=== PATIENT | female | born 1970 | race Caucasian/White ===

== ENCOUNTER 2023-02-02 07:17 | Outpatient (RCR) | payer OTHER, SELFPAY ==
[2023-01-23 09:43] LABS: Basophils Percent Auto 0.5 % (0.2-2.0); Eosinophils Absolute Auto 0.3 10^3/uL (0.0-0.7); Eosinophils Percent Auto 3.6 % (0.9-7.0); Hematocrit 39.5 % (36.0-48.0); Hemoglobin 12.5 g/dL (12.0-16.0); Immature Granulocytes Abs Auto 0.02 10^3/uL (0.00-0.03); Immature Granulocytes Pct Auto 0.3 % (0.0-0.5); Lymphocytes Absolute Auto 2.4 10^3/uL (1.2-3.8); Lymphocytes Percent Auto 32.4 % (20.5-60.0); Mean Corpuscular HGB Conc 31.6 g/dL (29.9-35.2); Mean Corpuscular Hemoglobin 22.9 pg (26.7-34.0); Mean Corpuscular Volume 72.5 fL (81.0-99.0); Mean Platelet Volume 9.3 fL (9.5-13.5); Monocytes Absolute Auto 0.4 10^3/uL (0.3-0.8); Monocytes Percent Auto 4.7 % (1.7-12.0); Neutrophils Absolute Auto 4.4 10^3/uL (1.4-6.5); Neutrophils Percent Auto 58.5 % (43.0-75.0); Platelet Count 271 10^3/uL (150-450); Red Blood Count 5.45 10^6/uL (4.20-5.40); Red Cell Distribution Width 17.2 % (11.0-15.0); White Blood Count 7.5 10^3/uL (4.0-11.0)
[2023-01-23 10:33] LABS: Percent Iron Saturation 11.4 %
[2023-01-24 14:08] LABS: Hgb A 97.6 % (96.4-98.8); Hgb A2 2.4 % (1.8-3.2)
[2023-02-02 08:55] VITALS: BP 156/81; PULSE 97; RESP 18; TEMP 36.3; O2SAT 97
[2023-02-02] MEDS: 0.9 % SODIUM CHLORIDE 250 ML 10 ML IV (09:11)
[2023-02-02] MEDS: ACETAMINOPHEN 500 MG TABLET 1000 MG PO (09:20)
[2023-02-02] MEDS: diphenhydrAMINE HCL 25 MG in 0.9 % SODIUM CHLORIDE 100 ML 301.5 MG IV (09:21)
[2023-02-02] MEDS: HYDROCORTISONE SODIUM SUCC/PF 100 MG in 0.9 % SODIUM CHLORIDE 100 ML 306 MG IV (09:23)
--- NOTE | 2023-02-02 09:52 | PC.NURSE ---
Patient is here for infed infusion, she denies any complaints today. She was given her Tylenol PO, Benadryl IVPB, Solu-Cortef IVPB. She denies any concerns or complaints. Denies any pain, redness, at her IV site.
[2023-02-02] MEDS: IRON DEXTRAN COMPLEX 100 MG/2 ML VIAL 25 MG IVP (10:14)
--- NOTE | 2023-02-02 10:41 | PC.NURSE ---
1015 Infed test dose of 25mg given.. 1042 patient denies any complaints and is resting comfortably.
[2023-02-02] MEDS: IRON DEXTRAN COMPLEX IV (11:14)
[2023-02-02] MEDS: SODIUM CHLORIDE 0.9% IV (11:14)
--- NOTE | 2023-02-02 11:15 | PC.NURSE ---
11:14 Pt completed test dose without any signs or symptoms of reaction. Pt started the remainder of Infed of 875mg and is tolerating well. We will continue to monitor.
--- NOTE | 2023-02-02 14:09 | PC.NURSE ---
Patient has completed Infed infusion and tolerated this well. She denies any issues or concerns. Her IV was discontinued without any pain, redness at the site. She was discharged home ambulatory.
== END 2023-02-02 14:09 | disposition home or self-care (01) ==
LOC: INF 07:17
PROVIDERS: PCP Family Medicine; Visit Provider Internal Medicine Hematology & Oncology
DX: E55.9 Vitamin D deficiency, unspecified (principal); D64.9 Anemia, unspecified; D50.9 Iron deficiency anemia, unspecified; K90.9 Intestinal malabsorption, unspecified; Z98.84 Bariatric surgery status; D50.8 Other iron deficiency anemias
CPT/HCPCS: 36415; 82728; 83540; 83550; 85025; 96365; 96366; 96374; G0463; J1720; J1750

== ENCOUNTER 2023-03-12 16:25 | Outpatient (OUT) | payer BC, SELFPAY ==
--- OUTSIDE RECORDS SUMMARY | 2023-03-12 16:30 | XMS_ITS | CCD ---
Author Name Unknown Address [address] [facility] [address] [place] [id number] Organization [facility] Care Team Providers Care Children'S Tutor Name Role Phone ALEK SHERWOOD Attending Unavailabl e NADERER, ALEK MURRAY Primary Care Unavailabl e TRACY, CUCO Admitting Unavailable TRACY, CUCO Attending Unavailable NADERER, DR ALEK Nolasco Primary Care Unavailable TRACY, CUCO Consulting Unavailable NADERER, DR ALEK Nolasco Admitting Unavailable NADERER, DR ALEK Nolasco Attending Unavailable NADERER, DR ALEK Nolasco Primary Care Unavailable NADERER, DR ALEK Nolasco Consulting Unavailable NADERER, DR ALEK Nolasco Admitting Unavailable NADERER, DR ALEK Nolasco Attending Unavailable NADERER, DR ALEK Nolasco Primary Care Unavailable NADERER, DR ALEK Nolasco Primary Care Unavailable MARKER ., DR MEJIA Admitting Unavailable MARKER ., DR MEJIA Attending Unavailable MARKER ., DR MEJIA Consulting Unavailable GRAY DALTON Consulting Unavailable DELIA, VÍCTOR Thomas Consulting Unavailable Allergies Allergy Classification Reported Allergen(s) Allergy Type Date of Onset Reaction(s) Facility (1 source) Latex Drug allergy (disorder) 07-06-2012 The [facility] Repository Problems Active Problems Problem Classification Problem Date Documented Da te Episodic/Chronic Abdominal pain (4 sources) Epigastric pain; Translations: [EPIGASTRIC PAIN] Onset: 05-18-2022 Episodic Diabetes mellitus without complication (1 source) Type 2 diabetes mellitus without complications; Translations: [TYPE 2 DM WITHOUT COMPLICATIONS] Onset: 05-22-2022 Chronic Essential hypertension (1 source) Essential (primary) hypertension; Translations: [ESSENTIAL PRIMARY HYPERTENSION] Onset: 05-22-2022 Chronic Nutritional deficiencies (1 source) Vitamin D deficiency, unspecified; Translations: [VITAMIN D DEFICIENCY UNSPECIFIED] Onset: 05-30-2022 Chronic Other gastrointestinal disorders (1 source) Bariatric surgery status; Translations: [BARIATRIC SURGERY STATUS] Onset: 05-22-2022 Episodic Pancreatic disorders (not diabetes) (1 source) Biliary acute pancreatitis without necrosis or infection; Translations: [BILIARY ACUTE PANCREATIT WO NEC/INF] Onset: 05-22-2022 Episodic Screening and history of mental health and substance abuse codes (1 source) Personal history of nicotine dependence; Translations: [PERSONAL HISTORY OF NICOTINE DEPEND] Onset: 05-22-2022 Episodic Unclassified (3 sources) CONTACT W/AND (SUSP) EXPOS COVID-19; Translations: [CONTACT W/AND (SUSP) EXPOS COVID-19] Onset: 04-07-2022 Viral infection (1 source) COVID-19; Translations: [COVID-19] Onset: 04-07-2022 Past or Other Problems Problem Classification Problem Date Documented Da te Episodic/Chronic Unclassified (1 source) CONTACT W/AND (SUSP) EXPOS COVID-19; Translations: [CONTACT W/AND (SUSP) EXPOS COVID-19] Onset: 04-03-2022 Results Test Name Value Interpretation Reference Range Facility CBC AUTO DIFFon 05-24-2022 BASO # 0.0 103/ul Normal 0.0-0.1 [facility] Comment on above: Performed By: #### C BC ####[facility] [address] [place], [place] [address]Dr. Yandy Saunders Basophils/100 WBC (Bld) 0.6 % Normal 0.2-2.0 [facility] Comment on above: Performed By: #### C BC ####[facility] [address] [place] [address]Dr. Yandy Saunders EO # 0.1 103/ul Normal 0.0-0.7 [facility] Comment on above: Performed By: #### C BC ####[facility] [address] [place], [place] [address]Dr. Yandy Saunders Eosinophils/100 WBC (Bld) 1.9 % Normal 0.9-7.0 [facility] Comment on above: Performed By: #### C BC ####[facility] M[address] [place], [place] [address]Dr. Yandy Saunders Erythrocyte distribution width (RBC) [Ratio] 18.7 % Critically high 11.0-15.0 [facility] Comment on above: Performed By: #### C BC ####[facility] [address] [place] [address]Dr. Yandy Saunders Hematocrit (Bld) [Volume fraction] 38.7 % Normal 36.0-48.0 [facility] Comment on above: Performed By: #### C BC ####[facility] [address] [place] [address]Dr. Yandy Saunders Hemoglobin (Bld) [Mass/Vol] 12.3 g/dL Normal 12.0-16.0 [facility] Comment on above: Performed By: #### C BC ####[facility] [address] [place], [place] [address]Dr. Yandy Chip IG # 0.03 10e3/ul Normal 0.00-0.03 [facility] Comment on above: Performed By: #### C BC ####[facility] [address] [place], [place] [address]Dr. Yandy Saunders IG % 0.4 % Normal 0.0-0.5 [facility] Comment on above: Performed By: #### C BC ####[facility] [address] [place], [place] [address]DrFredi Yandy Chip LYMPH # 2.2 103/ul Normal 1.2-3.8 [facility] Comment on above: Performed By: #### C BC ####[facility] [address] [place], [place] [address]DrFredi Madinakaylan Saunders Lymphocytes/100 WBC (Bld) 30.8 % Normal 20.5-60.0 [facility] Comment on above: Performed By: #### C BC ####[facility] [address] [place], [place] [address]DrFredi Madinakaylan Saunders MANUAL DIFF REQ NO Normal [facility] Comment on above: Performed By: #### C BC ####[facility] [address] [place] [address]DrFredi Saunders MCH (RBC) [Entitic mass] 22.4 pg Critically low 26.7-34.0 [facility] Comment on above: Performed By: #### C BC ####[facility] [address] [place] [id number]. Yandy Chip MCHC (RBC) [Mass/Vol] 31.8 g/dL Normal 29.9-35.2 [facility] Comment on above: Performed By: #### C BC ####[facility] [address] [place] [id number]. Yandy Saunders MCV (RBC) [Entitic vol] 70.5 fL Critically low 81.0-99.0 [facility] Comment on above: Performed By: #### C BC ####[facility] [address] [place], [place] [address]Dr. Yandy Saunders MONO # 0.4 103/ul Normal 0.3-0.8 [facility] Comment on above: Performed By: #### C BC ####[facility] [address] [place], [place] [address]Dr. Yandy Saunders Monocytes/100 WBC (Bld) 5.3 % Normal 1.7-12.0 [facility] Comment on above: Performed By: #### C BC ####[facility] [address] [place], [place] [address]Dr. Yandy Saunders NEUT # 4.4 103/ul Normal 1.4-6.5 [facility] Comment on above: Performed By: #### C BC ####[facility] [address] [place], [place] [address]Dr. Yandy Saunders Neutrophils/100 WBC (Bld) 61.0 % Normal 43.0-75.0 [facility] Comment on above: Performed By: #### C BC ####[facility] [address] [place], [place] [address]Dr. Yandy Saunders Platelet mean volume (Bld) [Entitic vol] 8.9 fL Critically low 9.5-13.5 The [facility] Comment on above: Performed By: #### C BC ####[facility] [address] [place], [place] [address]Dr. Yandy Saunders PLT 284 103/ul Normal 150-450 [facility] Comment on above: Performed By: #### C BC ####[facility] [address] [place], [place] [address]Nx. Yandy Saunders RBC 5.49 106/ul Critically high 4.20-5.40 [facility] Comment on above: Performed By: #### C BC ####[facility] [address] [place], [place] [address]ErFredi Saunders WBC 7.2 103/ul Normal 4.0-11.0 [facility] Comment on above: Performed By: #### C BC ####[facility] [address] [place] [id number] Saunders GLYCOHEMOGLOBIN A1Con 2022 ADA RECOMMENDATION SEE BELOW Normal [facility] Comment on above: Result Comment: ADA RECOMMENDED LIMIT 4.0 - 6.0 ADA THERAPEUTIC TARGET < 7.0 ACTION SUGGESTED > 7.0 Performed By: #### A 1C #### [facility] [address] [address] [address] Yandy Saunders Glucose [Mass/Vol] 171 mg/dL Normal [facility] Comment on above: Performed By: #### A 1C #### [facility] [address] [address] [address] Yandy Saunders HbA1c (Bld) [Mass fraction] 7.6 % Critically high 4.5-6.2 [facility] Comment on above: Performed By: #### A 1C #### [facility] [address] [address] [address] Yandy Saunders LIPID PROFILEon 05-24-2022 CHOL-HDL RATIO NORM SEE BELOW Normal [facility] Comment on above: Result Comment: 3.3 - 4.4 LOW RISK 4.4 - 7.1 AVERAGE RISK 7.1 - 11.0 MODERATE RISK >11.0 HIGH RISK Performed By: #### L IPID, TSH, BMP, LIVER ####[facility] [address] [place] [id number]. Yandy Saunders Cholesterol [Mass/Vol] 127 mg/dL Normal <=200 [facility] Comment on above: Performed By: #### L IPID, TSH, BMP, LIVER ####[facility] [address] [place] [id number]. Yandy Saunders Cholesterol in HDL [Mass/Vol] 39 mg/dL Critically low 40-60 The [facility] Comment on above: Performed By: #### L IPID, TSH, BMP, LIVER ####[facility] [address] [place] [id number]. Yandy Saunders Cholesterol in LDL [Mass/Vol] 67.0 mg/dL Normal [facility] Comment on above: Performed By: #### L IPID, TSH, BMP, LIVER ####[facility] [address] [place] [id number]. Yandy Chip Cholesterol.total/Ch olesterol in HDL [Mass ratio] 3.3 {ratio} Normal [facility] Comment on above: Performed By: #### L IPID, TSH, BMP, LIVER ####[facility] [address] [place] [address]Dr. Madinakaylan Saunders HDL NORMAL > or = 60 mg/dl - LO W CARDIOVASCULAR RISK <40 mg/dl - HIGH CARDIOVASCULAR RISK Normal [facility] Comment on above: Performed By: #### L IPID, TSH, BMP, LIVER ####[facility] [address] [place] [id number]. Yandy Saunders LDL CALC NORMAL SEE BELOW Normal [facility] Comment on above: Result Comment: <100 mg/dl OPTIMAL 100 - 129 mg/dl NEAR OR ABOVE OPTIMAL 130 - 159 mg/dl BORDERLINE HIGH 160 - 189 mg/dl HIGH >190 mg/dl VERY HIGH Performed By: #### L IPID, TSH, BMP, LIVER ####[facility] [address] [place] [id number]. Madinakaylan Saunders Triglyceride [Mass/Vol] 105 mg/dL Normal <=150 [facility] Comment on above: Performed By: #### L IPID, TSH, BMP, LIVER ####[facility] [address] [place] [id number]. Madinakaylan Chip VLDL CALC 21.0 mg/dL Normal The [facility] Comment on above: Performed By: #### L IPID, TSH, BMP, LIVER ####[facility] [address] [place] [address]Dr. Yandy Saunders LIVER PROFILEon 05-24-2022 Albumin [Mass/Vol] 3.5 g/dL Normal 3.4-5.0 [facility] Comment on above: Performed By: #### L IPID, TSH, BMP, LIVER ####[facility] [address] [place] [address]Dr. Yandy Saunders Albumin/Globulin [Mass ratio] 0.8 {ratio} Normal [facility] Comment on above: Performed By: #### L IPID, TSH, BMP, LIVER ####[facility] [address] [place], [place] [address]Dr. Yandy Saunders ALP [Catalytic activity/Vol] 41 U/L Critically low 46-116 [facility] Comment on above: Performed By: #### L IPID, TSH, BMP, LIVER ####[facility] [address] [place], [place] [address]Dr. Yandy Saunders ALT [Catalytic activity/Vol] 62 U/L Critically high 14-59 [facility] Comment on above: Performed By: #### L IPID, TSH, BMP, LIVER ####[facility] [address] [place], [place] [address]Dr. Yandy Saunders AST [Catalytic activity/Vol] 15 U/L Normal 15-37 [facility] Comment on above: Performed By: #### L IPID, TSH, BMP, LIVER ####[facility] [address] [place], [place] [address]Dr. Yandy Saunders BILI, CONJUGATED 0.1 mg/dL Normal 0.0-0.2 [facility] Comment on above: Performed By: #### L IPID, TSH, BMP, LIVER ####[facility] [address] [place], [place] [address]Dr. Yandy Saunders Bilirubin [Mass/Vol] 0.4 mg/dL Normal 0.2-1.0 [facility] Comment on above: Performed By: #### L IPID, TSH, BMP, LIVER ####[facility] [address] [place] [id number] Saunders Globulin (S) [Mass/Vol] 4.4 g/dL Normal [facility] Comment on above: Performed By: #### L IPID, TSH, BMP, LIVER ####[facility] [address] [place] [address]Dr. Yandy Saunders Protein [Mass/Vol] 7.9 g/dL Normal 6.4-8.2 [facility] Comment on above: Performed By: #### L IPID, TSH, BMP, LIVER ####[facility] [address] [place] [address]Dr. Yandy Saunders PROF CHEM 8 (BAS METB)on Anion gap [Moles/Vol] 13.1 mmol/L Normal [facility] Comment on above: Performed By: #### L IPID, TSH, BMP, LIVER #### [facility] [address] [address] [address] Yandy Saunders Calcium [Mass/Vol] 9.2 mg/dL Normal 8.5-10.1 [facility] Comment on above: Performed By: #### L IPID, TSH, BMP, LIVER #### [facility] [address] [address] [address] Yandy Saunders Chloride [Moles/Vol] 103 mmol/L Normal 98-107 The [facility] Comment on above: Performed By: #### L IPID, TSH, BMP, LIVER #### [facility] [address] [address] [address] Yandy Saunders CO2 [Moles/Vol] 26.6 mmol/L Normal 21.0-32.0 [facility] Comment on above: Performed By: #### L IPID, TSH, BMP, LIVER #### [facility] [address] [address] [address] Yandy Saunders Creatinine [Mass/Vol] 0.67 mg/dL Normal 0.55-1.02 [facility] Comment on above: Performed By: #### L IPID, TSH, BMP, LIVER #### [facility] [address] [address] [address] Yandy Saunders EGFR-AF TURKISH >60 Normal >=60 [facility] Comment on above: Performed By: #### L IPID, TSH, BMP, LIVER #### [facility] [address] [address] [address] Yandy Saunders EGFR-NON AF TURKISH >60 Normal >=60 [facility] Comment on above: Performed By: #### L IPID, TSH, BMP, LIVER #### [facility] [address] [address] [address] Yandy Saunders Glucose [Mass/Vol] 156 mg/dL Critically high 74-106 [facility] Comment on above: Performed By: #### L IPID, TSH, BMP, LIVER #### [facility] [address] [place] [address] Dr. Yandy Saunders Potassium [Moles/Vol] 3.7 mmol/L Normal 3.5-5.1 [facility] Comment on above: Performed By: #### L IPID, TSH, BMP, LIVER #### [facility] [address] [address] [address] Yandy Saunders Sodium [Moles/Vol] 139 mmol/L Normal 136-145 [facility] Comment on above: Performed By: #### L IPID, TSH, BMP, LIVER #### [facility] [address] [place] [address] Dr. Yandy Saunders Urea nitrogen [Mass/Vol] 16.0 mg/dL Normal 7.0-18.0 [facility] Comment on above: Performed By: #### L IPID, TSH, BMP, LIVER #### [facility] [address] [address] [address] Yandy Saunders Urea nitrogen/Creatinine [Mass ratio] 23.9 mg/mg Normal [facility] Comment on above: Performed By: #### L IPID, TSH, BMP, LIVER #### [facility] [address] [address] [address] Yandy Saunders TSHon 05-24-2022 TSH 2.378 uIU/mL Normal 0.358-3.740 [facility] Comment on above: Performed By: #### L IPID, TSH, BMP, LIVER ####[facility] [address] [place], [place] [address]PnDr. Yandy Saunders VITAMIN D 25 OHon 05-24-2022 VIT D 25-OH 29.7 ng/mL Normal [facility] Comment on above: Performed By: #### V ITAD #### [facility] [address] [place], [place] [address] Dr. Yandy Saunders VIT D RANGES SEE BELOW Normal [facility] Comment on above: Result Comment: <20 ng/mL Vit D deficient 20 - <30 ng/mL Vit D insufficient 30 - 100 ng/mL Vit D sufficient >100 ng/mL Potential Toxicity Performed By: #### V ITAD #### [facility] [address] [place], [place] [address] ABD/PELV W CONon 05-20-19 CT ABD/PELV W CON EXAMINATION: CT ABD/PELV W CON HISTORY: UNSPECIFIED ABDOMINAL PAIN COMPARISON: None. TECHNIQUE: Axial CT images through the abdomen and pelvis were obtained after the intravenous administration of 100 mL Omnipaque 300 contrast. Coronal and sagittal reformats were obtained. Dose reduction techniques were achieved by using automated exposure control and/or adjustment of mA and/or kV according to patient size and/or use of iterative reconstruction technique. FINDINGS: The visualized portions of the lung bases are clear. Abdomen: The liver and spleen enhance homogeneously without focal lesion. There is hepatomegaly with the liver measuring up to 19.7 cm at the right midclavicular line. The spleen is enlarged measuring up to 13.8 cm. There is no intra or extrahepatic biliary duct dilatation. There is cholelithiasis with the gallbladder wall thickening. There are postsurgical changes of a gastric bypass. Otherwise, the pancreas, adrenal glands, kidneys, and bowel loops, including the appendix, are unremarkable. There is no mesenteric or retroperitoneal lymphadenopathy. Pelvis: The bladder demonstrates wall thickening. The rectum is unremarkable. There is no iliac or inguinal lymphadenopathy. The uterus is present. The ovaries appear within normal limits by CT. Bone windows show no aggressive osseous lesions. There are postsurgical changes of the proximal right femur. The hardware causes streak artifact which renders evaluation of adjacent structures suboptimal. IMPRESSION: 1. Cholelithiasis with gallbladder wall thickening. Consider further evaluation with a right upper quadrant ultrasound examination as this could represent acute cholecystitis. 2. Hepatosplenomegaly. 3. Status post gastric bypass. 4. Normal appendix. 5. Urinary bladder wall thickening. Please correlate with urinalysis for infection. Electronically authenticated by: Sabine DALTON Date: 2022-05-18 23:03 Normal [facility] Covid-19 PCR (CVDTB)on 04-21 SARS-CoV-2 (COVID-19) RNA BENIGNO+probe Ql (Unsp spec) Not detected Normal NOT DETECTED [facility] Comment on above: Result Comment: When diagnostic testing is negative, the possibility of a false negative should be considered in the context of a patient's recent exposures and the presence of clinical signs and symptoms consistent with SARS-CoV-2. This test is not yet approved or cleared by the [place] FDA. When there are no FDA-approved or cleared tests available, and other criteria are met, FDA can make tests available under an emergency access mechanism called an Emergency Use Authorization (EUA). The EUA for this test is supported by the [employer] of Health and Human Service's declaration that circumstances exist to justify the emergency use of in vitro diagnostics for the detection and/or diagnosis of the virus that causes COVID-19. This EUA will remain in effect for the duration of the COVID-19 declaration justifying emergency of IVDs, unless it is terminated or revoked by the FDA (after which the test may no longer be used). Performed By: #### C VDTB #### [facility] [address] [address] [address] Yandy Saunders CBC AUTO DIFFon 05-18-2022 BASO # 0.0 103/ul Normal 0.0-0.1 [facility] Comment on above: Performed By: #### C BC #### [facility] [address] [address] [address] Yandy Saunders Basophils/100 WBC (Bld) 0.4 % Normal 0.2-2.0 [facility] Comment on above: Performed By: #### C BC #### [facility] [address] [place] [address] Dr. Yandy Saunders EO # 0.2 103/ul Normal 0.0-0.7 [facility] Comment on above: Performed By: #### C BC #### [facility] [address] [place] [address] Dr. Yandy Saunders Eosinophils/100 WBC (Bld) 2.1 % Normal 0.9-7.0 [facility] Comment on above: Performed By: #### C BC #### [facility] [address] [place] [address] Dr. Yandy Saunders Erythrocyte distribution width (RBC) [Ratio] 18.7 % Critically high 11.0-15.0 [facility] Comment on above: Performed By: #### C BC #### [facility] [address] [place] [address] Dr. Yandy Saunders Hematocrit (Bld) [Volume fraction] 38.6 % Normal 36.0-48.0 [facility] Comment on above: Performed By: #### C BC #### [facility] [address] [place] [address] Dr. Yandy Saunders Hemoglobin (Bld) [Mass/Vol] 12.3 g/dL Normal 12.0-16.0 [facility] Comment on above: Performed By: #### C BC #### [facility] [address] [place] [address] Dr. Yandy Saunders IG # 0.03 10e3/ul Normal 0.00-0.03 [facility] Comment on above: Performed By: #### C BC #### [facility] [address] [place] [address] Dr. Yandy Saunders IG % 0.4 % Normal 0.0-0.5 [facility] Comment on above: Performed By: #### C BC #### [facility] [address] [place] [address] Dr. Yandy Saunders LYMPH # 2.3 103/ul Normal 1.2-3.8 [facility] Comment on above: Performed By: #### C BC #### [facility] [address] [place] [address] Dr. Yandy Saunders Lymphocytes/100 WBC (Bld) 31.5 % Normal 20.5-60.0 [facility] Comment on above: Performed By: #### C BC #### [facility] [address] [place] [address] Dr. Yandy Saunders MANUAL DIFF REQ NO Normal [facility] Comment on above: Performed By: #### C BC #### [facility] [address] [place] [address] Dr. Yandy Saunders MCH (RBC) [Entitic mass] 22.3 pg Critically low 26.7-34.0 [facility] Comment on above: Performed By: #### C BC #### [facility] [address] [place] [address] Dr. Yandy Saunders MCHC (RBC) [Mass/Vol] 31.9 g/dL Normal 29.9-35.2 [facility] Comment on above: Performed By: #### C BC #### [facility] [address] [place] [address] Dr. Yandy Saunders MCV (RBC) [Entitic vol] 70.1 fL Critically low 81.0-99.0 [facility] Comment on above: Performed By: #### C BC #### [facility] [address] [place] [address] Dr. Yandy Saunders MONO # 0.3 103/ul Normal 0.3-0.8 [facility] Comment on above: Performed By: #### C BC #### [facility] [address] [place] [address] Dr. Yandy Saunders Monocytes/100 WBC (Bld) 4.5 % Normal 1.7-12.0 [facility] Comment on above: Performed By: #### C BC #### [facility] [address] [place] [address] Dr. Yandy Saunders NEUT # 4.5 103/ul Normal 1.4-6.5 [facility] Comment on above: Performed By: #### C BC #### [facility] [address] [place] [address] Dr. Yanyd Saunders Neutrophils/100 WBC (Bld) 61.1 % Normal 43.0-75.0 [facility] Comment on above: Performed By: #### C BC #### [facility] [address] [address] [address] Yandy Saunders Platelet mean volume (Bld) [Entitic vol] 9.1 fL Critically low 9.5-13.5 [facility] Comment on above: Performed By: #### C BC #### [facility] [address] [address] [address] Yandy Saunders PLT 272 103/ul Normal 150-450 [facility] Comment on above: Performed By: #### C BC #### [facility] [address] [place] [address] Dr. Yandy Saunders RBC 5.51 106/ul Critically high 4.20-5.40 [facility] Comment on above: Performed By: #### C BC #### [facility] [address] [place] [address] Dr. Yandy Saunders WBC 7.3 103/ul Normal 4.0-11.0 [facility] Comment on above: Performed By: #### C BC #### [facility] [address] [place] [address] Dr. Yandy Saunders ER URINE PROFILEon 3 Bilirubin Ql (U) Negative Normal NEGATIVE The [facility] Comment on above: Performed By: #### E RUR ####[facility] [address] [place], [place] [address]DrFredi Saunders Clarity (U) CLEAR Normal CLEAR The [facility] Comment on above: Performed By: #### E RUR ####[facility] [address] [place] [address]DrFredi Saunders Color (U) YELLOW Normal YELLOW The [facility] Comment on above: Performed By: #### E RUR ####[facility] [address] [place] [address]DrFredi Saunders ERUAHD A micrscopic examination will be performed if indicated. Normal The [facility] Comment on above: Performed By: #### E RUR ####[facility] [address] [place] [address]Dr. Yandy Saunders Glucose Ql (U) Negative Normal NEGATIVE The [facility] Comment on above: Performed By: #### E RUR ####[facility] [address] [place] [address]Dr. Yandy Saunders Hemoglobin Ql (U) Negative Normal NEGATIVE The [facility] Comment on above: Performed By: #### E RUR ####[facility] [address] [place] [address]Dr. Yandy Saunders Ketones Ql (U) Negative Normal NEGATIVE [facility] Comment on above: Performed By: #### E RUR ####[facility] [address] [place], [place] [address]Dr. Yandy Saunders LEUKOCYTES Negative Normal NEGATIVE [facility] Comment on above: Performed By: #### E RUR ####[facility] [address] [place], [place] [address]Dr. Yandy Saunders Nitrite Ql (U) Negative Normal NEGATIVE [facility] Comment on above: Performed By: #### E RUR ####[facility] [address] [place], [place] [address]Dr. Yandy Saunders pH (U) 5.5 [pH] Normal 5-9 [facility] Comment on above: Performed By: #### E RUR ####[facility] [address] [place], [place] [address]Dr. Yandy Saunders SPEC GRAVITY >=1.030 Abnormal 1.005-<=1.025 The [facility] Comment on above: Performed By: #### E RUR ####[facility] [address] [place], [place] [address]Dr. Yandy Saunders UA PROTEIN Negative Normal NEGATIVE/ TRACE The [facility] Comment on above: Performed By: #### E RUR ####[facility] [address] [place], [place] [address]Dr. Yandy Saunders UR MICRO IND NOT INDICATED Normal The [facility] Comment on above: Performed By: #### E RUR ####[facility] [address] [place] [address]Dr. Yandy Saunders Urobilinogen Qn (U) 0.2 {Jacqueline'U}/dL Normal 0.2 - 1. 0 [facility] Comment on above: Performed By: #### E RUR ####[facility] [address] [place] [id number]. Yandy Saunders LIPASEon 05-18-2022 Lipase [Catalytic activity/Vol] 1358.0 U/L Critically high 73.0-393.0 [facility] Comment on above: Performed By: #### L IPA, CMP #### [facility] [address] [address] [address] Yandy Saunders PROF 14(COMP METB)on 023 Albumin [Mass/Vol] 3.6 g/dL Normal 3.4-5.0 [facility] Comment on above: Performed By: #### L IPA, CMP #### [facility] [address] [place] [address] Dr. Yandy Saunders Albumin/Globulin [Mass ratio] 0.9 {ratio} Normal [facility] Comment on above: Performed By: #### L IPA, CMP #### [facility] [address] [place] [address] Dr. Yandy Saunders ALP [Catalytic activity/Vol] 58 U/L Normal 46-116 [facility] Comment on above: Performed By: #### L IPA, CMP #### [facility] [address] [address] [address] Yandy Saunders ALT [Catalytic activity/Vol] 34 U/L Normal 14-59 The [facility] Comment on above: Performed By: #### L IPA, CMP #### [facility] [address] [address] [address] Yandy Saunders Anion gap [Moles/Vol] 14.0 mmol/L Normal [facility] Comment on above: Performed By: #### L IPA, CMP #### [facility] [address] [place] [address] Dr. Yandy Saunders AST [Catalytic activity/Vol] 44 U/L Critically high 15-37 [facility] Comment on above: Performed By: #### L IPA, CMP #### [facility] [address] [address] [address] Yandy Saunders Bilirubin [Mass/Vol] 0.2 mg/dL Normal 0.2-1.0 [facility] Comment on above: Performed By: #### L IPA, CMP #### [facility] [address] [address] [address] Yandy Saunders Calcium [Mass/Vol] 8.9 mg/dL Normal 8.5-10.1 [facility] Comment on above: Performed By: #### L IPA, CMP #### [facility] [address] [address] [address] Yandy Saunders Chloride [Moles/Vol] 104 mmol/L Normal 98-107 [facility] Comment on above: Performed By: #### L IPA, CMP #### [facility] [address] [place] [address] Dr. Yandy Saunders CO2 [Moles/Vol] 24.7 mmol/L Normal 21.0-32.0 [facility] Comment on above: Performed By: #### L IPA, CMP #### [facility] [address] [place] [address] Dr. Yandy Saunders Creatinine [Mass/Vol] 0.82 mg/dL Normal 0.55-1.02 [facility] Comment on above: Performed By: #### L IPA, CMP #### [facility] [address] [place] [address] Dr. Yandy Saunders EGFR-AF TURKISH >60 Normal >=60 [facility] Comment on above: Performed By: #### L IPA, CMP #### [facility] [address] [place] [address] Dr. Yandy Saunders EGFR-NON AF TURKISH >60 Normal >=60 [facility] Comment on above: Performed By: #### L IPA, CMP #### [facility] [address] [place] [address] Dr. Yandy Saunders Globulin (S) [Mass/Vol] 4.1 g/dL Normal [facility] Comment on above: Performed By: #### L IPA, CMP #### [facility] [address] [address] [address] Yandy Saunders Glucose [Mass/Vol] 215 mg/dL Critically high 74-106 [facility] Comment on above: Performed By: #### L IPA, CMP #### [facility] [address] [address] [address] Yandy Saunders Potassium [Moles/Vol] 3.7 mmol/L Normal 3.5-5.1 [facility] Comment on above: Performed By: #### L IPA, CMP #### [facility] [address] [address] [address] Yandy Saunders Protein [Mass/Vol] 7.7 g/dL Normal 6.4-8.2 [facility] Comment on above: Performed By: #### L IPA, CMP #### [facility] [address] [address] [address] Yandy Saunders Sodium [Moles/Vol] 139 mmol/L Normal 136-145 [facility] Comment on above: Performed By: #### L IPA, CMP #### [facility] [address] [address] [address] Yandy Saunders Urea nitrogen [Mass/Vol] 18.0 mg/dL Normal 7.0-18.0 [facility] Comment on above: Performed By: #### L IPA, CMP #### [facility] [address] [place] [address] Dr. Yandy Saunders Urea nitrogen/Creatinine [Mass ratio] 22.0 mg/mg Normal [facility] Comment on above: Performed By: #### L IPA, CMP #### [facility] [address] [address] [address] Yandy Saunders Covid-19 PCR ([facility])on 03-22 SARS-CoV-2 (COVID-19) RNA BENIGNO+probe Ql (Unsp spec) Detected Abnormal NOT DETECTED [facility] Comment on above: Result Comment: This test is not yet approved or cleared by the [place] FDA. When there are no FDA-approved or cleared tests available, and other criteria are met, FDA can make tests available under an emergency access mechanism called an Emergency Use Authorization (EUA). The EUA for this test is supported by the [employer] Operator of Health and Human Service's declaration that circumstances exist to justify the emergency use of in vitro diagnostics for the detection and/or diagnosis of the virus that causes COVID-19. This EUA will remain in effect for the duration of the COVID-19 declaration justifying emergency of IVDs, unless it is terminated or revoked by the FDA (after which the test may no longer be used). Performed By: #### C VDTB #### [facility] [address] [place] [address] Dr. Yandy Saunders INFLUENZA A AND B AGon 04-03 [facility] SEE BELOW Normal [facility] Comment on above: Result Comment: Nega tive for Flu A protein angiten. Infection due to Flu A cannot be ruled out. Flu A angiten in the sample may be below the detection limit of the test. Performed By: #### I NFLUAB #### [facility] [address] [place] [address] Dr. Y[facility] Normal [facility] Comment on above: Result Comment: Nega tive for Flu B protein antigen. Infection due to Flu B cannot be ruled out. Flu B antigen in the sample may be below the detection limit of the test. Performed By: #### I NFLUAB #### [facility] [address] [place] [address] Dr. Yandy Saunders INFLUENZA A AG Negative Normal NEGATIVE SEE COMMENT [facility] Comment on above: Performed By: #### I NFLUAB #### [facility] [address] [place] [address] Dr. Yandy Saunders INFLUENZA B AG Negative Normal NEGATIVE SEE COMMENT [facility] Comment on above: Performed By: #### I NFLUAB #### [facility] [address] [place] [address] Dr. Yandy Saunders CNNURSEon 12-24-2020 CNNURSE Nurse Visit (HEMASA) SUE MOMIN ([id number]) 1970 F CHT Date Time Provider Department 12/24/20 3:30 PM SUSAN NURSE AMINA KITTY AVALOS During your visit today, we recorded the following information about you: Temperature Pulse Respiration Blood pressure 97.4 degrees 96/minute 18/minute 152/77 Sobia Gonzalez MA 12/24/2020 3:20 PM Signed Patient Identification confirmed: yes. Injection given and documented on APR per provider order. Sobia Gonzalez MA Referring Provider: DRAGAN MOHR [[id number]] Allergies As of Date: 12/24/2020 Noted Allergy Reaction Envoirnmental [Other] 10/29/2000 LATEX 05/19/2020 2 - Rash Comments: Rash - itch and swelling Date Reviewed: 11/26/2020 Reviewed by: Sobia Gonzalez MA - Fully Assessed Primary Visit Diagnosis:S/P gastric bypass [Z98.84] Order(s):TREATMENT PARAMETER-NOT NEEDED [[id number]] Order #: [id number]: 1 [facility] NURSING COMMUNICATION [[id number]] Order #: [id number]: 1 STANDING [] cyanocobalamin 1,000 mcg injectionDisp: Rfl: Prescriptions as of 12/24/2020 - folic acid 1 mg tablet Take 1 mg by mouth once daily. - THIAMINE HCL ORAL Take 1,000 mg by mouth once daily. - ascorbic acid, vitamin C, (VITAMIN C) 500 mg tablet Take 1 tablet by mouth twice daily with meals for 21 doses. - multivitamin tablet Take 1 tablet by mouth once daily. - glipiZIDE (GLUCOTROL XL) 10mg 24 hr tablet Take 10 mg by mouth once daily. - cholecalciferol (VITAMIN D-3) 50 mcg (2,000 unit) tablet Take 2,000 Units by mouth once daily. - losartan (COZAAR) 50 mg tablet Take 50 mg by mouth once daily. Problem List As Of Date 12/24/2020 Noted Resolved Class 3 severe obesity due to excess calories w*05/20/2020 Essential hypertension [I10] 05/20/2020 Type 2 diabetes mellitus without complication, *05/20/2020 Heartburn [R12] 05/20/2020 Iron deficiency anemia [D50.9] 05/20/2020 Nicotine use disorder, F17.2 [F17.200] 05/25/2020 Stress fracture of right femur [M84.351A] 05/25/2020 Cardiac murmur, unspecified [R01.1] 12/12/2019 Iron deficiency anemia secondary to inadequate *06/04/2020 Closed fracture of right hip with delayed heali*08/12/2020 Fall [W19.XXXA] 08/12/2020 Closed right hip fracture (HCC) [S72.001A] 08/12/2020 Obesity, Class II, BMI 35-39.9 [E66.9] 08/12/2020 Periprosthetic hip fracture [M97.8XXA, Z96.649] 08/13/2020 Acute postoperative pain of right hip [G89.18, *08/17/2020 08/17/2020 S/P gastric bypass [Z98.84] 09/24/2020 Visit Notes: >> Sobia Gonzalez MA Fri Dec 24, 2020 3:19 PM Status: Signed Patient Identification confirmed: yes. Injection given and documented on APR per provider order. Sobia Gonzalez MA Prescriptions ordered this encounter Disp Refills Start End CYANOCOBALAMIN (VIT B-12) 1,000 MCG/* 12/24/2020 12/24/2020 Route: INTRAMUSCULA Encounter Status:Closed by SOBIA GONZALEZ on 12/24/20 [facility] 11-26-[address] [facility] ([facility]) SUE MOMIN ([id number]) 1970 F CHT Date Time Provider Department 11/26/20 2:15 PM SUSAN NURSE AMINA AVALOS During your visit today, we recorded the following information about you: Sobia Gonzalez MA 11/26/2020 2:37 PM Signed Patient Identification confirmed: yes. Injection given and documented on APR per provider order. Sobia Gonzalez MA Referring Provider: DRAGAN MOHR [[id number]] Allergies As of Date: 11/26/2020 Noted Allergy Reaction Envoirnmental [Other] 10/29/2000 LATEX 05/19/2020 2 - Rash Comments: Rash - itch and swelling Date Reviewed: 11/26/2020 Reviewed by: Sobia Gonzalez MA - Fully Assessed Primary Visit Diagnosis:S/P gastric bypass [Z98.84] Order(s):[facility] NURSING COMMUNICATION [[id number]] Order #: [id number]: 1 STANDING [] cyanocobalamin 1,000 mcg injectionDisp: Rfl: Prescriptions as of 11/26/2020 - folic acid 1 mg tablet Take 1 mg by mouth once daily. - THIAMINE HCL ORAL Take 1,000 mg by mouth once daily. - aspirin, enteric coated (ASPIRIN, ENTERIC COATED) 81 mg EC tablet Take 1 tablet by mouth twice daily. - ascorbic acid, vitamin C, (VITAMIN C) 500 mg tablet Take 1 tablet by mouth twice daily with meals for 21 doses. - multivitamin tablet Take 1 tablet by mouth once daily. - glipiZIDE (GLUCOTROL XL) 10mg 24 hr tablet Take 10 mg by mouth once daily. - cholecalciferol (VITAMIN D-3) 50 mcg (2,000 unit) tablet Take 2,000 Units by mouth once daily. - PARoxetine (PAXIL) 10 mg tablet Take 10 mg by mouth once daily. - losartan (COZAAR) 50 mg tablet Take 50 mg by mouth once daily. - potassium chloride 20 mEq TbER Take by mouth. - INV FUROSEMIDE 40 MG TABLET (IRB 18-610) Take by mouth. For Investigational Drug Use Only. PI: Jordan Joy MD. Problem List As Of Date 11/26/2020 Noted Resolved Class 3 severe obesity due to excess calories w*05/20/2020 Essential hypertension [I10] 05/20/2020 Type 2 diabetes mellitus without complication, *05/20/2020 Heartburn [R12] 05/20/2020 Iron deficiency anemia [D50.9] 05/20/2020 Nicotine use disorder, F17.2 [F17.200] 05/25/2020 Stress fracture of right femur [M84.351A] 05/25/2020 Cardiac murmur, unspecified [R01.1] 12/12/2019 Iron deficiency anemia secondary to inadequate *06/04/2020 Closed fracture of right hip with delayed heali*08/12/2020 Fall [W19.XXXA] 08/12/2020 Closed right hip fracture (HCC) [S72.001A] 08/12/2020 Obesity, Class II, BMI 35-39.9 [E66.9] 08/12/2020 Periprosthetic hip fracture [M97.8XXA, Z96.649] 08/13/2020 Acute postoperative pain of right hip [G89.18, *08/17/2020 08/17/2020 S/P gastric bypass [Z98.84] 09/24/2020 Visit Notes: >> Sobia Gonzalez MA Fri Nov 26, 2020 2:36 PM Status: Signed Patient Identification confirmed: yes. Injection given and documented on APR per provider order. Sobia Gonzalez MA Prescriptions ordered this encounter Disp Refills Start End CYANOCOBALAMIN (VIT B-12) 1,000 MCG/* 11/26/2020 11/26/2020 Route: INTRAMUSCULA Encounter Status:Closed by SOBIA GONZALEZ on 11/26/20 [facility] CNOVSPon 11-26-2020 CNOVSP Visit (SP) Office (HEMASA) SUE MOMIN ([id number]) 1970 F CHT Date Time Provider Department 11/26/20 2:00 PM DRAGAN MOHR During your visit today, we recorded the following information about you: Temperature Pulse Respiration Blood pressure 97.3 degrees 90/minute 18/minute 140/74 Weight Height 101 kg 1.626 m Dragan Mohr MD 11/30/2020 8:40 PM Signed NAME: Sue Momin CLINIC NO.: [id number] DATE OF SERVICE: November 26, 2020 Some elements in this clinic note that are critical to medical decision making have been carefully reviewed and included from a prior clinic note dated: September 24, 2020 Referring Provider: Nicolasa Mcneill PA-C Additional Clinicians involved in Sue Momin's care: Alek Sherwood CC: Anemia ASSESSMENT: 1. Other iron deficiency anemia She was found to be severely anemic during a recent operation for a right femur fracture in early 2020. She required 2 units of PRBCs and recently received IV iron on 06/15/2020 due to poor absorption following her gastric bypass 20 year ago. She would also probably benefit from GI consult as she is 50 years old with iron deficiency anemia. Patient reluctant, but agrees.to reschedule.. 2. S/P gastric bypass She had gastric bypass over 20 years ago, which is likely the cause of her iron deficiency. B12 has been normal in the past. PLAIN: 1. Labs in 8 weeks include CBC, CMP, Iron, B12 2. B12 shot today and q 4 weeks 2. RTC in 9 weeks to review results and plan iron infusion as well as B12 shot after. 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 Recovering nicely from ortho injuries. Diabetes is improving. Needs a new PCP. B12 is relatively low. Updated Visit, September 24, 2020: Sue is 50 and after having had a hip replacement, she fell and refractured and needed extensive repair. Remains in a wheelchair for now and will delay her GI workup until she is ambulatory. Hgb is excellent and B12 will be reassessed. Doesn't need anything for now. Updated Visit, June 25, 2020: Patient returns for follow up after having IV iron on 4.27.2021 for iron deficiency due to malabsorption. She tolerated it well and is feeling better. She denies any bleeding. She reports she has never had a GI work up. Initial Visit, June 04, 2020: Sue Momin presents today Hematology and Oncology evaluation. She is a 49 year old female who had a Right femur fracture after slipping on the ice. 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 Quit smoking after her surgery with internal fixation. Found her to be severely anemic with Hgb of 7.8 05/27/2020 Transfused x 2 Today 10.2 Also found to have DM Probably need sleep study due to fatigue and daytime somnolence as well as body habitus. Gastric bypass - 20 years ago Which is the likely cause of her iron deficiency and also likely to have malabsorption of B12. still smoke 3 ppd. REVIEW OF SYSTEMS Per HPI and otherwise negative by full review of organ systems. ECOG PERFORMANCE STATUS: 1 PHYSICAL EXAMINATION: Vitals: BP 140/74 Pulse 90 Temp (Src) 97.3 (Temporal) Resp 18 Ht 5' 4.016 (1.63m) Wt 222 lb 9.6 oz (101.0kg) SpO2 97% LMP 05/12/2020 BMI 38.19 kg/(m2). Very pleasant, morbidly obese. Exam limited to gross visualization where appropriate due to COVID-19. Gen.: This is an age-appropriate patient in no acute distress. Head: Appears atraumatic with no visible lesions. Eyes: Pupils equally round and reactive to light, extraocular muscles are intact. Neck: Supple. Mouth: Mucous membranes appeared to be moist. Respiratory: Appears to be respiring comfortably. Neurologic: Nonfocal to gross visualization. Alert and oriented ?3. Psychiatric: No evidence of inappropriate anxiety or depression. Skin: Visible areas of skin without rash, lesions, wounds or petechiae. ALLERGIES: ALLERGIES Allergen Reactions - Envoirnmental [Othe* - Latex Rash Rash - itch and swelling MEDICATIONS: folic acid 1 mg tablet Take 1 mg by mouth once daily. THIAMINE HCL ORAL Take 1,000 mg by mouth once daily. ascorbic acid, vitamin C, (VITAMIN C) 500 mg tablet Take 1 tablet by mouth twice daily with meals for 21 doses. multivitamin tablet Take 1 tablet by mouth once daily. glipiZIDE (GLUCOTROL XL) 10mg 24 hr tablet Take 10 mg by mouth once daily. cholecalciferol (VITAMIN D-3) 50 mcg (2,000 unit) tablet Take 2,000 Units by mouth once daily. losartan (COZAAR) 50 mg tablet Take 50 mg by mouth once daily. aspirin, enteric coated (ASPIRIN, ENTERIC COATED) 81 mg EC tablet Take 1 tablet by mouth twice daily. PARoxetine (PAXIL) 10 mg tablet Take 10 mg by mouth once daily. potassium chloride 20 mEq TbER Take by mouth. INV FUROSEMIDE 40 MG TABLET (IRB 18-610) Take by mouth. Fo (more content not included)... Normal [facility] Comp Metabolic Panelon 11-19 Albumin Duplicate request Normal 3.9-4.9 [facility] Comment on above: Result Comment: Acco unt Credited DUPLICATE ORDER MW [id number] Performed By: #### F ERR, B12, CMP, IRON ####[place] [phone] Alkaline Phosphatase Duplicate request Normal 34-123 [facility] Comment on above: Result Comment: Acco unt Credited DUPLICATE ORDER MW [id number] 0658 Performed By: #### F ERR, B12, CMP, IRON ####[place] [phone] ALT Duplicate request Normal 7-38 [facility] Comment on above: Result Comment: Acco unt Credited DUPLICATE ORDER MW [id number] 0658 Performed By: #### F ERR, B12, CMP, IRON ####[place] [id number] [place] [phone] Anion Gap Duplicate request Normal 9-18 [facility] Comment on above: Result Comment: Acco unt Credited DUPLICATE ORDER MW [id number] 0658 Performed By: #### F ERR, B12, CMP, IRON ####[place] [id number] [place] [phone] AST Duplicate request Normal 13-35 [facility] Comment on above: Result Comment: Acco unt Credited DUPLICATE ORDER MW [id number] 0658 Performed By: #### F ERR, B12, CMP, IRON ####[facility] [address] [phone] Bilirubin, Total Duplicate request Normal 0.2-1.3 [facility] Comment on above: Result Comment: Acco unt Credited DUPLICATE ORDER MW [id number] 0658 Performed By: #### F ERR, B12, CMP, IRON ####[facility] [phone] BUN Duplicate request Normal 7-21 [facility] Comment on above: Result Comment: Acco unt Credited DUPLICATE ORDER MW [id number] 0658 Performed By: #### F ERR, B12, CMP, IRON ####[place] [address] [address] [phone] Calcium, Total Duplicate request Normal 8.5-10.2 [facility] Comment on above: Result Comment: Acco unt Credited DUPLICATE ORDER MW [id number] 0658 Performed By: #### F ERR, B12, CMP, IRON ####[facility] [phone] Chloride Duplicate request Normal 97-105 [facility] Comment on above: Result Comment: Acco unt Credited DUPLICATE ORDER MW [id number] 0658 Performed By: #### F ERR, B12, CMP, IRON ####[facility] [phone] CO2 Duplicate request Normal 22-30 [facility] Comment on above: Result Comment: Acco unt Credited DUPLICATE ORDER MW [id number] 0658 Performed By: #### F ERR, B12, CMP, IRON ####[facility] [phone] Creatinine Duplicate request Normal 0.58-0.96 [facility] Comment on above: Result Comment: Acco unt Credited DUPLICATE ORDER MW [id number] 0658 Performed By: #### F ERR, B12, CMP, IRON ####[facility] [phone] eGFR- Amer. Duplicate request Normal [facility] Comment on above: Result Comment: Acco unt Credited DUPLICATE ORDER MW [id number] 0658 Performed By: #### F ERR, B12, CMP, IRON ####[facility] [phone] eGFR-All Other Races Duplicate request Normal [facility] Comment on above: Result Comment: Acco unt Credited DUPLICATE ORDER MW [id number] Performed By: #### F ERR, B12, CMP, IRON ####[place] [id number] [place] [address] [phone] eGFR-Ped. Factor Duplicate request Normal [facility] Comment on above: Result Comment: Acco unt Credited DUPLICATE ORDER MW [id number] Performed By: #### F ERR, B12, CMP, IRON ####[facility] [place] [phone] Glucose Duplicate request Normal 74-99 [facility] Comment on above: Result Comment: Acco unt Credited DUPLICATE ORDER MW [id number] Performed By: #### F ERR, B12, CMP, IRON ####[facility] [place] [phone] Potassium Duplicate request Normal 3.7-5.1 [facility] Comment on above: Result Comment: Acco unt Credited DUPLICATE ORDER MW [id number] Performed By: #### F ERR, B12, CMP, IRON ####[facility] [place] [phone] Protein, Total Duplicate request Normal 6.3-8.0 [facility] Comment on above: Result Comment: Acco unt Credited DUPLICATE ORDER MW [id number] Performed By: #### F ERR, B12, CMP, IRON ####[facility] [place] [phone] Sodium Duplicate request Normal 136-144 [facility] Comment on above: Result Comment: Acco unt Credited DUPLICATE ORDER MW [id number] Performed By: #### F ERR, B12, CMP, IRON ####[address] [phone] Albumin [Mass/Vol] 4.2 g/dL Normal 3.9-4.9 [facility] Comment on above: Performed By: #### C MP ####[place] [phone] ALP [Catalytic activity/Vol] 35 U/L Normal 34-123 [facility] Comment on above: Performed By: #### C MP ####[place] [phone] ALT [Catalytic activity/Vol] 15 U/L Normal 7-38 [facility] Comment on above: Performed By: #### C MP ####[address] [phone] Anion gap [Moles/Vol] 15 mmol/L Normal 9-18 [facility] Comment on above: Performed By: #### C MP ####[address] [phone] AST [Catalytic activity/Vol] 25 U/L Normal 13-35 [facility] Comment on above: Performed By: #### C MP ####[address] [phone] Bilirubin [Mass/Vol] 0.3 mg/dL Normal 0.2-1.3 [facility] Comment on above: Performed By: #### C MP ####[address] [phone] Calcium [Mass/Vol] 9.8 mg/dL Normal 8.5-10.2 [facility] Comment on above: Performed By: #### C MP ####[facility], [place] [phone] Chloride [Moles/Vol] 104 mmol/L Normal 97-105 [facility] Comment on above: Performed By: #### C MP ####[place] [address], [place] [phone] CO2 [Moles/Vol] 22 mmol/L Normal 22-30 [facility] Comment on above: Performed By: #### C MP ####[address] [phone] Creatinine [Mass/Vol] 0.75 mg/dL Normal 0.58-0.96 [facility] Comment on above: Performed By: #### C MP ####[address] [phone] eGFR- Amer. >60 Normal [facility] Comment on above: Performed By: #### C MP ####[address] [phone] eGFR-All Other Races >60 Normal [facility] Comment on above: Result Comment: eGFR (Estimated GFR) Units of measure: mL/min/1.73 meters squared eGFR is derived from the reexpressed MDRD Study equation using the following parameters: serum creatinine, age, gender and race. The creatinine assay has been calibrated to be traceable to IDMS. An eGFR <60 mL/min/1.73m2 for >3 months is consistent with chronic kidney disease. Refer to KDOQI guidelines for clinical interpretation. In patients with unstable renal function, e.g. those with acute kidney injury, the eGFR may not accurately reflect actual GFR. Performed By: #### C MP ####[address] [phone] Glucose [Mass/Vol] 71 mg/dL Low 74-99 [facility] Comment on above: Result Comment: The [place] Diabetes Association (ADA) provides guidance for cutoff values for fasting glucose and random glucose. The ADA defines fasting as no caloric intake for at least 8 hours. Fasting plasma glucose results between 100 to 125 mg/dL indicate increased risk for diabetes (prediabetes). Fasting plasma glucose results greater than or equal to 126 mg/dL meet the criteria for diagnosis of diabetes. In the absence of unequivocal hyperglycemia, results should be confirmed by repeat testing. In a patient with classic symptoms of hyperglycemia or hyperglycemic crisis, random plasma glucose results greater than or equal to 200 mg/dL meet the criteria for diagnosis of diabetes. Reference: Standards of Medical Care in Diabetes 2016, [place] Diabetes Association. Diabetes Care. 2016.39(Suppl 1). Performed By: #### C MP ####[address] [phone] Potassium [Moles/Vol] 4.7 mmol/L Normal 3.7-5.1 [facility] Comment on above: Performed By: #### C MP ####[address] [phone] Protein [Mass/Vol] 7.8 g/dL Normal 6.3-8.0 [facility] Comment on above: Performed By: #### C MP ####[address] [phone] Sodium [Moles/Vol] 141 mmol/L Normal 136-144 [facility] Comment on above: Performed By: #### C MP ####[address] [phone] Urea nitrogen [Mass/Vol] 21 mg/dL Normal 7-21 [facility] Comment on above: Performed By: #### C MP ####[address] [phone] Ferritinon 11-19-2020 Ferritin [Mass/Vol] 58.2 ng/mL Normal 14.7-205.1 [facility] Comment on above: Performed By: #### F ERR, B12, CMP, IRON ####[address] [phone] Iron and TIBCon 11-19-2020 Iron [Mass/Vol] 44 ug/dL Normal 41-186 [facility] Comment on above: Performed By: #### F ERR, B12, CMP, IRON ####[facility] [address], [place] [phone] TIBC 333 ug/dL Normal 232-386 [facility] Comment on above: Performed By: #### F ERR, B12, CMP, IRON ####[facility] [address], [place] [phone] Transferrin Saturatn 13 % Low 15-57 [facility] Comment on above: Performed By: #### F ERR, B12, CMP, IRON ####[facility] [address], [place] [phone] Remote CBCDIF (for [facility] use o nly)on 11-19-2020 Abs Baso 0.03 k/uL Normal <0.11 [facility] Abs [place] 0.37 k/uL Normal <0.87 [facility] Abs Neut 4.56 k/uL Normal 1.45-7.50 [facility] Absolute nRBC <0.01 Normal <0.01 [facility] Basophils/100 WBC (Bld) 0.4 % Normal [facility] DTYPE Auto Diff Normal [facility] Eosinophils (Bld) [#/Vol] 0.15 10*3/uL Normal <0.46 [facility] Eosinophils/100 WBC (Bld) 2.1 % Normal [facility] Erythrocyte distribution width (RBC) [Ratio] 15.4 % High 11.5-15.0 [facility] Hematocrit (Bld) [Volume fraction] 39.7 % Normal 36.0-46.0 [facility] Hemoglobin (Bld) [Mass/Vol] 13.2 g/dL Normal 11.5-15.5 [facility] Lymphocytes (Bld) [#/Vol] 2.14 10*3/uL Normal 1.00-4.00 [facility] Lymphocytes/100 WBC (Bld) 29.5 % Normal [facility] MCH 27.8 pG Normal 26.0-34.0 [facility] MCHC (RBC) [Mass/Vol] 33.2 g/dL Normal 30.5-36.0 [facility] MCV (RBC) [Entitic vol] 83.6 fL Normal 80.0-100.0 [facility] Monocytes/100 WBC (Bld) 5.1 % Normal [facility] Neutrophils/100 WBC (Bld) 62.9 % Normal [facility] NRBCs 0.0 /100 WBC Normal 0 [facility] Platelet mean volume (Bld) [Entitic vol] 9.0 fL Normal 9.0-12.7 [facility] Platelets (Bld) [#/Vol] 244 10*3/uL Normal 150-400 [facility] RBC (Bld) [#/Vol] 4.75 10*6/uL Normal 3.90-5.20 [facility] WBC (Bld) [#/Vol] 7.25 10*3/uL Normal 3.70-11.00 [facility] Vitamin B12on 11-19-2020 Cobalamin (Vitamin B12) [Mass/Vol] 381 pg/mL Normal 232-1245 [facility] Comment on above: Performed By: #### F ERR, B12, CMP, IRON ####[facility] [address] [place], [place] [phone] CNOVon 11-08-2020 CNOV Office Visit ([facility]IL[facility] ) SUE MOMIN ([id number]) 1970 F CHT Date Time Provider Department 11/08/20 3:30 PM MARYBEL MASON During your visit today, we recorded the following information about you: Marybel Mason PA-C 11/08/2020 3:39 PM Signed HISTORY: Sue is a 50 year old female. She is here for follow up on her right hip fracture. She is about 3 months status post cephlomedullary nail. She has no complaints of any pain in the hip. She is using a cane for stability and some weakness. She has been working on her strengthening exercises. She denies any numbness in her leg or foot. The patient's past medical history, surgical history, social history, family history, medications and allergies were reviewed with the patient today and are available in the chart for further review. REVIEW OF SYSTEMS: Patient did not have, and does not currently have, any weight loss, malaise, fever, chills, headache, chest pain, chest pressure,nausea, vomiting, diarrhea, constipation PHYSICAL EXAMINATION: PSYCH: Pleasant, good affect and mood General Appearance: Well appearing, alert, in no acute distress, well-hydrated, well nourished. Skin: Skin color, texture, turgor normal, no suspicious rashes or lesions. Peripheral Pulses: Normal. Neurologic: Gait normal. Reflexes normal and symmetric. Sensation grossly intact. On physical examination of the right hip, the incision is healed. There is no erythema or warmth. Extensor mechanism is intact. Hip motion is smooth and not irritable. Calf is soft and non-tender. RADIOGRAPHS: right hip films show fracture to be healed. Hardware is in good position and stable. IMPRESSION: Encounter Diagnosis ICD-10-CM 1. Periprosthetic fracture of hip, subsequent encounter M97.8XXD Z96.649 PLAN: Patient is doing well. She can continue to advance her activities as she tolerates it. Anything that increases her pain she should back off of. She can come off the cane as she feels strong enough. I will see her back as needed. Marybel Mason PA-C Referring Provider: MARYBEL MASON [[id number]] Allergies As of Date: 11/08/2020 Noted Allergy Reaction Envoirnmental [Other] 10/29/2000 LATEX 05/19/2020 2 - Rash Comments: Rash - itch and swelling Date Reviewed: 11/08/2020 Reviewed by: Marybel Mason PA-C - Fully Assessed Reason for Visit: Follow Up [171] Fracture [4131] Primary Visit Diagnosis:Periprosthe tic fracture of hip, subsequent encounter [M97.8XXD, Z96.649] Prescriptions as of 11/08/2020 - aspirin, enteric coated (ASPIRIN, ENTERIC COATED) 81 mg EC tablet Take 1 tablet by mouth twice daily. - ascorbic acid, vitamin C, (VITAMIN C) 500 mg tablet Take 1 tablet by mouth twice daily with meals for 21 doses. - multivitamin tablet Take 1 tablet by mouth once daily. - glipiZIDE (GLUCOTROL XL) 10mg 24 hr tablet Take 10 mg by mouth once daily. - cholecalciferol (VITAMIN D-3) 50 mcg (2,000 unit) tablet Take 2,000 Units by mouth once daily. - PARoxetine (PAXIL) 10 mg tablet Take 10 mg by mouth once daily. - losartan (COZAAR) 50 mg tablet Take 50 mg by mouth once daily. - potassium chloride 20 mEq TbER Take by mouth. - INV FUROSEMIDE 40 MG TABLET (IRB 18-610) Take by mouth. For Investigational Drug Use Only. PI: Jordan Joy MD. Problem List As Of Date 11/08/2020 Noted Resolved Class 3 severe obesity due to excess calories w*05/20/2020 Essential hypertension [I10] 05/20/2020 Type 2 diabetes mellitus without complication, *05/20/2020 Heartburn [R12] 05/20/2020 Iron deficiency anemia [D50.9] 05/20/2020 Nicotine use disorder, F17.2 [F17.200] 05/25/2020 Stress fracture of right femur [M84.351A] 05/25/2020 Cardiac murmur, unspecified [R01.1] 12/12/2019 Iron deficiency anemia secondary to inadequate *06/04/2020 Closed fracture of right hip with delayed heali*08/12/2020 Fall [W19.XXXA] 08/12/2020 Closed right hip fracture (HCC) [S72.001A] 08/12/2020 Obesity, Class II, BMI 35-39.9 [E66.9] 08/12/2020 Periprosthetic hip fracture [M97.8XXA, Z96.649] 08/13/2020 Acute postoperative pain of right hip [G89.18, *08/17/2020 08/17/2020 S/P gastric bypass [Z98.84] 09/24/2020 Encounter Status:Closed by JOHNNIKOLAYMARYBEL on 11/08/20 Normal [facility] XR HIP 3V PELV+ AP/LAT RTon 11-08-2020 XR HIP 3V PELV+ AP/LAT RT * * *Final Report* * * DATE OF EXAM: Nov 08 2020 3:21PM SVX 5352 - XR HIP 3V PELV+ AP/LAT RT / PROCEDURE REASON: multiple diagnoses * * * * Physician Interpretation * * * * HISTORY: Follow-up TECHNIQUE: Frontal (one) view of the pelvis, and frontal and frogleg (two) views of the right hip were obtained. Three images were archived. COMPARISON: 10/01/2020, 08/30/2020, 07/14/2020, 06/07/2020, 05/19/2020, 05/12/2020 RESULT: Pelvis: There is mild degenerative change of the lower lumbar spine. The sacroiliac and both hip joints are maintained. The patient is status post intramedullary zuhair and interlocking screw fixation of healing nondisplaced right intertrochanteric fracture, without significant callus formation since 10/01/2020. Right hip: The patient is status post intramedullary zuhair and interlocking screw fixation of healing nondisplaced right intertrochanteric fracture, without significant callus formation since 10/01/2020. Punctate radiopaque foreign bodies about the right proximal femur laterally remain unchanged. IMPRESSION: POSTOPERATIVE CHANGES STATUS POST ORIF FIXATION OF RIGHT PROXIMAL FEMUR DESCRIBED. Trim Die Maker: PSCB Transcribe Date/Time: Nov 09 2020 9:15A Dictated by : LUZ ENRIQUE MD This examination was interpreted and the report reviewed and electronically signed by: LUZ ENRIQUE MD on Nov 09 2020 9:29AM EST [id number] Normal [facility] Utilization Review Noteon Utilization Review Note From: Rebeka Mcknight Sent: Thursday, October 15, 2020 11:11 AM To: Trudy Patrick ; Anjali Molina ; Keena Dang ; Angie Chacon Subject: CCE 200 Observ? BreakThru to medical admission Reza Andino Again, Another Breakthru changed to Medical (Observ) Admit in CCE 200 Sue Momin : 66 Medical #: [id number] [facility] plan. I believe they just admitted today (10/15/20) and are currently in Observation status. Who would be following this patient for Observ? No Auth req for [facility] as Observ. Thank you, Rebeka From: Amanda Augustine Sent: Thursday, October 15, 2020 10:29 AM To: Rebeka Mcknight ; Reina Munoz Subject: BreakThru to medical admission Reza andino, We were gonna admit this patient at 9:00am but unfortunately she was too medical and ended up on CCE. So we are making her a regular medical patient. Please let me know if you have any questions, thank you! Patient?s name is: Sue Momin : 66 Medical #: [id number] Amanda Augustine [facility] From: Trudy Patrick Sent: Thursday, October 15, 2020 11:29 AM To: Rebeka Mcknight ; Anjali Molina ; Keena Dang ; Angie Chacon Subject: RE: CCE 215 >Observ< BreakThru patient to regular medical Rebeka, This would also be the OBS girls. However, if you need a review and they don?t have time, Suni or I could do it. Cody Currently PT Registered as Adm 10/15/20 as Observation- No auth req for [facility] as Observ Chgn to INPT adm of 10/15/20 Medical: [facility] to be submitted on Sunday Sent [facility] avail[facility] demo's & clinical for INPT medical adm of 10/15/20 tracking# [id number] ref# [id number] V-M FROM GONZALO @ [facility]: SPACE OFFICER APPRVED ADM OF 10/15/20 THRU 10/17. UPDATE DUE TO START W 10/18 ONWARD FAX# [phone] PH# [phone] Faxed update An @ [facility] Chris-M: apprved as inpt adm of 10/15/20 thru 10/19/20, fax#[phone] ph# [phone] extention of Oct 20 denied by interactive media director., patient disch on 10/20/20. so all days are apprved as INPT for this adm of 10/15 thru 10/19/20 Normal [facility] Pathologist Reviewon 021 Diff Review Interp Mild thrombocytopeni a and mild leukopenia of unknown etiology. If they are persistent, further investigation is recommended. Normal [facility] Comment on above: Order Comment: Added on by Discern Expert Rule. Result Comment: NUZHAT SANCHEZ (Electronic Signature) Date Verified 10/21/20 Performed By: #### 1 [id number] #### [facility] [address] [place], [place] [address] Education Reviewer: Jesse Nguyen MD COMPMETAon 10-20-2020 Albumin/Globulin [Mass ratio] 1.1 {ratio} Normal [facility] Comment on above: Performed By: #### 1 [id number] #### [facility] [address] [place] [address] Education Reviewer: Jesse Nguyen MD GFR AA >60 Normal [facility] Comment on above: Result Comment: Afri can Australian GFR Calc Medical judgement is necessary to interpret GFR. The calculated GFR may not accurately reflect renal status in patients >70 years, women, acutely ill hospitalized patients and patients with acute renal failure or known renal disease. The MDRD GFR formula is valid only for adults greater than 18 years of age. Note: Creatinine clearance (not GFR) should be used for drug dosing. Performed By: #### 1 [id number] #### [facility] [address] [place] [address] Education Reviewer: Jesse Nguyen MD Globulin (S) [Mass/Vol] 3.2 g/dL Normal [facility] Comment on above: Performed By: #### 1 [id number] #### [facility] [address] [place] [address] Education Reviewer: Jesse Nguyen MD Glomerular Filtration Rate >60 Normal [facility] Comment on above: Result Comment: Non GFR Calc Medical judgement is necessary to interpret GFR. The calculated GFR may not accurately reflect renal status in patients >70 years, women, acutely ill hospitalized patients and patients with acute renal failure or known renal disease. The MDRD GFR formula is valid only for adults greater than 18 years of age. Note: Creatinine clearance (not GFR) should be used for drug dosing. Performed By: #### 1 [id number] #### [facility] [address] [place] [address] Education Reviewer: Jesse Nguyen MD Osmolality [Osmolality] 279 mosm/kg Normal 275-295 [facility] Comment on above: Performed By: #### 1 [id number] #### [facility] [address] [place] [address] Education Reviewer: Jesse Nguyen MD Urea nitrogen/Creatinine [Mass ratio] 18.5 mg/mg Normal [facility] Comment on above: Performed By: #### 1 [id number] #### [facility] [address] [place] [address] Education Reviewer: Jesse Nguyen MD Albumin [Mass/Vol] 3.5 g/dL Normal 3.4-5.0 [facility] Comment on above: Performed By: #### 1 [id number] #### [facility] [address] [place] [address] Education Reviewer: Jesse Nguyen MD Alk Phos 28 unit/L Low 45-117 [facility] Comment on above: Performed By: #### 1 [id number] #### [facility] [address] [place] [address] Education Reviewer: Jesse Nguyen MD Bilirubin [Mass/Vol] 0.73 mg/dL Normal 0.20-1.00 [facility] Comment on above: Result Comment: Use of this assay is not recommended for patients undergoing treatment with eltrombopag due to the potential for falsely elevated results. Performed By: #### 1 [id number] #### [facility] [address] [place], [place] [address] Education Reviewer: Jesse Nguyen MD Calcium [Mass/Vol] 8.3 mg/dL Low 8.5-10.5 [facility] Comment on above: Performed By: #### 1 [id number] #### [facility] [address] [place] [address] Education Reviewer: Jesse Nguyen MD Chloride [Moles/Vol] 107 mmol/L Normal 100-109 [facility] Comment on above: Performed By: #### 1 [id number] #### [facility] [address] [place] [address] Education Reviewer: Jesse Nguyen MD CO2 [Moles/Vol] 26.0 mmol/L Normal 21.0-32.0 [facility] Comment on above: Performed By: #### 1 [id number] #### [facility] [address] [place] [address] Education Reviewer: Jesse Nguyen MD Creatinine [Mass/Vol] 0.7 mg/dL Normal 0.6-1.0 [facility] Comment on above: Performed By: #### 1 [id number] #### [facility] [address] [place], [place] [address] Education Reviewer: Jesse Nguyen MD Glucose [Mass/Vol] 113 mg/dL High 72-100 [facility] Comment on above: Result Comment: Erin puncture should occur prior to sulfasalazine administration due to the potential for falsely depressed results. Venipuncture should occur prior to sulfapyridine administration due to the potential falsely elevated results. Baseline assay values before administration of sulfasalazine and sulfapyridine therapy would not be affected. Performed By: #### 1 [id number] #### [facility] [address] [place], [place] [address] Education Reviewer: Jesse Nguyen MD GOT 31 unit/L Normal 15-37 [facility] Comment on above: Result Comment: Erin puncture should occur prior to sulfasalazine and/or sulfapyridine administration due to the potential for falsely depressed results. Baseline assay values before administration of sulfasalazine and sulfapyridine therapy would not be affected. Performed By: #### 1 [id number] #### [facility] [address] [place], [place] [address] Education Reviewer: Jesse Nguyen MD GPT 33 unit/L Normal 13-56 [facility] Comment on above: Result Comment: Erin puncture should occur prior to sulfasalazine and/or sulfapyridine administration due to the potential for falsely depressed results. Baseline assay values before administration of sulfasalazine and sulfapyridine therapy would not be affected. Performed By: #### 1 [id number] #### [facility] [address] [place], [place] [address] Education Reviewer: Jesse Nguyen MD Potassium [Moles/Vol] 3.9 mmol/L Normal 3.5-5.1 [facility] Comment on above: Performed By: #### 1 [id number] #### [facility] [address] [place], [place] [address] Education Reviewer: Jesse Nguyen MD Protein [Mass/Vol] 6.7 g/dL Normal 6.0-8.5 [facility] Comment on above: Performed By: #### 1 [id number] #### [facility] [address] [place] [address] Education Reviewer: Jesse Nguyen MD Sodium [Moles/Vol] 139 mmol/L Normal 135-145 [facility] Comment on above: Performed By: #### 1 [id number] #### [facility] [address] [place] [address] Education Reviewer: Jesse Nguyen MD Urea nitrogen [Mass/Vol] 13 mg/dL Normal 10-20 [facility] Comment on above: Performed By: #### 1 [id number] #### [facility] [address] [place] [address] Education Reviewer: Jesse Nguyen MD Discharge Educationon 2020 Discharge Education Patient Education Material Normal [facility] HEMOon 10-20-2020 Nucleated RBC 0 /100WBC Normal [facility] Comment on above: Performed By: #### 1 [id number] #### [facility] [address] [place] [address] 26526 Education Reviewer: Jesse Nguyen MD DIFF? Yes Normal [facility] Comment on above: Performed By: #### 1 [id number] #### [facility] [address] [place] [address] 88622 Education Reviewer: Jesse Nguyen MD HEM PATH REVIEW See Diff Review Interp Normal [facility] Comment on above: Performed By: #### 1 [id number] #### [facility] [address] [place] [address] 53360 Education Reviewer: Jesse Nguyen MD DxH Actions See Notes Abnormal [facility] Comment on above: Result Comment: Scan for RBC Morphology SNV Performed By: #### 1 [id number] #### [facility] [address] [place] [address] 73011 Education Reviewer: Jesse Nguyen MD Erythrocyte distribution width (RBC) [Ratio] 20.3 % High 11.5-14.5 [facility] Comment on above: Performed By: #### 1 [id number] #### [facility] [address] [place] [address] 31123 Education Reviewer: Jesse Nguyen MD Hematocrit (Bld) [Volume fraction] 38.6 % Normal 36.0-46.0 [facility] Comment on above: Performed By: #### 1 [id number] #### [facility] [address] [place] [address] 96962 Education Reviewer: Jesse Nguyen MD Hemoglobin (Bld) [Mass/Vol] 12.9 g/dL Normal 12.0-16.0 [facility] Comment on above: Performed By: #### 1 [id number] #### [facility] [address] [place] [address] 43906 Education Reviewer: Jesse Nguyen MD Instr WBC 4.3 Normal [facility] Comment on above: Performed By: #### 1 [id number] #### [facility] [address] [place] [address] 09333 Education Reviewer: Jesse Nguyen MD MCH (RBC) [Entitic mass] 29.4 pg Normal 27.0-34.0 [facility] Comment on above: Performed By: #### 1 [id number] #### [facility] [address] [place] [address] 29392 Education Reviewer: Jesse Nguyen MD MCHC (RBC) [Mass/Vol] 33.5 g/dL Normal 32.0-37.0 [facility] Comment on above: Performed By: #### 1 [id number] #### [facility] [address] [place] [address] 84823 Education Reviewer: Jesse Nguyen MD MCV (RBC) [Entitic vol] 87.8 fL Normal 80.0-100.0 [facility] Comment on above: Performed By: #### 1 [id number] #### [facility] [address] [place] [address] 57011 Education Reviewer: Jesse Nguyen MD Platelet 103 x1000 Low 150-450 [facility] Comment on above: Performed By: #### 1 [id number] #### [facility] [address] [place] [address] 89327 Education Reviewer: Jesse Nguyen MD Platelet mean volume (Bld) [Entitic vol] 6.4 fL Low 7.4-10.4 [facility] Comment on above: Performed By: #### 1 [id number] #### [facility] [address] [address] Education Reviewer: Jesse Nguyen MD RBC 4.39 x10 Normal 4.20-5.40 [facility] Comment on above: Result Comment: Note : RBC morphology is normal unless otherwise stated. Evaluation performed only if differential is requested. Performed By: #### 1 [id number] #### [facility] [address] [place] [address] 08273 Education Reviewer: Jesse Nguyen MD WBC 4.3 x10 Low 4.5-11.0 [facility] Comment on above: Performed By: #### 1 [id number] #### [facility] [address] [place] [address] 54063 Education Reviewer: Jesse Nguyen MD Inpatient Patient Summaryon 10-20-2020 Inpatient Patient Summary [facility] Discharge Instructions [address] [place], [place] [id number] \.br\(Patient Copy)\.br\ \.br\ \.br\Name: SUE MOMIN : 1970 \.br\Diagnosis: \.br\ \.br\Allergies: LATEX allergy\.br\ \.br\Registration Date: 10/15/20\.br\.br\.b r\ \.br\ Current Date Time: 10/20/2020 11:06:03 \.br\ \.br\Address: [address] [facility] [address] \.br\ \.br\ \.br\Primary Care Provider: \.br\Name: \.br\Phone: \.br\ \.br\Thank you for choosing [facility] for your care. You are very important to us. Our goal is to demonstrate our high quality medical care and provide you with a very good patient experience.\.br\ You may receive a survey about our service. Please take the time to complete the survey and return it so we can continue to enhance our service.\.br\ Thank you again for allowing [facility] to care for your medical needs. If you have any questions about your care or follow up information please contact your doctor.\.br\.br\Foll ow-up Instructions\.br\.br \.br\Medication Information\.br\Only Take The Medicines On This List. \.br\Keep This List and Bring It To Your Next Appointment. \.br\Medicines To Take At Home: \.br\ Medicine Name\.br\ (Generic Name) Amount to Take How to Take it How Often to Take it Additional Instructions Next Dose Due \.br\ bismuth subsalicylate 525 mg/15 mL oral suspension\.br\(bismu th subsalicylate) 525 mg By Mouth FOUR TIMES A DAY Take as needed for dyspepsia\.br\.br\. br\.br\.br\.br\ \.br\ calcium carbonate 1000 mg oral tablet, chewable\.br\(calcium carbonate) 2,000 mg FOUR TIMES A DAY Take as needed for Upset Stomach\.br\.br\.br \.br\.br\.br\ \.br\ folic acid 1 mg oral tablet *\.br\(folic acid) 1 mg By Mouth DAILY \.br\ multivitamin *\.br\(multivitamin) By Mouth DAILY This is available over the counter \.br\ naltrexone 50 mg oral tablet\.br\(naltrexon e = vivitrol, revia) 50 mg By Mouth DAILY take 1/2 tablet daily for 5 days then take full tablet daily\.br\.br\.br\ .br\ \.br\ thiamine 100 mg oral tablet *\.br\(thiamine) 100 mg By Mouth DAILY This is available over the counter \.br\.br\Understandi ng your home medicine is important to keeping you healthy. If you are taking medications that are not on the preceding list, please call your doctor to see if you are to continue taking that medication. It is important that you do not skip or make up doses. If you are ordered an antibiotic, finish taking all the medicine unless your doctor tells you otherwise. Call your doctor if you have any questions or problems. Take the medicine list with you to all follow up appointments.\.br\.b r\Patient education materials, if any, will display below\.br\.br\ Prescription leaflets, if any, will display below\.br\folic acid (oral/injection) \.br\(FOE lik id)\.br\.br\FA-8, Folacin-800 \.br\.br\What is the most important information I should know about folic acid?\.br\Use only as directed. Tell your doctor if you use other medicines or have other medical conditions or allergies.\.br\.br\W hat is folic acid?\.br\Folic acid is a type of B vitamin that is normally found in foods such as dried beans, peas, lentils, oranges, whole-wheat products, liver, asparagus, beets, broccoli, brussels sprouts, and spinach.\.br\.br\Fol ic acid helps your body produce and maintain new cells, and also helps prevent changes to DNA that may lead to cancer.\.br\.br\As a medication, folic acid is used to treat folic acid deficiency and certain types of anemia (lack of red blood cells) caused by folic acid deficiency.\.br\.br\ Folic acid is sometimes used with other medications to treat pernicious anemia. Folic acid used alone will not treat pernicious anemia and other anemias not related to Vitamin B12 deficiency. Take all of your medications as directed.\.br\.br\Fo lic acid may also be used for other purposes not listed in this medication guide.\.br\.br\What should I discuss with my healthcare provider before taking folic acid?\.br\You should not use this medicine if you have ever had an allergic reaction to folic acid.\.br\.br\Ask a doctor or pharmacist if this medicine is safe to use if you have ever had:\.br\?? epilepsy or other seizure disorder;\.br\? cirrhosis or other liver disease;\.br\? kidney disease (or if you are on dialysis);\.br\? hemolytic anemia;\.br\? pernicious anemia;\.br\? anemia that has not been diagnosed by a doctor and confirmed with laboratory testing;\.br\? an infection; or\.br\? alcoholism.\.br\.br\ Tell your doctor if you are or . \.br\.br\How should I use folic acid?\.br\Use exactly as directed on the label, or as prescribed by your doctor.\.br\.br\Foli c acid oral is taken by mouth.\.br\.br\Folic acid injection is given into a muscle, under the skin, or into a vein. A healthcare provider will give you this injection. \.br\.br\Store folic acid at room temperature away from moisture and heat.\.br\.br\What happens if I mis (more content not included)... Normal [facility] MAN DIFFon 10-20-[address] 0.04 x1000 Normal 0.00-0.70 [facility] Comment on above: Performed By: #### 1 [id number] #### [facility] [address] [id number] Education Reviewer: Jesse Nguyen MD Absolute [address] 0.04 x1000 Normal 0.00-0.20 [facility] Comment on above: Performed By: #### 1 [id number] #### [facility] [address] [place] [address] Education Reviewer: Jesse Nguyen MD Absolute E[address] Ct 0.04 x1000 Normal 0.00-0.50 [facility] Comment on above: Performed By: #### 1 [id number] #### [facility] [address] [place] [address] 72358 Education Reviewer: Jesse Nguyen MD Absolute Lymph Ct 1.29 x1000 Normal 1.20-4.80 [facility] Comment on above: Performed By: #### 1 [id number] #### [facility] [address] [place] [address] 57744 Education Reviewer: Jesse Nguyen MD Absolute [address] 0.47 x1000 Normal 0.10-1.00 [facility] Comment on above: Performed By: #### 1 [id number] #### [facility] [address] [place] [address] 62182 Education Reviewer: Jesse Nguyen MD Absolute Neutrophil Ct 2.40 x1000 Normal 1.40-8.80 [facility] Comment on above: Performed By: #### 1 [id number] #### [facility] [address] [place] [address] 84869 Education Reviewer: Jesse Nguyen MD Absolute Seg Ct 2.36 x1000 Normal 1.40-8.80 [facility] Comment on above: Performed By: #### 1 [id number] #### [facility] [address] [place] [address] 32034 Education Reviewer: Jesse Nguyen MD Anisocytosis Ql (Bld) Mod/Mkd Normal [facility] Comment on above: Performed By: #### 1 [id number] #### [facility] [address] [place] [address] 83274 Education Reviewer: Jesse Nguyen MD Band form neutrophils/100 WBC (Bld) 1 % Normal [facility] Comment on above: Performed By: #### 1 [id number] #### [facility] [address] [place] [address] 98257 Education Reviewer: Jesse Nguyen MD Basophils/100 WBC (Bld) 1 % Normal [facility] Comment on above: Performed By: #### 1 [id number] #### [facility] [address] [place] [address] 74359 Education Reviewer: Jesse Nguyen MD Eosinophils/100 WBC (Bld) 1 % Normal [facility] Comment on above: Performed By: #### 1 [id number] #### [facility] [address] [place] [address] 35035 Education Reviewer: Jesse Nguyen MD Left Shift Present Abnormal [facility] Comment on above: Performed By: #### 1 [id number] #### [facility] [address] [place] [address] 76959 Education Reviewer: Jesse Nguyen MD Lymphocytes/100 WBC (Bld) 30 % Normal [facility] Comment on above: Performed By: #### 1 [id number] #### [facility] [address] [place] [address] 24072 Education Reviewer: Jesse Nguyen MD Monocytes/100 WBC (Bld) 11 % Normal [facility] Comment on above: Performed By: #### 1 [id number] #### [facility] [address] [place] [address] 17709 Education Reviewer: Jesse Nguyen MD Myelocyte % 1 % Normal [facility] Comment on above: Performed By: #### 1 [id number] #### [facility] [address] [place] [address] 32230 Education Reviewer: Jesse Nguyen MD Segmented neutrophils/100 WBC (Bld) 55 % Normal [facility] Comment on above: Performed By: #### 1 [id number] #### [facility] [address] [place] [address] 49071 Education Reviewer: Jesse Nguyen MD MG LEVELon 10-20-2020 Magnesium [Mass/Vol] 2.2 mg/dL Normal 1.6-2.6 [facility] Comment on above: Performed By: #### 1 [id number] #### [facility] [address] [place] [address] Education Reviewer: Jesse Nguyen MD Nursing Clinical Noteon 09-0 Nursing Clinical Note 1130: Received report. Patient resting in bed. No signs of distress. Respirations even and unlabored. No needs at this time. Call light is within reach. Normal [facility] PHOS LEVELon 10-20-2020 Phosphate [Mass/Vol] 5.7 mg/dL High 2.5-4.9 [facility] Comment on above: Performed By: #### 1 [id number] #### [facility] [address] [place] [address] Education Reviewer: Jesse Nguyen MD POC Glucoseon 10-20-2020 Glucose [Mass/Vol] 133 mg/dL High 72-100 [facility] Comment on above: Performed By: #### 1 [id number] ####[facility] [id number] [place] [address] Medical Director: Jesse Nguyen MD COMPMETAon 6 Albumin/Globulin [Mass ratio] 1.1 {ratio} Normal [facility] Comment on above: Performed By: #### 1 [id number] #### [facility] [address] [place] [address] 94417 Education Reviewer: Jesse Nguyen MD GFR AA >60 Normal [facility] Comment on above: Result Comment: Afri can Australian GFR Calc Medical judgement is necessary to interpret GFR. The calculated GFR may not accurately reflect renal status in patients >70 years, women, acutely ill hospitalized patients and patients with acute renal failure or known renal disease. The MDRD GFR formula is valid only for adults greater than 18 years of age. Note: Creatinine clearance (not GFR) should be used for drug dosing. Performed By: #### 1 [id number] #### [facility] [address] [place] [address] Education Reviewer: Jesse Nguyen MD Glomerular Filtration Rate >60 Normal [facility] Comment on above: Result Comment: Non GFR Calc Medical judgement is necessary to interpret GFR. The calculated GFR may not accurately reflect renal status in patients >70 years, women, acutely ill hospitalized patients and patients with acute renal failure or known renal disease. The MDRD GFR formula is valid only for adults greater than 18 years of age. Note: Creatinine clearance (not GFR) should be used for drug dosing. Performed By: #### 1 [id number] #### [facility] [address] [place] [address] 38156 Education Reviewer: Jesse Nguyen MD Osmolality [Osmolality] 277 mosm/kg Normal 275-295 [facility] Comment on above: Performed By: #### 1 [id number] #### [facility] [address] [place], [place] [address] Education Reviewer: Jesse Nguyen MD Urea nitrogen/Creatinine [Mass ratio] 17.3 mg/mg Normal [facility] Comment on above: Performed By: #### 1 [id number] #### [facility] [address] [place], [place] [address] Education Reviewer: Jesse Nguyen MD Albumin [Mass/Vol] 3.4 g/dL Normal 3.4-5.0 [facility] Comment on above: Performed By: #### 1 [id number] #### [facility] [address] [place], [place] [address] Education Reviewer: Jesse Nguyen MD Alk Phos 30 unit/L Low 45-117 [facility] Comment on above: Performed By: #### 1 [id number] #### [facility] [address] [place], [place] [address] Education Reviewer: Jesse Nguyen MD Bilirubin [Mass/Vol] 0.56 mg/dL Normal 0.20-1.00 [facility] Comment on above: Result Comment: Use of this assay is not recommended for patients undergoing treatment with eltrombopag due to the potential for falsely elevated results. Performed By: #### 1 [id number] #### [facility] [address] [place], [place] [address] Education Reviewer: Jesse Nguyen MD Calcium [Mass/Vol] 8.4 mg/dL Low 8.5-10.5 [facility] Comment on above: Performed By: #### 1 [id number] #### [facility] [address] [place], [place] [address] Education Reviewer: Jesse Nguyen MD Chloride [Moles/Vol] 107 mmol/L Normal 100-109 [facility] Comment on above: Performed By: #### 1 [id number] #### [facility] [address] [place] [address] Education Reviewer: Jesse Nguyen MD CO2 [Moles/Vol] 23.7 mmol/L Normal 21.0-32.0 [facility] Comment on above: Performed By: #### 1 [id number] #### [facility] [address] [place], [place] [address] Education Reviewer: Jesse Nguyen MD Creatinine [Mass/Vol] 0.6 mg/dL Normal 0.6-1.0 [facility] Comment on above: Performed By: #### 1 [id number] #### [facility] [address] [place] [address] Education Reviewer: Jesse Nguyen MD Globulin (S) [Mass/Vol] 3.2 g/dL Normal [facility] Comment on above: Performed By: #### 1 [id number] #### [facility] [address] [place] [address] Education Reviewer: Jesse Nguyen MD Glucose [Mass/Vol] 106 mg/dL High 72-100 [facility] Comment on above: Result Comment: Erin puncture should occur prior to sulfasalazine administration due to the potential for falsely depressed results. Venipuncture should occur prior to sulfapyridine administration due to the potential falsely elevated results. Baseline assay values before administration of sulfasalazine and sulfapyridine therapy would not be affected. Performed By: #### 1 [id number] #### [facility] [address] [place], [place] [address] Education Reviewer: Jesse Nguyen MD GOT 33 unit/L Normal 15-37 [facility] Comment on above: Result Comment: Erin puncture should occur prior to sulfasalazine and/or sulfapyridine administration due to the potential for falsely depressed results. Baseline assay values before administration of sulfasalazine and sulfapyridine therapy would not be affected. Performed By: #### 1 [id number] #### [facility] [address] [place] [address] Education Reviewer: Jesse Nguyen MD GPT 37 unit/L Normal 13-56 [facility] Comment on above: Result Comment: Erin puncture should occur prior to sulfasalazine and/or sulfapyridine administration due to the potential for falsely depressed results. Baseline assay values before administration of sulfasalazine and sulfapyridine therapy would not be affected. Performed By: #### 1 [id number] #### [facility] [address] [place], [place] [address] Education Reviewer: Jesse Nguyen MD Potassium [Moles/Vol] 3.6 mmol/L Normal 3.5-5.1 [facility] Comment on above: Performed By: #### 1 [id number] #### [facility] [address] [place], [place] [address] Education Reviewer: Jesse Nguyen MD Protein [Mass/Vol] 6.6 g/dL Normal 6.0-8.5 [facility] Comment on above: Performed By: #### 1 [id number] #### [facility] [address] [place], [place] [address] Education Reviewer: Jesse Nguyen MD Sodium [Moles/Vol] 139 mmol/L Normal 135-145 [facility] Comment on above: Performed By: #### 1 [id number] #### [facility] [address] [place] [address] 37568 Education Reviewer: Jesse Nguyen MD Urea nitrogen [Mass/Vol] 11 mg/dL Normal 10-20 [facility] Comment on above: Performed By: #### 1 [id number] #### [facility] [address] [place] [address] 99653 Education Reviewer: Jesse Nguyen MD MG LEVELon 10-19-2020 Magnesium [Mass/Vol] 1.9 mg/dL Normal 1.6-2.6 [facility] Comment on above: Performed By: #### 1 [id number] #### [facility] [address] [place] [address] 61292 Education Reviewer: Jesse Nguyen MD Nursing Clinical Noteon 09-21 Nursing Clinical Note 0105 Pt arrived to room 268 from [facility]. Pt oriented to room and call light system. Assessment completed. CIWA completed. Pt medicated appropriately. Call light in reach. Normal [facility] PHOS LEVELon 10-19-2020 Phosphate [Mass/Vol] 4.7 mg/dL Normal 2.5-4.9 [facility] Comment on above: Performed By: #### 1 [id number] #### [facility] [address] [place] [address] 63382 Education Reviewer: Jesse Nguyen MD POC Glucoseon 10-19-2020 Glucose [Mass/Vol] 121 mg/dL High 72-100 [facility] Comment on above: Performed By: #### 1 [id number] #### [facility] [address] [place] [address] 72151 Education Reviewer: Jesse Nguyen MD Glucose [Mass/Vol] 144 mg/dL High 72-100 [facility] Comment on above: Performed By: #### 1 [id number] #### [facility] [address] [place] [address] 55121 Education Reviewer: Jesse Nguyen MD Glucose [Mass/Vol] 123 mg/dL High 72-100 [facility] Comment on above: Performed By: #### 1 [id number] #### [facility] [address] [id number] Education Reviewer: Jesse Nguyen MD Progress Note-Physicianon Progress Note-Physician Patient: SUE MOMIN Age: 50 years Sex: Female : 1970 Associated Diagnoses: None Author: LASHAWN HARDY, SHAUNA Plan IMPRESSION & PLAN: Alcohol withdrawal, alcohol abuse Alcoholic liver disease Anxiety Hypokalemia, hypomagnesemia Diabetes mellitus, hypertension Plan: Continue alcohol withdrawal protocol with lorazepam. CIWA 5 Replace potassium Consult chemical dependency Consult psychiatry; she is extremely anxious and is interested in starting naltrexone DVT prophylaxis Full code Subjective She has decreasing benzodiazepine requirements. She feels very anxious. She is interested in starting naltrexone. Objective VS/Measurements Documented vital signs Vital Signs (last 24 hrs) Last Charted Heart Rate Peripheral H 104bpm (OCT 19 13:36) Resp Rate 20 br/min (OCT 19 13:36) SBP H 158mmHg (OCT 19 13:35) DBP H 98mmHg (OCT 19 13:35) Anxious and tearful, tremulous Lungs: Clear to auscultation bilaterally CVS: S1-S2 Abdomen: Plus bowel sounds, soft, nontender Musculoskeletal: No pitting edema Last 24 Hours Chemistry BUN 11 mg/dL 10/19/20 Na 139 mmol/L 10/19/20 K 3.6 mmol/L 10/19/20 Chloride 107 mmol/L 10/19/20 CO2, venous 23.7 mmol/L 10/19/20 Creatinine 0.6 mg/dL 10/19/20 Total Protein 6.6 g/dL 10/19/20 Calcium 8.4 mg/dL 10/19/20 Phosphorus 4.7 mg/dL 10/19/20 Bilirubin, Total 0.56 mg/dL 10/19/20 Alk Phos 30 unit/L 10/19/20 GOT 33 unit/L 10/19/20 GPT 37 unit/L 10/19/20 BUN/Creat Ratio 17.3 10/19/20 Calculated Osmolality 277 mOsm/kg 10/19/20 Globulin 3.2 g/dL 10/19/20 A/G Ratio 1.1 10/19/20 Magnesium 1.9 mg/dL 10/19/20 ALB 3.4 g/dL 10/19/20 Glomerular Filtration Rate >60 mL/min/1.73m? 10/19/20 Glucose 106 mg/dL 10/19/20 GFR AA >60 10/19/20 Point of Care Lab Testing POC Glucose 123 mg/dL 10/19/20 Medications (22) Active Scheduled: (8) FOLIC ACID 1MG TABLET 1 mg 1 tabs, ORAL, DAILY LISINOPRIL 10MG TABLET 10 mg 1 tabs, ORAL, DAILY METFORMIN 500MG TABLET 500 mg 1 tabs, ORAL, BIDWM MULTIPLE VITAMIN (THERAPUTIC) 1 tabs, ORAL, DAILY NICOTINE 14MG/24HR PATCH 14 mg, Transderm, DAILY NICOTINE PATCH OFF 1 patches, Transderm, DAILY NICOTINE PATCH SITE CHECK 1 patches, Transderm, [id number] THIAMINE (VIT B1) 100MG TABLET 100 mg 1 tabs, ORAL, DAILY Continuous: (0) PRN: (14) DICYCLOMINE 20MG TABLET 20 mg 1 tabs, ORAL, [id number] HydrALAZINE 20MG/1ML INJ 10 mg 0.5 mL, IV Push, [id number] LOPERAMIDE 2MG CAPSULE 2 mg 1 caps, ORAL, T0MEASR LORAZepam 1MG TABLET 1 mg 1 tabs, ORAL, E2ALSVO LORAZepam 1MG TABLET 1 mg 1 tabs, ORAL, U8GUWEH LORAZepam 1MG TABLET 2 mg 2 tabs, ORAL, D7JBMXM LORAZepam 1MG TABLET 2 mg 2 tabs, ORAL, Q1HOUR LORAZepam 2mg=ATIVAN INJ 2 mg 1 mL, IV Push, PRN LORAZepam 2mg=ATIVAN INJ 1 mg 0.5 mL, IV Push, Z2UZPIW LORAZepam 2mg=ATIVAN INJ 1 mg 0.5 mL, IV Push, D4HWZXR LORAZepam 2mg=ATIVAN INJ 2 mg 1 mL, IV Push, T4WGCNK LORAZepam 2mg=ATIVAN INJ 2 mg 1 mL, IV Push, Q1HOUR MAGNESIUM SULFATE 1G/ D5W 100ml IVPB 1 g 100 mL, IV Piggyback, DAILY TRIMETHOBENZAMIDE 200MG/2ML INJ 200 mg 2 mL, IM, A6NSHKO [employer] Charting was completed using voice recognition technology and may include unintended errors. Results Review General results Normal [facility] Transfer Documentson 021 Transfer Documents 10/19/20 0030 pt transfered via her wheelchair with belonging to [employer] , VSS she states she will let her know of transfer , all care explaiend emotionla support offerd see ivew for assessment Normal [facility] CDIFF TOXon 10-18-2020 C. Difficile Toxin Negative Normal [facility] Comment on above: Result Comment: Clos tridium difficile toxin assay is now performed via real-time and reverse transcritption Polymerase Chain Reaction (RTPCR) and (PCR) assays. Performed By: #### 1 [id number] #### [facility] [address] [place] [address] Education Reviewer: Jesse Nguyen MD COMPMETAon 10-18-2020 Albumin/Globulin [Mass ratio] 0.9 {ratio} [facility] Comment on above: Performed By: #### 1 [id number], [id number], [id number] ####[facility] [address] [place] [address] Medical Director: Jesse Nguyen MD GFR AA >[address] [facility] Comment on above: Result Comment: Afri can Australian GFR Calc Medical judgement is necessary to interpret GFR. The calculated GFR may not accurately reflect renal status in patients >70 years, women, acutely ill hospitalized patients and patients with acute renal failure or known renal disease. The MDRD GFR formula is valid only for adults greater than 18 years of age. Note: Creatinine clearance (not GFR) should be used for drug dosing. Performed By: #### 1 83288, [id number], [id number] ####[facility] [address] [place] [address] Medical Director: Jesse Nguyen MD Glomerular Filtration Rate >60 Normal [facility] Comment on above: Result Comment: Non GFR Calc Medical judgement is necessary to interpret GFR. The calculated GFR may not accurately reflect renal status in patients >70 years, women, acutely ill hospitalized patients and patients with acute renal failure or known renal disease. The MDRD GFR formula is valid only for adults greater than 18 years of age. Note: Creatinine clearance (not GFR) should be used for drug dosing. Performed By: #### 1 49702, [id number], 480773 ####[facility] [address] [place] [address] Medical Director: Jesse Nguyen MD Osmolality [Osmolality] 278 mosm/kg Normal 275-295 [facility] Comment on above: Performed By: #### 1 75676, 211684, 104061 ####[facility] [address] [place] [address] Medical Director: Jesse Nguyen MD Urea nitrogen/Creatinine [Mass ratio] 17.3 mg/mg Normal [facility] Comment on above: Performed By: #### 1 12499, 676059, 769659 ####[facility] [address] [place] [address] Medical Director: Jesse Nguyen MD Albumin [Mass/Vol] 3.3 g/dL Low 3.4-5.0 [facility] Comment on above: Performed By: #### 1 06744, 626845, 593517 ####[facility] [address] [place] [address] Medical Director: Jesse Nguyen MD Alk Phos 30 unit/L Low 45-117 [facility] Comment on above: Performed By: #### 1 74097, 189672, 084080 ####[facility] [address] [place] [address] Medical Director: Jesse Nguyen MD Bilirubin [Mass/Vol] 0.67 mg/dL Normal 0.20-1.00 [facility] Comment on above: Result Comment: Use of this assay is not recommended for patients undergoing treatment with eltrombopag due to the potential for falsely elevated results. Performed By: #### 1 74976, 493631, 405741 ####[facility] [address] [place] [address] Medical Director: Jesse Nguyen MD Calcium [Mass/Vol] 8.5 mg/dL Normal 8.5-10.5 [facility] Comment on above: Performed By: #### 1 24168, 156914, 951474 ####[facility] [address] [place] [address] Medical Director: Jesse Nguyen MD Chloride [Moles/Vol] 109 mmol/L Normal 100-109 [facility] Comment on above: Performed By: #### 1 38771, 392310, 740974 ####[facility] [address] [place] [address] Medical Director: Jesse Nguyen MD CO2 [Moles/Vol] 25.2 mmol/L Normal 21.0-32.0 [facility] Comment on above: Performed By: #### 1 63107, 928397, 052114 ####[facility] [address] [place] [address] Medical Director: Jesse Nguyen MD Creatinine [Mass/Vol] 0.6 mg/dL Normal 0.6-1.0 [facility] Comment on above: Performed By: #### 1 03562, 029665, 764578 ####[facility] [address] [place] [address] Medical Director: Jesse Nguyen MD Globulin (S) [Mass/Vol] 3.7 g/dL Normal [facility] Comment on above: Performed By: #### 1 74718, 232737, 586332 ####[facility] [address] [place] [address] Medical Director: Jesse Nguyen MD Glucose [Mass/Vol] 125 mg/dL High 72-100 [facility] Comment on above: Result Comment: Erin puncture should occur prior to sulfasalazine administration due to the potential for falsely depressed results. Venipuncture should occur prior to sulfapyridine administration due to the potential falsely elevated results. Baseline assay values before administration of sulfasalazine and sulfapyridine therapy would not be affected. Performed By: #### 1 81359, 138668, 652085 ####[facility] [address] [place] [address] Medical Director: Jesse Nguyen MD GOT 43 unit/L High 15-37 [facility] Comment on above: Result Comment: Erin puncture should occur prior to sulfasalazine and/or sulfapyridine administration due to the potential for falsely depressed results. Baseline assay values before administration of sulfasalazine and sulfapyridine therapy would not be affected. Performed By: #### 1 76349, 659149, 726958 ####[facility] [address] [place] [address] Medical Director: Jesse Nguyen MD GPT 39 unit/L Normal 13-56 [facility] Comment on above: Result Comment: Erin puncture should occur prior to sulfasalazine and/or sulfapyridine administration due to the potential for falsely depressed results. Baseline assay values before administration of sulfasalazine and sulfapyridine therapy would not be affected. Performed By: #### 1 93467, 248955, 030457 ####[facility] [address] [place] [address] Medical Director: Jesse Nguyen MD Potassium [Moles/Vol] 3.6 mmol/L Normal 3.5-5.1 [facility] Comment on above: Performed By: #### 1 93181, 150125, 081867 ####[facility] [address] [place] [address] Medical Director: Jesse Nguyen MD Protein [Mass/Vol] 7.0 g/dL Normal 6.0-8.5 [facility] Comment on above: Performed By: #### 1 53417, 589519, 484811 ####[facility] [address] [place] [address] Medical Director: Jesse Nguyen MD Sodium [Moles/Vol] 139 mmol/L Normal 135-145 [facility] Comment on above: Performed By: #### 1 05150, 433168, 163156 ####[facility] [address] [place] [address] Medical Director: Jesse Nguyen MD Urea nitrogen [Mass/Vol] 11 mg/dL Normal 10-20 [facility] Comment on above: Performed By: #### 1 30154, 377498, 475002 ####[facility] [address] [place] [address] Medical Director: Jesse Nguyen MD MG LEVELon 10-18-2020 Magnesium [Mass/Vol] 2.0 mg/dL Normal 1.6-2.6 [facility] Comment on above: Performed By: #### 1 94718, 803219, 257067 #### [facility] [address] [place] [address] Education Reviewer: Jesse Nguyen MD Nursing Clinical Noteon 09-21 Nursing Clinical Note 10/18/20 0640 medicated per CIWA scale /score effective , VSS no acute distress , call johnson in reach , see ivew for full assessment Normal [facility] PHOS LEVELon 10-18-2020 Phosphate [Mass/Vol] 4.4 mg/dL Normal 2.5-4.9 [facility] Comment on above: Performed By: #### 1 66710, 231578, 209803 #### [facility] [address] [place] [address] Education Reviewer: Jesse Nguyen MD POC Glucoseon 10-18-2020 Glucose [Mass/Vol] 184 mg/dL [address] Comment on above: Performed By: #### 1 [id number] #### [facility] [address] [place] [address] Education Reviewer: Jesse Nguyen MD Glucose [Mass/Vol] 174 mg/dL [address] Comment on above: Performed By: #### 1 [id number] #### [facility] [address] [place], [place] [address] Education Reviewer: Jesse Nguyen MD Glucose [Mass/Vol] 136 mg/dL [address] Comment on above: Performed By: #### 1 [id number] #### [facility] [address] [place], [place] [address] Education Reviewer: Jesse Nguyen MD Glucose [Mass/Vol] 140 mg/dL [address] Comment on above: Performed By: #### 1 [id number] #### [facility] [address] [place], [place] [address] Education Reviewer: Jesse Nguyen MD Progress Note-Physicianon Progress Note-Physician Patient: SUE MOMIN Age: 50 years Sex: Female : 1970 Associated Diagnoses: None Author: BENJAMIN HARDY, BRITTNEE Impression and Plan Alcohol withdrawal, alcohol abuse Alcoholic liver disease Hypokalemia, hypomagnesemia Diabetes mellitus, hypertension Plan: Continue alcohol withdrawal protocol with lorazepam. CIWA 5 Replace potassium Consult chemical dependency DVT prophylaxis Full code Subjective Feeling better Objective VS/Measurements Vital Signs (last 24 hrs) Last Charted Heart Rate Peripheral 71 bpm (OCT 18 07:00) Resp Rate 18 br/min (OCT 18 07:00) SBP H 148mmHg (OCT 18 07:00) DBP 78 mmHg (OCT 18 07:00) BMI 38.14 (OCT 18 04:20) General: Alert, Oriented, NAD HEENT: Normocephalic, atraumatic, EOMI, PERRL, neck is supple, trachea midline Cardiovascular: RRR, positive s1, s2 Lungs: Diminished breath sounds bilaterally Abdomen: Soft, Nontender, Nondistended, positive bowel sounds Extremities: No peripheral edema Psych: appropriate mood and affect. Skin: warm and dry. No pallor cyanosis, clubbing or jaundice. Neuro: Cranial nerves II through XII grossly intact, no focal deficits. sensation intact. Lymph: No cervical, submandibular or axillary lymphadenopathy seen or palpated Review / Management Results review: Labs (Last four charted values) WBC 5.7 (OCT 15) Hgb 13.9 (OCT 15) Hct 40.3 (OCT 15) Plt L 81 (OCT 15) Na 139 (OCT 18) 138 (OCT 17) 138 (OCT 16) 137 (OCT 15) K 3.6 (OCT 18) 3.9 (OCT 17) L 3.4 (OCT 16) L 3.3 (OCT 15) CO2 25.2 (OCT 18) 28.4 (OCT 17) 31.6 (OCT 16) 23.7 (OCT 15) Cl 109 (OCT 18) 105 (OCT 17) 101 (OCT 16) L 96 (OCT 15) Cr 0.6 (OCT 18) 0.7 (OCT 17) 0.6 (OCT 16) 0.6 (OCT 15) BUN 11 (OCT 18) L 9 (OCT 17) L 8 (OCT 16) L 7 (OCT 15) Glucose Random H 125 (OCT 18) H 125 (OCT 17) H 118 (OCT 16) H 110 (OCT 15) Mg 2.0 (OCT 18) 2.1 (OCT 17) 2.3 (OCT 16) L 1.5 (OCT 15) Phos 4.4 (OCT 18) 3.6 (OCT 17) 3.8 (OCT 16) 3.6 (OCT 15) Ca 8.5 (OCT 18) L 8.4 (OCT 17) L 7.9 (OCT 16) L 8.4 (OCT 15) INR 1.1 (OCT 15) . [employer] This report was transcribed using voice recognition technology and might contain unintended computerized drop wire aligner errors. Normal [facility] Behavioral Health Consultati onon 10-17-2020 Behavioral Health Consultation According to patient's nurse, patient will be returning to [facility] tomorrow. She was apparently admitted to the ICU due to htn. [facility] to discuss follow up care. Normal [facility] COMPMETAon 10-17-2020 Albumin [Mass/Vol] 3.4 g/dL Normal 3.4-5.0 [facility] Comment on above: Performed By: #### 1 [id number] #### [facility] [address] [place] [address] Education Reviewer: Jesse Nguyen MD Albumin/Globulin [Mass ratio] 1.0 {ratio} Normal [facility] Comment on above: Performed By: #### 1 [id number] #### [facility] [address] [place] [address] Education Reviewer: Jesse Nguyen MD Alk Phos 30 unit/L Low 45-117 [facility] Comment on above: Performed By: #### 1 [id number] #### [facility] [address] [place] [address] Education Reviewer: Jesse Nguyen MD Bilirubin [Mass/Vol] 0.84 mg/dL Normal 0.20-1.00 [facility] Comment on above: Result Comment: Use of this assay is not recommended for patients undergoing treatment with eltrombopag due to the potential for falsely elevated results. Performed By: #### 1 [id number] #### [facility] [address] [place] [address] Education Reviewer: Jesse Nguyen MD Calcium [Mass/Vol] 8.4 mg/dL Low 8.5-10.5 [facility] Comment on above: Performed By: #### 1 [id number] #### [facility] [address] [place] [address] Education Reviewer: Jesse Nguyen MD Chloride [Moles/Vol] 105 mmol/L Normal 100-109 [facility] Comment on above: Performed By: #### 1 [id number] #### [facility] [address] [place] [address] Education Reviewer: Jesse Nguyen MD CO2 [Moles/Vol] 28.4 mmol/L Normal 21.0-32.0 [facility] Comment on above: Performed By: #### 1 [id number] #### [facility] [address] [place] [address] Education Reviewer: Jesse Nguyen MD Creatinine [Mass/Vol] 0.7 mg/dL Normal 0.6-1.0 [facility] Comment on above: Performed By: #### 1 [id number] #### [facility] [address] [place] [address] Education Reviewer: Jesse Nguyen MD GFR AA >60 Normal [facility] Comment on above: Result Comment: Afri can Australian GFR Calc Medical judgement is necessary to interpret GFR. The calculated GFR may not accurately reflect renal status in patients >70 years, women, acutely ill hospitalized patients and patients with acute renal failure or known renal disease. The MDRD GFR formula is valid only for adults greater than 18 years of age. Note: Creatinine clearance (not GFR) should be used for drug dosing. Performed By: #### 1 [id number] #### [facility] [address] [place] [address] Education Reviewer: Jesse Nguyen MD Globulin (S) [Mass/Vol] 3.5 g/dL Normal [facility] Comment on above: Performed By: #### 1 [id number] #### [facility] [address] [place] [address] Education Reviewer: Jesse Nguyen MD Glomerular Filtration Rate >60 Normal [facility] Comment on above: Result Comment: Non GFR Calc Medical judgement is necessary to interpret GFR. The calculated GFR may not accurately reflect renal status in patients >70 years, women, acutely ill hospitalized patients and patients with acute renal failure or known renal disease. The MDRD GFR formula is valid only for adults greater than 18 years of age. Note: Creatinine clearance (not GFR) should be used for drug dosing. Performed By: #### 1 [id number] #### [facility] [address] [place], [place] [address] Education Reviewer: Jesse Nguyen MD Glucose [Mass/Vol] 125 mg/dL High 72-100 [facility] Comment on above: Result Comment: Erin puncture should occur prior to sulfasalazine administration due to the potential for falsely depressed results. Venipuncture should occur prior to sulfapyridine administration due to the potential falsely elevated results. Baseline assay values before administration of sulfasalazine and sulfapyridine therapy would not be affected. Performed By: #### 1 [id number] #### [facility] [address] [place], [place] [address] Education Reviewer: Jesse Nguyen MD GOT 43 unit/L High 15-37 [facility] Comment on above: Result Comment: Erin puncture should occur prior to sulfasalazine and/or sulfapyridine administration due to the potential for falsely depressed results. Baseline assay values before administration of sulfasalazine and sulfapyridine therapy would not be affected. Performed By: #### 1 [id number] #### [facility] [address] [place], [place] [address] Education Reviewer: Jesse Nguyen MD GPT 29 unit/L Normal 13-56 [facility] Comment on above: Result Comment: Erin puncture should occur prior to sulfasalazine and/or sulfapyridine administration due to the potential for falsely depressed results. Baseline assay values before administration of sulfasalazine and sulfapyridine therapy would not be affected. Performed By: #### 1 [id number] #### [facility] [address] [place] [address] Education Reviewer: Jesse Nguyen MD Osmolality [Osmolality] 276 mosm/kg Normal 275-295 [facility] Comment on above: Performed By: #### 1 [id number] #### [facility] [address] [place] [address] Education Reviewer: Jesse Nguyen MD Potassium [Moles/Vol] 3.9 mmol/L Normal 3.5-5.1 [facility] Comment on above: Performed By: #### 1 [id number] #### [facility] [address] [place] [address] Education Reviewer: Jesse Nguyen MD Protein [Mass/Vol] 6.9 g/dL Normal 6.0-8.5 [facility] Comment on above: Performed By: #### 1 [id number] #### [facility] [address] [place], [place] [address] Education Reviewer: Jesse Nguyen MD Sodium [Moles/Vol] 138 mmol/L Normal 135-145 [facility] Comment on above: Performed By: #### 1 [id number] #### [facility] [address] [place] [address] Education Reviewer: Jesse Nguyen MD Urea nitrogen [Mass/Vol] 9 mg/dL Low 10-20 [facility] Comment on above: Performed By: #### 1 [id number] #### [facility] [address] [place] [address] Education Reviewer: Jesse Nguyen MD Urea nitrogen/Creatinine [Mass ratio] 13.1 mg/mg Normal [facility] Comment on above: Performed By: #### 1 [id number] #### [facility] [address] [place] [address] Education Reviewer: Jesse Nguyen MD MG LEVELon 10-17-2020 Magnesium [Mass/Vol] 2.1 mg/dL Normal 1.6-2.6 [facility] Comment on above: Performed By: #### 1 [id number] #### [facility] [address] [place] [address] Education Reviewer: Jesse Nguyen MD Nursing Clinical Noteon 09-20 Nursing Clinical Note VITALS STABLE. SEE JENNA FOR PT ASSESSMENT INFO. PT GOING THROUGH ETOH WITHDRAWAL. COOPERATIVE WITH CARE. ORIENTED. TAKING PO ATIVAN EVERY FEW HOURS NEEDED FOR AGITATION, ANXIETY, TREMORS, AND RESTLESSNESS. WELL TOLERATED. PT UP TO RESTROOM WITH ASSIST AND WHEELCHAIR. STABLE DURING TRANSFERS. COMFORT AND SUPPORT PROVIDED, SAFETY MAINTAINED, CALL JOHNSON IN REACH, NEEDS MET. CONTINUE TO MONITOR. Normal [facility] PHOS LEVELon 10-17-2020 Phosphate [Mass/Vol] 3.6 mg/dL Normal 2.5-4.9 [facility] Comment on above: Performed By: #### 1 [id number] #### [facility] [address] [place], [place] [address] Education Reviewer: Jesse Nguyen MD POC Glucoseon 10-17-2020 Glucose [Mass/Vol] 161 mg/dL High 72-100 [facility] Comment on above: Performed By: #### 1 [id number] #### [facility] [address] [place] [address] Education Reviewer: Jesse Nguyen MD Glucose [Mass/Vol] 141 mg/dL High 72100 [facility] Comment on above: Performed By: #### 1 [id number] #### [facility] [address] [place] [address] Education Reviewer: Jesse Nguyen MD Glucose [Mass/Vol] 129 mg/dL High 72100 [facility] Comment on above: Performed By: #### 1 [id number] #### [facility] [address] [place] [address] Education Reviewer: Jesse Nguyen MD Glucose [Mass/Vol] 128 mg/dL High 72100 [facility] Comment on above: Performed By: #### 1 [id number] #### [facility] [address] [place] [id number] Education Reviewer: Jesse Nguyen MD Progress Note-Physicianon Progress Note-Physician Patient: SUE MOMIN Age: 50 years Sex: Female : 1970 Associated Diagnoses: None Author: BRITTNEE ALEXANDER MD Impression and Plan Alcohol withdrawal, alcohol abuse Alcoholic liver disease Hypokalemia, hypomagnesemia Diabetes mellitus, hypertension Plan: Continue alcohol withdrawal protocol with lorazepam Replace potassium Consult chemical dependency DVT prophylaxis I will reinitiate glucagon and lisinopril, which the patient used to take, monitor blood pressure Full code Subjective She still requiring Ativan every 2 hours orally Starting to feel better Objective VS/Measurements Vital Signs (last 24 hrs) Last Charted Heart Rate Peripheral 97 bpm (OCT 17:) Resp Rate H 23br/min (OCT 17:) SBP H 153mmHg (OCT 17:) DBP 85 mmHg (OCT 17:) General: Alert, Oriented, NAD HEENT: Normocephalic, atraumatic, EOMI, PERRL, neck is supple, trachea midline Cardiovascular: RRR, positive s1, s2 Lungs: Diminished breath sounds bilaterally Abdomen: Soft, Nontender, Nondistended, positive bowel sounds Extremities: No peripheral edema Psych: appropriate mood and affect. Skin: warm and dry. No pallor cyanosis, clubbing or jaundice. Neuro: Cranial nerves II through XII grossly intact, no focal deficits. sensation intact. Lymph: No cervical, submandibular or axillary lymphadenopathy seen or palpated Review / Management Results review: Labs (Last four charted values) WBC 5.7 (OCT 15) Hgb 13.9 (OCT 15) Hct 40.3 (OCT 15) Plt L 81 (OCT 15) Na 138 (OCT 17) 138 (OCT 16) 137 (OCT 15) K 3.9 (OCT 17) L 3.4 (OCT 16) L 3.3 (OCT 15) CO2 28.4 (OCT 17) 31.6 (OCT 16) 23.7 (OCT 15) Cl 105 (OCT 17) 101 (OCT 16) L 96 (OCT 15) Cr 0.7 (OCT 17) 0.6 (OCT 16) 0.6 (OCT 15) BUN L 9 (OCT 17) L 8 (OCT 16) L 7 (OCT 15) Glucose Random H 125 (OCT 17) H 118 (OCT 16) H 110 (OCT 15) Mg 2.1 (OCT 17) 2.3 (OCT 16) L 1.5 (OCT 15) Phos 3.6 (OCT 17) 3.8 (OCT 16) 3.6 (OCT 15) Ca L 8.4 (OCT 17) L 7.9 (OCT 16) L 8.4 (OCT 15) INR 1.1 (OCT 15) . Professional Services This report was transcribed using voice recognition technology and might contain unintended computerized drop wire aligner errors. Electronically Signed by: BENJAMIN HARDY [facility] on 10/17/2020 13:54 EDT Normal [facility] COMPMETAon 10-16-2020 Albumin/Globulin [Mass ratio] 0.9 {ratio} Normal [facility] Comment on above: Performed By: #### 1 [id number] #### [facility] [address] [place] [address] Education Reviewer: Jesse Nguyen MD GFR AA >60 Normal [facility] Comment on above: Result Comment: Afri can Australian GFR Calc Medical judgement is necessary to interpret GFR. The calculated GFR may not accurately reflect renal status in patients >70 years, women, acutely ill hospitalized patients and patients with acute renal failure or known renal disease. The MDRD GFR formula is valid only for adults greater than 18 years of age. Note: Creatinine clearance (not GFR) should be used for drug dosing. Performed By: #### 1 [id number] #### [facility] [address] [place] [address] Education Reviewer: Jesse Nguyen MD Glomerular Filtration Rate >60 Normal [facility] Comment on above: Result Comment: Non GFR Calc Medical judgement is necessary to interpret GFR. The calculated GFR may not accurately reflect renal status in patients >70 years, women, acutely ill hospitalized patients and patients with acute renal failure or known renal disease. The MDRD GFR formula is valid only for adults greater than 18 years of age. Note: Creatinine clearance (not GFR) should be used for drug dosing. Performed By: #### 1 [id number] #### [facility] [address] [place] [address] Education Reviewer: Jesse Nguyen MD Osmolality [Osmolality] 275 mosm/kg Normal 275-295 [facility] Comment on above: Performed By: #### 1 [id number] #### [facility] [address] [place], [place] [address] Education Reviewer: Jesse Nguyen MD Urea nitrogen/Creatinine [Mass ratio] 13.3 mg/mg Normal [facility] Comment on above: Performed By: #### 1 [id number] #### [facility] [address] [place], [place] [address] Education Reviewer: Jesse Nguyen MD Albumin [Mass/Vol] 3.2 g/dL Low 3.4-5.0 [facility] Comment on above: Performed By: #### 1 [id number] #### [facility] [address] [place], [place] [address] Education Reviewer: Jesse Nguyen MD Alk Phos 32 unit/L Low 45-117 [facility] Comment on above: Performed By: #### 1 [id number] #### [facility] [address] [place], [place] [address] Education Reviewer: Jesse Nguyen MD Bilirubin [Mass/Vol] 1.04 mg/dL High 0.20-1.00 [facility] Comment on above: Result Comment: Use of this assay is not recommended for patients undergoing treatment with eltrombopag due to the potential for falsely elevated results. Performed By: #### 1 [id number] #### [facility] [address] [place] [address] Education Reviewer: Jesse Nguyen MD Calcium [Mass/Vol] 7.9 mg/dL Low 8.5-10.5 [facility] Comment on above: Performed By: #### 1 [id number] #### [facility] [address] [place] [address] Education Reviewer: Jesse Nguyen MD Chloride [Moles/Vol] 101 mmol/L Normal 100-109 [facility] Comment on above: Performed By: #### 1 [id number] #### [facility] [address] [place] [address] Education Reviewer: Jesse Nguyen MD CO2 [Moles/Vol] 31.6 mmol/L Normal 21.0-32.0 [facility] Comment on above: Performed By: #### 1 [id number] #### [facility] [address] [place] [address] 39468 Education Reviewer: Jesse Nguyen MD Creatinine [Mass/Vol] 0.6 mg/dL Normal 0.6-1.0 [facility] Comment on above: Performed By: #### 1 [id number] #### [facility] [address] [place] [address] Education Reviewer: Jesse Nguyen MD Globulin (S) [Mass/Vol] 3.5 g/dL Normal [facility] Comment on above: Performed By: #### 1 [id number] #### [facility] [address] [place] [address] Education Reviewer: Jesse Nguyen MD Glucose [Mass/Vol] 118 mg/dL High 72-100 [facility] Comment on above: Result Comment: Erin puncture should occur prior to sulfasalazine administration due to the potential for falsely depressed results. Venipuncture should occur prior to sulfapyridine administration due to the potential falsely elevated results. Baseline assay values before administration of sulfasalazine and sulfapyridine therapy would not be affected. Performed By: #### 1 [id number] #### [facility] [address] [place] [address] Education Reviewer: Jesse Nguyen MD GOT 19 unit/L Normal 15-37 [facility] Comment on above: Result Comment: Erin puncture should occur prior to sulfasalazine and/or sulfapyridine administration due to the potential for falsely depressed results. Baseline assay values before administration of sulfasalazine and sulfapyridine therapy would not be affected. Performed By: #### 1 [id number] #### [facility] [address] [place], [place] [address] Education Reviewer: Jesse Nguyen MD GPT 18 unit/L Normal 13-56 [facility] Comment on above: Result Comment: Erin puncture should occur prior to sulfasalazine and/or sulfapyridine administration due to the potential for falsely depressed results. Baseline assay values before administration of sulfasalazine and sulfapyridine therapy would not be affected. Performed By: #### 1 [id number] #### [facility] [address] [place] [address] Education Reviewer: Jesse Nguyen MD Potassium [Moles/Vol] 3.4 mmol/L Low 3.5-5.1 [facility] Comment on above: Performed By: #### 1 [id number] #### [facility] [address] [place], [place] [address] Education Reviewer: Jesse Nguyen MD Protein [Mass/Vol] 6.7 g/dL Normal 6.0-8.5 [facility] Comment on above: Performed By: #### 1 [id number] #### [facility] [address] [place] [address] Education Reviewer: Jesse Nguyen MD Sodium [Moles/Vol] 138 mmol/L Normal 135-145 [facility] Comment on above: Performed By: #### 1 [id number] #### [facility] [address] [place] [address] Education Reviewer: Jesse Nguyen MD Urea nitrogen [Mass/Vol] 8 mg/dL Low 10-20 [facility] Comment on above: Performed By: #### 1 [id number] #### [facility] [address] [place] [address] Education Reviewer: Jesse Nguyen MD MG LEVELon 10-16-2020 Magnesium [Mass/Vol] 2.3 mg/dL Normal 1.6-2.6 [facility] Comment on above: Performed By: #### 1 [id number] #### [facility] [address] [place] [address] Education Reviewer: Jesse Nguyen MD Nursing Clinical Noteon 09-20 Nursing Clinical Note 2027 - Pt awake in bed. Ativan given per CIWA score. All other needs voiced. Call light in reach. Normal [facility] PHOS LEVELon 10-16-2020 Phosphate [Mass/Vol] 3.8 mg/dL Normal 2.5-4.9 [facility] Comment on above: Performed By: #### 1 [id number] #### [facility] [address] [place] [address] Education Reviewer: Jesse Nguyen MD POC Glucoseon 10-16-2020 Glucose [Mass/Vol] 194 mg/dL High 72-100 [facility] Comment on above: Performed By: #### 1 [id number] #### [facility] [address] [place] [address]47 Education Reviewer: Jesse Nguyen MD Glucose [Mass/Vol] 131 mg/dL High 72-100 [facility] Comment on above: Performed By: #### 1 [id number] #### [facility] [address] [place] [address] Education Reviewer: Jesse Nguyen MD Glucose [Mass/Vol] 131 mg/dL High 72-100 [facility] Comment on above: Performed By: #### 1 [id number] #### [facility] [address] [place] [address] Education Reviewer: Jesse Nguyen MD Glucose [Mass/Vol] 137 mg/dL High 72-100 [facility] Comment on above: Performed By: #### 1 [id number] #### [facility] [address] [place] [address] Education Reviewer: Jesse Nguyen MD Progress Note-Physicianon Progress Note-Physician Patient: SUE MOMIN Age: 50 years Sex: Female : 1970 Associated Diagnoses: None Author: BENJAMIN HARDY, BRITTNEE Impression and Plan Alcohol withdrawal, alcohol abuse Alcoholic liver disease Hypokalemia, hypomagnesemia Plan: Continue initiate alcohol withdrawal protocol with lorazepam Replace potassium Consult chemical dependency DVT prophylaxis Full code Subjective Feels better, although still feels irritable Objective VS/Measurements Vital Signs (last 24 hrs) Last Charted Temp Axillary H 36.9degC (OCT 15 10:45) Heart Rate Peripheral 97 bpm (OCT 15 23:00) Resp Rate H 24br/min (OCT 16 09:49) SBP H 172mmHg (OCT 16 09:00) DBP 80 mmHg (OCT 16 09:00) General: Alert, Oriented, NAD HEENT: Normocephalic, atraumatic, EOMI, PERRL, neck is supple, trachea midline Cardiovascular: RRR, positive s1, s2 Lungs: Diminished breath sounds bilaterally Abdomen: Soft, Nontender, Nondistended, positive bowel sounds Extremities: No peripheral edema Psych: appropriate mood and affect. Skin: warm and dry. No pallor cyanosis, clubbing or jaundice. Neuro: Cranial nerves II through XII grossly intact, no focal deficits. sensation intact. Lymph: No cervical, submandibular or axillary lymphadenopathy seen or palpated Review / Management Results review: Labs (Last four charted values) WBC 5.7 (OCT 15) Hgb 13.9 (OCT 15) Hct 40.3 (OCT 15) Plt L 81 (OCT 15) Na 138 (OCT 16) 137 (OCT 15) K L 3.4 (OCT 16) L 3.3 (OCT 15) CO2 31.6 (OCT 16) 23.7 (OCT 15) Cl 101 (OCT 16) L 96 (OCT 15) Cr 0.6 (OCT 16) 0.6 (OCT 15) BUN L 8 (OCT 16) L 7 (OCT 15) Glucose Random H 118 (OCT 16) H 110 (OCT 15) Mg 2.3 (OCT 16) L 1.5 (OCT 15) Phos 3.8 (OCT 16) 3.6 (OCT 15) Ca L 7.9 (OCT 16) L 8.4 (OCT 15) INR 1.1 (OCT 15) . Professional Services This report was transcribed using voice recognition technology and might contain unintended computerized drop wire aligner errors. [facility] U DOA WITH FENTANYLon 2020 Amphetamines, U Negative [facility] Comment on above: Result Comment: Urin e for Drugs of Abuse tests (U Amphetamines, U Barbiturates, U PCP, U Benzodiazepines, U Cocaine, U THC, U Opiates & U Ecstasy)provide preliminary test results only. A more specific alternate method must be used in order to obtain a confirmed analytical result. Gas chromatography/mass spectrometry is the preferred confirmatory method. Clinical consideration and professional judgment should be applied to any drug of abuse test result, particularly when preliminary positive results are used. Results should not be used for non-medical purposes. Urine for Drugs of Abuse [place] Levels: Barbiturate 200 ng/ml PCP 25 ng/ml Cocaine 300 ng/ml Opiates 2000 ng/ml Amphetamines 1000 ng/ml Benzodiazepines 200 ng/ml THC 50 ng/ml EXTC 500 ng/ml Performed By: #### 1 [id number] #### [facility] [address] [place], [place] [address] Education Reviewer: Jesse Nguyen MD Barbituates, U Negative [facility] Comment on above: Performed By: #### 1 [id number] #### [facility] [address] [place] [address] [id number] Education Reviewer: Jesse Nguyen MD Benzodiazepines, U Negative Normal [facility] Comment on above: Performed By: #### 1 [id number] #### [facility] [address] [place] [address] Education Reviewer: Jesse Nguyen MD Cocaine, [facility] Comment on above: Performed By: #### 1 [id number] #### [facility] [address] [place] [address] Education Reviewer: Jesse Nguyen MD Ecstasy, [facility] Comment on above: Performed By: #### 1 [id number] #### [facility] [address] [place] [address]345 Education Reviewer: Jesse Nguyen MD Fentanyl, [facility] Comment on above: Result Comment: Urin e for Fentanyl provides preliminary test results only. A more specific alternate method must be used in order to obtain a confirmed analytical result. Gas chromatography/mass spectrometry is the preferred confirmatory method. Clinical consideration and professional judgment should be applied to any drug of abuse test result, particularly when preliminary positive results are used. Results should not be used for non-medical purposes. Urine Fentanyl [place] Level: 1 ng/ml Performed By: #### 1 [id number] #### [facility] [address] [place] [address]34 Education Reviewer: Jesse Nguyen MD Opiates, [facility] Comment on above: Performed By: #### 1 [id number] #### [facility] [address] [place] [address] Education Reviewer: Jesse Nguyen MD PCP, [facility] Comment on above: Performed By: #### 1 [id number] #### [facility] [address] [place] [address] Education Reviewer: Jesse Nguyen MD THC, [facility] Comment on above: Performed By: #### 1 [id number] #### [facility] [address] [place] [address] 22526 Education Reviewer: Jesse Nguyen MD ALCOHOL SERUMon 10-15-2020 Alcohol, Serum <3 Normal [facility] Comment on above: Result Comment: Note : Alcohol values performed at [facility] are performed on Serum and reported in mg/dl, which is different then the state reporting units of g/dl which is performed on whole blood. Result reporting units are based on test methodology and are not interchangable. Performed By: #### 1 [id number] #### [facility] [address] [place] [address] Education Reviewer: Jesse Nguyen MD AMMONon 10-15-2020 Ammonia (P) [Moles/Vol] 17 umol/L Normal 11-45 [facility] Comment on above: Result Comment: Erin puncture should occur prior to sulfasalazine administration due to the potential for falsely elevated results. Venipuncture should occur prior to sulfapyridine administration due to the potential for falsely depressed results. Baseline assay values before administration of sulfasalazine and sulfapyridine therapy would not be affected. Performed By: #### 1 [id number] #### [facility] [address] [place] [address] Education Reviewer: Jesse Nguyen MD AUTO DIFFon 10-15-2020 Baso Count 0.01 x1000 Normal 0.00-0.20 [facility] Comment on above: Performed By: #### 1 90553, [id number], 022587, 688572, 053428, 606993, 008576 ####[facility] [address] [place] [address] Medical Director: Jesse Nguyen MD Basos % 0.2 % Normal [facility] Comment on above: Performed By: #### 1 77899, 3860090, 440051, 932653, 875093, 888136, 753195 ####[facility] [address] [place] [address] Medical Director: Jesse Nguyen MD Eos Count 0.01 x1000 Normal 0.00-0.50 [facility] Comment on above: Performed By: #### 1 99364, 0780119, 105272, 928585, 114776, 321284, 635899 ####[facility] [address] [place] [address] Medical Director: Jesse Nguyen MD Eosinophils/100 WBC (Bld) 0.2 % Normal [facility] Comment on above: Performed By: #### 1 84330, 8679838, 010666, 144531, 709740, 470841, 301526 ####[facility] [address] [place] [address] Medical Director: Jesse Nguyen MD Lymph Count 1.08 x1000 Low 1.20-4.80 [facility] Comment on above: Performed By: #### 1 36206, 2891864, 078840, 052661, 887169, 513055, 705030 ####[facility] [address] [place] [address] Medical Director: Jesse Nguyen MD Lymphocytes/100 WBC (Bld) 18.9 % Normal [facility] Comment on above: Performed By: #### 1 09199, 1917304, 364696, 876431, 908633, 919099, 001338 ####[facility] [address] [place] [address] Medical Director: Jesse Nguyen MD [place] Count 0.29 x1000 Normal 0.10-1.00 [facility] Comment on above: Performed By: #### 1 47547, 0412125, 879970, 021156, 007367, 618294, 593495 ####[facility] [address] [place] [address] Medical Director: Jesse Nguyen MD Monocytes/100 WBC (Bld) 5.1 % Normal [facility] Comment on above: Performed By: #### 1 70570, 2821151, 900376, 723860, 867660, 634890, 603977 ####[facility] [address] [place], [place] [id number]) [phone] Director: Jesse Nguyen MD Neutrophil Count (ANC) 4.33 x1000 Normal 1.40-8.80 [facility] Comment on above: Performed By: #### 1 02878, 5443752, 015417, 434189, 342968, 970848, 334255 ####[facility] [address] [place] [address] Medical Director: Jesse Nguyen MD Neutrophils/100 WBC (Bld) 75.6 % Normal [facility] Comment on above: Performed By: #### 1 11362, 5754330, 310816, 957504, 973860, 618561, 618722 ####[facility] [address] [place], [place] [id number]) [phone] Director: Jesse Nguyen MD Red Blood Cell Morphology See Notes Abnormal [facility] Comment on above: Result Comment: Anis ocytosis 2+ Polychromasia 1+ Performed By: #### 1 60766, 8554628, 277530, 908318, 128363, 675436, 754884 ####[facility] [address] [place] [address] Medical Director: Jesse Nguyen MD Scan Differential Diff Scd Normal [facility] Comment on above: Result Comment: Slid e reviewed by technologist. Performed By: #### 1 69814, 1456532, 366316, 726850, 998104, 785744, 221450 ####[facility] [address] [place], [place] [id number]) [phone] Director: Jesse Nguyen MD BILIDon 10-15-2020 Bilirubin.indirect [Mass/Vol] 0.59 mg/dL High 0.00-0.20 [facility] Comment on above: Performed By: #### 1 95561, 9136239, 002671, 160356, 547585, 734895, 178945 ####[facility] [address] [place] [address] Medical Director: Jesse Nguyen MD COMPMETAon 10-15-2020 Albumin/Globulin [Mass ratio] 1.1 {ratio} Normal [facility] Comment on above: Performed By: #### 1 50013, 3200851, 122193, 370870, 380023, 032721, 124387 ####[facility] [address] [place] [address] Medical Director: Jesse Nguyen MD GFR AA >60 Normal [facility] Comment on above: Result Comment: Afri can Australian GFR Calc Medical judgement is necessary to interpret GFR. The calculated GFR may not accurately reflect renal status in patients >70 years, women, acutely ill hospitalized patients and patients with acute renal failure or known renal disease. The MDRD GFR formula is valid only for adults greater than 18 years of age. Note: Creatinine clearance (not GFR) should be used for drug dosing. Performed By: #### 1 35824, 7049956, 774923, 044368, 823557, 306065, 854737 ####[facility] [address] [place] [address] Medical Director: Jesse Nguyen MD Glomerular Filtration Rate >60 Normal [facility] Comment on above: Result Comment: Non GFR Calc Medical judgement is necessary to interpret GFR. The calculated GFR may not accurately reflect renal status in patients >70 years, women, acutely ill hospitalized patients and patients with acute renal failure or known renal disease. The MDRD GFR formula is valid only for adults greater than 18 years of age. Note: Creatinine clearance (not GFR) should be used for drug dosing. Performed By: #### 1 21387, 2071531, 716808, 301672, 458215, 636208, 241183 ####[facility] [address] [place] [address] Medical Director: Jesse Nguyen MD Osmolality [Osmolality] 272 mosm/kg Low 275-295 [facility] Comment on above: Performed By: #### 1 82228, 7719990, 615354, 149690, 636389, 854957, 917868 ####[facility] [address] [place], [place] [id number]) [phone] Director: Jesse Nguyen MD Urea nitrogen/Creatinine [Mass ratio] 12.4 mg/mg Normal [facility] Comment on above: Performed By: #### 1 17347, 5516706, 638844, 654821, 756893, 884211, 512596 ####[facility] [address] [place], [place] [id number]) [phone] Director: Jesse Nguyen MD Albumin [Mass/Vol] 4.0 g/dL Normal 3.4-5.0 [facility] Comment on above: Performed By: #### 1 92905, 3074313, 480321, 877340, 562363, 097119, 944037 ####[facility] [address]thp84[address] [place], [place] [id number]) [phone] Director: Jesse Nguyen MD Alk Phos 40 unit/L Low 45-117 [facility] Comment on above: Performed By: #### 1 45114, 1189046, 607564, 226713, 459920, 838725, 285770 ####[facility] [address]rtqlv77[address] [place] [address] Medical Director: Jesse Nguyen MD Bilirubin [Mass/Vol] 1.70 mg/dL High 0.20-1.00 [facility] Comment on above: Result Comment: Use of this assay is not recommended for patients undergoing treatment with eltrombopag due to the potential for falsely elevated results. Performed By: #### 1 06341, 7028526, 240428, 891848, 885724, 867378, 271187 ####[facility] [address]knjb[address] [place] [address] Medical Director: Jesse Nguyen MD Calcium [Mass/Vol] 8.4 mg/dL Low 8.5-10.5 [facility] Comment on above: Performed By: #### 1 52820, 3934818, 159111, 573592, 009825, 379586, 386752 ####[facility] Xffutdcf87736 [place], [place] [id number]) [phone] Director: Jesse Nguyen MD Chloride [Moles/Vol] 96 mmol/L Low 100-109 [facility] Comment on above: Performed By: #### 1 33883, 7947335, 017900, 606815, 272158, 279016, 213210 ####[facility] Zsazydun18877 [place], [place] [id number]) [phone] Director: Jesse Nguyen MD CO2 [Moles/Vol] 23.7 mmol/L Normal 21.0-32.0 [facility] Comment on above: Performed By: #### 1 76613, 3059817, 140224, 662859, 244853, 118868, 977703 ####[facility] Jrzonglv10391 [place] [address] Medical Director: Jesse Nguyen MD Creatinine [Mass/Vol] 0.6 mg/dL Normal 0.6-1.0 [facility] Comment on above: Performed By: #### 1 35043, 5259968, 575987, 115015, 793396, 174022, 762425 ####[facility] Euufulqq29815 [place] [address] Medical Director: Jesse Nguyen MD Globulin (S) [Mass/Vol] 3.7 g/dL Normal [facility] Comment on above: Performed By: #### 1 73328, 7205179, 784453, 549918, 914283, 138965, 272743 ####[facility] [address]tsqapej32640 [place] [address] Medical Director: Jesse Nguyen MD Glucose [Mass/Vol] 110 mg/dL High 72-100 [facility] Comment on above: Result Comment: Erin puncture should occur prior to sulfasalazine administration due to the potential for falsely depressed results. Venipuncture should occur prior to sulfapyridine administration due to the potential falsely elevated results. Baseline assay values before administration of sulfasalazine and sulfapyridine therapy would not be affected. Performed By: #### 1 13851, 8134214, 594754, 714399, 106755, 555397, 494941 ####[facility] [address]z865[address] [place] [address] Medical Director: Jesse Nguyen MD GOT 30 unit/L Normal 15-37 [facility] Comment on above: Result Comment: Erin puncture should occur prior to sulfasalazine and/or sulfapyridine administration due to the potential for falsely depressed results. Baseline assay values before administration of sulfasalazine and sulfapyridine therapy would not be affected. Performed By: #### 1 76852, 6978768, 235896, 761222, 550046, 829251, 796317 ####[facility] [address]vpsoiuo92071 [place] [address] Medical Director: Jesse Nguyen MD GPT 23 unit/L Normal 13-56 [facility] Comment on above: Result Comment: Erin puncture should occur prior to sulfasalazine and/or sulfapyridine administration due to the potential for falsely depressed results. Baseline assay values before administration of sulfasalazine and sulfapyridine therapy would not be affected. Performed By: #### 1 37936, 5762481, 857944, 985477, 704256, 678901, 066774 ####[facility] [address] [place] [address] Medical Director: Jesse Nguyen MD Potassium [Moles/Vol] 3.3 mmol/L Low 3.5-5.1 [facility] Comment on above: Performed By: #### 1 57893, 3881365, 559818, 913854, 754980, 607078, 734019 ####[facility] [address]nfkw[address] [place] [address] Medical Director: Jesse Nguyen MD Protein [Mass/Vol] 7.7 g/dL Normal 6.0-8.5 [facility] Comment on above: Performed By: #### 1 73249, 6650836, 938149, 421329, 721123, 850810, 044089 ####[facility] [address]ioduq[address] [place] [address] Medical Director: Jesse Nguyen MD Sodium [Moles/Vol] 137 mmol/L Normal 135-145 [facility] Comment on above: Performed By: #### 1 11583, 6819798, 035961, 463009, 036656, 139483, 486696 ####[facility] [address]ow[address]lv56[address] [place] [address] Medical Director: Jesse Nguyen MD Urea nitrogen [Mass/Vol] 7 mg/dL Low 10-20 [facility] Comment on above: Performed By: #### 1 37097, 2227528, 067665, 389550, 997469, 055955, 834831 ####[facility] Thgmtomr55624 [place] [address] Medical Director: Jesse Nguyen MD HEMOon 10-15-2020 DIFF? No Normal [facility] Comment on above: Performed By: #### 1 92320, 2828456, 512001, 903217, 191161, 175498, 292033 ####[facility] [address]ryndnme42235 [place] [address] Medical Director: Jesse Nguyen MD Nucleated RBC 0 /100WBC Normal [facility] Comment on above: Performed By: #### 1 74912, 8947281, 695886, 379459, 369509, 402701, 891767 ####[facility] [address]fvrgoly[address] [place] [address] Medical Director: Jesse Nguyen MD Dx Actions See Notes Abnormal [facility] Comment on above: Result Comment: Scan for RBC Morphology SNV Performed By: #### 1 41173, 7700750, 091570, 035776, 811106, 933531, 573850 ####[facility] Zvktjzwz513[address] [place], [place] [address]) [phone] Director: Jesse Nguyen MD Erythrocyte distribution width (RBC) [Ratio] 18.9 % High 11.5-14.5 [facility] Comment on above: Performed By: #### 1 27579, 3375848, 150325, 513979, 347636, 210907, 659184 ####[facility] Fdrcqpxb09026 [place], [place] [id number]) [phone] Director: Jesse Nguyen MD Hematocrit (Bld) [Volume fraction] 40.3 % Normal 36.0-46.0 [facility] Comment on above: Performed By: #### 1 59588, 1611245, 480551, 212871, 070274, 309146, 074689 ####[facility] [address]cybj49[address] [place] [address] Medical Director: Jesse Nguyen MD Hemoglobin (Bld) [Mass/Vol] 13.9 g/dL Normal 12.0-16.0 [facility] Comment on above: Performed By: #### 1 86320, 7555033, 297171, 876251, 900768, 775012, 550847 ####[facility] [address]gb[address]ijus[address]23[address] [place], [place] [address]) [phone] Director: Jesse Nguyen MD Instr WBC 5.7 Normal [facility] Comment on above: Performed By: #### 1 67831, 9782443, 185497, 351388, 502134, 926932, 778355 ####[facility] Uwmkumxe79135 [place] [address] Medical Director: Jesse Nguyen MD MCH (RBC) [Entitic mass] 28.9 pg Normal 27.0-34.0 [facility] Comment on above: Performed By: #### 1 21358, 0890325, 730596, 085709, 223243, 879317, 539998 ####[facility] Zxfyagjh72825 [place], [place] [address]) [phone] Director: Jesse Nguyen MD MCHC (RBC) [Mass/Vol] 34.4 g/dL Normal 32.0-37.0 [facility] Comment on above: Performed By: #### 1 95779, 3440266, 939841, 296288, 398186, 826261, 041208 ####[facility] G[address]ikgc929[address] [place], [place] [address]) [phone] Director: Jesse Nguyen MD MCV (RBC) [Entitic vol] 83.9 fL Normal 80.0-100.0 [facility] Comment on above: Performed By: #### 1 19707, 2581622, 710984, 305405, 631327, 901085, 153143 ####[facility] X[address]ujzt[address]8477 [place] [address] Medical Director: Jesse Nguyen MD Platelet 81 x1000 Low 150-450 [facility] Comment on above: Performed By: #### 1 11790, 1369140, 816762, 480537, 705688, 938386, 277314 ####[facility] Sihlxzsh72154 [place], [place] [address]) [phone] Director: Jesse Nguyen MD Platelet mean volume (Bld) [Entitic vol] 6.5 fL Low 7.4-10.4 [facility] Comment on above: Performed By: #### 1 12001, 9013994, 620356, 313934, 271897, 677454, 989875 ####[facility] Fjiftcvn74[address] [place], [place] [address]) [phone] Director: Jesse Nguyen MD RBC 4.80 x10 Normal 4.20-5.40 [facility] Comment on above: Result Comment: Note : RBC morphology is normal unless otherwise stated. Evaluation performed only if differential is requested. Performed By: #### 1 29607, 7260912, 137068, 572443, 537671, 228877, 730284 ####[facility] [address]pfgdb07[address] [place], [place] [address] Medical Director: Jesse Nguyen MD WBC 5.7 x10 Normal 4.5-11.0 [facility] Comment on above: Performed By: #### 1 42064, 7416181, 864385, 808349, 691798, 463355, 715735 ####[facility] R[address]dxnte70022 [place], [place] [address] Medical Director: Jesse Nguyen MD MG LEVELon 10-15-2020 Magnesium [Mass/Vol] 1.5 mg/dL Low 1.6-2.6 [facility] Comment on above: Performed By: #### 1 73741, 4970557, 192011, 386135, 853283, 173856, 042894 ####[facility] [address]wtkk[address] [place] [address] Medical Director: Jesse Nguyen MD Nursing Clinical Noteon 09-20 Nursing Clinical Note Rec'd pt from [facility] office for ETOH withdrawal. Visible tremors with high anxiety upon arrival. ABD pain from dry heaves. IV stared, labs drawn and sent. Dr Alexander at bedside with orders entered. IV Zofran and ativan given per PRN order, both effective. Pt states feeling much better. Assessments per [facility]. Normal [facility] PHOS LEVELon 10-15-2020 Phosphate [Mass/Vol] 3.6 mg/dL Normal 2.5-4.9 [facility] Comment on above: Performed By: #### 1 29869, 6584197, 348169, 397773, 950036, 352247, 202699 ####[facility] [address] [place] [address] Medical Director: Jesse Nguyen MD POC Glucoseon 10-15-2020 Glucose [Mass/Vol] 136 mg/dL High 72100 [facility] Comment on above: Performed By: #### 1 [id number] #### [facility] [address] [place] [address] Education Reviewer: Jesse Nguyen MD Glucose [Mass/Vol] 141 mg/dL High 72100 [facility] Comment on above: Performed By: #### 1 [id number] #### [facility] [address] [place] [address] Education Reviewer: Jesse Nguyen MD Glucose [Mass/Vol] 122 mg/dL [facility] [address] Comment on above: Performed By: #### 1 [id number] #### [facility] [address] [place] [address] Education Reviewer: Jesse Nguyen MD PT INRon 10-15-2020 INR Coag (PPP) [Relative time] 1.1 {INR} Normal [facility] Comment on above: Result Comment: INR Reference Range: Normal reference range for INR on patients not on anticoagulant therapy: 0.9-1.1 General therapeutic range for patients on anticoagulant therapy: 2.0-3.5 Performed By: #### 1 34315, 6910132, 996808, 306867, 850421, 608348, 487345 ####[facility] [address]ns[address]wjn[address] [place] [address] Medical Director: Jesse Nguyen MD Protime Patient 12.3 seconds Normal 10.1-13.3 [facility] Comment on above: Performed By: #### 1 18220, 4656156, 606427, 380885, 574471, 300040, 467651 ####[facility] [address] [place] [address] Medical Director: MD Cam Elizondo 10-01-2020 [facility] Office Visit ([facility] ) SUE MOMIN ([id number]) 1970 F [facility] Date Time Provider Department 10/01/20 2:00 PM MARYBEL MASON During your visit today, we recorded the following information about you: Marybel Mason PA-C 10/11/2020 8:26 AM Signed HISTORY: Sue is a 50 year old female. She is here for follow up on her right hip. She is 7 weeks status post periprosthetic fracture with cephlamedullary nailing. She has no complaints of any pain in the hip. She has been following the non-weight bearing status using a walker. She denies any numbness in her foot. The patient's past medical history, surgical history, social history, family history, medications and allergies were reviewed with the patient today and are available in the chart for further review. REVIEW OF SYSTEMS: Patient did not have, and does not currently have, any weight loss, malaise, fever, chills, headache,nausea, vomiting, diarrhea, constipation PHYSICAL EXAMINATION: PSYCH: Pleasant, good affect and mood General Appearance: Well appearing, alert, in no acute distress, well-hydrated, well nourished. Skin: Skin color, texture, turgor normal, no suspicious rashes or lesions. Peripheral Pulses: Normal. Neurologic: Gait normal. Reflexes normal and symmetric. Sensation grossly intact. On physical examination of the right hip, the incision is healed. There is no erythema or warmth. Extensor mechanism is intact. Hip motion is smooth and not irritable. Sensation is intact to light touch in the foot. Calf is soft and non-tender. RADIOGRAPHS: right hip films show hardware to be in stable position. Fracture is aligned and appears to be healed. IMPRESSION: Encounter Diagnosis ICD-10-CM 1. 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 At this time I will allow her to advance her weight bearing with the use of a walker. She should do this slowly over the next week. If she has increased pain then she should back off the weight she is putting on the leg. I will see her back in 1 month for follow up and x-rays. Marybel Mason PA-C Referring Provider: MARYBEL MASON [[id number]] Allergies As of Date: 10/01/2020 Noted Allergy Reaction Envoirnmental [Other] 10/29/2000 LATEX 05/19/2020 2 - Rash Comments: Rash - itch and swelling Date Reviewed: 10/01/2020 Reviewed by: Marybel Mason PA-C - Fully Assessed Reason for Visit: Follow Up [171] Post Op [174] Primary Visit Diagnosis:Periprosthe tic fracture of hip, subsequent encounter [M97.8XXD, Z96.649] Order(s):CONSULT TO PHYSICAL THERAPY [9032] Order #: [id number]: 1 FUTURE ROLLING WALKER [9030836] Order #: [id number] Prescriptions as of 10/11/2020 - aspirin, enteric coated (ASPIRIN, ENTERIC COATED) 81 mg EC tablet Take 1 tablet by mouth twice daily. - ascorbic acid, vitamin C, (VITAMIN C) 500 mg tablet Take 1 tablet by mouth twice daily with meals for 21 doses. - multivitamin tablet Take 1 tablet by mouth once daily. - glipiZIDE (GLUCOTROL XL) 10mg 24 hr tablet Take 10 mg by mouth once daily. - cholecalciferol (VITAMIN D-3) 50 mcg (2,000 unit) tablet Take 2,000 Units by mouth once daily. - PARoxetine (PAXIL) 10 mg tablet Take 10 mg by mouth once daily. - losartan (COZAAR) 50 mg tablet Take 50 mg by mouth once daily. - potassium chloride 20 mEq TbER Take by mouth. - INV FUROSEMIDE 40 MG TABLET (IRB 18-610) Take by mouth. For Investigational Drug Use Only. PI: Jordan Joy MD. Problem List As Of Date 10/01/2020 Noted Resolved Class 3 severe obesity due to excess calories w*05/20/2020 Essential hypertension [I10] 05/20/2020 Type 2 diabetes mellitus without complication, *05/20/2020 Heartburn [R12] 05/20/2020 Iron deficiency anemia [D50.9] 05/20/2020 Nicotine use disorder, F17.2 [F17.200] 05/25/2020 Stress fracture of right femur [M84.351A] 05/25/2020 Cardiac murmur, unspecified [R01.1] 12/12/2019 Iron deficiency anemia secondary to inadequate *06/04/2020 Closed fracture of right hip with delayed heali*08/12/2020 Fall [W19.XXXA] 08/12/2020 Closed right hip fracture (HCC) [S72.001A] 08/12/2020 Obesity, Class II, BMI 35-39.9 [E66.9] 08/12/2020 Periprosthetic hip fracture [M97.8XXA, Z96.649] 08/13/2020 Acute postoperative pain of right hip [G89.18, *08/17/2020 08/17/2020 S/P gastric bypass [Z98.84] 09/24/2020 Encounter Status:Closed by MARYBEL MASON on 10/11/20 [facility] XR HIP 3V PELV+ AP/LAT RTon 10-01-2020 XR HIP 3V PELV+ AP/LAT RT * * *Final Report* * * DATE OF EXAM: Oct 01 2020 2:00PM SVX 5352 - XR HIP 3V PELV+ AP/LAT RT / PROCEDURE REASON: multiple diagnoses * * * * Physician Interpretation * * * * TECHNIQUE: AP pelvis and 2 coned-down views of the right hip CLINICAL DATA: Periprosthetic fracture. COMPARISON: 08/30/2020. RESULT: There are postsurgical changes from an intramedullary zuhair and screws. There is a healing fracture involving the intertrochanteric region and the proximal femur. There is no dislocation. IMPRESSION: Post surgical changes and healing posttraumatic changes. Trim Die Maker: DEYANIRA Transcribe Date/Time: Oct 01 2020 2:06P Dictated by : FELICIA WORKMAN MD This examination was interpreted and the report reviewed and electronically signed by: FELICIA WORKMAN MD on Oct 01 2020 2:08PM EST [id number] Normal [facility] CNOVSPon 09-24-2020 CNOVSP Visit (SP) Office ([place]) SUE MOMIN ([id number]) 1970 F [facility] Date Time Provider Department 09/24/20 2:30 PM DRAGAN MOHR During your visit today, we recorded the following information about you: Temperature Pulse Respiration Blood pressure 97.6 degrees 102/minute 18/minute 179/92 Weight Height 102.5 kg 1.626 m Dragan Mohr MD 10/03/2020 7:42 PM Signed NAME: Sue Momin CLINIC NO.: [id number] DATE OF SERVICE: September 24, 2020 Some elements in this clinic note that are critical to medical decision making have been carefully reviewed and included from a prior clinic note dated: June 25, 2020 Referring Provider: Nicolasa Mcneill PA-C Additional Clinicians involved in Sue Momin's care: Alek Sherwood CC: Anemia ASSESSMENT: 1. Other iron deficiency anemia She was found to be severely anemic during a recent operation for a right femur fracture in early 2020. She required 2 units of PRBCs and recently received IV iron on 06/15/2020 due to poor absorption following her gastric bypass 20 year ago. She would also probably benefit from GI consult as she is 50 years old with iron deficiency anemia. Patient reluctant, but agrees.to reschedule after she gets . 2. S/P gastric bypass She had gastric bypass over 20 years ago, which is likely the cause of her iron deficiency. B12 has been normal in the past. PLAIN: 1. Labs in 8 weeks include CBC, CMP, Iron, B12 2. RTC in 9 weeks to review results and plan iron infusion as well as B12 shot after. HPI: Updated Visit, September 24, 2020: Sue is 50 and after having had a hip replacement, she fell and refractured and needed extensive repair. Remains in a wheelchair for now and will delay her GI workup until she is ambulatory. Hgb is excellent and B12 will be reassessed. Doesn't need anything for now. Updated Visit, June 25, 2020: Patient returns for follow up after having IV iron on 06.15.2020 for iron deficiency due to malabsorption. She tolerated it well and is feeling better. She denies any bleeding. She reports she has never had a GI work up. Initial Visit, June 04, 2020: Sue Momin presents today Hematology and Oncology evaluation. She is a 49 year old female who had a Right femur fracture after slipping on the ice. 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 Quit smoking after her surgery with internal fixation. Found her to be severely anemic with Hgb of 7.8 05/27/2020 Transfused x 2 Today 10.2 Also found to have DM Probably need sleep study due to fatigue and daytime somnolence as well as body habitus. Gastric bypass - 20 years ago Which is the likely cause of her iron deficiency and also likely to have malabsorption of B12. still smoke 3 ppd. REVIEW OF SYSTEMS Per HPI and otherwise negative by full review of organ systems. ECOG PERFORMANCE STATUS: 1 PHYSICAL EXAMINATION: Vitals: BP 179/92 Pulse 102 Temp (Src) 97.6 (Temporal) Resp 18 Ht 5' 4.016 (1.63m) Wt 226 lb (102.5kg) SpO2 97% LMP 05/12/2020 BMI 38.77 kg/(m2). Very pleasant, morbidly obese. Exam limited to gross visualization where appropriate due to COVID-19. Gen.: This is an age-appropriate patient in no acute distress. Head: Appears atraumatic with no visible lesions. Eyes: Pupils equally round and reactive to light, extraocular muscles are intact. Neck: Supple. Mouth: Mucous membranes appeared to be moist. Respiratory: Appears to be respiring comfortably. Neurologic: Nonfocal to gross visualization. Alert and oriented ?3. Psychiatric: No evidence of inappropriate anxiety or depression. Skin: Visible areas of skin without rash, lesions, wounds or petechiae. ALLERGIES: ALLERGIES Allergen Reactions - Envoirnmental [Othe* - Latex Rash Rash - itch and swelling MEDICATIONS: aspirin, enteric coated (ASPIRIN, ENTERIC COATED) 81 mg EC tablet Take 1 tablet by mouth twice daily. multivitamin tablet Take 1 tablet by mouth once daily. glipiZIDE (GLUCOTROL XL) 10mg 24 hr tablet Take 10 mg by mouth once daily. cholecalciferol (VITAMIN D-3) 50 mcg (2,000 unit) tablet Take 2,000 Units by mouth once daily. PARoxetine (PAXIL) 10 mg tablet Take 10 mg by mouth once daily. losartan (COZAAR) 50 mg tablet Take 50 mg by mouth once daily. potassium chloride 20 mEq TbER Take by mouth. INV FUROSEMIDE 40 MG TABLET (IRB 18-610) Take by mouth. For Investigational Drug Use Only. PI: Jordan Joy MD. ascorbic acid, vitamin C, (VITAMIN C) 500 mg tablet Take 1 tablet by mouth twice daily with meals for 21 doses. LABORATORY VALUES: Hemoglobin (g/dL) Date Value 09/17/2020 13.1 Hematocrit (%) Date Value 09/17/2020 39.4 WBC (k/uL) Date Value 09/17/2020 4.52 Platelet Count (k/uL) Date Value 09/17/2020 101 DIAGNOSIS: (Z98.84) S/P gastric bypass (primary encounter diagnosis) Plan: VITAMIN B12 BLOOD, CBC + DIFF (FOR (more content not included)... Normal [facility] Comp Metabolic Panelon 09-17 Albumin [Mass/Vol] 4.1 g/dL Normal 3.9-4.9 [facility] ALP [Catalytic activity/Vol] 39 U/L Normal 34-123 [facility] ALT [Catalytic activity/Vol] 29 U/L Normal 7-38 [facility] Anion gap [Moles/Vol] 8 mmol/L Low 9-18 [facility] AST [Catalytic activity/Vol] 24 U/L Normal 13-35 [facility] Bilirubin [Mass/Vol] 0.5 mg/dL Normal 0.2-1.3 [facility] Calcium [Mass/Vol] 9.0 mg/dL Normal 8.5-10.2 [facility] Chloride [Moles/Vol] 105 mmol/L Normal 97-105 [facility] CO2 [Moles/Vol] 26 mmol/L Normal 22-30 [facility] Creatinine [Mass/Vol] 0.65 mg/dL Normal 0.58-0.96 [facility] eGFR- Amer. >60 Normal [facility] eGFR-All Other Races >60 Normal [facility] Comment on above: Result Comment: eGFR (Estimated GFR) Units of measure: mL/min/1.73 meters squared eGFR is derived from the reexpressed MDRD Study equation using the following parameters: serum creatinine, age, gender and race. The creatinine assay has been calibrated to be traceable to IDMS. An eGFR <60 mL/min/1.73m2 for >3 months is consistent with chronic kidney disease. Refer to KDOQI guidelines for clinical interpretation. In patients with unstable renal function, e.g. those with acute kidney injury, the eGFR may not accurately reflect actual GFR. Glucose [Mass/Vol] 166 mg/dL High 74-99 [facility] Comment on above: Result Comment: The [place] Diabetes [employer] (ADA) provides guidance for cutoff values for fasting glucose and random glucose. The ADA defines fasting as no caloric intake for at least 8 hours. Fasting plasma glucose results between 100 to 125 mg/dL indicate increased risk for diabetes (prediabetes). Fasting plasma glucose results greater than or equal to 126 mg/dL meet the criteria for diagnosis of diabetes. In the absence of unequivocal hyperglycemia, results should be confirmed by repeat testing. In a patient with classic symptoms of hyperglycemia or hyperglycemic crisis, random plasma glucose results greater than or equal to 200 mg/dL meet the criteria for diagnosis of diabetes. Reference: Standards of Medical Care in Diabetes 2016, [place] Diabetes Association. Diabetes Care. 2016.39(Suppl 1). Potassium [Moles/Vol] 3.4 mmol/L Low 3.7-5.1 [facility] Protein [Mass/Vol] 6.8 g/dL Normal 6.3-8.0 [facility] Sodium [Moles/Vol] 139 mmol/L Normal 136-144 [facility] Urea nitrogen [Mass/Vol] 17 mg/dL Normal 7-21 [facility] Ferritinon 09-17-2020 Ferritin [Mass/Vol] 46.7 ng/mL Normal 14.7-205.1 [facility] Comment on above: Performed By: #### I CEE, FERR ####[id number] [place], [place] [phone] Iron and TIBCon 09-17-2020 Iron [Mass/Vol] 40 ug/dL Low 41-186 [facility] Comment on above: Performed By: #### I CEE, FERR ####[address] [phone] TIBC 327 ug/dL Normal 232-386 [facility] Comment on above: Performed By: #### I CEE, FERR ####[address] [phone] Transferrin Saturatn 12 % Low 15-57 [facility] Comment on above: Performed By: #### I CEE, FERR ####[address] [phone] Remote CBCDIF (for [facility] use o nly)on 09-17-2020 Abs Baso <0.03 Normal <0.11 [facility] Abs [place] 0.40 k/uL Normal <0.87 [facility] Abs Neut 2.46 k/uL Normal 1.45-7.50 [facility] Absolute nRBC <0.01 Normal <0.01 [facility] Basophils/100 WBC (Bld) 0.4 % Normal [facility] DTYPE Auto Diff Normal [facility] Eosinophils (Bld) [#/Vol] 0.12 10*3/uL Normal <0.46 [facility] Eosinophils/100 WBC (Bld) 2.7 % Normal [facility] Erythrocyte distribution width (RBC) [Ratio] 17.8 % High 11.5-15.0 [facility] Hematocrit (Bld) [Volume fraction] 39.4 % Normal 36.0-46.0 [facility] Hemoglobin (Bld) [Mass/Vol] 13.1 g/dL Normal 11.5-15.5 [facility] Lymphocytes (Bld) [#/Vol] 1.50 10*3/uL Normal 1.00-4.00 [facility] Lymphocytes/100 WBC (Bld) 33.2 % Normal [facility] MCH 28.4 pG Normal 26.0-34.0 [facility] MCHC (RBC) [Mass/Vol] 33.2 g/dL Normal 30.5-36.0 [facility] MCV (RBC) [Entitic vol] 85.3 fL Normal 80.0-100.0 [facility] Monocytes/100 WBC (Bld) 8.8 % Normal [facility] Neutrophils/100 WBC (Bld) 54.9 % Normal [facility] NRBCs 0.0 /100 WBC Normal 0 [facility] Platelet mean volume (Bld) [Entitic vol] 9.1 fL Normal 9.0-12.7 [facility] Platelets (Bld) [#/Vol] 101 10*3/uL Low 150-400 [facility] RBC (Bld) [#/Vol] 4.62 10*6/uL Normal 3.90-5.20 [facility] WBC (Bld) [#/Vol] 4.52 10*3/uL Normal 3.70-11.00 [facility] CNOVon 08-31-2020 CNOV Office Visit ([facility] ) SUE MOMIN ([id number]) 1970 F T Date Time Provider Department 08/31/20 3:00 PM CARLOS LEMON During your visit today, we recorded the following information about you: Pulse Blood pressure Weight Height 93/minute 146/72 106.6 kg 1.626 m Carlos Lemon MD 09/01/2020 2:39 PM Signed HPI: Sue Momin, 50 year old female, presents in the office today at the request of Moriah Benavides for iron deficiency anemia, history of gastric bypass. My final recommendations will be communicated back to the requesting physician by the way of the shared medical record, fax, or via US Mail. Patient with anxiety and diabetes. Morbid obesity. RnY in 1999. Seen in hematology 06/25/20 Other iron deficiency anemia She was found to be severely anemic during a recent operation for a right femur fracture in early 2020. She required 2 units of PRBCs and recently received IV iron on 06/15/2020 due to poor absorption following her gastric bypass 20 year ago. She has had normalization of her hemoglobin today. ? She would also probably benefit from GI consult as she is 50 years old with iron deficiency anemia. Patient reluctant, but agrees. I will refer her today. No Prior colonoscopy. No FH of colon cancer. Recent Femur fractures x2. See Hospital Encounter from [facility] 07/2020 Current Medications: Current Outpatient Medications Medication Sig - aspirin, enteric coated (ASPIRIN, ENTERIC COATED) 81 mg EC tablet Take 1 tablet by mouth twice daily. - gabapentin (NEURONTIN) 300 mg capsule Take 1 capsule by mouth twice daily for 7 days, THEN 1 capsule daily at bedtime for 7 days. - oxyCODONE IR (ROXICODONE) 5 mg immediate release tablet Take 1-2 tablets by mouth every 4 hours as needed for pain. - naloxone 4 mg/actuation nasal spray (NARCAN) Use 1 spray in one nostril as needed for overdose. May repeat every 2 to 3 min in alternating nostrils until medical assistance is available - ascorbic acid, vitamin C, (VITAMIN C) 500 mg tablet Take 1 tablet by mouth twice daily with meals for 21 doses. - acetaminophen (TYLENOL) 500 mg tablet Take 2 tablets by mouth every 8 hours. - docusate sodium (COLACE) 100 mg capsule Take 1 capsule by mouth twice daily as needed for Constipation. - multivitamin tablet Take 1 tablet by mouth once daily. - glipiZIDE (GLUCOTROL XL) 10mg 24 hr tablet Take 10 mg by mouth once daily. - cholecalciferol (VITAMIN D-3) 50 mcg (2,000 unit) tablet Take 2,000 Units by mouth once daily. - PARoxetine (PAXIL) 10 mg tablet Take 10 mg by mouth once daily. - losartan (COZAAR) 50 mg tablet Take 50 mg by mouth once daily. - potassium chloride 20 mEq TbER Take by mouth. - INV FUROSEMIDE 40 MG TABLET (IRB 18-610) Take by mouth. For Investigational Drug Use Only. PI: Jordan Joy MD. No current facility-administered medications for this visit. Past Medical History: PAST MEDICAL HISTORY Diagnosis Date - Diabetes (HCC) - Heartburn - Hypertension - Iron deficiency anemia - Iron deficiency anemia secondary to inadequate dietary iron intake 06/04/2020 - Morbidly obese (HCC) - Tobacco use disorder - Type II or unspecified type diabetes mellitus without mention of complication, not stated as uncontrolled history of ,prior to gastric bypass - Unspecified essential hypertension history of, prior to gastric bypass Surgical History: PAST SURGICAL HISTORY Procedure Laterality Date - DELIVERY ONLY X 2 - GASTRIC BYPASS 1999 - LEG/ANKLE SURGERY PROC UNLISTED does not know what surgery she had - LIGATE FALLOPIAN TUBE - PAST SURGICAL HISTORY OF 1999 gastric bypass surgery - PAST SURGICAL HISTORY OF c-sections, 1990 and 1992 - PAST SURGICAL HISTORY OF Bilateral 1980 achilles tendon lengthening - PAST SURGICAL HISTORY OF Right 1976 right wrist surgery following fracture - PAST SURGICAL HISTORY OF wisdom teeth extraction Family History: FAMILY HISTORY Problem Relation Age of Onset - Diabetes Mother - Diabetes Father - Hypertension Mother - Hypertension Father - Blood Disease Maternal Grandmother - Prostate Cancer Paternal Grandfather Social History: Social History Tobacco Use - Smoking status: Former Smoker Packs/day: 0.10 Years: 8.00 Pack years: 0.80 Types: Cigarettes Quit date: 05/23/2020 Years since quittin.2 - Smokeless tobacco: Never Used Substance Use Topics - Alcohol use: Yes Alcohol/week: 7.8 standard drinks Types: 6 Mixed Drinks per week Comment: 6 drinks/week - Drug use: Never Allergies: ALLERGIES Allergen Reactions - Envoirnmental [Othe* - Latex Rash Rash - itch and swelling REVIEW OF SYSTEMS GENERAL: No weight loss, malaise or fevers HEENT: Negative for frequent or significant headaches, No changes in hearing or vision, no nose bleeds or other nasal problems NECK: Negative for lumps, (more content not included)... Normal [facility] Michelle 08-31-2020 EVAN Telephone ([facility]) LILIANESUE ([id number]) 1970 F [facility] Date Time Provider Department 08/31/20 CARLOS LEMON During your visit today, we recorded the following information about you: Veronica Crzu Ma 08/31/2020 3:30 PM Signed Pt has OV with Dr. Lemon today. Please assist in scheduling Colon and EGD w/ MAC. Instructions given in office. Patti Higgins COORD 09/01/2020 5:32 PM Signed Called and left detailed message for patient to call to schedule procedure with gastroenterology. Will follow up. Patient provided with direct extension to reach surgical coordinators. If patient calls back, please transfer to [phone]. Patti Higgins COORD 09/02/2020 3:12 PM Signed Called and left detailed message for patient to call to schedule procedure with gastroenterology. Will follow up. Patient provided with direct extension to reach surgical coordinators. If patient calls back, please transfer to [phone]. Patti Higgins COORD 09/13/2020 5:08 PM Signed Called and left detailed message for patient to call to schedule procedure with gastroenterology. Will follow up. Patient provided with direct extension to reach surgical coordinators. If patient calls back, please transfer to [phone]. Sent patient unable to reach you mychart message, including direct extension to reach office. See below: Good morning/afternoon, Our office has been trying to reach you in an attempt to schedule a procedure with gastroenterology (egd and/or colonoscopy). Unfortunately, we have been unsucessful in our attempts to reach you. Please call our office at [phone] (direct extension to Patti, medical or surgical instrument maker) and we will be happy to assist you. Best, Patti Higgins COORD 09/27/2020 10:21 AM Signed Called and left detailed message for patient to call to schedule procedure with gastroenterology. Will follow up. Patient provided with direct extension to reach surgical coordinators. If patient calls back, please transfer to [phone]. Patti Higgins COORD 10/05/2020 9:42 AM Signed Called and left detailed message for patient to call to schedule procedure with gastroenterology. Will follow up. Patient provided with direct extension to reach surgical coordinators. If patient calls back, please transfer to [phone].. Patti Higgins [facility] 10/14/2020 9:[address] Lemon - EGD/Colonoscopy mac Called and left detailed message for patient to call to schedule procedure with gastroenterology. Will follow up. Patient provided with direct extension to reach surgical coordinators. If patient calls back, please transfer to [phone]. Patti Higgins [facility] 10/22/2020 1:43 PM Signed Called and left detailed message for patient to call to schedule procedure with gastroenterology. Will follow up. Patient provided with direct extension to reach surgical coordinators. If patient calls back, please transfer to [phone]. Patti Higgins [facility] 10/22/2020 2:18 PM Signed Patient states that she has a broken hip, and cannot have procedure until cleared by ortho. Patient has appt with Dr. Ayala 11/08/20 - will postpone encounter until that time. Patti Higgins [facility] 10/29/2020 2:22 PM Signed Called and left detailed message for patient to call to schedule procedure with gastroenterology. Will follow up. Patient provided with direct extension to reach surgical coordinators. If patient calls back, please transfer to [phone]. Patti Higgins [facility] 11/05/2020 11:31 AM Signed Final attempt to schedule patient. Called and left detailed message for patient to call to schedule procedure with gastroenterology. Will follow up. Patient provided with direct extension to reach surgical coordinators. If patient calls back, please transfer to [phone]. [facility] 11:40 AM Signed Patient calling office stating that she has a broken hip, and cannot schedule until cleared from Dr. Ayala. Patient will call to schedule. Allergies As of Date: 08/31/2020 Noted Allergy Reaction Envoirnmental [Other] 10/29/2000 LATEX 05/19/2020 2 - Rash Comments: Rash - itch and swelling Date Reviewed: 08/31/2020 Reviewed by: Veronica Cruz Ma - Fully Assessed Reason for Visit: colonoscopy and EGD MAC [Other] Prescriptions as of 11/05/2020 - aspirin, enteric coated (ASPIRIN, ENTERIC COATED) 81 mg EC tablet Take 1 tablet by mouth twice daily. - ascorbic acid, vitamin C, (VITAMIN C) 500 mg tablet Take 1 tablet by mouth twice daily with meals for 21 doses. - multivitamin tablet Take 1 tablet by mouth once daily. - glipiZIDE (GLUCOTROL XL) 10mg 24 hr tablet Take 10 mg by mouth once daily. - cholecalciferol (VITAMIN D-3) 50 mcg (2,000 unit) tablet Take 2,000 Units by mouth once daily. - PARoxetine (PAXIL) 10 mg tablet Take 10 mg by mouth once daily. - losartan (more content not included)... Normal [facility] CNOVon 08-30-2020 CNOV Office Visit ([facility] ) SUE MOMIN ([id number]) 1970 F [facility] Date Time Provider Department 08/30/20 8:00 AM MARYBEL MASON During your visit today, we recorded the following information about you: Marybel Mason PA-C 09/03/2020 10:17 AM Signed HISTORY: Sue is a 50 year old female. She is 3 weeks status post right hip ORIF with cephlomedullary nail. She underwent a hip pinning on 05/24. She then fell backwards over the dog causing her to fracture the hip below the hip pinning. She underwent surgery again on 08/14. She has some complaints of pain in the hip. She states that pain is in the groin and thigh. This surgery is more painful then the first. She has been protective weight bearing with a walker. She denies any numbness in her foot. The patient's past medical history, surgical history, social history, family history, medications and allergies were reviewed with the patient today and are available in the chart for further review. REVIEW OF SYSTEMS: Patient did not have, and does not currently have, any weight loss, malaise, fever, chills, headache, cough, nausea, vomiting, diarrhea, constipation PHYSICAL EXAMINATION: PSYCH: Pleasant, good affect and mood General Appearance: Well appearing, alert, in no acute distress, well-hydrated, well nourished. Skin: Skin color, texture, turgor normal, no suspicious rashes or lesions. Peripheral Pulses: Normal. Neurologic: Gait normal. Reflexes normal and symmetric. Sensation grossly intact. On physical examination of the right hip, the incision is intact. There is no erythema or warmth. Passive hip motion is smooth and not irritable. Extensor mechanism is intact. Calf is soft and non-tender. Sensation is intact to light touch in the foot. Dorsalis pedal pulse is 2+ and palpable. RADIOGRAPHS: right hip films show hardware to be in stable position. Fracture is aligned. IMPRESSION: Encounter Diagnosis ICD-10-CM 1. Periprosthetic fracture of hip, subsequent encounter M97.8XXD Z96.649 PLAN: I reviewed the xrays with the patient. I have removed the tejal today. She needs to continue to be toe touch weight bearing with a walker. She can work on hip motion and quad strengthening like before. She remembers the exercises she can be doing from when therapy was at the house with the hip pinning. I recommended that she follow up with her PCP for potentially work up and treatment of osteoporosis. I will see her back in 1 month to see how things are coming along. We will get a new x-ray at that time and look to advance her weight bearing status. Marybel Mason PA-C Referring Provider: CLAY AYALA JR [[id number]] Allergies As of Date: 08/30/2020 Noted Allergy Reaction Envoirnmental [Other] 10/29/2000 LATEX 05/19/2020 2 - Rash Comments: Rash - itch and swelling Date Reviewed: 08/30/2020 Reviewed by: Marybel Mason PA-C - Fully Assessed Reason for Visit: Post Op [174] Primary Visit Diagnosis:Periprosthe tic fracture of hip, subsequent encounter [M97.8XXD, Z96.649] Prescriptions as of 09/03/2020 - aspirin, enteric coated (ASPIRIN, ENTERIC COATED) 81 mg EC tablet Take 1 tablet by mouth twice daily. - gabapentin (NEURONTIN) 300 mg capsule Take 1 capsule by mouth twice daily for 7 days, THEN 1 capsule daily at bedtime for 7 days. - oxyCODONE IR (ROXICODONE) 5 mg immediate release tablet Take 1-2 tablets by mouth every 4 hours as needed for pain. - naloxone 4 mg/actuation nasal spray (NARCAN) Use 1 spray in one nostril as needed for overdose. May repeat every 2 to 3 min in alternating nostrils until medical assistance is available - ascorbic acid, vitamin C, (VITAMIN C) 500 mg tablet Take 1 tablet by mouth twice daily with meals for 21 doses. - acetaminophen (TYLENOL) 500 mg tablet Take 2 tablets by mouth every 8 hours. - docusate sodium (COLACE) 100 mg capsule Take 1 capsule by mouth twice daily as needed for Constipation. - multivitamin tablet Take 1 tablet by mouth once daily. - glipiZIDE (GLUCOTROL XL) 10mg 24 hr tablet Take 10 mg by mouth once daily. - cholecalciferol (VITAMIN D-3) 50 mcg (2,000 unit) tablet Take 2,000 Units by mouth once daily. - PARoxetine (PAXIL) 10 mg tablet Take 10 mg by mouth once daily. - losartan (COZAAR) 50 mg tablet Take 50 mg by mouth once daily. - potassium chloride 20 mEq TbER Take by mouth. - INV FUROSEMIDE 40 MG TABLET (IRB 18-610) Take by mouth. For Investigational Drug Use Only. PI: Jordan Joy MD. Problem List As Of Date 08/30/2020 Noted Resolved Class 3 severe obesity due to excess calories w*05/20/2020 Essential hypertension [I10] 05/20/2020 Type 2 diabetes mellitus without complication, *05/20/2020 Heartburn [R12] 05/20/2020 Iron deficiency anemia [D50.9] 05/20/2020 Nicotine use disorder, F17.2 [F17.200] 05/25/2020 Stress fracture of right femur [M84.351A] (more content not included)... Normal [facility] XR HIP 3V PELV+ AP/LAT RTon 08-30-2020 XR HIP 3V PELV+ AP/LAT RT * * *Final Report* * * DATE OF EXAM: Aug 30 2020 8:21AM [id number] - XR HIP 3V PELV+ AP/LAT RT / PROCEDURE REASON: Stress fracture of right femur with routine healing, subsequent encounter * * * * Physician Interpretation * * * * PELVIS AND RIGHT HIP RADIOGRAPHS HISTORY: Stress fracture of right femur with routine healing, subsequent encounter . TECHNIQUE: Single view of the pelvis and two views of the right hip are submitted. COMPARISON: 07/14/2020 RESULT: Postsurgical change of right femur fracture fixation with intramedullary zuhair and 2 screws. Skin stables are present. No progressive loosening, fracture, or dislocation. IMPRESSION: Postsurgical change as described. Trim Die Maker: PSCB Transcribe Date/Time: Aug 30 2020 1:48P Dictated by : CINTHYA LANDIN MD This examination was interpreted and the report reviewed and electronically signed by: CINTHYA LANDIN MD on Aug 30 2020 1:51PM EST [id number] N Normal [facility] SUE MOMIN ([id number]) 1970 F T Date Time Provider Department 08/20/20 MARYBEL MASON During your visit today, we recorded the following information about you: Chelsey Olivia Pss 08/20/2020 1:33 PM Signed Pt states she was not discharged on the date she was supposed to be and now has no postop appt Pt is asking when she is to come in and when the tejal are to be removed Pt requesting a return call today, please Marybel Mason PA-C 08/20/2020 3:18 PM Signed Please contact patient and put her on my schedule form Wednesday 08/30 Take any slot BIANCA Hightower 08/20/2020 3:47 PM Signed LM for patient that post op appointment has been scheduled for 08/30 Allergies As of Date: 08/20/2020 Noted Allergy Reaction Envoirnmental [Other] 10/29/2000 LATEX 05/19/2020 2 - Rash Comments: Rash - itch and swelling Date Reviewed: 08/17/2020 Reviewed by: Isabel Damon RN - Fully Assessed Reason for Visit: Patient Question [1477] Prescriptions as of 08/20/2020 - aspirin, enteric coated (ASPIRIN, ENTERIC COATED) 81 mg EC tablet Take 1 tablet by mouth twice daily. - gabapentin (NEURONTIN) 300 mg capsule Take 1 capsule by mouth twice daily for 7 days, THEN 1 capsule daily at bedtime for 7 days. - oxyCODONE IR (ROXICODONE) 5 mg immediate release tablet Take 1-2 tablets by mouth every 4 hours as needed for pain. - naloxone 4 mg/actuation nasal spray (NARCAN) Use 1 spray in one nostril as needed for overdose. May repeat every 2 to 3 min in alternating nostrils until medical assistance is available - ascorbic acid, vitamin C, (VITAMIN C) 500 mg tablet Take 1 tablet by mouth twice daily with meals for 21 doses. - acetaminophen (TYLENOL) 500 mg tablet Take 2 tablets by mouth every 8 hours. - docusate sodium (COLACE) 100 mg capsule Take 1 capsule by mouth twice daily as needed for Constipation. - multivitamin tablet Take 1 tablet by mouth once daily. - glipiZIDE (GLUCOTROL XL) 10mg 24 hr tablet Take 10 mg by mouth once daily. - cholecalciferol (VITAMIN D-3) 50 mcg (2,000 unit) tablet Take 2,000 Units by mouth once daily. - PARoxetine (PAXIL) 10 mg tablet Take 10 mg by mouth once daily. - losartan (COZAAR) 50 mg tablet Take 50 mg by mouth once daily. - potassium chloride 20 mEq TbER Take by mouth. - INV FUROSEMIDE 40 MG TABLET (IRB 18-610) Take by mouth. For Investigational Drug Use Only. PI: Jordan Joy MD. Problem List As Of Date 08/20/2020 Noted Resolved Class 3 severe obesity due to excess calories w*05/20/2020 Essential hypertension [I10] 05/20/2020 Type 2 diabetes mellitus without complication, *05/20/2020 Heartburn [R12] 05/20/2020 Iron deficiency anemia [D50.9] 05/20/2020 Nicotine use disorder, F17.2 [F17.200] 05/25/2020 Stress fracture of right femur [M84.351A] 05/25/2020 Cardiac murmur, unspecified [R01.1] 12/12/2019 Iron deficiency anemia secondary to inadequate *06/04/2020 Closed fracture of right hip with delayed heali*08/12/2020 Fall [W19.XXXA] 08/12/2020 Closed right hip fracture (HCC) [S72.001A] 08/12/2020 Obesity, Class II, BMI 35-39.9 [E66.9] 08/12/2020 Periprosthetic hip fracture [M97.8XXA, Z96.649] 08/13/2020 Acute postoperative pain of right hip [G89.18, *08/17/2020 08/17/2020 Encounter Status:Closed by MARYBEL MASON on 08/20/20 [facility] 08-19-2020 CNPN Telephone ([facility]) SUE MOMIN ([id number]) 1970 F [facility] Date Time Provider Department 08/19/20 CHITO HUITRON [facility] During your visit today, we recorded the following information about you: Chito Huitron, Student 08/19/2020 10:22 AM Signed ecord ID: [id number] Patient Name: Sue Momin [facility]: Zahra[place]: [facility] Attending: Latia Molina Center: Hospital Medicine INSTRUCTIONS SN clarifies issue on discharge instructions If patient has a CC Physician- provide Appointment Center at [phone] at end of script If patient has non-CC Physician- recommend patient follow-up with their Physician at end of script If patients asks for a CC Physician- provide Appointment Center at [phone] at end of script If patient asks for community Physician - provide Medline number [phone] at end of script All Clear All Clear All Clear SURVEY INFORMATION Medical/Nurse Temp Recruiter: Dedra Dale 1. Your discharge instructions are important in guiding you through the recovery process. Is there anything I could help you clarify on your discharge instructions? (Standard Question) Yes, discharge instructions are inadequate 2. Do you have your follow up appointment related to your hospital stay scheduled within the next 30 days? (Standard Question) No, patient prefers to schedule in own time 3. Do you have all the necessary equipment and supplies at home? (Standard Question) Yes 4. Many patients have concerns about their medications once they are home. Do you have any questions about getting or taking your medications? (Standard Question) No 5. Do you have any new or different symptoms? (Standard Question) No Allergies As of Date: 08/19/2020 Noted Allergy Reaction Envoirnmental [Other] 10/29/2000 LATEX 05/19/2020 2 - Rash Comments: Rash - itch and swelling Date Reviewed: 08/17/2020 Reviewed by: Isabel Damon RN - Fully Assessed Reason for Visit: Follow Up [171] Cmt: all clear Prescriptions as of 08/19/2020 Sig: ASPIRIN 81 MG TABLET,DELAYED * Take 1 tablet by mouth twice * GABAPENTIN 300 MG CAPSULE Take 1 capsule by mouth twice* OXYCODONE 5 MG TABLET Take 1-2 tablets by mouth [place]* NALOXONE 4 MG/ACTUATION NASAL* Use 1 spray in one nostril as* ASCORBIC ACID (VITAMIN C) 500* Take 1 tablet by mouth twice * ACETAMINOPHEN 500 MG TABLET Take 2 tablets by mouth every* DOCUSATE SODIUM 100 MG CAPSULE Take 1 capsule by mouth twice* MULTIVITAMIN TABLET Take 1 tablet by mouth once d* GLIPIZIDE ER 10 MG TABLET, EX* Take 10 mg by mouth once bianka* CHOLECALCIFEROL (VITAMIN D3) * Take 2,000 Units by mouth onc* PAROXETINE 10 MG TABLET Take 10 mg by mouth once bianka* LOSARTAN 50 MG TABLET Take 50 mg by mouth once bianka* POTASSIUM CHLORIDE ER 20 MEQ * Take by mouth. INV FUROSEMIDE 40 MG TABLET (* Take by mouth. For Investigat* Problem List As Of Date 08/19/2020 Noted Resolved Class 3 severe obesity due to excess calories w*05/20/2020 Essential hypertension [I10] 05/20/2020 Type 2 diabetes mellitus without complication, *05/20/2020 Heartburn [R12] 05/20/2020 Iron deficiency anemia [D50.9] 05/20/2020 Nicotine use disorder, F17.2 [F17.200] 05/25/2020 Stress fracture of right femur [M84.351A] 05/25/2020 Cardiac murmur, unspecified [R01.1] 12/12/2019 Iron deficiency anemia secondary to inadequate *06/04/2020 Closed fracture of right hip with delayed heali*08/12/2020 Fall [W19.XXXA] 08/12/2020 Closed right hip fracture (HCC) [S72.001A] 08/12/2020 Obesity, Class II, BMI 35-39.9 [E66.9] 08/12/2020 Periprosthetic hip fracture [M97.8XXA, Z96.649] 08/13/2020 Acute postoperative pain of right hip [G89.18, *08/17/2020 08/17/2020 En[facility] Status:[facility] [id number] Author: Latia Molina DO Service: Hospital Medicine Author Type: Physician Type: Discharge Summary Filed: 08/17/2020 2:16 PM Note Text: DISCHARGE SUMMARY PATIENT NAME: Sue Momin ADMISSION DATE: 08/12/2020 DISCHARGE DATE: 08/17/2020 ATTENDING PHYSICIAN: Latia Molina DO Code Status: Not on file Highest Readmission Risk Score: 15 The 30 day readmissions risk score is derived from an internally validated risk model which evaluates patient level characteristics, utilization history, medication orders and lab results up until the day of discharge. Patients with a score of 40 or above are considered highest risk for readmission. Specific patient level drivers will be listed at the bottom of the summary. CONSULTING TEAMS DURING HOSPITALIZATION: Orthopedics, Pain Management Treatment Team: Attending Provider: Latia Molina DO Attending: Lita Snow MD Consulting: Clay Ayala Jr., MD REASON FOR HOSPITALIZATION: Right periprosthetic hip fracture DIAGNOSIS: Principal Problem: Periprosthetic hip fracture POA: Unknown Active Problems: Type 2 diabetes mellitus without complication, without long-term current use of insulin (HCC) POA: Yes Essential hypertension POA: Yes Class 3 severe obesity due to excess calories without serious comorbidity with body mass index (BMI) of 40.0 to 44.9 in adult (HCC) POA: Yes Nicotine use disorder, F17.2 POA: Yes Obesity, Class II, BMI 35-39.9 POA: Unknown Resolved Problems: * No resolved hospital problems. * OPERATIONS DURING HOSPITALIZATION: REMOVAL HARDWARE HIP ADULT (Right) INSERTION NAIL / ZUHAIR INTRAMEDULLARY OPEN REDUCTION FEMUR (Right) on 08/14/2020 PROCEDURES DURING HOSPITALIZATION: No procedures performed HOSPITAL COURSE: 50 yo F with history significant for DM2, HTN, CKD3 admitted after a mechanical fall with resultant right periprosthetic hip fracture. She underwent REMOVAL HARDWARE HIP ADULT (Right) INSERTION NAIL / ZUHAIR INTRAMEDULLARY OPEN REDUCTION FEMUR (Right) on 08/14/2020. Pain Management was consulted post operatively for difficult to control pain, which is now improved with the addition of gabapentin. She was evaluated by PT and no further therapy was recommended. She is being discharged home for outpatient follow up with Orthopedics, on ASA 81mg BID for VTE prophylaxis. She is to remain 5% TTWB on the right leg until cleared by Orthopedics. Transitions of Care Critical Issues: SPECIALIST FOLLOW-UP: Orthopedics LABS AND PROCEDURES PENDING AT DISCHARGE: No pending results. PATIENT CONDITION AT DISCHARGE: Stable DISCHARGE DISPOSITION: Home/Self Care Gen: NAD, AANDO HEENT: MMM Heart: RRR Lungs: CTAB. No accessory muscle use Abd: soft, NT, ND. NABS. No masses Ext: 1+ right foot edema noted. Right hip incisions bandaged. No signs of surrounding ecchymosis or strike through. Skin: no rashes Neuro: Face symmetric. Moves all four extremities without gross deficits. WOUND/SURGICAL SITE CARE: None DIET: Resume pre-hospital diet ACTIVITY: 5% TTWB right leg with assistive device ALLERGIES Allergen Reactions - Envoirnmental [Othe* - Latex Rash Rash - itch and swelling DISCHARGE MEDICATION: Current Discharge Medication List START taking these medications aspirin, enteric coated (ASPIRIN, ENTERIC COATED) 81 mg Take 81 mg by mouth twice daily. Qty: 60 tablet Refills: 1 gabapentin (NEURONTIN) 300 mg capsule Take 1 capsule by mouth twice daily for 7 days, THEN 1 capsule daily at bedtime for 7 days. Qty: 21 capsule Refills: 0 Associated Diagnoses:Acute postoperative pain of right hip oxyCODONE IR (ROXICODONE) 5-10 mg Take 5-10 mg by mouth every 4 hours as needed for pain. Qty: 35 tablet Refills: 0 Associated Diagnoses:Acute postoperative pain of right hip naloxone 4 mg/actuation nasal spray (NARCAN) Use 1 spray in one nostril as needed for overdose. May repeat every 2 to 3 min in alternating nostrils until medical assistance is available Qty: 2 Each Refills: 0 CONTINUE these medications which have NOT CHANGED ascorbic acid (vitamin C) (VITAMIN C) 500 mg Take 500 mg by mouth twice daily with meals. Qty: 21 tablet Refills: 0 acetaminophen (TYLENOL) 1,000 mg Take 1,000 mg by mouth every 8 hours. docusate sodium (COLACE) 100 mg Take 100 mg by mouth twice daily as needed for constipation. multivitamin 1 tablet Take 1 tablet by mouth once daily. glipiZIDE XL (GLUCOTROL XL) 10 mg Take 10 mg by mouth once daily. cholecalciferol (VITAMIN D3) 2,000 Units Take 2,000 Units by mouth once daily. PARoxetine (PAXIL) 10 mg Take 10 mg by mouth once daily. losartan (COZAAR) 50 mg Take 50 mg by mouth once daily. potassium chloride 20 mEq TbER Take by mouth. INV FUROSEMIDE 40 MG TABLET (IRB 18-610) Take by mouth. For Investigational Drug Use Only. PI: Jordan Joy MD. FUTURE APPOINTMENTS: Follow Up with PCP: Alek Sherwood MD Future A (more content not included)... [facility] CONSULT PROGon 08-17-2020 CONSULT PROG HNO ID: [id number] Author: Carlos Lamb PA-C Service: Pain Management Author Type: Physician Temp Recruiter Type: Consult Progress Note Filed: 08/17/2020 11:19 AM Note Text: Pain Management - Progress Note Name: Sue Momin Date: August 17, 2020 Time: 11:05 AM ASSESSMENT: Acute postoperative pain of right hip. PLAN: 1. Increase gabapentin to 300 mg PO BID. 2. For discharge, gabapentin 300 mg PO BID x 1 week, then 300 mg PO HS x 1 week, then D/C. 3. Other medications as previous. DOCUMENTATION OF NEED FOR DISCHARGE PRESCRIPTION OVER 30 MED OR FOR GREATER THAN 7 DAYS: Sue Momin has been under my care as an inpatient for acute pain. An OARRS report for this patient has been reviewed during her inpatient stay. The first 4 digits of the applicable ICD-10 code are G89.18, M25.551. She will require an opioid prescription at discharge that will exceed 30 MED or 7 days because: Trials of non-opiate alternatives have not provided adequate analgesia. Yes The patient's current condition has required opioid dosing as an inpatient beyond 30 MED to provide adequate analgesia. Yes The patient has a pre-existing chronic pain or chronic opioid use history that necessitates doses beyond the 30 MED limit. No The patient's pain is expected to be severe and persistent enough to require opioid prescription beyond the 7-day recommended limit. No This patient will follow up with Dr. Ayala as an outpatient for further evaluation and treatment. SUBJECTIVE: Sue Momin is a 50 year old female with post-op right hip pain. Patient is S/P hardware removal and right cephalomedullary nailing POD #3. Pain scores overnight between 4-8/10 per [employer]. The patient's current inpatient analgesic regimen includes: gabapentin 300 mg PO HS, Tylenol 1 gram PO q8h, morphine 2 mg IV q2h PRN severe pain uncontrolled with PO meds, oxycodone 5-10 mg PO q3h PRN moderate pain + 5 mg PO q4h PRN breakthrough pain. The patient currently rates her pain at 2/10. She states that the pain is better since the previous evaluation on 08/16/20. The patient denies adverse effects associated with her analgesics. MEDICATIONS: Current Facility-Administered Medications Medication Dose Route Frequency - dextrose 40 % 15 g 15 g ORAL PRN Or - glucagon 1 mg injection 1 mg INTRAMUSCULAR PRN Or - dextrose 50% in water 25 mL syringe 12.5 g INTRAVENOUS PRN - losartan 50 mg tab(s) (COZAAR) 50 mg ORAL DAILY - PARoxetine 10 mg tab(s) (PAXIL) 10 mg ORAL DAILY - miconazole 2 % 1 application topical powder (LOTRIMIN AF, DESENEX) 1 application TOPICAL BID - polyethylene glycol 3350 17 g packet (MIRALAX, GLYCOLAX) 17 g ORAL DAILY - bisacodyl 10 mg suppository (DULCOLAX) 10 mg RECTAL DAILY PRN - sodium chloride 0.9 % (flush) 2-10 mL (BD POSIFLUSH) 2-10 mL INTRAVENOUS q 12 H - morphine 2 mg injection 2 mg INTRAVENOUS q 2 H PRN - oxyCODONE IR 5-10 mg tab(s) (ROXICODONE) 5-10 mg ORAL q 3 H PRN - oxyCODONE IR 5 mg tab(s) (ROXICODONE) 5 mg ORAL q 4 H PRN - acetaminophen 1,000 mg tab(s) (TYLENOL) 1,000 mg ORAL q 8 H - ondansetron 4 mg tab(s) (ZOFRAN) 4 mg ORAL q 6 H PRN Or - ondansetron (PF) 4 mg injection (ZOFRAN) 4 mg INTRAVENOUS q 6 H PRN - magnesium hydroxide 400 mg/5 mL 30 mL (MOM) 30 mL ORAL DAILY PRN - bisacodyl EC 10 mg tab(s) (DULCOLAX) 10 mg ORAL DAILY - aluminum-magnesium hydroxide-simethicone 200-200-20 mg/5 mL 30 mL (MAALOX,MYLANTA,MAG-A L PLUS) 30 mL ORAL q 2 H PRN - ferrous sulfate 325 mg tab(s) 325 mg ORAL DAILY wLUNCH - ascorbic acid (vitamin C) 500 mg tab(s) (VITAMIN C) 500 mg ORAL BID w MEALS - senna 17.2 mg tab(s) (SENOKOT) 17.2 mg ORAL AT BEDTIME - aspirin, enteric coated 81 mg tab(s) 81 mg ORAL BID - NaCl 0.9% iv infusion 75 mL/hr INTRAVENOUS CONTINUOUS - insulin lispro injection (rapid acting) (HumaLOG) SUBCUTANEOUS AC and HS - gabapentin 300 mg cap(s) (NEURONTIN) 300 mg ORAL AT BEDTIME LABS: CBC: No results for input(s): WBC, RBC, HB, HCT, PLT, MCV, MCH, MPV, RDW in the last 24 hours. CMP: No results for input(s): NA, K, CHLOR, CO2, BUN, CREAT, GLUC, TPROT, CA, MG, ALBUMIN, TBILI, ALKPHOS, ALT, AST, ANION in the last 24 hours. PHYSICAL EXAMINATION: Blood pressure 112/53, pulse 69, temperature 37 ?C (98.6 ?F), temperature source Oral, resp. rate 17, height 162.6 cm (5' 4 ), weight 102.5 kg (225 lb 15.5 oz), last menstrual period 05/12/2020, SpO2 96 %. General appearance: Well appearing, alert, in no acute respiratory distress, well-hydrated, well nourished. NERI Wright, PACarlos EnriqueC August 17, 2020 11:12 AM [facility] NURSING PROGon 08-17-2020 NURSING PROG HNO ID: [id number] Author: Isabel Damon RN Service: Nursing Author Type: Registered Nurse Type: Nursing Progress Note Filed: 08/17/2020 4:06 PM Note Text: Nursing Progress Note Patient Name: Sue Momin Patient [place] [address] [address] Daily Note: pt educated on discharge instructions. Pt stated all questions were answered and that she has all of her belongings. This note was completed by: Isabel Damon [facility] THERAPY NTon 08-17-2020 THERAPY NT HNO ID: [id number] Author: ONEIDA Clancy Service: Occupational Therapy Author Type: Occupational Therapist Type: Therapy (PT/OT/Speech/Resp) Filed: 08/17/2020 2:34 PM Note Text: OCCUPATIONAL THERAPY MISSED VISIT SERVICE DATE: 08/17/2020 SERVICE TIME: 1239 to 1241 ROOM: [place] [address] Attempted Treatment. Patient not seen due to Illness. Patient with complaint of nausea and pain. Requesting to hold OT today, hoping to d/c home later today. SIGNATURE: ONEIDA Clancy PATIENT NAME: Sue Momin DATE: August 17, 2020 TIME: 2:[address] [facility] Basic Metabolic Panlon 08-16 Anion gap [Moles/Vol] 10 mmol/L Normal 9-18 [facility] Calcium [Mass/Vol] 8.8 mg/dL Normal 8.5-10.2 [facility] Chloride [Moles/Vol] 97 mmol/L Normal 97-105 [facility] CO2 [Moles/Vol] 25 mmol/L Normal 22-30 [facility] Creatinine [Mass/Vol] 0.64 mg/dL Normal 0.58-0.96 [facility] eGFR- Amer. >60 Normal [facility] eGFR-All Other Races >60 Normal [facility] Comment on above: Result Comment: eGFR (Estimated GFR) Units of measure: mL/min/1.73 meters squared eGFR is derived from the reexpressed MDRD Study equation using the following parameters: serum creatinine, age, gender and race. The creatinine assay has been calibrated to be traceable to IDMS. An eGFR <60 mL/min/1.73m2 for >3 months is consistent with chronic kidney disease. Refer to KDOQI guidelines for clinical interpretation. In patients with unstable renal function, e.g. those with acute kidney injury, the eGFR may not accurately reflect actual GFR. Glucose [Mass/Vol] 134 mg/dL High 74-99 [facility] Comment on above: Result Comment: The [place] Diabetes Association (ADA) provides guidance for cutoff values for fasting glucose and random glucose. The ADA defines fasting as no caloric intake for at least 8 hours. Fasting plasma glucose results between 100 to 125 mg/dL indicate increased risk for diabetes (prediabetes). Fasting plasma glucose results greater than or equal to 126 mg/dL meet the criteria for diagnosis of diabetes. In the absence of unequivocal hyperglycemia, results should be confirmed by repeat testing. In a patient with classic symptoms of hyperglycemia or hyperglycemic crisis, random plasma glucose results greater than or equal to 200 mg/dL meet the criteria for diagnosis of diabetes. Reference: Standards of Medical Care in Diabetes 2016, [place] Diabetes Association. Diabetes Care. 2016.39(Suppl 1). Potassium [Moles/Vol] 4.0 mmol/L Normal 3.7-5.1 [facility] Sodium [Moles/Vol] 132 mmol/L Low 136-144 [facility] Urea nitrogen [Mass/Vol] 11 mg/dL Normal 7-21 [facility] CBCon 08-16-2020 Absolute nRBC <0.01 [facility] width (RBC) [Ratio] 20.0 % High 11.5-15.0 [facility] Hematocrit (Bld) [Volume fraction] 37.7 % Normal 36.0-46.0 [facility] Hemoglobin (Bld) [Mass/Vol] 12.3 g/dL Normal 11.5-15.5 [facility] MCH 27.9 pG Normal 26.0-34.0 [facility] MCHC (RBC) [Mass/Vol] 32.6 g/dL Normal 30.5-36.0 [facility] MCV (RBC) [Entitic vol] 85.5 fL Normal 80.0-100.0 [facility] Platelet mean volume (Bld) [Entitic vol] 8.6 fL Low 9.0-12.7 [facility] Platelets (Bld) [#/Vol] 248 10*3/uL Normal 150-400 [facility] RBC (Bld) [#/Vol] 4.41 10*6/uL Normal 3.90-5.20 [facility] WBC (Bld) [#/Vol] 7.37 10*3/uL Normal 3.70-11.00 [facility] CONSULTon 08-16-2020 CONSULT HNO ID: [id number] Author: Carlos Lamb PA-C Service: Pain Management Author Type: Physician Temp Recruiter Type: Consults Filed: 08/16/2020 4:07 PM Note Text: PAIN MANAGEMENT CONSULT -- [facility] PATIENT NAME: Sue Momin DATE of SERVICE: August 16, 2020 TIME of SERVICE:3:45 PM ATTENDING PROVIDER: Latia Molina DO PAIN MANAGEMENT SUMMARY: Mrs. Momin is a 50 year old female S/P S/P hardware removal and right cephalomedullary nailing POD #2. She reports a 5/10 pain score at this time. Plan is to continue current inpatient analgesic regimen and add gabapentin 300 mg PO HS. PROBLEM LIST DIAGNOSES ADDED: Acute postoperative pain of right hip. Active Hospital Problems Diagnosis Date Noted - Periprosthetic hip fracture 08/13/2020 - Obesity, Class II, BMI 35-39.9 08/12/2020 - Nicotine use disorder, F17.2 05/25/2020 - Class 3 severe obesity due to excess calories without serious comorbidity with body mass index (BMI) of 40.0 to 44.9 in adult ([facility]) 05/20/2020 - Essential hypertension 05/20/2020 - Type 2 diabetes mellitus without complication, without long-term current use of insulin ([facility]) 05/20/2020 CHIEF COMPLAINT: Postoperative right hip pain. HPI: Sue Momin is a 50 year old year old female admitted on 08/12/2020 with an intertrochanteric femur fracture. Patient is S/P hardware removal and right cephalomedullary nailing on 08/14/20. Pain Management is consulted RE: post operative pain by Dr. Latia Molina. The patient describes a constant pulling and burning sensation in the right hip with some radiation of the burning sensation into the right groin. Pain occurs primarily with movement and when she attempts to turn onto the nonsurgical side. She states that she is relatively comfortable at rest. She has no radiating symptoms distal to the right hip. No alleviating factors are identified. Her current pain score is 5/10. The patient's current inpatient analgesic regimen includes Tylenol 1 gram PO q8h, morphine 2 mg IV q2h PRN severe pain uncontrolled with PO meds, oxycodone 5-10 mg PO q3h PRN moderate pain + 5 mg PO q4h PRN breakthrough pain. OARRS Report was reviewed. The patient has received 2 controlled substance prescriptions from 2 different providers in the past 2 years. The patient's most recent prescription was dispensed on 05/26/20 (oxycodone 5 mg, 50 tabs/4 days). Overdose Risk Score: 380. Current outpatient MME: 0 mg. PAST MEDICAL HISTORY: PAST MEDICAL HISTORY Diagnosis Date - Diabetes ([facility]) - Heartburn - Hypertension - Iron deficiency anemia - Iron deficiency anemia secondary to inadequate dietary iron intake 06/04/2020 - Morbidly obese ([facility]) - Tobacco use disorder - Type II or unspecified type diabetes mellitus without mention of complication, not stated as uncontrolled history of ,prior to gastric bypass - Unspecified essential hypertension history of, prior to gastric bypass PAST SURGICAL HISTORY: PAST SURGICAL HISTORY Procedure Laterality Date - DELIVERY ONLY X 2 - GASTRIC BYPASS 1999 - LEG/ANKLE SURGERY PROC UNLISTED does not know what surgery she had - LIGATE FALLOPIAN TUBE - PAST SURGICAL HISTORY OF 1999 gastric bypass surgery - PAST SURGICAL HISTORY OF c-sections, 1990 and 1992 - PAST SURGICAL HISTORY OF Bilateral 1980 achilles tendon lengthening - PAST SURGICAL HISTORY OF Right 1977 right wrist surgery following fracture - PAST SURGICAL HISTORY OF wisdom teeth extraction ALLERGIES: ALLERGIES Allergen Reactions - Envoirnmental [Othe* - Latex Rash Rash - itch and swelling CURRENT MEDICATIONS: Current Facility-Administered Medications: - insulin lispro injection (rapid acting) (HumaLOG) - sodium chloride 0.9 % (flush) 2-10 mL (BD POSIFLUSH) - morphine 2 mg injection - oxyCODONE IR 5-10 mg tab(s) (ROXICODONE) - oxyCODONE IR 5 mg tab(s) (ROXICODONE) - acetaminophen 1,000 mg tab(s) (TYLENOL) - ondansetron 4 mg tab(s) (ZOFRAN) OR ondansetron (PF) 4 mg injection (ZOFRAN) - magnesium hydroxide 400 mg/5 mL 30 mL (MOM) - bisacodyl EC 10 mg tab(s) (DULCOLAX) - aluminum-magnesium hydroxide-simethicone 200-200-20 mg/5 mL 30 mL (MAALOX,MYLANTA,MAG-A L PLUS) - ferrous sulfate 325 mg tab(s) - ascorbic acid (vitamin C) 500 mg tab(s) (VITAMIN C) - senna 17.2 mg tab(s) (SENOKOT) - aspirin, enteric coated 81 mg tab(s) - NaCl 0.9% iv infusion - polyethylene glycol 3350 17 g packet (MIRALAX, GLYCOLAX) - bisacodyl 10 mg suppository (DULCOLAX) - dextrose 40 % 15 g OR glucagon 1 mg injection OR dextrose 50% in water 25 mL syringe - losartan 50 mg tab(s) (COZAAR) - PARoxetine 10 mg tab(s) (PAXIL) - miconazole 2 % 1 application topical powder (LOTRIMIN AF, DESENEX) FAMILY HISTORY: FAMILY HISTORY Problem Relation Age of Onset - Diabetes Mother - Diabetes Father - Hypertension Mother - Hypertension Father - Blood Disease Maternal Grandmother - Pros (more content not included)... [facility] CONSULT PROGon 08-16-2020 CONSULT PROG HNO ID: [id number] Author: Zayra Nicholas PA-C Service: Orthopaedic Surgery Author Type: Physician Temp Recruiter Type: Consult Progress Note Filed: 08/16/2020 4:39 PM Note Text: ORTHOPAEDIC POSTOP PROGRESS NOTE SERVICE DATE: 08/16/2020 SERVICE TIME: 3:45pm Hospital/POD # 2 S/P: Right hip hardware removal, open reduction internal fixation, cephalomedullary nailling Subjective Patient states that she has significant right hip pain, worsened by movement. Pain somewhat improved with pain medication but relief does not last very long. Objective VITAL SIGNS: BP 109/51 Pulse 72 Temp 37.2 ?C (99 ?F) (Oral) Resp 17 Ht 162.6 cm (5' 4 ) Wt 102.5 kg (225 lb 15.5 oz) LMP 05/12/2020 (Approximate) SpO2 97% BMI 38.79 kg/m? INTAKE AND OUTPUT: Intake/Output Summary (Last 24 hours) at 08/16/2020 1620 Last data filed at 08/16/2020 1500 Gross per 24 hour Intake 540 ml Output 1375 ml Net -835 ml PHYSICAL EXAMINATION: Right Lower Extremity: Dorsalis pedis pulses palpable. Posterior tibial pulses palpable. Dorsi flexion 5/5. Plantar flexion 5/5. Sensory intact to light touch L1-S1. Dressing clean, dry, intact Surgical site Aquacell intact. Problem Review and Assessment: Patient monitored, no new events overnight. LABS: Recent Labs 08/16/20 0635 08/15/20 1050 HB 12.3 12.4 HCT 37.7 37.1 DATA: Diagnostic tests reviewed for today's visit: Most recent labs Assessment/Plan S/P Procedure(s) (LRB): REMOVAL HARDWARE HIP ADULT (Right) INSERTION NAIL / ZUHAIR INTRAMEDULLARY OPEN REDUCTION FEMUR (Right) on 08/14/2020 POSTOP PLAN: - Physical Therapy evaluation; toe touch weight bearing 5% with assistance device - Labs, monitoring daily - Maintain dressing - Ice and elevation - OOB and ambulation - DVT prophylaxis: Intermittent pneumatic compression device (IPCD), Aspirin 81mg BID - Poorly controlled pain, pain management on consult - Stable from a surgical standpoint - Case Management for discharge planning ACTIVE PROBLEM LIST Class 3 Severe Obesity Due to Excess Calories Without Serious Comorbidity With Body Mass Index (Bmi) of 40.0 to 44.9 in Adult (Hcc) Essential Hypertension Type 2 Diabetes Mellitus Without Complication, Without Long-Term Current Use of Insulin ([facility]) Heartburn Iron Deficiency Anemia Nicotine use disorder, F17.2 Stress Fracture of Right Femur Cardiac Murmur, Unspecified Iron Deficiency Anemia Secondary to Inadequate Dietary Iron Intake Closed Fracture of Right Hip With Delayed Healing Fall Closed Right Hip Fracture ([facility]) Obesity, Class II, Bmi 35-39.9 Periprosthetic Hip Fracture Medication and Non-Pharmacologic VTE Prophylaxis/Anticoagu lants Anticoagulant AND Antiplatelet Medications (From admission, onward) Comment Start Dose Route Frequency Last Action Ordered Stop 08/15/20 0900 aspirin, enteric coated 81 mg tab(s) (Surgical Risk Categories) 81 mg ORAL 2 TIMES DAILY Given, 08/16 0944 08/14/20 1149 -- 08/14/20 1200 pneumatic compression stockings ([place]) 08/14/20 1200 graduated compression stockings ([place]) 08/14/20 1200 activity - mobilize patient (nj,ma) 08/14/20 1200 activity - mobilize patient (nj,ma) 08/14/20 1200 activity - mobilize patient (nj,ma) VTE Prophylaxis: VTE prophylaxis appropriate POST OPERATIVE COMPLICATIONS: Complicated by: uneventful/none SIGNATURE: Zayra Nicholas PA-C PATIENT NAME: Sue Momin DATE: August 16, 2020 TIME: 4:[address] [facility] NURSING PROGon 08-16-2020 NURSING PROG HNO ID: [id number] Author: Marina Ragland RN Service: ? Author Type: Registered Nurse Type: Nursing Progress Note Filed: 08/16/2020 7:57 AM Note Text: Nursing Progress Note Patient Name: Sue Momin Patient [facility]: [facility]/ Daily Note: Pt up in chair awake oriented times 3. Dressing to right hip dry and intact, bilateral ppp, toes warm and mobile. Pt states slight numbness (baseline due to neuropathy). Denies cp/sob/nausea. Vitals stable Will monitor. This note was completed by: Marina Ragland [facility] NURSING PROG HNO ID: [id number] Author: Desi Archuleta RN Service: ? Author Type: Registered Nurse Type: Nursing Progress Note Filed: 08/16/2020 7:46 AM Note Text: Nursing Progress Note Patient Name: Sue Momin [facility] Daily Note: 0700 Pt sitting up in chair, pain level 4/10 after oxy ir 10mg, pt has needed morphine for breakthrough pain one time this shift, pain has become intolerable at times where pt is visibly shaking and nauseous, she states she gets very anxious when that happens. This note was completed by: Desi Archuleta [facility] THERAPY NTon 08-16-2020 THERAPY NT HNO ID: [id number] Author: Hussain Roldan, PT Service: Physical Therapy Author Type: Physical Therapist Type: Therapy (PT/OT/Speech/Resp) Filed: 08/16/2020 5:54 PM Note Text: Physical Therapy Treatment SERVICE DATE: 08/16/2020 SERVICE TIME: 1710 to 1722 ROOM: [place] [address] Recommended Discharge Disposition: Home Anticipated Discharge Needs: Physical Assist at Home Physical Assist at Home for: Cleaning;Laundry;Meal s;Shopping;Transporta tion Supervision at Home due to: Other: See Comment (safety with transfers) Recommended Discharge Equipment: No equipment needs anticipated Pt recommended to continue with HEP initiated 3 months ago and progress as phases of healing continue. PT 6 Clicks Score: 20 Precautions/Activity Restrictions: Weight Bearing Restrictions Extremity With Weight Bearing Restricted: Right Lower Extremity Right Lower Extremity Weight Bearing Status: TTWB Current Hospital Course: Pt. presented to [facility] on 08/12/2020 following a fall (her dog knocked her over) on 08/12/2020. Pt. wnt to [facility]SH ED and was then transferred to [facility] Imaging showed R femur fx between screw and blade of previous ORIF (from 05/2020). Pt. underwent removal of previous hardware and placement of short cephalomedullary nail R hip by Dr. Ayala on 08/14/2020. Reason for Hospital Admission: fell 08/12/20 at home and presented to ED Relevant Past Medical History: DM, HTN, iron deficiency anemia, obesity Response to Therapy Interventions: Good participation in activities Physical Therapy Problem List: Pain;Impaired Self Care;Decreased Activity Tolerance;Functional Mobility Impairment;Balance Impaired;Decreased Strength Treatment Interventions: Education;Strengtheni ng;Functional Mobility Training;Balance Training Home Environment Patient Lives With: Spouse Assistance Available: 24 Hour ( works days; daughter and son work 2nd/3rd shift) Entry To Home: Stairs;With Rail Number Of Stairs Into Home: 3 (thru front door) Number Of Stairs To Bed/Bath: 0 Tub/Shower Type: tub with sliding ext tub bench [facility] Laundry: 1st floor- fam can assist Equipment Owned: Cane;Standard Walker;Senior Talent Acquisition Specialist;Sock Aide;Wheelchair;Hand Held Shower;Walker bag/basket Prior Functional Level: Within Functional Limits;History of Falls Prior Functional Level Comments: pt rpts mod I for ADLs, FWB 08/09/20 with SW, fell again 08/12/20 Patient Report: Pt reports she has been doing good with maintaining WB precautions. Feel comfortable going home. CURRENT FUNCTIONAL STATUS: Most recent performance Current Functional Mobility Assist Level Additional Information Rolling Supine to Sit Sit to Supine Scooting Sit to Stand Stand By Assistance Stand to Sit Stand By Assistance Bed to Chair Stand By Assistance Bed To Chair Transfer Type: Stand Pivot Bed To Chair Transfer Equipment: Standard Walker Toilet/Commode Stand By Assistance Gait Stand By Assistance Gait Device: Standard Walker Gait Distance (feet): 50 Stairs (Family pull her up in W/C backwards for MANE like last time) Curb Step Car Transfer Blank zhu indicate activity not attempted Gait Deviations Right Lower Extremity: Weight bearing decreased (performs with NWB with good compliance) General Deviations/Observatio ns: Antalgic gait;Christy decreased;Narrow Base of Support;Step length decreased Balance: Static Sitting;Dynamic Sitting;Static Standing;Dynamic Standing Static Sitting Balance: Normal Patient able to maintain steady balance without handhold support Dynamic Sitting Balance: Normal Patient accepts maximal challenge and can shift weight easily within full range in all directions Static Standing Balance: Good Patient able to maintain balance without handhold support, limited postural sway Dynamic Standing Balance: Fair Patient accepts minimal challenge, able to maintain balance while turning head/trunk -HLM: 7: Walk 25 feet or more Learning/Educational Needs: Discharge Plan;Functional Activities/Mobility;R ehabilitation Techniques and Procedures;Safety Goals for Plan of Care: Patient /Caregiver Goals: Go Home Transfer supine to/from sit with: Modified Independent Transfer sit to/from stand with: Modified Independent Ambulate with: Modified Independent Distance: 40 Device: Standard Walker Progress Toward Goals: Progressing as expected Rehab Potential: Good Patient will be discontinued from Physical Therapy when no further skilled needs are identified in this setting. PLAN: PT Frequency: Discontinue therapy services Reasons Therapy Services Discontinued: Goals met Plan of Care developed with: Patient;Family TREATMENT INTERVENTIONS: Therapy Diagnosis: Difficulty walking-musculoskelet al;Reduced mobility-other Interventions Provided: Gait Training (71202) Gait Training (61524) Treatment Minutes: 12 $ Gait Training (45349) Billed Units: 1 unit Training AND education provided in: Gait pattern, re (more content not included)... Normal [facility] Basic Metabolic Panlon 08-15 Anion gap [Moles/Vol] 11 mmol/L Normal 9-18 [facility] Calcium [Mass/Vol] 9.4 mg/dL Normal 8.5-10.2 [facility] Chloride [Moles/Vol] 98 mmol/L Normal 97-105 [facility] CO2 [Moles/Vol] 26 mmol/L Normal 22-30 [facility] Creatinine [Mass/Vol] 0.66 mg/dL Normal 0.58-0.96 [facility] eGFR- Amer. >60 Normal [facility] eGFR-All Other Races >[address] [facility] Comment on above: Result Comment: eGFR (Estimated GFR) Units of measure: mL/min/1.73 meters squared eGFR is derived from the reexpressed MDRD Study equation using the following parameters: serum creatinine, age, gender and race. The creatinine assay has been calibrated to be traceable to IDMS. An eGFR <60 mL/min/1.73m2 for >3 months is consistent with chronic kidney disease. Refer to KDOQI guidelines for clinical interpretation. In patients with unstable renal function, e.g. those with acute kidney injury, the eGFR may not accurately reflect actual GFR. Glucose [Mass/Vol] 144 mg/dL High 74-99 [facility] Comment on above: Result Comment: The [place] Diabetes Association (ADA) provides guidance for cutoff values for fasting glucose and random glucose. The ADA defines fasting as no caloric intake for at least 8 hours. Fasting plasma glucose results between 100 to 125 mg/dL indicate increased risk for diabetes (prediabetes). Fasting plasma glucose results greater than or equal to 126 mg/dL meet the criteria for diagnosis of diabetes. In the absence of unequivocal hyperglycemia, results should be confirmed by repeat testing. In a patient with classic symptoms of hyperglycemia or hyperglycemic crisis, random plasma glucose results greater than or equal to 200 mg/dL meet the criteria for diagnosis of diabetes. Reference: Standards of Medical Care in Diabetes 2016, [place] Diabetes Association. Diabetes Care. 2016.39(Suppl 1). Potassium [Moles/Vol] 4.6 mmol/L Normal 3.7-5.1 [facility] Sodium [Moles/Vol] 135 mmol/L Low 136-144 [facility] Urea nitrogen [Mass/Vol] 8 mg/dL Normal 7-21 [facility] CASE MANAGEMon 08-15-2020 CASE MANAGEM HNO ID: [id number] Author: Donna Gomez RN Service: ? Author Type: Registered Nurse Type: Care Mgt Progress Note Filed: 08/15/2020 3:51 PM Note Text: CARE MANAGEMENT PROGRESS NOTE SERVICE DATE: 08/15/2020 SERVICE TIME: 3:49 PM LOS: 3 days Post op day 1 R hip surgery. PT/OT recommending Home. Pt lives at home with spouse. Will continue to monitor for discharge needs. SIGNATURE: Donna Gomez RN PATIENT NAME: Sue Momin DATE: August 15, 2020 TIME: 3:49 PM PAGER/CONTACT #: [phone] [facility] CBCon 08-15-2020 Absolute nRBC <0.01 Normal <0.01 [facility] Erythrocyte distribution width (RBC) [Ratio] 19.9 % High 11.5-15.0 [facility] Hematocrit (Bld) [Volume fraction] 37.1 % Normal 36.0-46.0 [facility] Hemoglobin (Bld) [Mass/Vol] 12.4 g/dL Normal 11.5-15.5 [facility] MCH 27.9 pG Normal 26.0-34.0 [facility] MCHC (RBC) [Mass/Vol] 33.4 g/dL Normal 30.5-36.0 [facility] MCV (RBC) [Entitic vol] 83.6 fL Normal 80.0-100.0 [facility] Platelet mean volume (Bld) [Entitic vol] 9.0 fL [facility] Plate[facility] (Bld) [#/Vol] 249 10*3/uL Normal 150-400 [facility] RBC (Bld) [#/Vol] 4.44 10*6/uL Normal 3.90-5.20 [facility] WBC (Bld) [#/Vol] 6.75 10*3/uL Normal 3.70-11.00 [facility] NURSING PROGon 08-15-2020 NURSING PROG HNO ID: [id number] Author: Desi Archuleta RN Service: ? Author Type: Registered Nurse Type: Nursing Progress Note Filed: 08/15/2020 12:56 AM Note Text: Nursing Progress Note Patient Name: Sue Momin Patient [facility]: [place] [address]: 2200 Pt alert and oriented x 3 up to bathroom with assist of 1 and walker, flat foot toe touch weight bearing tolerated, medicated with oxyir 10-mg for pain 08/28, sensation baseline,vitals stable. This note was completed by: Desi Archuleta Normal [facility] THERAPY NTon 08-15-2020 THERAPY NT HNO ID: [id number] Author: Yelena Ayala, OT/L Service: Occupational Therapy Author Type: Occupational Therapist Type: Therapy (PT/OT/Speech/Resp) Filed: 08/15/2020 2:58 PM Note Text: Occupational Therapy Evaluation SERVICE DATE: 08/15/2020 SERVICE TIME: 1104 to 1147 ROOM: [place] [address] Recommended Discharge Disposition: Home Recommended Discharge Disposition Comments: with PRN assist for I/ADLs. Anticipated Discharge Needs: Physical Assist at Home;Supervision at Home Physical Assist at Home for: Cleaning;Laundry;Medi cation Management;Meals;Self Care;Shopping;Transpo rtation Supervision at Home due to: Other: See Comment (safety with transfers) Recommended Discharge Equipment: No equipment needs anticipated (pt has all equipment) OT 6 Clicks Score: 19 Precautions/Activity Restrictions: Weight Bearing Restrictions;Fall Risk Extremity With Weight Bearing Restricted: Right Lower Extremity Right Lower Extremity Weight Bearing Status: Other: See Comment (flat foot weight bearing) Current Hospital Course: Pt. presented to [facility] on 08/12/2020 following a fall (her dog knocked her over) on 08/12/2020. Pt. wnt to [facility] ED [facility] showed R femur fx between screw and blade of previous ORIF (from 05/2020). Pt. underwent removal of previous hardware and placement of short cephalomedullary nail R hip by Dr. Ayala on 08/14/2020. Reason for Hospital Admission: fell 08/12/20 at home and presented to ED Relevant Past Medical History: DM, HTN, iron deficiency anemia, obesity Response to Therapy Interventions: Good participation in activities, On-track to achieve discharge goals, Pain Continue skilled needs due to: Functional impairment Occupational Therapy Problem List: Education Deficit;Pain;Decrease d Activity Tolerance;Impaired Self Care;Decreased Range Of Motion;Decreased Strength;Functional Mobility Impairment;Balance Impaired Cognition/Communicati on Deficits Responsiveness: Awake, Alert Treatment Interventions: Education;Self Care / Home Management;Energy Conservation Training;Strengthenin g;Functional Mobility Training;Balance Training Plan for next visit: Chair/commode transfer training, Energy conservation, Pain management, Sit to stand transfers, Standing balance, Standing tolerance Home Environment Patient Lives With: Spouse Assistance Available: 24 Hour ( works days; daughter and son work 2nd/3rd shift) Entry To Home: Stairs;With Rail Number Of Stairs Into Home: 3 (thru front door) Number Of Stairs To Bed/Bath: 0 Tub/Shower Type: tub with sliding ext tub bench and [facility] Laundry: 1st floor- fam can assist Equipment Owned: Cane;Standard Walker;Senior Talent Acquisition Specialist;Sock Aide;Wheelchair;Hand Held Shower;Walker bag/basket Prior Functional Level: Within Functional Limits;History of Falls Prior Functional Level Comments: pt rpts mod I for ADLs, FWB 08/09/20 with SW, fell again 08/12/20 Patient Report: I didn't sleep very well last night...I'm tired. CURRENT FUNCTIONAL STATUS: Most recent performance Current Activities of Daily Living Assist Level Additional Information Feeding Set Up Grooming Set Up Bathing Upper Body Set Up Bathing Lower Body Moderate Assistance Dressing Upper Body Minimal Assistance Dressing Lower Body Maximal Assistance Toileting Stand By Assistance Instrumental Activities of Daily Living Assist Level Additional Information Meal/Beverage Prep Maximal Assistance Cleaning Total Assistance Laundry Total Assistance Medication Management with Strategies Set Up Functional Mobility Assist Level Additional Information Rolling (pt OOB in chair) Supine to Sit Sit to Supine Scooting Sit to Stand Stand By Assistance Stand to Sit Stand By Assistance Bed to Chair Stand By Assistance Stand Pivot Standard Walker Toilet/Commode Stand By Assistance Shower Functional Mobility Stand By Assistance Standard Walker (denies any lightheadedness or dizziness during mobility) Blank zhu indicate activity not attempted Learning/Educational Needs: Discharge Plan;Plan of Care;Functional Activities/Mobility;F amily Education/Training;Sa fety;Self Care;Rehabilitation Techniques and Procedures;Precaution s;Equipment Goals for Plan of Care: Patient /Caregiver Goals: Go Home Goals: Patient will demonstrate progress with self-care, cognitive and/or coping needs identified to allow safe discharge to home with available support and/or physical assistance. Rehab Potential: Good Patient will be discontinued from Occupational Therapy when no further skilled needs are identified in this setting. PLAN: OT Frequency: 3 times per week Plan of Care developed with: Patient TREATMENT INTERVENTIONS: Therapy Diagnosis: Reduced mobility-other;Decrea sed activities of daily living (ADL);Muscle Weakness (generalized);General symptoms and signs-other Interventions Provided: Evaluation;Therapeuti c Activity (46500);Self (more content not included)... [facility] THERAPY NT HNO ID: [id number] Author: Fitz Gupta, PT Service: Physical Therapy Author Type: Physical Therapist Type: Therapy (PT/OT/Speech/Resp) Filed: 08/15/2020 12:32 PM Note Text: Physical Therapy Evaluation R hip fx with ORIF by Dr Ayala, Foot flat,Touch down, weigth of leg only WB R LE SERVICE DATE: 08/15/2020 SERVICE TIME: 0935 to 1000 ROOM: [place] [address] Recommended Discharge Disposition: Home Recommended Discharge Equipment: No equipment needs anticipated PT 6 Clicks Score: 19 Precautions/Activity Restrictions: Weight Bearing Restrictions;Fall Risk Extremity With Weight Bearing Restricted: Right Lower Extremity Right Lower Extremity Weight Bearing Status: Other: See Comment (flat foot weight bearing) Current Hospital Course: Pt. presented to [facility] on 08/12/2020 following a fall (her dog knocked her over) on 08/12/2020. Pt. went to [facility] ED and was then transferred to [facility]. Imaging showed R femur fx between screw and blade of previous ORIF (from 05/2020). Pt. underwent removal of previous hardware and placement of short cephalomedullary nail R hip by Dr. Ayala on 08/14/2020. Reason for Hospital Admission: fell 08/12/20 at home and presented to ED Relevant Past Medical History: DM, HTN, iron deficiency anemia, obesity Response to Therapy Interventions: Good participation in activities, Pain Physical Therapy Problem List: Pain;Impaired Self Care;Decreased Activity Tolerance;Functional Mobility Impairment;Balance Impaired;Decreased Strength Treatment Interventions: Education;Strengtheni ng;Functional Mobility Training;Balance Training Plan for next visit: Gait training Home Environment Patient Lives With: Spouse Assistance Available: 24 Hour ( works days; daughter and son work 2nd/3rd shift) Entry To Home: Stairs;With Rail Number Of Stairs Into Home: 3 (thru front door) Number Of Stairs To Bed/Bath: 0 Tub/Shower Type: tub with sliding ext [facility] Laundry: 1st floor- fam can assist Equipment Owned: Cane;Standard Walker;Senior Talent Acquisition Specialist;Sock Aide;Wheelchair;Hand Held Shower;Walker bag/basket Prior Functional Level: Within Functional Limits;History of Falls Prior Functional Level Comments: Pt. rpts mod I for ADLs, just got FWB on 08/09/20 with SW, fell again 08/12/20. Patient Report: Pt. agreeable to therapy. She states pain pills helped a lot. Pt. states she will have family bump he up MANE in W/C like she did after previous fx with limited WB status. CURRENT FUNCTIONAL STATUS: Most recent performance Current Functional Mobility Assist Level Additional Information Rolling Supine to Sit Sit to Supine Scooting Sit to Stand Stand By Assistance Stand to Sit Stand By Assistance Bed to Chair Stand By Assistance Bed To Chair Transfer Type: Stand Pivot Bed To Chair Transfer Equipment: Standard Walker Toilet/Commode Stand By Assistance Gait Stand By Assistance Gait Device: Standard Walker Gait Distance (feet): 25' x 3 Stairs (Family pull her up in W/C backwards for MANE like last time) Curb Step Car Transfer Blank zhu indicate activity not attempted Gait Deviations Right Lower Extremity: Weight bearing decreased;Step length decreased General Deviations/Observatio ns: Antalgic gait;Christy decreased;Narrow Base of Support;Step length decreased Balance: Static Sitting;Dynamic Sitting;Static Standing;Dynamic Standing Static Sitting Balance: Normal Patient able to maintain steady balance without handhold support Dynamic Sitting Balance: Normal Patient accepts maximal challenge and can shift weight easily within full range in all directions Static Standing Balance: Good Patient able to maintain balance without handhold support, limited postural sway Dynamic Standing Balance: Fair Patient accepts minimal challenge, able to maintain balance while turning head/trunk Learning/Educational Needs: Discharge Plan;Functional Activities/Mobility;R ehabilitation Techniques and Procedures;Safety Goals for Plan of Care: Patient /Caregiver Goals: Go Home Transfer supine to/from sit with: Modified Independent Transfer sit to/from stand with: Modified Independent Ambulate with: Modified Independent Distance: 40 Device: Standard Walker Rehab Potential: Good Patient will be discontinued from Physical Therapy when no further skilled needs are identified in this setting. PLAN: PT Frequency: 3 times per week Plan of Care developed with: Patient TREATMENT INTERVENTIONS: Therapy Diagnosis: Reduced mobility-other Interventions Provided: Evaluation;Gait Training (54713) $ Evaluation-Low (17879) Billed Units: 1 unit Gait Training (40522) Treatment Minutes: 10 $ Gait Training (29223) Billed Units: 1 unit Training AND education provided in: Benefits of in-hospital mobility, Discharge planning, Equipment, Expected functional level, Falls prevention, Gait pattern, reduction of deviations, Home safety, Precautions/restricti ons, Role of Phy (more content not included)... Normal [facility] ANES POSTPROC EVALon 021 ANES POSTPROC EVAL HNO ID: [id number] Author: Tato Zafar MD Service: Anesthesiology Author Type: Anesthesiologist Type: Anesthesia Postprocedure Evaluation Filed: 08/14/2020 2:13 PM Note Text: POST ANESTHESIA EVALUATION NOTE : 1970 Procedure Summary Date: 08/14/20 Room / Location: OR03 / AV OR Anesthesia Start: 809 Anesthesia Stop: 1037 Procedures: REMOVAL HARDWARE HIP ADULT (Right Hip) INSERTION NAIL / ZUHAIR INTRAMEDULLARY OPEN REDUCTION FEMUR (Right Hip) Diagnosis: Closed fracture of femur, intertrochanteric, right, initial encounter ([facility]) Surgeons: Clay Ayala Jr., MD Responsible Provider: Tato Zafar MD Anesthesia Type: spinal ASA Status: 3 Anesthesia Type: spinal Last vitals Vitals Value Taken Time BP 138/67 08/14/20 1217 Temp 36.3 ?C (97.4 ?F) 08/14/20 1217 HR SpO2 108 08/14/20 1037 Resp 20 08/14/20 1217 SpO2 96 % 08/14/20 1217 Post Anesthesia Patient Status Patient Evaluation: PACU. PACU/ICU Patient Condition: stable. Anticipated Disposition: inpatient floor planned admission. Neurological Status: aware and responsive. Pulmonary Status: breathing comfortably on room air Airway Control: returned to baseline unsupported. Cardiovascular Status: stable. Pain Management: clinically adequate - multimodal analgesia pain management approach Postoperative Hydration: acceptable. Intraoperative Events: no significant anesthesia events Recommendation: continue current plan of care and further care per PACU/ICU/floor team. No complications documented. SIGNATURE: Tato Zafar MD PATIENT NAME: Sue Momin DATE: August 14, 2020 TIME: 2:13 PM CSN: [id number] [facility] ANES PRE-OPon 08-14-2020 ANES PRE-OP HNO ID: [id number] Author: Tato Zafar MD Service: Anesthesiology Author Type: Anesthesiologist Type: Anesthesia Preprocedure Evaluation Filed: 08/14/2020 8:07 AM Note Text: ANESTHESIOLOGY DAY OF SURGERY NOTE : 1970 Procedure(s) (LRB): REMOVAL HARDWARE HIP ADULT (Right) INSERTION NAIL / ZUHAIR INTRAMEDULLARY OPEN REDUCTION FEMUR (Right) Surgeon(s): Clay Ayala Jr., MD Estimated body mass index is 38.79 kg/m? as calculated from the following: Height as of this encounter: 162.6 cm (5' 4 ). Weight as of this encounter: 102.5 kg (225 lb 15.5 oz). Most recent hematocrit and potassium results: Hematocrit 41.6 08/14/2020 Potassium 4.2 08/14/2020 Relevant Problems CARDIO (+) Cardiac murmur, unspecified (+) Essential hypertension ENDO (+) Type 2 diabetes mellitus without complication, without long-term current use of insulin (HCC) I - PHYSICAL EVALUATION AIRWAY Patient intubated: No. Mallampati: II. TM distance: >3 FB. Neck ROM: full ROM without neurological symptoms. Mouth opening: adequate. Short neck: no. Thick neck: no DENTAL Normal dental observations. Dental findings: teeth intact. II - ANESTHESIA PLAN ASA Score: 3 Anesthetic Plan: spinal Anesthetic plan additional comments: + MAC Sedation. NPO Status: adequate Monitoring plan: Standard ASA. Postoperative analgesic plan: parenteral or oral opioids and multimodal analgesia. Anesthetic Risks, Benefits, Alternatives, Personnel Discussed. Consent obtained from: patient.Patient / Surrogate agrees to blood products: yes DNR status not reviewed with patient and/or family prior to surgery. Significant changes in the patient condition since the History and Physical, not otherwise documented in primary service progress note: no. Potential Anesthesia issues that may suggest increased risk of complications or contraindication to planned procedure: none. No vitals data found for the desired time range. Facility-Administered Medications as of 08/14/2020 Medication Dose Route Frequency - [COMPLETED] LORazepam 0.25 mg injection (ATIVAN) 0.25 mg INTRAVENOUS ONCE - ceFAZolin iv piggyback 2 g in D5W (iso-osmotic) 100 mL (ANCEF) 2 g INTRAVENOUS ONCE - HYDROcodone 5 mg - acetaminophen 325 mg tablet (NORCO) 1-2 tablet ORAL q 6 H PRN - morphine 4 mg injection 4 mg INTRAVENOUS q 4 H PRN - polyethylene glycol 3350 17 g packet (MIRALAX, GLYCOLAX) 17 g ORAL DAILY - bisacodyl 10 mg suppository (DULCOLAX) 10 mg RECTAL DAILY PRN - NaCl 0.9% iv infusion 100 mL/hr INTRAVENOUS CONTINUOUS - dextrose 40 % 15 g 15 g ORAL PRN Or - glucagon 1 mg injection 1 mg INTRAMUSCULAR PRN Or - dextrose 50% in water 25 mL syringe 12.5 g INTRAVENOUS PRN - insulin lispro injection (rapid acting) (HumaLOG) SUBCUTANEOUS q 6 H - ondansetron (PF) 4 mg injection (ZOFRAN) 4 mg INTRAVENOUS q 6 H PRN - losartan 50 mg tab(s) (COZAAR) 50 mg ORAL DAILY - docusate sodium 100 mg cap(s) (COLACE) 100 mg ORAL BID PRN - PARoxetine 10 mg tab(s) (PAXIL) 10 mg ORAL DAILY - heparin 5,000 Units injection 5,000 Units SUBCUTANEOUS q 12 H - miconazole 2 % 1 application topical powder (LOTRIMIN AF, DESENEX) 1 application TOPICAL BID Outpatient Medications as of 08/14/2020 Medication Sig - acetaminophen (TYLENOL) 500 mg tablet Take 2 tablets by mouth every 8 hours. - docusate sodium (COLACE) 100 mg capsule Take 1 capsule by mouth twice daily as needed for Constipation. - multivitamin tablet Take 1 tablet by mouth once daily. - glipiZIDE (GLUCOTROL XL) 10mg 24 hr tablet Take 10 mg by mouth once daily. - cholecalciferol (VITAMIN D-3) 50 mcg (2,000 unit) tablet Take 2,000 Units by mouth once daily. - PARoxetine (PAXIL) 10 mg tablet Take 10 mg by mouth once daily. - losartan (COZAAR) 50 mg tablet Take 50 mg by mouth once daily. - potassium chloride 20 mEq TbER Take by mouth. - INV FUROSEMIDE 40 MG TABLET (IRB 18-610) Take by mouth. For Investigational Drug Use Only. PI: Jordan Joy MD. I have interviewed and examined the patient. I have reviewed the medical record and/or the pre-anesthesia evaluation, pertinent labs, and test results. This contains updated information obtained within 48 hours of Surgery/Procedure. SIGNATURE: Tato Zafar MD PATIENT NAME: Sue Momin DATE: August 14, 2020 TIME: 8:03 AM CSN: [id number] Normal [facility] Basic Metabolic Panlon 08-14 Anion gap [Moles/Vol] 7 mmol/L Low -18 [facility] Calcium [Mass/Vol] 8.7 mg/dL Normal 8.5-10.2 [facility] Chloride [Moles/Vol] 100 mmol/L Normal 97-105 [facility] CO2 [Moles/Vol] 27 mmol/L Normal 22-30 [facility] Creatinine [Mass/Vol] 0.63 mg/dL Normal 0.58-0.96 [facility] eGFR- Amer. >60 Normal [facility] eGFR-All Other Races >60 Normal [facility] Comment on above: Result Comment: eGFR (Estimated GFR) Units of measure: mL/min/1.73 meters squared eGFR is derived from the reexpressed MDRD Study equation using the following parameters: serum creatinine, age, gender and race. The creatinine assay has been calibrated to be traceable to IDMS. An eGFR <60 mL/min/1.73m2 for >3 months is consistent with chronic kidney disease. Refer to KDOQI guidelines for clinical interpretation. In patients with unstable renal function, e.g. those with acute kidney injury, the eGFR may not accurately reflect actual GFR. Glucose [Mass/Vol] 181 mg/dL High 74-99 [facility] Comment on above: Result Comment: The [place] Diabetes Association (ADA) provides guidance for cutoff values for fasting glucose and random glucose. The ADA defines fasting as no caloric intake for at least 8 hours. Fasting plasma glucose results between 100 to 125 mg/dL indicate increased risk for diabetes (prediabetes). Fasting plasma glucose results greater than or equal to 126 mg/dL meet the criteria for diagnosis of diabetes. In the absence of unequivocal hyperglycemia, results should be confirmed by repeat testing. In a patient with classic symptoms of hyperglycemia or hyperglycemic crisis, random plasma glucose results greater than or equal to 200 mg/dL meet the criteria for diagnosis of diabetes. Reference: Standards of Medical Care in Diabetes 2016, [place] Diabetes Association. Diabetes Care. 2016.39(Suppl 1). Potassium [Moles/Vol] 4.5 mmol/L Normal 3.7-5.1 [facility] Sodium [Moles/Vol] 134 mmol/L Low 136-144 [facility] Urea nitrogen [Mass/Vol] 9 mg/dL Normal 7-21 [facility] Anion gap [Moles/Vol] 7 mmol/L Low 9-18 [facility] Calcium [Mass/Vol] 8.8 mg/dL Normal 8.5-10.2 [facility] Chloride [Moles/Vol] 101 mmol/L Normal 97-105 [facility] CO2 [Moles/Vol] 29 mmol/L Normal 22-30 [facility] Creatinine [Mass/Vol] 0.62 mg/dL Normal 0.58-0.96 [facility] eGFR- Amer. >60 Normal [facility] eGFR-All Other Races >[address] [facility] Comment on above: Result Comment: eGFR (Estimated GFR) Units of measure: mL/min/1.73 meters squared eGFR is derived from the reexpressed MDRD Study equation using the following parameters: serum creatinine, age, gender and race. The creatinine assay has been calibrated to be traceable to IDMS. An eGFR <60 mL/min/1.73m2 for >3 months is consistent with chronic kidney disease. Refer to KDOQI guidelines for clinical interpretation. In patients with unstable renal function, e.g. those with acute kidney injury, the eGFR may not accurately reflect actual GFR. Glucose [Mass/Vol] 109 mg/dL High 74-99 [facility] Comment on above: Result Comment: The [place] Diabetes Association (ADA) provides guidance for cutoff values for fasting glucose and random glucose. The ADA defines fasting as no caloric intake for at least 8 hours. Fasting plasma glucose results between 100 to 125 mg/dL indicate increased risk for diabetes (prediabetes). Fasting plasma glucose results greater than or equal to 126 mg/dL meet the criteria for diagnosis of diabetes. In the absence of unequivocal hyperglycemia, results should be confirmed by repeat testing. In a patient with classic symptoms of hyperglycemia or hyperglycemic crisis, random plasma glucose results greater than or equal to 200 mg/dL meet the criteria for diagnosis of diabetes. Reference: Standards of Medical Care in Diabetes 2016, [place] Diabetes Association. Diabetes Care. 2016.39(Suppl 1). Potassium [Moles/Vol] 4.2 mmol/L Normal 3.7-5.1 [facility] Sodium [Moles/Vol] 137 mmol/L Normal 136-144 [facility] Urea nitrogen [Mass/Vol] 10 mg/dL Normal 7-21 [facility] CBCon 08-14-2020 Absolute nRBC <0.01 Normal <0.01 [facility] Erythrocyte distribution width (RBC) [Ratio] 19.9 % High 11.5-15.0 [facility] Hematocrit (Bld) [Volume fraction] 40.4 % Normal 36.0-46.0 [facility] Hemoglobin (Bld) [Mass/Vol] 12.9 g/dL Normal 11.5-15.5 [facility] MCH 27.5 pG Normal 26.0-34.0 [facility] MCHC (RBC) [Mass/Vol] 31.9 g/dL Normal 30.5-36.0 [facility] MCV (RBC) [Entitic vol] 86.1 fL Normal 80.0-100.0 [facility] Platelet mean volume (Bld) [Entitic vol] 8.9 fL Low 9.0-12.7 [facility] l Platelets (Bld) [#/Vol] 203 10*3/uL Normal 150-400 [facility] RBC (Bld) [#/Vol] 4.69 10*6/uL Normal 3.90-5.20 [facility] WBC (Bld) [#/Vol] 7.69 10*3/uL Normal 3.70-11.00 [facility] Absolute nRBC <0.01 [facility]0.[facility] width (RBC) [Ratio] 19.7 % High 11.5-15.0 [facility] Hematocrit (Bld) [Volume fraction] 41.6 % Normal 36.0-46.0 [facility] Hemoglobin (Bld) [Mass/Vol] 13.6 g/dL Normal 11.5-15.5 [facility] MCH 27.6 pG Normal 26.0-34.0 [facility] MCHC (RBC) [Mass/Vol] 32.7 g/dL Normal 30.5-36.0 [facility] MCV (RBC) [Entitic vol] 84.6 fL Normal 80.0-100.0 [facility] Platelet mean volume (Bld) [Entitic vol] 9.0 fL Normal 9.0-12.7 [facility] l Platelets (Bld) [#/Vol] 216 10*3/uL Normal 150-400 [facility] RBC (Bld) [#/Vol] 4.92 10*6/uL Normal 3.90-5.20 [facility] WBC (Bld) [#/Vol] 5.61 10*3/uL Normal 3.70-11.00 [facility] HCG Qual, Urineon 08-14-2020 Beta HCG ( test) Ql (U) Negative Normal Negative [facility] NURSING PROGon 08-14-2020 NURSING PROG HNO ID: [id number] Author: Lorraine Christianson RN Service: ? Author Type: Registered Nurse Type: Nursing Progress Note Filed: 08/14/2020 8:15 PM Note Text: Nursing Progress Note Patient Name: Sue Momin Patient Location: AV Surgery/AV Surgery Daily Note: Resting in bed. C/o anxiety concerning surgery. Ativan 0.25mg ivp given x1 as ordered to calm pt. Iv patent. Report given to surgery. Urine for HCG sent as ordered. Pre-op abx sent to surgery with pt's chart. External catheter removed. Pt to OR via bed. 1140 Received from PACU via bed. Alert and oriented x3. States numb from the waist down. Able to wiggle toes. 2+ DP pulses b/l Dressing dry and intact. Iv patent with out infiltrate. 1625 Pt c/o pain of 9/10. Medicated with oxycodone IR 10mg po as ordered. Pt up to the BSC with walker and 1 assist. Voided qs clear yellow/solomon urine. 175 Pt c/o vague nausea and was medicated with zofran 4mg slow ivp as ordered. 1939 Pt c/o pain. Up to the bathroom with walker and 1 assist. Voided 800 cc plus and returned to the recliner chair. Medicated with oxycodone IR 10mg po as ordered. Ice packs x2 used. Call light in reach This note was completed by: Lorraine Christianson Normal [facility] OPERATIVE NOon 08-14-2020 OPERATIVE NO HNO ID: [id number] Author: Clay Ayala Jr., MD Service: Orthopaedic Surgery Author Type: Physician Type: Operative Report Filed: 08/14/2020 1:03 PM Note Text: [facility] OPERATIVE REPORT PATIENT NAME: Sue Momin AGE: [age] year old LOG ID: [id number] Surgery Date: 08/14/2020 SURGEON: Clay Ayala M.D. BOND MANAGER: Nicolasa Siddiqi PA-C, her assistance consisted of assistance with retraction, positioning and closing of the wound No resident physicians were available to participate in the case. PROCEDURE: Right Cephalomedually Nailing Procedure(s) (LRB): REMOVAL HARDWARE HIP ADULT (Right) INSERTION NAIL / ZUHAIR INTRAMEDULLARY OPEN REDUCTION FEMUR (Right) Incision Start: 8:51 AM Incision Stop: 10:25 AM Anesthesia: Spinal Preop Diagnosis: Pre-Op Diagnosis Codes: * Closed fracture of femur, intertrochanteric, right, initial encounter ([facility]) [S72.141A] Postop Diagnosis: Same as Pre-Op Diagnosis Codes: * Closed fracture of femur, intertrochanteric, right, initial encounter ([facility]) [S72.141A] OPERATIVE INDICATIONS: This is a 50 year old female with an intertrochanteric fracture of the right hip on around a femoral neck fracture hip screw. The decision was made to proceed with a cephalomedually nailing. Risks, benefits, and alternatives were discussed. She expressed understanding and consented to the procedure as outlined above. IMPLANTS: Synthes TFN SIZE IM Nail 10 mm (diameter) x 170 mm (length) IM Nail angle 130 degrees Spiral Locking Blade 85 mm Distal Locking Screw 40 mm PROCEDURE: The patient was brought to the operating room. After adequate induction of anesthesia by Anesthesiology, the patient was placed supine on the operating table. The Right leg was placed in traction and the Left leg was placed in a flexed, abducted position. A C-arm was brought in. The fracture was reduced, and the reduction was verified on AP and lateral views under fluoroscopy. At this point, the Right lower extremity was prepped and draped in sterile fashion with ChloraPrep scrub. An incision was opened up over the greater trochanter extending distalward to just past the lesser trochanter. Sharp dissection was carried out through skin and subcutaneous tissue down to the level of the IT band. The IT band was split in line with the skin incision. Next I incised through the vastus lateralis and dissected down to the lateral femur. I identified the Synthes femoral neck fracture plate and screw. This was removed without difficulty. I then packed the track of the blade with cancellous chips beginning at the transition between the intertrochanteric region up into the femoral head. Next I turned my attention proximally, the abductor musculature was split longitudinally to obtain access to the greater trochanter. The guidewire was then inserted in under fluoroscopic guidance through the greater trochanter and into the femoral canal. Its placement was confirmed on AP and lateral with the C-arm. At this point in time, a soft tissue sleeve was inserted over the guidewire down to the greater trochanter and the17 mm opening reamer was inserted. The femoral canal was opened in anterograde fashion. The opening reamer was removed and the IM nail was then inserted in over the guidewire and sunk to the appropriate depth. The guide wire was removed. The sidearm aiming attachment for the helical locking blade was then assembled and affixed to the nail insertion handle. A second, lateral incision was made for insertion of the spiral locking blade. Sharp dissection was carried out through the skin and subcutaneous tissue to the level of the IT band. The IT band was split in line with the skin incision and the vastus lateralis was elevated off the lateral femur. The trochar for the spiral locking blade guidewire was inserted up against the lateral femur. The guide wire was then inserted into the femoral head. Its placement was confirmed on the AP and lateral. It was measured to a 85 mm. The cortical drill was then inserted to open the lateral cortex, followed by the step drill to the appropriate depth. The spiral locking blade was then impacted into place and it was locked proximally via the bolt in the nail. The locking mechanism was confirmed on fluoroscopy. At this point in time, the spiral locking blade trocar and the guidewire were removed, and the trocar for the distal locking screw was placed. A small stab incision was made down to the bone, and the trocar for the distal locking screw was inserted down to the lateral femoral cortex. The drill for the distal screw was then inserted through the trocar, through the femur and through the nail, and measured 40 mm. The 40 screw was inserted in and the insertion guide handle was removed from the nail. The leg was taken through range of motion. It moved as a unit. Its fixation was solid. Again, the placement of th (more content not included)... [facility] SURGICAL PATHOLOGYon 021 SURGICAL PATHOLOGY Specimen originated from [facility] Specimen #: [id number] Submitting Physician: CLAY AYALA M.D. FINAL DIAGNOSIS Right hip, hardware removal - Metal screws and metal bar (gross diagnosis only). JESSE/DUSTY/dakotah 08/18/2020 Maxx Quach M.D. (Electronic Signature) ____ SPECIMEN SUBMITTED A: RIGHT HIP HARDWARE CLINICAL DATA CLOSED FRACTURE OF FEMUR, INTERTROCHANTERIC, RIGHT, INITIAL ENCOUNTER GROSS DESCRIPTION A. Received in formalin labeled right hip hardware are two metallic screws (measuring 4 x 0.5 x 0.5 cm and 6.7 x 0.6 x 0.6 cm), and a metallic bar (8 x 1 x 1 cm). The metal bar is inscribed: STATELESS [phone] [id number] . There is no soft tissue present. The specimen is reviewed with Dr. Quach. No sections are submitted. Gross examination only. KSKendall/dakotah 08/18/2020 Gross examination performed at [facility], [address] [place] [address] Date of Report: 08/24/2020 Date of Procedure: 08/14/2020 Date of Receipt: 08/14/2020 Submitted by: CLAY AYALA M.D. Location: AV5 Diagnostic interpretation performed at [facility], [address] [place] [address]. CLIA Number: [id number] Normal [facility] Reference Lab Comment on above: Performed By: #### S #### See report for performing lab information. XR FEMUR 2V AP/LAT RTon 07-21 XR FEMUR 2V AP/LAT RT * * *Final Report* * * DATE OF EXAM: Aug 14 2020 10:31AM [facility] 5333 - XR FEMUR 2V AP/LAT RT / PROCEDURE REASON: ORIF RIGHT FEMUR * * * * Physician Interpretation * * * * TECHNIQUE: C-arm fluoroscopy right femur for ORIF HISTORY: Removal of hardware COMPARISON STUDY: Outside CT scan of 08/12/2020 RESULT: Submitted for interpretation are spot images obtained in the OR after removal of hardware and insertion of an intramedullary nail/zuhair for ORIF. This examination was obtained for surgical planning. Please refer to the intraoperative notes. Fluoroscopic Radiation Summary: Plane A, Air Kerma: 31.7 mGy Plane B, Air Kerma: 0.0 mGy Dose Area Product (DAP): Fluoro time: 1:56 min:sec IMPRESSION: 1. Surgical planning. Trim Die Maker: DEYANIRA Transcribe Date/Time: Aug 14 2020 12:29P Dictated by : FELICIA WORKMAN MD This examination was interpreted and the report reviewed and electronically signed by: FELICIA WORKMAN MD on Aug 14 2020 12:31PM EST [id number] N [facility] HEALTH 08-13-2020 ALLIED HEALTH HNO ID: [id number] Author: Ricardo Irvin Service: Spiritual Care Author Type: ? Type: Allied Health Filed: 08/13/2020 10:13 AM Note Text: SPIRITUAL CARE PROGRESS NOTE SERVICE DATE: 08/13/2020 SERVICE TIME: 9:35AM Pt is listed as [facility] in [facility], and she affirmed; pt had been visited during a prior admission; she became tearful upon commencing to talk, and was glad that I recalled who she was; spoke with pt about the importance of good self-care, and spoke with her about mindful self-compassion; provided her with information on the topic; RN present taking care of pt's IV; will follow-up as able or if requested; pt was appreciative. To contact the Spiritual Care Department: Please call Ext [phone] SIGNATURE: Ricardo Irvin PATIENT NAME: Sue Momin DATE: August 13, 2020 TIME: 10:06 AM PAGER/CONTACT #: [phone] [facility] CASE MANAGEMon 08-13-2020 CASE MANAGEM HNO ID: [id number] Author: Donna Gomez RN Service: ? Author Type: Registered Nurse Type: Care Mgt Progress Note Filed: 08/13/2020 3:18 PM Note Text: CARE MANAGEMENT PROGRESS NOTE SERVICE DATE: 08/13/2020 SERVICE TIME: 3:16 PM LOS: 1 day Fall at home. Lives with spouse. Plan is for surgery tomorrow. Needs TBD and case management will follow to address discharge needs. SIGNATURE: Donna Gomez RN PATIENT NAME: Sue Momin DATE: August 13, 2020 TIME: 3:16 PM PAGER/CONTACT #: [phone] [facility] CBCon 08-13-2020 Absolute nRBC <0.01 Normal <0.01 [facility] Erythrocyte distribution width (RBC) [Ratio] 20.7 % High 11.5-15.0 [facility] Hematocrit (Bld) [Volume fraction] 40.9 % Normal 36.0-46.0 [facility] Hemoglobin (Bld) [Mass/Vol] 13.0 g/dL Normal 11.5-15.5 [facility] MCH 27.7 pG Normal 26.0-34.0 [facility] MCHC (RBC) [Mass/Vol] 31.8 g/dL Normal 30.5-36.0 [facility] MCV (RBC) [Entitic vol] 87.2 fL Normal 80.0-100.0 [facility] Platelet mean volume (Bld) [Entitic vol] 8.8 fL Low 9.0-12.7 [facility] Platelets (Bld) [#/Vol] 213 10*3/uL Normal 150-400 [facility] RBC (Bld) [#/Vol] 4.69 10*6/uL Normal 3.90-5.20 [facility] WBC (Bld) [#/Vol] 5.50 10*3/uL Normal 3.70-11.00 [facility] CONSULT PROGon 08-13-2020 CONSULT PROG HNO ID: [id number] Author: Ethan Best PA-C Service: Orthopaedic Surgery Author Type: Physician Temp Recruiter Type: Consult Progress Note Filed: 08/13/2020 4:49 PM Note Text: ORTHOPEDIC SURGICAL SERVICES CONSULT PROGRESS NOTE SERVICE DATE: 08/13/2020 SERVICE TIME: 1630 CONSULTING SERVICE: Orthopedic Surgery Subjective INTERVAL HISTORY OF PRESENT ILLNESS: Patient states that her pain is well controlled if she does not move. Dr. Ayala came in and spoke with the patient this AM. She has no additional questions regarding her surgery tomorrow. Current Facility-Administered Medications Medication Dose Route Frequency - NaCl 0.9% iv infusion 100 mL/hr INTRAVENOUS CONTINUOUS - dextrose 40 % 15 g 15 g ORAL PRN Or - glucagon 1 mg injection 1 mg INTRAMUSCULAR PRN Or - dextrose 50% in water 25 mL syringe 12.5 g INTRAVENOUS PRN - insulin lispro injection (rapid acting) (HumaLOG) SUBCUTANEOUS q 6 H - ondansetron (PF) 4 mg injection (ZOFRAN) 4 mg INTRAVENOUS q 6 H PRN - losartan 50 mg tab(s) (COZAAR) 50 mg ORAL DAILY - docusate sodium 100 mg cap(s) (COLACE) 100 mg ORAL BID PRN - PARoxetine 10 mg tab(s) (PAXIL) 10 mg ORAL DAILY - heparin 5,000 Units injection 5,000 Units SUBCUTANEOUS q 12 H - miconazole 2 % 1 application topical powder (LOTRIMIN AF, DESENEX) 1 application TOPICAL BID - [START ON 08/14/2020] ceFAZolin iv piggyback 2 g in D5W (iso-osmotic) 100 mL (ANCEF) 2 g INTRAVENOUS ONCE - HYDROcodone 5 mg - acetaminophen 325 mg tablet (NORCO) 1-2 tablet ORAL q 6 H PRN - morphine 4 mg injection 4 mg INTRAVENOUS q 4 H PRN - polyethylene glycol 3350 17 g packet (MIRALAX, GLYCOLAX) 17 g ORAL DAILY - bisacodyl 10 mg suppository (DULCOLAX) 10 mg RECTAL DAILY PRN Objective PHYSICAL EXAM: BP 147/65 Pulse 57 Temp (Src) 98.1 (Oral) Resp 20 Ht 5' 4 (1.63m) Wt 225 lb 15.5 oz (102.5kg) SpO2 99% LMP 05/12/2020 BMI 38.77 kg/(m2). O2 Therapy: Room Air Physical Exam Performed GENERAL: Alert, no distress, cooperative LUNGS: Lungs clear to auscultation b/l, Good diaphragmatic excursion CARDIAC: Normal S1 and S2; no rubs, murmurs, or gallops EXTREMITIES: Extremities normal, no obvious deformities. Mild edema b/l. Patient without bruising or skin breakdown over right hip. + point tenderness over right greater trochanter. Dorsalis pedis pulses palpable. Posterior tibial pulses palpable. Dorsi flexion 5/5. Plantar flexion 5/5. Extensor hallucis extension: 5/5. Sensory intact to light touch right leg L1-S1. Prior surgical site no drainage and skin edges well approximated. Scar healing very well. NEURO: Grossly normal cognition, speech and motor function. Intake/Output Summary (Last 24 hours) at 08/13/2020 1638 Last data filed at 08/13/2020 1556 Gross per 24 hour Intake 610 ml Output 2450 ml Net -1840 ml DATA: Diagnostic tests reviewed for today's visit: Most recent labs and imaging results. Recent Labs 08/13/20 0509 08/12/20 1543 08/12/20 1542 WBC 5.50 -- 6.26 HB 13.0 -- 13.4 HCT 40.9 -- 40.2 PLT 213 -- 219 NA 138 137 -- K 4.2 4.4 -- CHLOR 101 104 -- CO2 29 24 -- CREAT 0.77 0.66 -- BUN 14 12 -- GLUC 94 136* -- TPROT 6.4 -- -- ALB 3.6* -- -- CA 8.7 8.9 -- ALKPHOS 31* -- -- TBILI 0.6 -- -- AST 10* -- -- ALT 11 -- -- CT FEMUR WO IVCON RT 08/13/2020 Impression: 1. ?POSTOPERATIVE CHANGES OF PROXIMAL FEMUR FIXATION WITH INTACT HARDWARE WITH NONDISPLACED FRACTURE VISIBLE IN THE GREATER TROCHANTER AND INTERTROCHANTERIC FEMUR. ?THESE FRACTURES MAY BE RELATED TO ORIGINAL FRACTURES TREATED WITH THE FIXATION HARDWARE. ?CORRELATION WITH PRIOR PREOPERATIVE CTS AVAILABLE WOULD BE HELPFUL FOR CONFIRMATION. 2. ?NO EVIDENCE OF A FRACTURE BELOW THE LEVEL OF THE HARDWARE. Impression/Recommenda tions Patient Active Hospital Problem List: Closed fracture of right hip with delayed healing (08/12/2020) Class 3 severe obesity due to excess calories without serious comorbidity with body mass index (BMI) of 40.0 to 44.9 in adult (HCC) (05/20/2020) Essential hypertension (05/20/2020) Type 2 diabetes mellitus without complication, without long-term current use of insulin (HCC) (05/20/2020) Iron deficiency anemia (05/20/2020) Nicotine use disorder, F17.2 (05/25/2020) Fall (08/12/2020) Closed right hip fracture (HCC) (08/12/2020) Obesity, Class II, BMI 35-39.9 (08/12/2020) ASSESSMENT Sue Momin is a 50 year old female with a PMH of HTN, DM2 c/b peripheral neuropathy, edema for which patient is non-compliant with her furosemide, h/o gastric bypass, anemia, and tobacco use disorder who presents for right hip pain s/p fall with concerns for periprosthetic intertrochanteric fracture of the right femur. ? PLAN - Pt is AF, VSS. - CT confirms a fracture between proximal screw and blade in the intertrochanteric region of the hip. - Plan is for existing hardware removal and short cephalomedullary nailing. 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 Normal [facility] Comp Metabolic Panelon 08-13 Albumin [Mass/Vol] 3.6 g/dL Low 3.9-4.9 [facility] ALP [Catalytic activity/Vol] 31 U/L Low 34-123 [facility] ALT [Catalytic activity/Vol] 11 U/L Normal 7-38 [facility] Anion gap [Moles/Vol] 8 mmol/L Low 9-18 [facility] AST [Catalytic activity/Vol] 10 U/L Low 13-35 [facility] Bilirubin [Mass/Vol] 0.6 mg/dL Normal 0.2-1.3 [facility] Calcium [Mass/Vol] 8.7 mg/dL Normal 8.5-10.2 [facility] ospital Chloride [Moles/Vol] 101 mmol/L Normal 97-105 [facility] CO2 [Moles/Vol] 29 mmol/L Normal 22-30 [facility] ital Creatinine [Mass/Vol] 0.77 mg/dL Normal 0.58-0.96 [facility] eGFR- Amer. >60 Normal [facility] eGFR-All Other Races >60 Normal [facility] Comment on above: Result Comment: eGFR (Estimated GFR) Units of measure: mL/min/1.73 meters squared eGFR is derived from the reexpressed MDRD Study equation using the following parameters: serum creatinine, age, gender and race. The creatinine assay has been calibrated to be traceable to IDMS. An eGFR <60 mL/min/1.73m2 for >3 months is consistent with chronic kidney disease. Refer to KDOQI guidelines for clinical interpretation. In patients with unstable renal function, e.g. those with acute kidney injury, the eGFR may not accurately reflect actual GFR. Glucose [Mass/Vol] 94 mg/dL Normal 74-99 [facility] Comment on above: Result Comment: The [place] Diabetes Association (ADA) provides guidance for cutoff values for fasting glucose and random glucose. The ADA defines fasting as no caloric intake for at least 8 hours. Fasting plasma glucose results between 100 to 125 mg/dL indicate increased risk for diabetes (prediabetes). Fasting plasma glucose results greater than or equal to 126 mg/dL meet the criteria for diagnosis of diabetes. In the absence of unequivocal hyperglycemia, results should be confirmed by repeat testing. In a patient with classic symptoms of hyperglycemia or hyperglycemic crisis, random plasma glucose results greater than or equal to 200 mg/dL meet the criteria for diagnosis of diabetes. Reference: Standards of Medical Care in Diabetes 2016, [place] Diabetes Association. Diabetes Care. 2016.39(Suppl 1). Potassium [Moles/Vol] 4.2 mmol/L Normal 3.7-5.1 [facility] Protein [Mass/Vol] 6.4 g/dL Normal 6.3-8.0 [facility] Sodium [Moles/Vol] 138 mmol/L Normal 136-144 [facility] Urea nitrogen [Mass/Vol] 14 mg/dL Normal 7-21 [facility] NURSING PROGon 08-13-2020 NURSING PROG HNO ID: [id number] Author: Peggy Downing RN Service: Nursing Author Type: Registered Nurse Type: Nursing Progress Note Filed: 08/13/2020 8:44 PM Note Text: Nursing Progress Note Patient Name: Sue Momin Patient Location: / Daily Note: RM 503 - Patient is having surgery at 8 AM, Ok to give hs dose of heparin? Please advise, thanks! JASMINE Woods . This note was completed by: Peggy Downing [facility] NURSING PROG HNO ID: [id number] Author: Lorraine Christianson RN Service: ? Author Type: Registered Nurse Type: Nursing Progress Note Filed: 08/13/2020 5:45 PM Note Text: Nursing Progress Note Patient Name: Sue Momin Patient Location: / Daily Note: Resting in bed. External catheter maintained. Trapeze applied to bed and pt is able to assist with repositioning. B/l doppled DP pulses. Alert and oriented x3. Hypoactive bowel sounds noted x 4 quads. 1230 Pt to have surgery tomorrow. Pt on a diet and taking well. Secure chatted Dr De La Cruz and colace and miralax started. Pt able to assist with bath. Oral care completed. 1730 Continues to rest quietly. No distress noted. Call light in reach This note was completed by: Lorraine Christianson [facility] APTTon 08-12-2020 aPTT Coag (Bld) [Time] 27.9 s Normal 23.0-32.4 [facility] Comment on above: Result Comment: Unfr actionated Heparin Therapeutic Ranges: Standard Heparin Nomogram: 53 to 78 seconds (anti-Xa level of 0.3 to 0.7 U/ml) Low Dose/ACS Nomogram: 49 to 67 seconds (anti-Xa level of 0.2 to 0.5 U/ml) Stroke Treatment Nomogram: 49 to 67 seconds (anti-Xa level of 0.2 to 0.5 U/ml) Note: The APTT therapeutic range has been determined for the current lot of laboratory APTT reagent in use throughout the [facility]. Basic Metabolic Panlon 08-12 Anion gap [Moles/Vol] 9 mmol/L Normal 9-18 [facility] Calcium [Mass/Vol] 8.9 mg/dL Normal 8.5-10.2 [facility] Chloride [Moles/Vol] 104 mmol/L Normal 97-105 [facility] CO2 [Moles/Vol] 24 mmol/L Normal 22-30 [facility] Creatinine [Mass/Vol] 0.66 mg/dL Normal 0.58-0.96 [facility] eGFR- Amer. >60 Normal [facility] eGFR-All Other Races >60 Normal [facility] Comment on above: Result Comment: eGFR (Estimated GFR) Units of measure: mL/min/1.73 meters squared eGFR is derived from the reexpressed MDRD Study equation using the following parameters: serum creatinine, age, gender and race. The creatinine assay has been calibrated to be traceable to IDMS. An eGFR <60 mL/min/1.73m2 for >3 months is consistent with chronic kidney disease. Refer to KDOQI guidelines for clinical interpretation. In patients with unstable renal function, e.g. those with acute kidney injury, the eGFR may not accurately reflect actual GFR. Glucose [Mass/Vol] 136 mg/dL High 74-99 [facility] Comment on above: Result Comment: The [place] Diabetes Association (ADA) provides guidance for cutoff values for fasting glucose and random glucose. The ADA defines fasting as no caloric intake for at least 8 hours. Fasting plasma glucose results between 100 to 125 mg/dL indicate increased risk for diabetes (prediabetes). Fasting plasma glucose results greater than or equal to 126 mg/dL meet the criteria for diagnosis of diabetes. In the absence of unequivocal hyperglycemia, results should be confirmed by repeat testing. In a patient with classic symptoms of hyperglycemia or hyperglycemic crisis, random plasma glucose results greater than or equal to 200 mg/dL meet the criteria for diagnosis of diabetes. Reference: Standards of Medical Care in Diabetes 2016, [place] Diabetes Association. Diabetes Care. 2016.39(Suppl 1). Potassium [Moles/Vol] 4.4 mmol/L Normal 3.7-5.1 [facility] Sodium [Moles/Vol] 137 mmol/L Normal 136-144 [facility]spital Urea nitrogen [Mass/Vol] 12 mg/dL Normal 7-21 [facility] CBCon 08-12-2020 Absolute nRBC <0.01 Normal <0.01 [facility] al Erythrocyte distribution width (RBC) [Ratio] 21.0 % High 11.5-15.0 [facility] Hematocrit (Bld) [Volume fraction] 40.2 % Normal 36.0-46.0 [facility] Hemoglobin (Bld) [Mass/Vol] 13.4 g/dL Normal 11.5-15.5 [facility] MCH 27.9 pG Normal 26.0-34.0 [facility] MCHC (RBC) [Mass/Vol] 33.3 g/dL Normal 30.5-36.0 [facility] MCV (RBC) [Entitic vol] 83.8 fL Normal 80.0-100.0 [facility] Platelet mean volume (Bld) [Entitic vol] 8.8 fL Low 9.0-[facility].7 [facility] Platelets (Bld) [#/Vol] 219 10*3/uL Normal 150-400 [facility] RBC (Bld) [#/Vol] 4.80 10*6/uL Normal 3.90-5.20 [facility] WBC (Bld) [#/Vol] 6.26 10*3/uL Normal 3.70-11.00 [facility] CONSULTon 08-12-2020 CONSULT HNO ID: [id number] Author: Ethan Best PA-C Service: Orthopaedic Surgery Author Type: Physician Temp Recruiter Type: Consults Filed: 08/12/2020 1:25 PM Note Text: Attestation signed by Clay Ayala Jr., MD at 08/13/2020 7:59 AM Attending Note: Patient seen in conjunction with physician neurology physician assistant. Mcdonnell findings confirmed. Patient examined. Discussed with the Physician Temp Recruiter and patient. CT scan shows a fracture between proximal screw and blade in the intertrochanteric region of the hip. Plan: I have recommended hardware removal and short cephalomedullary nailing. The procedure was explained along to recovery. The risks, benefits alternatives were reviewed. Questions were answered. Clay Ayala MD SURGICAL SERVICES INITIAL CONSULT SERVICE DATE: 08/12/2020 SERVICE TIME: 1245 REASON FOR CONSULT: Recurrent right hip fracture s/p fall REQUESTING PHYSICIAN: Lita Snow MD PRIMARY CARE PHYSICIAN: Alek Sherwood MD Subjective HISTORY OF PRESENT ILLNESS: Ms. Momin is a 50 year old female with a PMH of HTN, DM2 c/b peripheral neuropathy, edema for which patient is non-compliant with her furosemide, h/o gastric bypass, anemia, and tobacco use disorder who presents for right hip pain s/p fall. The patient had her right hip operated on by Dr. Ayala for a stress fracture of her right femur for which Dr. Ayala did a percutaneous fixation. She states that post-operatively she has been doing great and was getting ready to go back to work. She states yesterday she was bending over at the waist when her dog attempted to get cheese out of her hand and knocked her back onto her right hip/buttock. She was immediately in excruciating 10/10 pain and could not bear weight. The ambulance took her to [facility] where an x-ray and CT scan showed concerns of right intertrochanteric fracture with extension to the existing hardware, she was transferred to [facility] for further care. Patient states she is currently in 2/10 pain which is only in her right hip and does not radiate. She has not attempted to ambulate since the fall. She states if she does not walk on it, her pain isn't that bad if she stats seated. She denies any fever/chills, CP, SOB, abdominal pain, n/v mor dyusria. Patient confirms no allergies to any medications. No AC use. Last ate last night. PAST MEDICAL HISTORY Diagnosis Date - Diabetes (HCC) - Heartburn - Hypertension - Iron deficiency anemia - Iron deficiency anemia secondary to inadequate dietary iron intake 06/04/2020 - Morbidly obese (HCC) - Tobacco use disorder - Type II or unspecified type diabetes mellitus without mention of complication, not stated as uncontrolled history of ,prior to gastric bypass - Unspecified essential hypertension history of, prior to gastric bypass PAST SURGICAL HISTORY Procedure Laterality Date - DELIVERY ONLY X 2 - GASTRIC BYPASS 1999 - LEG/ANKLE SURGERY PROC UNLISTED does not know what surgery she had - LIGATE FALLOPIAN TUBE - PAST SURGICAL HISTORY OF 1999 gastric bypass surgery - PAST SURGICAL HISTORY OF c-sections, 1990 and 1992 - PAST SURGICAL HISTORY OF Bilateral 1980 achilles tendon lengthening - PAST SURGICAL HISTORY OF Right 1976 right wrist surgery following fracture - PAST SURGICAL HISTORY OF wisdom teeth extraction Social History Tobacco Use - Smoking status: Former Smoker Packs/day: 0.10 Years: 8.00 Pack years: 0.80 Types: Cigarettes Quit date: 05/23/2020 Years since quittin.2 - Smokeless tobacco: Never Used Substance Use Topics - Alcohol use: Yes Alcohol/week: 7.8 standard drinks Types: 6 Mixed Drinks per week Comment: 6 drinks/week - Drug use: Never ascorbic acid, vitamin C, (VITAMIN C) 500 mg tablet, Take 1 tablet by mouth twice daily with meals for 21 doses., Disp: 21 tablet, Rfl: 0 acetaminophen (TYLENOL) 500 mg tablet, Take 2 tablets by mouth every 8 hours., Disp: , Rfl: , Unknown at Unknown time docusate sodium (COLACE) 100 mg capsule, Take 1 capsule by mouth twice daily as needed for Constipation., Disp: , Rfl: , Unknown at Unknown time multivitamin tablet, Take 1 tablet by mouth once daily., Disp: , Rfl: , Unknown at Unknown time glipiZIDE (GLUCOTROL XL) 10mg 24 hr tablet, Take 10 mg by mouth once daily., Disp: , Rfl: , Unknown at Unknown time cholecalciferol (VITAMIN D-3) 50 mcg (2,000 unit) tablet, Take 2,000 Units by mouth once daily., Disp: , Rfl: , Unknown at Unknown time PARoxetine (PAXIL) 10 mg tablet, Take 10 mg by mouth once daily., Disp: , Rfl: , Unknown at Unknown time losartan (COZAAR) 50 mg tablet, Take 50 mg by mouth once daily., Disp: , Rfl: , Unknown at Unknown time potassium chloride 20 mEq TbER, Take by mouth., Disp: , Rfl: INV FUROSEMIDE 40 MG TABLET (IRB (more content not included)... Normal [facility] CT FEMUR WO IVCON RTon 08-12 CT FEMUR WO IVCON RT * * *Final Report* * * DATE OF EXAM: Aug 12 2020 1:28PM [facility] 0072 - CT FEMUR WO IVCON RT / PROCEDURE REASON: Fracture, femur * * * * Physician Interpretation * * * * History: Fracture, femur Proximal femur/subtrochanteric is the area of interest. Patient is s/p internal fixation in May, now s/p fall with outside facility x-ray read of subtle nondisplaced linear fracture of aforementioned area. rt femur fx Technique: CT FEMUR WO IVCON RT -- CT imaging was performed without administration of contrast: Dose-Length Product (DLP): 1567 mGy*cm. CT Dose Reduction Employed: Automated exposure control(AEC) and iterative recon Comparison: Radiographs dated 07/14/2020 Result: Postoperative changes of open reduction internal fixation of proximal femur with a hip screw and sideplate. Hardware in normal position without evidence of failure or loosening. There is a nondisplaced fracture line seen posterior to the hardware at the base of the greater trochanter (for example series 602, image 44). If subtle fracture line is also seen in the intertrochanteric femur inferior to the proximal blade but superior to the distal screw (series 601, image 57). No evidence of a subtrochanteric femur fracture below the level of the hardware. The joint spaces and alignment are normal. The soft tissues are within normal limits except for postsurgical changes from the anterolateral incision in the proximal thigh. Impression: 1. POSTOPERATIVE CHANGES OF PROXIMAL FEMUR FIXATION WITH INTACT HARDWARE WITH NONDISPLACED FRACTURE VISIBLE IN THE GREATER TROCHANTER AND INTERTROCHANTERIC FEMUR. THESE FRACTURES MAY BE RELATED TO ORIGINAL FRACTURES TREATED WITH THE FIXATION HARDWARE. CORRELATION WITH PRIOR PREOPERATIVE CTS AVAILABLE WOULD BE HELPFUL FOR CONFIRMATION. 2. NO EVIDENCE OF A FRACTURE BELOW THE LEVEL OF THE HARDWARE. Trim Die Maker: PSCB Transcribe Date/Time: Aug 12 2020 2:26P Dictated by : KJ THOMPSON MD This examination was interpreted and the report reviewed and electronically signed by: KJ THOMPSON MD on Aug 12 2020 2:53PM EST [id number] Normal [facility] HISTORY PHYSICALon HISTORY PHYSICAL HNO ID: [id number] Author: Lita Snow MD Service: Hospital Medicine Author Type: Physician Type: HANDP Filed: 08/12/2020 12:10 PM Note Text: DEPARTMENT OF HOSPITAL MEDICINE HISTORY AND PHYSICAL EXAM SERVICE DATE: 08/12/2020 Code Status: Not on file SERVICE TIME: 11:51 AM Primary Care Physician: Alek Sherwood MD NIGHT AND WEEKEND COVERAGE: [place] COVERAGE: Days: [phone], please contact via [employer] Nights: [phone], please page [facility] Night coverage pager [phone] Subjective CHIEF COMPLAINT: Right hip pain HPI: This is a 50 year old female who presents with right hip pain after she accidentally fell last night on back and right hip. She had right hip surgery in 06/09 for right femur neck fracture and she was doing fine,getting ready to go back to work. She went to [facility] ED. CT of the right hip showed suspected acute right femur fracture extending to the hardware. She was tranferred to [facility] for more evaluation,she had the first surgery here at [facility] PAST MEDICAL HISTORY Diagnosis Date - Diabetes (HCC) - Heartburn - Hypertension - Iron deficiency anemia - Iron deficiency anemia secondary to inadequate dietary iron intake 06/04/2020 - Morbidly obese (HCC) - Tobacco use disorder - Type II or unspecified type diabetes mellitus without mention of complication, not stated as uncontrolled history of ,prior to gastric bypass - Unspecified essential hypertension history of, prior to gastric bypass PAST SURGICAL HISTORY Procedure Laterality Date - DELIVERY ONLY X 2 - GASTRIC BYPASS 1999 - LEG/ANKLE SURGERY PROC UNLISTED does not know what surgery she had - LIGATE FALLOPIAN TUBE - PAST SURGICAL HISTORY OF 1999 gastric bypass surgery - PAST SURGICAL HISTORY OF c-sections, 1990 and 1992 - PAST SURGICAL HISTORY OF Bilateral 1981 achilles tendon lengthening - PAST SURGICAL HISTORY OF Right 1977 right wrist surgery following fracture - PAST SURGICAL HISTORY OF wisdom teeth extraction FAMILY HISTORY Problem Relation Age of Onset - Diabetes Mother - Diabetes Father - Hypertension Mother - Hypertension Father - Blood Disease Maternal Grandmother - Prostate Cancer Paternal Grandfather Social History Tobacco Use - Smoking status: Former Smoker Packs/day: 0.10 Years: 8.00 Pack years: 0.80 Types: Cigarettes Quit date: 05/23/2020 Years since quittin.2 - Smokeless tobacco: Never Used Substance Use Topics - Alcohol use: Yes Alcohol/week: 7.8 standard drinks Types: 6 Mixed Drinks per week Comment: 6 drinks/week - Drug use: Never PRIOR TO ADMISSION MEDICATIONS: ascorbic acid, vitamin C, (VITAMIN C) 500 mg tablet, Take 1 tablet by mouth twice daily with meals for 21 doses., Disp: 21 tablet, Rfl: 0 acetaminophen (TYLENOL) 500 mg tablet, Take 2 tablets by mouth every 8 hours., Disp: , Rfl: , Unknown at Unknown time docusate sodium (COLACE) 100 mg capsule, Take 1 capsule by mouth twice daily as needed for Constipation., Disp: , Rfl: , Unknown at Unknown time multivitamin tablet, Take 1 tablet by mouth once daily., Disp: , Rfl: , Unknown at Unknown time glipiZIDE (GLUCOTROL XL) 10mg 24 hr tablet, Take 10 mg by mouth once daily., Disp: , Rfl: , Unknown at Unknown time cholecalciferol (VITAMIN D-3) 50 mcg (2,000 unit) tablet, Take 2,000 Units by mouth once daily., Disp: , Rfl: , Unknown at Unknown time PARoxetine (PAXIL) 10 mg tablet, Take 10 mg by mouth once daily., Disp: , Rfl: , Unknown at Unknown time losartan (COZAAR) 50 mg tablet, Take 50 mg by mouth once daily., Disp: , Rfl: , Unknown at Unknown time potassium chloride 20 mEq TbER, Take by mouth., Disp: , Rfl: INV FUROSEMIDE 40 MG TABLET (IRB 18-610), Take by mouth. For Investigational Drug Use Only. PI: Jordan Joy MD., Disp: , Rfl: , Unknown at Unknown time ALLERGIES Allergen Reactions - Envoirnmental [Othe* - Latex Rash Rash - itch and swelling REVIEW OF SYSTEM: PAIN ASSESSMENT: CURRENTLY HAVING PAIN; see HPI GENERAL: No weight loss, malaise or fevers HEENT: Negative for frequent or significant headaches, No changes in hearing or vision, no nose bleeds or other nasal problems RESPIRATORY: Negative for cough, hemoptysis, wheezing, COPD, dyspnea or shortness of breath CARDIOVASCULAR: Negative for chest pain, leg swelling, hypertension, CHF or palpitations GI: No nausea, vomiting, or diarrhea : No history of dysuria, frequency or incontinence DELINEATOR: Negative for abnormal vaginal bleeding, abnormal vaginal discharge HEMATOLOGY/LYMPHOLOGY : Negative for prolonged bleeding, bruising easily or swollen nodes ENDOCRINE: Negative for cold or heat intolerance, polyuria, polydipsia and goiter NEURO: No history of headaches, syncope, paralysis, seizures or tremors Objective PHYSICAL EXAM: BP 127/69 Pulse 97 Temp (Src) 97.3 (Oral) Resp 18 Ht 5' 4 (1.63m) Wt 225 lb 15.5 oz (102.5kg) S (more content not included)... [facility] NURSING PROGon 08-12-2020 NURSING PROG HNO ID: [id number] Author: Donna Young RN Service: Nursing Author Type: Registered Nurse Type: Nursing Progress Note Filed: 08/12/2020 9:35 AM Note Text: Nursing Progress Note Patient Name: Sue Momin [facility]: Patient transferred into room/unit 503 in stable condition. Actions taken: No futher actions taken at this time. Will continue to monitor and check with patient. This note was completed by: donna Young [facility] OT-CT HIP RT WO CON IMPORTon 08-12-2020 OT-CT HIP RT WO CON IMPORT Images were obtained outside of [facility] [id number] [facility] OT-XR HIP RT 2-3V W PELVIS I MPORTon 08-12-2020 OT-XR HIP RT 2-3V W PELVIS IMPORT Images were obtained outside of [facility] [id number] [facility] Protimeon 08-12-2020 PT INR 1.0 Normal 0.9-1.3 [facility] Comment on above: Result Comment: Breana min K Antagonist (VKA) Therapeutic Range: INR 2 to 3 (Target INR of 2.5) Note: For patients treated with VKA drugs, such as warfarin, the [place] College [employer] Physicians 2012 Guideline recommends a therapeutic INR range of 2 to 3 (target INR of 2.5). This recommendation includes high-risk patients with antiphospholipid syndrome with previous arterial or venous thromboembolism, current-generation mechanical or bioprosthetic aortic heart valve replacement. Note: Patients with mechanical aortic valve replacement and additional risk factors for thromboembolic events (atrial fibrillation, previous thromboembolism, LV dysfunction, hypercoagulable conditions) or an older generation mechanical AVR (i.e., ball in-Cage) or any mechanical MVR should have a INR therapeutic range of 2.5 to 3.5 (target INR of 3). Tom GH, et al. Chest 2012, 141:7S-47S Leno RA, et al. JACC 2017, 70: 252-289 PT Sec 10.7 sec Normal 9.7-13.0 [facility] Type and Screenon 08-12-2020 ABO/RH(D) Positive Normal [facility] CNPNon 08-06-2020 CNPN Telephone ([facility]) SUE MOMIN ([id number]) 1970 F T Date Time Provider Department 08/06/20 CLAY AYALA JR [facility] During your visit today, we recorded the following information about you: Clare Quiñonez RN 08/06/2020 3:31 PM Signed Patient calling in requesting a call back from office today regarding short term disability paperwork and request for further information. . According to patient, [employer] had sent a fax to the office on 07/15, and 07/29 requesting more information from original paperwork received on 06/21 . They advised patient there has been no response from office. If these forms are not received by Sun. 08/11 patients short term disability will be discontinued. Please call patient today at [phone] As I do not see any encounters from these dates that additional information has been requested by fax. Nithin Ambrose Pss 08/10/2020 11:44 AM Signed Left a VM for the patient at number below. This office has not rec'd any disability paperwork recently from [employer]. Reiterated our fax # [phone]. Also left my callback number. Awaiting callback. Allergies As of Date: 08/06/2020 Noted Allergy Reaction Envoirnmental [Other] 10/29/2000 LATEX 05/19/2020 2 - Rash Comments: Rash - itch and swelling Date Reviewed: 07/20/2020 Reviewed by: Marybel Mason PA-C - Fully Assessed Reason for Visit: Disability Ankush [1200] Prescriptions as of 08/06/2020 Sig: ACETAMINOPHEN 500 MG TABLET Take 2 tablets by mouth every* DOCUSATE SODIUM 100 MG CAPSULE Take 1 capsule by mouth twice* MULTIVITAMIN TABLET Take 1 tablet by mouth once d* GLIPIZIDE ER 10 MG TABLET, EX* Take 10 mg by mouth once bianka* CHOLECALCIFEROL (VITAMIN D3) * Take 2,000 Units by mouth onc* PAROXETINE 10 MG TABLET Take 10 mg by mouth once bianka* LOSARTAN 50 MG TABLET Take 50 mg by mouth once bianka* POTASSIUM CHLORIDE ER 20 MEQ * Take by mouth. INV FUROSEMIDE 40 MG TABLET (* Take by mouth. For Investigat* Problem List As Of Date 08/06/2020 Noted Resolved Class 3 severe obesity due to excess calories w*05/20/2020 Essential hypertension [I10] 05/20/2020 Type 2 diabetes mellitus without complication, *05/20/2020 Heartburn [R12] 05/20/2020 Iron deficiency anemia [D50.9] 05/20/2020 Nicotine use disorder, F17.2 [F17.200] 05/25/2020 Stress fracture of right femur [M84.351A] 05/25/2020 Cardiac murmur, unspecified [R01.1] 12/12/2019 Iron deficiency anemia secondary to inadequate *06/04/2020 Encounter Status:Closed by TREMAYNE CLAUDIO NITHIN on 08/10/20 [facility] 07-15-2020 CNPN Telephone ([facility]) [facility] ([id number]) 1970 [facility] Provider Department 07/15/20 MARYBEL MASON During your visit today, we recorded the following information about you: Maeve Vieyradiana Claudio 07/15/2020 12:10 PM Signed Patient is asking is she is allowed to take a bath yet. Please advise. Marybel Mason PA-C 07/15/2020 12:50 PM Signed Patient may take a bath Please advise BIANCA [place] 07/15/2020 1:06 PM Signed LM to Advise patient that she is able to take a bath. Allergies As of Date: 07/15/2020 Noted Allergy Reaction Envoirnmental [Other] 10/29/2000 LATEX 05/19/2020 2 - Rash Comments: Rash - itch and swelling Date Reviewed: 07/14/2020 Reviewed by: Melany Hancock Ma - Fully Assessed Reason for Visit: Question [1327] Prescriptions as of 07/15/2020 Sig: ASCORBIC ACID (VITAMIN C) 500* Take 1 tablet by mouth twice * ACETAMINOPHEN 500 MG TABLET Take 2 tablets by mouth every* DOCUSATE SODIUM 100 MG CAPSULE Take 1 capsule by mouth twice* MULTIVITAMIN TABLET Take 1 tablet by mouth once d* GLIPIZIDE ER 10 MG TABLET, EX* Take 10 mg by mouth once bianka* CHOLECALCIFEROL (VITAMIN D3) * Take 2,000 Units by mouth onc* PAROXETINE 10 MG TABLET Take 10 mg by mouth once bianka* LOSARTAN 50 MG TABLET Take 50 mg by mouth once bianka* POTASSIUM CHLORIDE ER 20 MEQ * Take by mouth. INV FUROSEMIDE 40 MG TABLET (* Take by mouth. For Investigat* * FLINTSTONES COMPLETE (IRON) C* qd Problem List As Of Date 07/15/2020 Noted Resolved Class 3 severe obesity due to excess calories w*05/20/2020 Essential hypertension [I10] 05/20/2020 Type 2 diabetes mellitus without complication, *05/20/2020 Heartburn [R12] 05/20/2020 Iron deficiency anemia [D50.9] 05/20/2020 Nicotine use disorder, F17.2 [F17.200] 05/25/2020 Stress fracture of right femur [M84.351A] 05/25/2020 Cardiac murmur, unspecified [R01.1] 12/12/2019 Iron deficiency anemia secondary to inadequate *06/04/2020 Encounter Status:Closed by MARYBEL MASON on 07/15/20 [facility] CNOVon 07-14-2020 CNOV Office Visit ([facility] ) SUE MOMIN ([id number]) 1970 F [facility] Date Time Provider Department 07/14/20 3:45 PM MARYBEL MASON [facility] During your visit today, we recorded the following information about you: Marybel Mason PA-C 07/20/2020 11:34 AM Signed HISTORY: Sue is a 50 year old female. She is 6 weeks status post right percutaneous hip pinning for a stress fracture of the right femur. She has no complaints of any pain in the hip. She has been non-weight bearing using a walker. The patient's past medical history, surgical history, social history, family history, medications and allergies were reviewed with the patient today and are available in the chart for further review. REVIEW OF SYSTEMS: Patient did not have, and does not currently have, any weight loss, malaise, fever, chills, headache, chest pain, chest pressure, palpitations, cough, shortness of breath, orthopnea, paroxsymal nocturnal dyspnea, nausea, vomiting, diarrhea, constipation PHYSICAL EXAMINATION: PSYCH: Pleasant, good affect and mood General Appearance: Well appearing, alert, in no acute distress, well-hydrated, well nourished.. Skin: Skin color, texture, turgor normal, no suspicious rashes or lesions. Peripheral Pulses: Normal. Neurologic: Gait normal. Reflexes normal and symmetric. Sensation grossly intact.. On physical examination of the right leg, the incision is healed. There is no erythema or warmth. Extensor mechanism is intact. Hip motion is smooth and not irritable. Sensation is intact to light touch in the foot. Dorsalis pedal pulse is 2+ and palpable. RADIOGRAPHS: Right hip films show percutaneous pinning to be in stable position. IMPRESSION: Encounter Diagnosis ICD-10-CM 1. Stress fracture of right femur with routine healing, subsequent encounter M84.351D 2. Post-operative state Z98.890 PLAN: I reviewed the x-rays with the patient today. She is approximately 6 weeks status post. At this time she may start to weight-bear as tolerated. I explained her that I would have her do this gradually over the next few weeks. She should use a walker at first and progress to a cane as she is pain free and stable. She should use tylenol as needed for her pain. I will see her back in 1 month for follow up and x-rays. Marybel Mason PA-C Referring Provider: CLAY AYALA JR [[id number]] Allergies As of Date: 07/14/2020 Noted Allergy Reaction Envoirnmental [Other] 10/29/2000 LATEX 05/19/2020 2 - Rash Comments: Rash - itch and swelling Date Reviewed: 07/14/2020 Reviewed by: eMlany Hancock Ma - Fully Assessed Reason for Visit: Post Op [174] Primary Visit Diagnosis:Stress fracture of right femur with routine healing, subsequent encounter [M84.351D] Other Visit Diagnosis:Post-operat andres state [Z98.890] Prescriptions as of 07/14/2020 Sig: ASCORBIC ACID (VITAMIN C) 500* Take 1 tablet by mouth twice * ACETAMINOPHEN 500 MG TABLET Take 2 tablets by mouth every* DOCUSATE SODIUM 100 MG CAPSULE Take 1 capsule by mouth twice* MULTIVITAMIN TABLET Take 1 tablet by mouth once d* GLIPIZIDE ER 10 MG TABLET, EX* Take 10 mg by mouth once bianka* CHOLECALCIFEROL (VITAMIN D3) * Take 2,000 Units by mouth onc* PAROXETINE 10 MG TABLET Take 10 mg by mouth once bianka* LOSARTAN 50 MG TABLET Take 50 mg by mouth once bianka* POTASSIUM CHLORIDE ER 20 MEQ * Take by mouth. INV FUROSEMIDE 40 MG TABLET (* Take by mouth. For Investigat* Problem List As Of Date 07/14/2020 Noted Resolved Class 3 severe obesity due to excess calories w*05/20/2020 Essential hypertension [I10] 05/20/2020 Type 2 diabetes mellitus without complication, *05/20/2020 Heartburn [R12] 05/20/2020 Iron deficiency anemia [D50.9] 05/20/2020 Nicotine use disorder, F17.2 [F17.200] 05/25/2020 Stress fracture of right femur [M84.351A] 05/25/2020 Cardiac murmur, unspecified [R01.1] 12/12/2019 Iron deficiency anemia secondary to inadequate *06/04/2020 Medications Discontinued During This Encounter Prescriptions - FLINTSTONES COMPLETE TAB CHEW PO (Discontinued) qd Encounter Status:Closed by MARYBEL MASON on 07/20/20 Normal [facility] XR HIP 3V PELV+ AP/LAT RTon 07-14-2020 XR HIP 3V PELV+ AP/LAT RT * * *Final Report* * * DATE OF EXAM: Jul 14 2020 3:22PM SVX [id number] - XR HIP 3V PELV+ AP/LAT RT / PROCEDURE REASON: Stress fracture of right femur, initial encounter * * * * Physician Interpretation * * * * XR HIP 3V PELV+ AP/LAT RT PROVIDED HISTORY: Stress fracture of right femur, initial encounter COMPARISON: 06/07/2020 TECHNIQUE: AP and lateral views of the right hip. AP view of the pelvis RESULT: Pelvic ring appears intact. Dynamic right hip pin is noted. No acute fracture or dislocation is seen at the right hip. IMPRESSION: Hardware seen at the right proximal femur with no acute fractures seen Trim Die Maker: DEYANIRA Transcribe Date/Time: Jul 14 2020 4:05P Dictated by : ALINA GAR MD This examination was interpreted and the report reviewed and electronically signed by: ALINA GAR MD on Jul 14 2020 4:06PM EST [id number] Normal [facility] CBC and Differentialon 06-25 Abs Baso 0.03 k/uL Normal <0.11 [facility] Abs [place] 0.43 k/uL Normal <0.87 [facility] Abs Neut 5.39 k/uL Normal 1.45-7.50 [facility] Absolute nRBC <0.01 Normal <0.01 [facility] Basophils/100 WBC (Bld) 0.4 % Normal [facility] DTYPE Auto Diff Normal [facility] Eosinophils (Bld) [#/Vol] 0.13 10*3/uL Normal <0.46 [facility] Eosinophils/100 WBC (Bld) 1.5 % Normal [facility] Erythrocyte distribution width (RBC) [Ratio] 25.0 % High 11.5-15.0 [facility] Hematocrit (Bld) [Volume fraction] 39.6 % Normal 36.0-46.0 [facility] Hemoglobin (Bld) [Mass/Vol] 12.0 g/dL Normal 11.5-15.5 [facility] Lymphocytes (Bld) [#/Vol] 2.43 10*3/uL Normal 1.00-4.00 [facility] Lymphocytes/100 WBC (Bld) 28.9 % Normal [facility] MCH 22.9 pG Low 26.0-34.0 [facility] MCHC (RBC) [Mass/Vol] 30.3 g/dL Low 30.5-36.0 [facility] MCV (RBC) [Entitic vol] 75.6 fL Low 80.0-100.0 [facility] Monocytes/100 WBC (Bld) 5.1 % Normal [facility] Neutrophils/100 WBC (Bld) 64.1 % Normal [facility] NRBCs 0.0 /100 WBC Normal 0 [facility] Platelet mean volume (Bld) [Entitic vol] 8.7 fL Low 9.0-12.7 [facility] Platelets (Bld) [#/Vol] 216 10*3/uL Normal 150-400 [facility] RBC (Bld) [#/Vol] 5.24 10*6/uL High 3.90-5.20 [facility] WBC (Bld) [#/Vol] 8.41 10*3/uL Normal 3.70-11.00 [facility] CNOVSPon 06-25-2020 CNOVSP Visit (SP) Office ([facility]) SUE MOMIN ([id number]) 1970 F T Date Time Provider Department 06/25/20 2:30 PM MORIAH BENAVIDES During your visit today, we recorded the following information about you: Temperature Pulse Respiration Blood pressure 97.6 degrees 114/minute 16/minute 181/80 Weight Height 106.1 kg 1.626 m Moriah Benavides PA-C 06/25/2020 3:58 PM Signed NAME: Sue Momin CLINIC NO.: [id number] DATE OF SERVICE: June 25, 2020 (Elements copied from Dr. Cabrera's note dated June 04, 2020, have been reviewed and updated where appropriate, and all reflect current assessment and medical decision making during today's encounter, June 25, 2020) Referring Provider: Nicolasa Mcneill PA-C Additional Clinicians involved in Sue Momin's care: Alek Sherwood CC: Anemia ASSESSMENT/PLAN: 1. Other iron deficiency anemia She was found to be severely anemic during a recent operation for a right femur fracture in early 2020. She required 2 units of PRBCs and recently received IV iron on 06/15/2020 due to poor absorption following her gastric bypass 20 year ago. She has had normalization of her hemoglobin today. She would also probably benefit from GI consult as she is 50 years old with iron deficiency anemia. Patient reluctant, but agrees. I will refer her today. We will plan to see her back in 3 months with repeat labs and follow up and possible iron. 2. S/P gastric bypass She had gastric bypass over 20 years ago, which is likely the cause of her iron deficiency. Her B12 level was normal on recent labs. HPI: Updated Visit, June 25, 2020: Patient returns for follow up after having IV iron on 06.15.2020 for iron deficiency due to malabsorption. She tolerated it well and is feeling better. She denies any bleeding. She reports she has never had a GI work up. Initial Visit, June 04, 2020: Sue Momin presents today Hematology and Oncology evaluation. She is a 49 year old female who had a Right femur fracture after slipping on the ice. 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 Quit smoking after her surgery with internal fixation. Found her to be severely anemic with Hgb of 7.8 05/27/2020 Transfused x 2 Today 10.2 Also found to have DM Probably need sleep study due to fatigue and daytime somnolence as well as body habitus. Gastric bypass - 20 years ago Which is the likely cause of her iron deficiency and also likely to have malabsorption of B12. still smoke 3 ppd. REVIEW OF SYSTEMS Per HPI and otherwise negative by full review of organ systems. ECOG PERFORMANCE STATUS: 1 PHYSICAL EXAMINATION: Vitals: BP 181/80 Pulse 114 Temp (Src) 97.6 (Temporal) Resp 16 Ht 5' 4.016 (1.63m) Wt 233 lb 12.8 oz (106.1kg) SpO2 97% LMP 05/12/2020 BMI 40.11 kg/(m2). Very pleasant, morbidly obese. Exam limited to gross visualization where appropriate due to COVID-19. Gen.: This is an age-appropriate patient in no acute distress. Head: Appears atraumatic with no visible lesions. Eyes: Pupils equally round and reactive to light, extraocular muscles are intact. Neck: Supple. Mouth: Mucous membranes appeared to be moist. Respiratory: Appears to be respiring comfortably. Neurologic: Nonfocal to gross visualization. Alert and oriented ?3. Psychiatric: No evidence of inappropriate anxiety or depression. Skin: Visible areas of skin without rash, lesions, wounds or petechiae. ALLERGIES: ALLERGIES Allergen Reactions - Envoirnmental [Othe* - Latex Rash Rash - itch and swelling MEDICATIONS: ascorbic acid, vitamin C, (VITAMIN C) 500 mg tablet Take 1 tablet by mouth twice daily with meals for 21 doses. acetaminophen (TYLENOL) 500 mg tablet Take 2 tablets by mouth every 8 hours. docusate sodium (COLACE) 100 mg capsule Take 1 capsule by mouth twice daily as needed for Constipation. multivitamin tablet Take 1 tablet by mouth once daily. glipiZIDE (GLUCOTROL XL) 10mg 24 hr tablet Take 10 mg by mouth once daily. cholecalciferol (VITAMIN D-3) 50 mcg (2,000 unit) tablet Take 2,000 Units by mouth once daily. PARoxetine (PAXIL) 10 mg tablet Take 10 mg by mouth once daily. losartan (COZAAR) 50 mg tablet Take 50 mg by mouth once daily. potassium chloride 20 mEq TbER Take by mouth. INV FUROSEMIDE 40 MG TABLET (IRB 18-610) Take by mouth. For Investigational Drug Use Only. PI: Jordan Joy MD. FLINTSTONES COMPLETE TAB CHEW PO qd LABORATORY VALUES: Hemoglobin (g/dL) Date Value 06/25/2020 12.0 Hematocrit (%) Date Value 06/25/2020 39.6 WBC (k/uL) Date Value 06/25/2020 8.41 Platelet Count (k/uL) Date Value 06/25/2020 216 DIAGNOSIS: (D50.8) Other iron deficiency anemia (primary encounter diagnosis) Plan: CBC + DIFF (FOR REMOTE [facility] USE), COMP METABOLIC PANEL, IRON + TIBC, FERRITIN BLD, CONSULT TO GASTROENTEROLOGY (Z98.84) S/P gastric bypass Plan: (more content not included)... Normal [facility] Michelle 06-21-2020 [facility] Telephone ([facility]) SUE MOMIN ([id number]) 1970 F [facility] Date Time Provider Department 06/21/20 MORIAH BENAVIDES During your visit today, we recorded the following information about you: May Yoder 06/21/2020 9:42 AM Signed Please sign pending lab orders for Sunday06/25/20. [place] May Allergies As of Date: 06/21/2020 Noted Allergy Reaction Envoirnmental [Other] 10/29/2000 LATEX 05/19/2020 2 - Rash Comments: Rash - itch and swelling Date Reviewed: 06/07/2020 Reviewed by: Marybel Chacon) Migue - Fully Assessed Reason for Visit: Lab Orders [9928] Primary Visit Diagnosis:Deficiency anemia [D53.9] Order(s):CBC + DIFF [SQCBCDIF] Order #: [id number] STANDING Prescriptions as of 06/21/2020 Sig: ASCORBIC ACID (VITAMIN C) 500* Take 1 tablet by mouth twice * ACETAMINOPHEN 500 MG TABLET Take 2 tablets by mouth every* DOCUSATE SODIUM 100 MG CAPSULE Take 1 capsule by mouth twice* MULTIVITAMIN TABLET Take 1 tablet by mouth once d* GLIPIZIDE ER 10 MG TABLET, EX* Take 10 mg by mouth once bianka* CHOLECALCIFEROL (VITAMIN D3) * Take 2,000 Units by mouth onc* PAROXETINE 10 MG TABLET Take 10 mg by mouth once bianka* LOSARTAN 50 MG TABLET Take 50 mg by mouth once bianka* POTASSIUM CHLORIDE ER 20 MEQ * Take by mouth. INV FUROSEMIDE 40 MG TABLET (* Take by mouth. For Investigat* * FLINTSTONES COMPLETE (IRON) C* qd Problem List As Of Date 06/21/2020 Noted Resolved Class 3 severe obesity due to excess calories w*05/20/2020 Essential hypertension [I10] 05/20/2020 Type 2 diabetes mellitus without complication, *05/20/2020 Heartburn [R12] 05/20/2020 Iron deficiency anemia [D50.9] 05/20/2020 Nicotine use disorder, F17.2 [F17.200] 05/25/2020 Stress fracture of right femur [M84.351A] 05/25/2020 Cardiac murmur, unspecified [R01.1] 12/12/2019 Iron deficiency anemia secondary to inadequate *06/04/2020 Medications Discontinued During This Encounter Prescriptions - ferrous sulfate 325 mg (65 mg iron) tablet (Discontinued) Take 1 tablet by mouth twice daily with meals. Encounter Status:Closed by May on 06/22/20 [facility] Telephone ([facility]) LILIANESUE ([id number]) 1970 F T Date Time Provider Department 06/21/20 CLAY AYALA JR [facility] During your visit today, we recorded the following information about you: Renetta [facility] 06/21/2020 1:25 PM Signed Patient calling to state she did not receive payment for short term disability and was advised [employer] insurance never received her paperwork. She would like to know the status on the forms. Please give a call at [phone] with update. Marybel Mason PA-C 06/21/2020 3:27 PM Signed Forms have been completed and faxed Marybel Mason PA-C Allergies As of Date: 06/21/2020 Noted Allergy Reaction Envoirnmental [Other] 10/29/2000 LATEX 05/19/2020 2 - Rash Comments: Rash - itch and swelling Date Reviewed: 06/07/2020 Reviewed by: Marybel Mason - Fully Assessed Reason for Visit: Question [1327] Prescriptions as of 06/21/2020 Sig: ASCORBIC ACID (VITAMIN C) 500* Take 1 tablet by mouth twice * FERROUS SULFATE 325 MG (65 MG* Take 1 tablet by mouth twice * ACETAMINOPHEN 500 MG TABLET Take 2 tablets by mouth every* DOCUSATE SODIUM 100 MG CAPSULE Take 1 capsule by mouth twice* MULTIVITAMIN TABLET Take 1 tablet by mouth once d* GLIPIZIDE ER 10 MG TABLET, EX* Take 10 mg by mouth once bianka* CHOLECALCIFEROL (VITAMIN D3) * Take 2,000 Units by mouth onc* PAROXETINE 10 MG TABLET Take 10 mg by mouth once bianka* LOSARTAN 50 MG TABLET Take 50 mg by mouth once bianka* POTASSIUM CHLORIDE ER 20 MEQ * Take by mouth. INV FUROSEMIDE 40 MG TABLET (* Take by mouth. For Investigat* * FLDALYTONES COMPLETE (IRON) C* qd Problem List As Of Date 06/21/2020 Noted Resolved Class 3 severe obesity due to excess calories w*05/20/2020 Essential hypertension [I10] 05/20/2020 Type 2 diabetes mellitus without complication, *05/20/2020 Heartburn [R12] 05/20/2020 Iron deficiency anemia [D50.9] 05/20/2020 Nicotine use disorder, F17.2 [F17.200] 05/25/2020 Stress fracture of right femur [M84.351A] 05/25/2020 Cardiac murmur, unspecified [R01.1] 12/12/2019 Iron deficiency anemia secondary to inadequate *06/04/2020 Encounter Status:Closed by MARYBEL MASON on 06/21/20 [facility] 06-10-2020 [facility] Telephone ([facility]) SUE MOMIN ([id number]) 1970 F Date Time Provider Department 06/10/20 CLAY AYALA JR [facility] During your visit today, we recorded the following information about you: Cristina Herrera Pss 06/10/2020 10:45 AM Signed Pt calling and asking to be called to discuss when she is able to take a bath. Surgery date was 05/24/20 Right hip surgery. Pt may be called at the following best ph # and [place] 4 detailed [facility] [phone] Marybel Mason PA-C 06/10/2020 12:26 PM Signed Patient contacted. Patient can shower but she cannot soak in the bath until scabs and surgical glue is gone. Incision must be completely healed Marybel Mason PA-C Allergies As of Date: 06/10/2020 Noted Allergy Reaction LATEX 05/19/2020 2 - Rash Comments: Rash - itch and swelling Date Reviewed: 06/07/2020 Reviewed by: Marybel Chacon) Migue - Fully Assessed Reason for Visit: Patient Question [1477] Prescriptions as of 06/10/2020 Sig: ASCORBIC ACID (VITAMIN C) 500* Take 1 tablet by mouth twice * FERROUS SULFATE 325 MG (65 MG* Take 1 tablet by mouth twice * DOCUSATE SODIUM 100 MG CAPSULE Take 1 capsule by mouth twice* ACETAMINOPHEN 500 MG TABLET Take 2 tablets by mouth every* DOCUSATE SODIUM 100 MG CAPSULE Take 1 capsule by mouth twice* FERROUS SULFATE 325 MG (65 MG* Take 1 tablet by mouth twice * MULTIVITAMIN TABLET Take 1 tablet by mouth once d* GLIPIZIDE ER 10 MG TABLET, EX* Take 10 mg by mouth once bianka* CHOLECALCIFEROL (VITAMIN D3) * Take 2,000 Units by mouth onc* PAROXETINE 10 MG TABLET Take 10 mg by mouth once bianka* LOSARTAN 50 MG TABLET Take 50 mg by mouth once bianka* POTASSIUM CHLORIDE ER 20 MEQ * Take by mouth. INV FUROSEMIDE 40 MG TABLET (* Take by mouth. For Investigat* Problem List As Of Date 06/10/2020 Noted Resolved Class 3 severe obesity due to excess calories w*05/20/2020 Essential hypertension [I10] 05/20/2020 Type 2 diabetes mellitus without complication, *05/20/2020 Heartburn [R12] 05/20/2020 Iron deficiency anemia [D50.9] 05/20/2020 Nicotine use disorder, F17.2 [F17.200] 05/25/2020 Stress fracture of right femur [M84.351A] 05/25/2020 Cardiac murmur, unspecified [R01.1] 12/12/2019 Iron deficiency anemia secondary to inadequate *06/04/2020 Encounter Status:Closed by MARYBEL MASON PA-C on 06/10/20 Normal [facility] CNOVon 06-07-2020 CNOV Office Visit ([facility] ) MOMINSUE Arnett ([id number]) 1970 F Date Time Provider Department 06/07/20 3:00 PM MARYBEL MASON PA-C During your visit today, we recorded the following information about you: Marybel Mason PA-C 06/07/2020 3:42 PM Signed HISTORY: Sue is a 49 year old female. She is 2 weeks status post ORIF right hip stress fracture. She states that her pain is a lot better then before surgery. She still occasionally has some groin pain. She has been toe touch weight bearing with a walker. She is taking tylenol when needed. The patient's past medical history, surgical history, social history, family history, medications and allergies were reviewed with the patient today and are available in the chart for further review. REVIEW OF SYSTEMS: Patient did not have, and does not currently have, any weight loss, malaise, fever, chills, headache, chest pain, chest pressure, palpitations, cough, shortness of breath, orthopnea, paroxsymal nocturnal dyspnea, nausea, vomiting, diarrhea, constipation PHYSICAL EXAMINATION: PSYCH: Pleasant, good affect and mood General Appearance: Well appearing, alert, in no acute distress, well-hydrated, well nourished.. Skin: Skin color, texture, turgor normal, no suspicious rashes or lesions. Peripheral Pulses: Normal. Neurologic: Gait normal. Reflexes normal and symmetric. Sensation grossly intact.. On physical examination of the right hip, the skin is intact. There is no erythema or warmth. Extensor mechanism is intact. Hip motion is smooth and not irritable. Sensation is intact to light touch in the foot. RADIOGRAPHS: right hip films show hardware to be in stable position. IMPRESSION: Encounter Diagnosis ICD-10-CM 1. Stress fracture of right femur, initial encounter M84.351A PLAN: Patient is doing well. I would like her to continue to be toe touch weight bearing for another 4 weeks. I will see her back in the office in 4 weeks and look to progress her weight bearing at that time. We will start PT at that time to help her. I will get x-rays at her next appointment. Marybel Mason PA-C Referring Provider: CLAY AYALA JR [[id number]] Allergies As of Date: 06/07/2020 Noted Allergy Reaction LATEX 05/19/2020 2 - Rash Comments: Rash - itch and swelling Date Reviewed: 06/07/2020 Reviewed by: Marybel (Bianca) Migue - Fully Assessed Reason for Visit: Post Op [174] Primary Visit Diagnosis:Stress fracture of right femur, initial encounter [M84.351A] Prescriptions as of 06/07/2020 Sig: ASCORBIC ACID (VITAMIN C) 500* Take 1 tablet by mouth twice * FERROUS SULFATE 325 MG (65 MG* Take 1 tablet by mouth twice * DOCUSATE SODIUM 100 MG CAPSULE Take 1 capsule by mouth twice* ACETAMINOPHEN 500 MG TABLET Take 2 tablets by mouth every* DOCUSATE SODIUM 100 MG CAPSULE Take 1 capsule by mouth twice* FERROUS SULFATE 325 MG (65 MG* Take 1 tablet by mouth twice * MULTIVITAMIN TABLET Take 1 tablet by mouth once d* GLIPIZIDE ER 10 MG TABLET, EX* Take 10 mg by mouth once bianka* CHOLECALCIFEROL (VITAMIN D3) * Take 2,000 Units by mouth onc* PAROXETINE 10 MG TABLET Take 10 mg by mouth once bianak* LOSARTAN 50 MG TABLET Take 50 mg by mouth once bianka* POTASSIUM CHLORIDE ER 20 MEQ * Take by mouth. INV FUROSEMIDE 40 MG TABLET (* Take by mouth. For Investigat* Problem List As Of Date 06/07/2020 Noted Resolved Class 3 severe obesity due to excess calories w*05/20/2020 Essential hypertension [I10] 05/20/2020 Type 2 diabetes mellitus without complication, *05/20/2020 Heartburn [R12] 05/20/2020 Iron deficiency anemia [D50.9] 05/20/2020 Nicotine use disorder, F17.2 [F17.200] 05/25/2020 Stress fracture of right femur [M84.351A] 05/25/2020 Cardiac murmur, unspecified [R01.1] 12/12/2019 Iron deficiency anemia secondary to inadequate *06/04/2020 Encounter Status:Closed by MARYBEL MASON PA-C on 06/07/20 [facility] XR HIP 3V PELV+ AP/LAT RTon 06-07-2020 XR HIP 3V PELV+ AP/LAT RT * * *Final Report* * * DATE OF EXAM: Jun 07 2020 3:00PM SVX [id number] - XR HIP 3V PELV+ AP/LAT RT / PROCEDURE REASON: Stress fracture of right femur, initial encounter * * * * Physician Interpretation * * * * HISTORY: post op right hip fx. done 05-24-20. Stress fracture of right femur, initial encounter . TECHNIQUE: XR HIP 3V PELV+ AP/LAT RT Laterality: RIGHT Number of different views (projections): 3 COMPARISON: May 24 RESULT: Status post recent pinning/surgical fixation of the right femoral neck with good alignment of the instrumentation. Vague linear radiolucency remains in the medial aspect of the femoral neck. Normal contour of the femoral head. IMPRESSION: Satisfactory postsurgical appearance of the right proximal femur. Trim Die Maker: PSCB Transcribe Date/Time: Jun 07 2020 7:43P Dictated by : CHRISTINE HILL MD This examination was interpreted and the report reviewed and electronically signed by: CHRISTINE HILL MD on Jun 07 2020 7:44PM EST [id number] N [facility] CNOVSPon 06-04-2020 CNOVSP Visit (SP) Office ([place]) SUE MOMIN ([id number]) 1970 F Date Time Provider Department 06/04/20 3:15 PM DRAGAN MOHR During your visit today, we recorded the following information about you: Temperature Respiration Blood pressure Weight 96.9 degrees 16/minute 139/71 106.9 kg Height 1.626 m Dragan Mohr MD 06/09/2020 3:00 PM Signed NAME: Sue Momin CLINIC NO.: [id number] DATE OF SERVICE: June 04, 2020 Referring Provider: Nicolasa Mcneill PA-C Consultation requested by Nicolasa Mcneill for an opinion regarding Ms. Sue Momin, and my final recommendations will be communicated back to the requesting physician by way of shared medical record or letter via US mail. Additional Clinicians involved in Sue Momin's care: Alek Sherwood CC: Severe anemia ASSESSMENT: 49-year-old woman with gastric bypass found to have severe anemia during her operation for a right femur fracture that occurred several months ago in early 2020. Her hemoglobin today is 10.2 reflecting the recently transfused 2 units packed red blood cells and appropriate absorption of iron as the cells disintegrated. Since she has had a gastric bypass, I doubt that she is able to absorb oral iron and her microcytic anemia likely represents a very chronic process of low-grade but steady blood loss. I think we can resolve this with parenteral replacement. PLAN: 1. Stop oral Iron 2. Iron infusion next week MUNIRA 3. RTC in 3 weeks - Brianna / Moriah - labs same day. HPI: Initial Visit, June 04, 2020: Sue Momin presents today Hematology and Oncology evaluation. She is a 49 year old female who had a Right femur fracture after slipping on the ice. 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 Quit smoking after her surgery with internal fixation. Found her to be severely anemic with Hgb of 7.8 05/27/2020 Transfused x 2 Today 10.2 Also found to have DM Probably need sleep study due to fatigue and daytime somnolence as well as body habitus. Gastric bypass - 20 years ago Which is the likely cause of her iron deficiency and also likely to have malabsorption of B12. still smoke 3 ppd. REVIEW OF SYSTEMS Per HPI and otherwise negative by full review of organ systems. ECOG PERFORMANCE STATUS: 1 PHYSICAL EXAMINATION: Vitals: BP 139/71 Temp (Src) 96.9 (Temporal) Resp 16 Ht 5' 4.016 (1.63m) Wt 235 lb 9.6 oz (106.9kg) SpO2 99% LMP 05/12/2020 BMI 40.42 kg/(m2). Body surface area is 2.2 meters squared. Very pleasant, morbidly obese. Exam limited to gross visualization where appropriate due to COVID-19. Gen.: This is an age-appropriate patient in no acute distress. Head: Appears atraumatic with no visible lesions. Eyes: Pupils equally round and reactive to light, extraocular muscles are intact. Neck: Supple. Mouth: Mucous membranes appeared to be moist. Respiratory: Appears to be respiring comfortably. Neurologic: Nonfocal to gross visualization. Alert and oriented ?3. Psychiatric: No evidence of inappropriate anxiety or depression. Skin: Visible areas of skin without rash, lesions, wounds or petechiae. ALLERGIES: ALLERGIES Allergen Reactions - Latex Rash Rash - itch and swelling MEDICATIONS: ascorbic acid, vitamin C, (VITAMIN C) 500 mg tablet Take 1 tablet by mouth twice daily with meals for 21 doses. acetaminophen (TYLENOL) 500 mg tablet Take 2 tablets by mouth every 8 hours. docusate sodium (COLACE) 100 mg capsule Take 1 capsule by mouth twice daily as needed for Constipation. ferrous sulfate 325 mg (65 mg iron) tablet Take 1 tablet by mouth twice daily with meals for 21 days. multivitamin tablet Take 1 tablet by mouth once daily. glipiZIDE (GLUCOTROL XL) 10mg 24 hr tablet Take 10 mg by mouth once daily. cholecalciferol (VITAMIN D-3) 50 mcg (2,000 unit) tablet Take 2,000 Units by mouth once daily. PARoxetine (PAXIL) 10 mg tablet Take 10 mg by mouth once daily. losartan (COZAAR) 50 mg tablet Take 50 mg by mouth once daily. potassium chloride 20 mEq TbER Take by mouth. INV FUROSEMIDE 40 MG TABLET (IRB 18-610) Take by mouth. For Investigational Drug Use Only. PI: Jordan Joy MD. ferrous sulfate 325 mg (65 mg iron) tablet Take 1 tablet by mouth twice daily with meals. docusate sodium (COLACE) 100 mg capsule Take 1 capsule by mouth twice daily for 14 days. LABORATORY VALUES: WBC (k/uL) Date Value 06/04/2020 6.26 RBC (m/uL) Date Value 06/04/2020 4.68 Hemoglobin (g/dL) Date Value 06/04/2020 10.2 (L) Hematocrit (%) Date Value 06/04/2020 35.2 (L) MCV (fL) Date Value 06/04/2020 75.2 (L) MCH (pG) Date Value 06/04/2020 21.8 (L) MCHC (g/dL) Date Value 06/04/2020 29.0 (L) RDW-CV (%) Date Value 06/04/2020 28.4 (H) Platelet Count (k/uL) Date Value 06/04/2020 339 MPV (fL) Date Value 06/04/2020 9.4 Glucose (mg/dL) Date Value 04 (more content not included)... Normal [facility] Comp Metabolic Panelon 06-04 Albumin [Mass/Vol] 4.2 g/dL Normal 3.9-4.9 [facility] ALP [Catalytic activity/Vol] 26 U/L Low 34-123 [facility] ALT [Catalytic activity/Vol] 22 U/L Normal 7-38 [facility] Anion gap [Moles/Vol] 11 mmol/L Normal 9-18 [facility] AST [Catalytic activity/Vol] 24 U/L Normal 13-35 [facility] Bilirubin [Mass/Vol] 0.7 mg/dL Normal 0.2-1.3 [facility] Calcium [Mass/Vol] 9.4 mg/dL Normal 8.5-10.2 [facility] Chloride [Moles/Vol] 102 mmol/L Normal 97-105 [facility] CO2 [Moles/Vol] 24 mmol/L Normal 22-30 [facility] Creatinine [Mass/Vol] 0.65 mg/dL Normal 0.58-0.96 [facility] eGFR- Amer. >60 Normal [facility] eGFR-All Other Races >60 Normal [facility] Comment on above: Result Comment: eGFR (Estimated GFR) Units of measure: mL/min/1.73 meters squared eGFR is derived from the reexpressed MDRD Study equation using the following parameters: serum creatinine, age, gender and race. The creatinine assay has been calibrated to be traceable to IDMS. An eGFR <60 mL/min/1.73m2 for >3 months is consistent with chronic kidney disease. Refer to KDOQI guidelines for clinical interpretation. In patients with unstable renal function, e.g. those with acute kidney injury, the eGFR may not accurately reflect actual GFR. Glucose [Mass/Vol] 97 mg/dL Normal 74-99 [facility] Comment on above: Result Comment: The [place] Diabetes Association (ADA) provides guidance for cutoff values for fasting glucose and random glucose. The ADA defines fasting as no caloric intake for at least 8 hours. Fasting plasma glucose results between 100 to 125 mg/dL indicate increased risk for diabetes (prediabetes). Fasting plasma glucose results greater than or equal to 126 mg/dL meet the criteria for diagnosis of diabetes. In the absence of unequivocal hyperglycemia, results should be confirmed by repeat testing. In a patient with classic symptoms of hyperglycemia or hyperglycemic crisis, random plasma glucose results greater than or equal to 200 mg/dL meet the criteria for diagnosis of diabetes. Reference: Standards of Medical Care in Diabetes 2016, [place] Diabetes Association. Diabetes Care. 2016.39(Suppl 1). Potassium [Moles/Vol] 4.6 mmol/L Normal 3.7-5.1 [facility] Protein [Mass/Vol] 7.5 g/dL Normal 6.3-8.0 [facility] Sodium [Moles/Vol] 137 mmol/L Normal 136-144 [facility] Urea nitrogen [Mass/Vol] 12 mg/dL Normal 7-21 [facility] EPOon 06-04-2020 EPO 43.8 mIU/mL High 2.6-18.5 [facility] Comment on above: Result Comment: Test analyzed by the Adri DxI method. Performed By: #### B 12, EPO, IRON, SERFOL, FERR ####[facility] [address] [place], [place] [phone] Ferritinon 06-04-2020 Ferritin [Mass/Vol] 51.1 ng/mL Normal 14.7-205.1 [facility] Comment on above: Performed By: #### B 12, EPO, IRON, SERFOL, FERR ####[facility] [address] [place], [place] [phone] Folate, Serumon 06-04-2020 Folate [Mass/Vol] 12.1 ng/mL Normal >4.7 [facility] Comment on above: Performed By: #### B 12, EPO, IRON, SERFOL, FERR ####[facility] [address], [place] [phone] Iron and TIBCon 06-04-2020 Iron [Mass/Vol] 30 ug/dL Low 41-186 [facility] Comment on above: Performed By: #### B 12, EPO, IRON, SERFOL, FERR ####[facility], [place] [phone] TIBC 380 ug/dL Normal 232-386 [facility] Comment on above: Performed By: #### B 12, EPO, IRON, SERFOL, FERR ####[facility], [place] [phone] Transferrin Saturatn 8 % Low 15-57 [facility] Comment on above: Performed By: #### B 12, EPO, IRON, SERFOL, FERR ####[facility], [place] [phone] Remote CBCDIF (for [facility] use o nly)on 06-04-2020 Abs Baso 0.04 k/uL Normal <0.11 [facility] Abs [place] 0.50 k/uL Normal <0.87 [facility] Abs Neut 4.14 k/uL Normal 1.45-7.50 [facility] Absolute nRBC <0.01 Normal <0.01 [facility] Basophils/100 WBC (Bld) 0.6 % Normal [facility] DTYPE Auto Diff Normal [facility] Eosinophils (Bld) [#/Vol] 0.07 10*3/uL Normal <0.46 [facility] Eosinophils/100 WBC (Bld) 1.1 % Normal [facility] Erythrocyte distribution width (RBC) [Ratio] 28.4 % High 11.5-15.0 [facility] Hematocrit (Bld) [Volume fraction] 35.2 % Low 36.0-46.0 [facility] Hemoglobin (Bld) [Mass/Vol] 10.2 g/dL Low 11.5-15.5 [facility] Lymphocytes (Bld) [#/Vol] 1.49 10*3/uL Normal 1.00-4.00 [facility] Lymphocytes/100 WBC (Bld) 23.8 % Normal [facility] MCH 21.8 pG Low 26.0-34.0 [facility] MCHC (RBC) [Mass/Vol] 29.0 g/dL Low 30.5-36.0 [facility] MCV (RBC) [Entitic vol] 75.2 fL Low 80.0-100.0 [facility] Monocytes/100 WBC (Bld) 8.0 % Normal [facility] Neutrophils/100 WBC (Bld) 66.5 % Normal [facility] NRBCs 0.0 /100 WBC Normal 0 [facility] Platelet mean volume (Bld) [Entitic vol] 9.4 fL Normal 9.0-12.7 [facility] Platelets (Bld) [#/Vol] 339 10*3/uL Normal 150-400 [facility] RBC (Bld) [#/Vol] 4.68 10*6/uL Normal 3.90-5.20 [facility] WBC (Bld) [#/Vol] 6.26 10*3/uL Normal 3.70-11.00 [facility] Vitamin B12on 06-04-2020 Cobalamin (Vitamin B12) [Mass/Vol] 483 pg/mL Normal 232-1245 [facility] Comment on above: Performed By: #### B 12, EPO, IRON, SERFOL, FERR ####[facility] [address] [place], [place] [phone] CNPLis 05-31-2020 CNPN Telephone ([facility]) SUE MOMIN ([id number]) 1970 F Date Time Provider Department 05/31/20 MARYBEL MASON) [facility] During your visit today, we recorded the following information about you: Katelyn Jerome Pss 05/31/2020 11:23 AM Signed Patient called requesting to reschedule Post Op on 06/07/2020 for later the same day. Patient state she is about an hour away and her spouse will be have to leave work to bring her which is an hour away from home. Patient states it will be 2 hours away and will need a later appointment. Please advise. Patient can be reached at [phone] (H) may leave a detailed message. Melany Hancock Ma 05/31/2020 3:51 PM Signed Patient was called, appointment was moved. Allergies As of Date: 05/31/2020 Noted Allergy Reaction LATEX 05/19/2020 2 - Rash Comments: Rash - itch and swelling Date Reviewed: 05/27/2020 Reviewed by: Roberta (Rn) JASMINE Bloom - Fully Assessed Reason for Visit: Surgical Followup [104] Prescriptions as of 05/31/2020 Sig: ASCORBIC ACID (VITAMIN C) 500* Take 1 tablet by mouth twice * FERROUS SULFATE 325 MG (65 MG* Take 1 tablet by mouth twice * DOCUSATE SODIUM 100 MG CAPSULE Take 1 capsule by mouth twice* OXYCODONE 5 MG TABLET Take 1-2 tablets by mouth dakotah* ACETAMINOPHEN 500 MG TABLET Take 2 tablets by mouth every* DOCUSATE SODIUM 100 MG CAPSULE Take 1 capsule by mouth twice* FERROUS SULFATE 325 MG (65 MG* Take 1 tablet by mouth twice * MULTIVITAMIN TABLET Take 1 tablet by mouth once d* GLIPIZIDE ER 10 MG TABLET, EX* Take 10 mg by mouth once bianka* CHOLECALCIFEROL (VITAMIN D3) * Take 2,000 Units by mouth onc* PAROXETINE 10 MG TABLET Take 10 mg by mouth once bianka* LOSARTAN 50 MG TABLET Take 50 mg by mouth once bianka* POTASSIUM CHLORIDE ER 20 MEQ * Take by mouth. INV FUROSEMIDE 40 MG TABLET (* Take by mouth. For Investigat* Problem List As Of Date 05/31/2020 Noted Resolved Class 3 severe obesity due to excess calories w*05/20/2020 Essential hypertension [I10] 05/20/2020 Type 2 diabetes mellitus without complication, *05/20/2020 Heartburn [R12] 05/20/2020 Iron deficiency anemia [D50.9] 05/20/2020 Nicotine use disorder, F17.2 [F17.200] 05/25/2020 Stress fracture of right femur [M84.351A] 05/25/2020 Cardiac murmur, unspecified [R01.1] 12/12/2019 Encounter Status:Closed by MELANY HANCOCK MA on 05/31/20 Normal [facility] CBCon 05-27-2020 Absolute nRBC 0.03 k/uL High <0.01 [facility] al Erythrocyte distribution width (RBC) [Ratio] 25.8 % High 11.5-15.0 [facility] Hematocrit (Bld) [Volume fraction] 28.0 % Low 36.0-46.0 [facility] Hemoglobin (Bld) [Mass/Vol] 7.8 g/dL Low 11.5-15.5 [facility] MCH 20.6 pG Low 26.0-34.0 [facility] MCHC (RBC) [Mass/Vol] 27.9 g/dL Low 30.5-36.0 [facility] MCV (RBC) [Entitic vol] 73.9 fL Low 80.0-100.0 [facility] Platelet mean volume (Bld) [Entitic vol] 9.4 fL Normal 9.0-12.7 [facility] l Platelets (Bld) [#/Vol] 204 10*3/uL Normal 150-400 [facility] RBC (Bld) [#/Vol] 3.79 10*6/uL Low 3.90-5.20 [facility] WBC (Bld) [#/Vol] 4.93 10*3/uL Normal 3.70-11.00 [facility] CNDSon 05-27-2020 CNDS HNO ID: [id number] Author: Kalie Valle (Pa) Service: Orthopaedic Surgery Author Type: Physician Temp Recruiter Type: Discharge Summary Filed: 05/27/2020 11:04 AM Note Text: Attestation signed by Clay Ayala Jr. at 05/27/2020 11:35 AM Attending Note: Mcdonnell findings confirmed. Discussed with the Physician Temp Recruiter. Plan as outlined. Clay Ayala MD DISCHARGE SUMMARY Patient Name: Sue Momin : 1970 ADMISSION DATE: 05/24/2020 DISCHARGE DATE: 05/27/2020 Attending Physician: Clay Ayala Jr. Primary Diagnosis: Stress fracture of right femur, initial encounter [M84.351A] Operations During Hospitalization: Procedure(s) (LRB): PERCUTANEOUS FIXATION FEMORAL FRACTURE, PROXIMAL END, NECK (Right) Procedures During Hospitalization: No procedures performed Hospital Course: Sue is a 49 year old female complaining of right Hip pain not responsive to a comprehensive course of conservative treatment. Right hip percutaneous pinning was proposed and the patient wishes to proceed and was medically cleared prior to the procedure. Patient underwent a Right hip percutaneous pinning and was transferred to the PACU in stable condition, She was then admitted to the hospital. Post operatively She did well. Post-operative HgB was stable and within acceptable range and remained there throughout the hospital stay not requiring transfusion. Wound was without sign of infection. She was able to actively participate in a physical and occupational therapy program for gait training and mobilization. Due to the operative findings and procedure performed which is consistent with a major orthopedic procedure, the postoperative analgesia will exceed the allowable morphine equivalent dose. PHYSICAL EXAMINATION: General appearance: Well appearing, alert, in no acute distress, well-hydrated, well nourished. Skin: Skin color, texture, turgor normal, no suspicious rashes or lesions Head: Normocephalic, no masses, lesions, or abnormalities Eyes: Anicteric sclera. Extraocular movements are intact. Ears: External ears normal, Nose/Sinuses: Nares normal, mucosa normal, no drainage Oropharynx: Lips, mucosa, and tongue normal, teeth and gums normal, oropharynx normal Neck: Supple, no asymmetrical findings on visual exam. Lungs:Lungs CTA b/l. speaking full unlabored sentences, no coughing, no respiratory distress. No audible wheezing. Heart: RRR, No LE edema right hip exam: Dressing clean/dry/intact Negative Katie's, No calf tenderness, No palpable cords Compartments soft Sensation to light touch intact Positive distal pulses (initially dopplered and marked DP, then palpable once located with doppler.) Musculoskeletal: JACINTO. No joint swelling, deformity, or tenderness Peripheral pulses: Normal Neuro: AOx4, no tremor, normal speech, no gross motor deficits, no gross extremities weakness, facial symmetry. Patient Condition at Discharge: Stable Discharge Disposition: Home/Self Care DISCHARGE MEDICATION: Current Discharge Medication List START taking these medications oxyCODONE IR (ROXICODONE) 5 mg Take 5 mg by mouth every 6 hours as needed. take 1-2 tabs my mouth every 4-6 hrs as needed for pain Qty: 50 tablet Refills: 0 Associated Diagnoses:Type I or II open fracture of right hip with routine healing, subsequent encounter ascorbic acid (vitamin C) (VITAMIN C) 500 mg Take 500 mg by mouth twice daily with meals. Qty: 21 tablet Refills: 0 acetaminophen (TYLENOL) 1,000 mg Take 1,000 mg by mouth every 8 hours. CONTINUE these medications which have CHANGED !! ferrous sulfate 325 mg Take 325 mg by mouth twice daily with meals. Qty: 60 tablet Refills: 0 !! docusate sodium (COLACE) 100 mg Take 100 mg by mouth twice daily. Qty: 28 capsule Refills: 0 !! docusate sodium (COLACE) 100 mg Take 100 mg by mouth twice daily as needed for Constipation. !! ferrous sulfate 325 mg Take 325 mg by mouth twice daily with meals. Qty: 42 tablet Refills: 0 !! - Potential duplicate medications found. Please discuss with provider. CONTINUE these medications which have NOT CHANGED multivitamin 1 tablet Take 1 tablet by mouth once daily. glipiZIDE XL (GLUCOTROL XL) 10 mg Take 10 mg by mouth once daily. cholecalciferol (VITAMIN D3) 2,000 Units Take 2,000 Units by mouth once daily. PARoxetine (PAXIL) 10 mg Take 10 mg by mouth once daily. losartan (COZAAR) 50 mg Take 50 mg by mouth once daily. potassium chloride 20 mEq TbER Take by mouth. INV FUROSEMIDE 40 MG TABLET (IRB 18-610) Take by mouth. For Investigational Drug Use Only. PI: Jordan Joy MD. STOP taking these medications traMADol (ULTRAM) 50 mg Comments: Reason for Stopping: Patient underwent major orthopedic surgery with joint replacement and w (more content not included)... [facility] 05-27-2020 [facility] Telephone ([facility]) SUE MOMIN ([id number]) 1970 F Date Time Provider Department 05/27/20 CLAY AYALA JR [facility] During your visit today, we recorded the following information about you: Rohit Mares 05/27/2020 10:34 AM Addendum Stacia from [facility] calling / requesting a verbal order to follow patient for home care services. Please advise Isabel Horan RN, RN 06/01/2020 3:49 PM Signed Stacia at [facility] called. Dr. Ayala states he will follow her for therapy. Stacia states the patient states she is fine and doesn't need therapy. Ruthie Wheeler Aware. Allergies As of Date: 05/27/2020 Noted Allergy Reaction LATEX 05/19/2020 2 - Rash Comments: Rash - itch and swelling Date Reviewed: 05/27/2020 Reviewed by: Roberta (Rn) JASMINE Bloom - Fully Assessed Reason for Visit: Orders [681] Prescriptions as of 05/27/2020 Sig: ASCORBIC ACID (VITAMIN C) 500* Take 1 tablet by mouth twice * FERROUS SULFATE 325 MG (65 MG* Take 1 tablet by mouth twice * DOCUSATE SODIUM 100 MG CAPSULE Take 1 capsule by mouth twice* OXYCODONE 5 MG TABLET Take 1-2 tablets by mouth dakotah* ACETAMINOPHEN 500 MG TABLET Take 2 tablets by mouth every* DOCUSATE SODIUM 100 MG CAPSULE Take 1 capsule by mouth twice* FERROUS SULFATE 325 MG (65 MG* Take 1 tablet by mouth twice * MULTIVITAMIN TABLET Take 1 tablet by mouth once d* GLIPIZIDE ER 10 MG TABLET, EX* Take 10 mg by mouth once bianka* CHOLECALCIFEROL (VITAMIN D3) * Take 2,000 Units by mouth onc* PAROXETINE 10 MG TABLET Take 10 mg by mouth once bianka* LOSARTAN 50 MG TABLET Take 50 mg by mouth once bianka* POTASSIUM CHLORIDE ER 20 MEQ * Take by mouth. INV FUROSEMIDE 40 MG TABLET (* Take by mouth. For Investigat* Problem List As Of Date 05/27/2020 Noted Resolved Class 3 severe obesity due to excess calories w*05/20/2020 Essential hypertension [I10] 05/20/2020 Type 2 diabetes mellitus without complication, *05/20/2020 Heartburn [R12] 05/20/2020 Iron deficiency anemia [D50.9] 05/20/2020 Nicotine use disorder, F17.2 [F17.200] 05/25/2020 Stress fracture of right femur [M84.351A] 05/25/2020 Cardiac murmur, unspecified [R01.1] 12/12/2019 Encounter Status:Closed by ISABEL HORAN on 06/01/20 [facility] CONSULT PROGon 05-27-2020 CONSULT PROG HNO ID: [id number] Author: Patti Stewart RN Service: Hospital Medicine Author Type: Nurse Practitioner Type: Consult Progress Note Filed: 05/27/2020 10:49 AM Note Text: DEPARTMENT OF HOSPITAL MEDICINE CONSULT PROGRESS NOTE SERVICE DATE: 05/27/2020 SERVICE TIME: 10:46 AM Primary Care Physician: Alek Sherwood MD NIGHT AND WEEKEND COVERAGE: ZAHRAA COVERAGE: Days: [phone], please contact via [employer] Nights: [phone], please page CC Hospitalist Night coverage pager [phone] Subjective INTERVAL HPI: Patient reports improvement in hip pain. She reports improved ambulation. No s/s of bleeding. No other complaints. Travel Screening Question Response In the last month, have you been in contact with someone who was confirmed or suspected to have Coronavirus / COVID-19? No / Unsure Have you had a COVID-19 viral test in the last 14 days? No Do you have any of the following new or worsening symptoms? None of these Have you traveled internationally or domestically in the last month? No Travel History Travel since 04/25/20 No documented travel since 04/25/20 Current Facility-Administered Medications Medication Dose Route Frequency - PARoxetine 10 mg tab(s) (PAXIL) 10 mg ORAL DAILY - losartan 50 mg tab(s) (COZAAR) 50 mg ORAL DAILY - therapeutic multivitamin-minerals tablet (THERA-M PLUS) 1 tablet ORAL DAILY - sodium chloride 0.9 % (flush) 2-10 mL (BD POSIFLUSH) 2-10 mL INTRAVENOUS q 12 H - morphine 2 mg injection 2 mg INTRAVENOUS q 2 H PRN - oxyCODONE IR 5 mg tab(s) (ROXICODONE) 5 mg ORAL q 3 H PRN - oxyCODONE IR 5 mg tab(s) (ROXICODONE) 5 mg ORAL q 4 H PRN - acetaminophen 1,000 mg tab(s) (TYLENOL) 1,000 mg ORAL q 8 H - ondansetron 4 mg tab(s) (ZOFRAN) 4 mg ORAL q 6 H PRN Or - ondansetron (PF) 4 mg injection (ZOFRAN) 4 mg INTRAVENOUS q 6 H PRN - magnesium hydroxide 400 mg/5 mL 30 mL (MOM) 30 mL ORAL DAILY PRN - bisacodyl EC 10 mg tab(s) (DULCOLAX) 10 mg ORAL DAILY - aluminum-magnesium hydroxide-simethicone 200-200-20 mg/5 mL 30 mL (MAALOX,MYLANTA,MAG-A L PLUS) 30 mL ORAL q 2 H PRN - ascorbic acid (vitamin C) 500 mg tab(s) (VITAMIN C) 500 mg ORAL BID w MEALS - senna 17.2 mg tab(s) (SENOKOT) 17.2 mg ORAL AT BEDTIME - NaCl 0.9% iv infusion 75 mL/hr INTRAVENOUS CONTINUOUS - dextrose 40 % 15 g 15 g ORAL PRN Or - glucagon 1 mg injection 1 mg INTRAMUSCULAR PRN Or - dextrose 50% in water 25 mL syringe 12.5 g INTRAVENOUS PRN - ferrous sulfate 325 mg tab(s) 325 mg ORAL BID w MEALS - insulin lispro injection (rapid acting) (HumaLOG) SUBCUTANEOUS w MEALS - insulin lispro injection (rapid acting) (HumaLOG) SUBCUTANEOUS AT BEDTIME Objective PHYSICAL EXAM: BP 137/62 Pulse 80 Temp (Src) 98.2 (Oral) Resp 16 Ht 5' 4 (1.63m) Wt 263 lb 3.7 oz (119.4kg) SpO2 98% [facility] 05/12/2020 BMI 45.16 kg/(m2). O2 Therapy: Room Air Physical Exam Performed: GENERAL: Alert, appears WDWN in no acute distress, cooperative. HEAD: Normocephalic, atraumatic. NECK: No jugulovenous distention, supple BACK: Back symmetric, normal curvature, ROM normal, no CVAT. LUNGS: Lungs clear to auscultation, no adventitious lung sounds. Good diaphragmatic excursion CARDIAC: Normal S1 and S2; no rubs, murmurs, or gallops ABDOMEN: Abdomen soft, non-distended, non-tender, BS present x 4. No masses or organomegaly EXTREMITIES: Right hip, initial surgical dressing CDI. Some swelling noted posterior to incision within expected post-op findings. Extremities otherwise normal, no deformities, edema, clubbing or skin discoloration. Good capillary refill. No ulcers. NEURO: Alert and oriented x3. Grossly normal cognition and motor function. Gait impaired by surgical procedure. Sensation grossly intact. Normal strength UE + LE. PULSES: 2+ radial, 2+ dorsalis pedis Lines, Drains, and Airways Line Peripheral 05/24/20 1140 Admission to Hospital Short Right Forearm 22 Gauge 2 days Peripheral 05/26/20 1132 Assessment Short Left Forearm 20 Gauge <1 day Reviewed lines and needs to be continued: REASONS: Difficulty in obtaining/maintaining access and Telemetry DATA: Diagnostic tests reviewed for today's visit: Most recent labs Most recent imaging Assessment/Plan Problem List Essential hypertension Type 2 diabetes mellitus without complication, without long-term current use of insulin (HCC) Iron deficiency anemia Nicotine use disorder, F17.2 Stress fracture of right femur Active Problems: Iron deficiency anemia - Diagnosed on 05/20/20 and started on ferrous sulfate 325 mg BID - UA negative for Hgb - Vitamin B12, iron, TIBC, transferrin, folate, and ferritin wnl - Retic count slightly elevated (lab drawn 1 day after unit of PRBC given) - 05/24: 1 unit PRBC given - 05/26: 1 unit PRBC given ? Hemoglobin (g/dL) Date Value 05/27/2020 7.8 05/26/2020 8.4 05/26/2020 7.0 PLAN: - * IF REPEAT HGB ON 05/26 IS > 7.3, PT MAY BE DISCHARGED WITH HEMATOLOGY FOL (more content not included)... Normal [facility] THERAPY NTon 05-27-2020 THERAPY NT HNO ID: [id number] Author: Chapis (Ot) Hernesto Service: Occupational Therapy Author Type: Occupational Therapist Type: Therapy (PT/OT/Speech/Resp) Filed: 05/27/2020 10:13 AM Note Text: Occupational Therapy Treatment SERVICE DATE: 05/27/2020 SERVICE TIME: 920 to 1004 ROOM: [place] [address] Recommended Discharge Disposition: Home OT Anticipated Discharge Needs: Physical Assist at Home Physical Assist at Home for: Transportation;Shoppi ng;Self Care;Stairs;Meals;[place] ndry;Cleaning;Ambulat ion;Transfers;Safety Recommended Discharge Equipment: Commode-Bedside;ADL Kit;Extended tub bench (facet hand held shower) OT 6 Clicks Score: 20 Precautions/Activity Restrictions: Weight Bearing Restrictions Extremity With Weight Bearing Restricted: Right Lower Extremity Right Lower Extremity Weight Bearing Status: NWB Current Hospital Course: s/p R hip ORIF 05/24 Reason for Hospital Admission: R hip pain, stress fracture hip Relevant Past Medical History: DM, HTN, iron deficiency anemia, obesity Response to Therapy Interventions: Good participation in activities, On-track to achieve discharge goals, Pain Continue skilled needs due to: Safety concerns, Functional impairment, Family training required Occupational Therapy Problem List: Education Deficit;Pain;Safety Deficits;Impaired Self Care;Decreased Range Of Motion;Decreased Strength;Functional Mobility Impairment;Balance Impaired Treatment Interventions: Education;Self Care / Home Management;Energy Conservation Training;Joint Mobility;Strengthenin g;Functional Mobility Training;Balance Training Home Environment Patient Lives With: Spouse 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 , drive Patient Report: I am hopefully going home today CURRENT FUNCTIONAL STATUS: Most recent performance Current Activities of Daily Living Assist Level Additional Information Feeding Set Up Grooming Set Up Bathing Upper Body Set Up Bathing Lower Body Moderate Assistance Dressing Upper Body Set Up Dressing Lower Body Maximal Assistance Toileting Set Up Instrumental Activities of Daily Living Assist Level Additional Information Meal/Beverage Prep Cleaning Laundry Medication Management with Strategies Functional Mobility Assist Level Additional Information Rolling Supine to Sit Verbal Cues Only Sit to Supine Scooting Supervision Sit to Stand Moderate Assistance Stand to Sit Contact Guard Assistance Bed to Chair Contact Guard Assistance Standard Walker Toilet/Commode Contact Guard Assistance Shower Functional Mobility Contact Guard Assistance Standard Walker Blank zhu indicate activity not attempted Learning/Educational Needs: Discharge Plan;Equipment;Family Education/Training;Fu nctional Activities/Mobility;P kaylan of Care;Precautions;Reha bilitation Techniques and Procedures;Self Care;Safety Goals for Plan of Care: Patient /Caregiver Goals: Walk;Go Home Goals: Patient will demonstrate progress with self-care, cognitive and/or coping needs identified to allow safe discharge to home with available support and/or physical assistance. Progress Toward Goals: Progressing as expected Rehab Potential: Excellent Patient will be discontinued from Occupational Therapy when no further skilled needs are identified in this setting. PLAN: Treatment Frequency (times per week): 5 Current admission Plan of Care developed with: Patient TREATMENT INTERVENTIONS: Therapy Diagnosis: Reduced mobility-other;Decrea sed activities of daily living (ADL);Muscle Weakness (generalized) Interventions Provided: Self Fpc Management (21461) Self Fpc Management ([id number]) Treatment Minutes: 44 $ Self Fpc Management (39450) Billed Units: 3 units ADL session completed. All questions answered re; equipment; ADL completion; IADL's including meals. Training AND education provided in: Activity adaption / compensatory strategies, Adaptive equipment / DME, Assistive device use, Benefits of in-hospital mobility, Discharge planning, Expected functional level, Lower extremity dressing, Precautions/restricti ons, Role of Occupational Therapy, Standing balance to improve independence with ADLs/self-care, Transfer - Sit to stand, Grooming tasks, Functional mobility involving ADL's, Lower extremity bathing, Transfer - Bed to chair, Transfer - Toilet/commode, Upper extremity dressing, Upper extremity bathing, Sitting balance to improve independence with ADLs/self-care The following therapeutic skills were used: Activity dosing, Cuing verbal, Cuing visual, Physical assist, Task analysis learning, Teach-back for education, Therapeutic use of self Total Timed Code Treatment (more content not included)... Normal [facility] ALLIED HEALTHon 05-26-2020 ALLIED HEALTH HNO ID: [id number] Author: Ricardo Irvin Service: Spiritual Care Author Type: ? Type: Allied Health Filed: 05/26/2020 1:04 PM Note Text: SPIRITUAL CARE ASSESSMENT SERVICE DATE: 05/26/2020 SERVICE TIME: 12:05PM Visit with: Patient and pt's spouse Anderson arrived at end of visit; very engaged with the pt, and supportive; first visit interrupted by business office technician for angiocath placement; pt very anxious Length of visit (minutes): 30 Christian / Spirituality: Pt listed as Bahai; she shared that she has not attended for some time Reason: Initial visit Pt requested visitation upon admission ASSESSMENT Emotional Disposition: Guilt/Shame, Nervous, Sadness and Pt shared that she is very anxious; not good at self-care - overly 'responsible' for others' pt shared that she fell and injured her hip; even though she works at a [employer] office, she did not seek attention; pt also shared taht she is diabetic, and has some other health issues; became tearful talking about it; when the audiology technician arrived to insert an angiocath, the pt became visibly shaken; Relational Concerns: Struggling with Self-care, Unrealistic Expectation(s) and Spoke at length with the pt about meeting her personal needs; pt has adult children; when her spouse arrived, he shared that the couple argues at times about who cares more about each other (not a bad problem); spoke with the pt about Mindful Self Compassion, and talked with her about the challenge of naming our new normals in life - along with grieving our losses along the way; Spiritual Concerns: Struggling with meaning of illness or diagnosis and Struggling with transition or change INTERVENTIONS Empowerment: Encouraged adherence to treatment plan, Encouraged focus on present, Encouraged self-care, Informed patient of spiritual care resources available, Provided anticipatory guidance and Reframed experience of patient/family Exploration: Explored hope, Explored spiritual needs and resources, Facilitated life review and Facilitated story telling Ritual: Provided prayer and Provided cheondoism resources Provided pt with information regarding Mindful Self-Compassion Workbook, and a copy of the Feeling Wheel post visit for the pt to explore; also encouraged the couple to celebrate their support/love for one another, and for the pt to allow herself/give herself permission to be cared for/about OUTCOMES Patient experienced catharsis, Patient expressed gratitude, Patient expressed humor, Patient's distress reduced, Patient identified priorities, Patient identifies inner sources of strength and resilience, Relational resources utilized and Spiritual resources utilized PLAN Will follow as circumstances allow SIGNATURE: Ricardo Elaine Brandee PATIENT NAME: Sue Momin DATE: May 26, 2020 TIME: 12:49 PM PAGER/CONTACT #: [phone] [facility] Basic Metabolic Panlon 05-26 Anion gap [Moles/Vol] 8 mmol/L Low 9-18 [facility] Calcium [Mass/Vol] 7.9 mg/dL Low 8.5-10.2 [facility] Chloride [Moles/Vol] 99 mmol/L Normal 97-105 [facility] CO2 [Moles/Vol] 29 mmol/L Normal 22-30 [facility] Creatinine [Mass/Vol] 0.49 mg/dL Low 0.58-0.96 [facility] eGFR- Amer. >60 Normal [facility] eGFR-All Other Races >[address] [facility] Comment on above: Result Comment: eGFR (Estimated GFR) Units of measure: mL/min/1.73 meters squared eGFR is derived from the reexpressed MDRD Study equation using the following parameters: serum creatinine, age, gender and race. The creatinine assay has been calibrated to be traceable to IDMS. An eGFR <60 mL/min/1.73m2 for >3 months is consistent with chronic kidney disease. Refer to KDOQI guidelines for clinical interpretation. In patients with unstable renal function, e.g. those with acute kidney injury, the eGFR may not accurately reflect actual GFR. Glucose [Mass/Vol] 137 mg/dL High 74-99 [facility] Comment on above: Result Comment: The [place] Diabetes Association (ADA) provides guidance for cutoff values for fasting glucose and random glucose. The ADA defines fasting as no caloric intake for at least 8 hours. Fasting plasma glucose results between 100 to 125 mg/dL indicate increased risk for diabetes (prediabetes). Fasting plasma glucose results greater than or equal to 126 mg/dL meet the criteria for diagnosis of diabetes. In the absence of unequivocal hyperglycemia, results should be confirmed by repeat testing. In a patient with classic symptoms of hyperglycemia or hyperglycemic crisis, random plasma glucose results greater than or equal to 200 mg/dL meet the criteria for diagnosis of diabetes. Reference: Standards of Medical Care in Diabetes 2016, [place] Diabetes Association. Diabetes Care. 2016.39(Suppl 1). Potassium [Moles/Vol] 3.4 mmol/L Low 3.7-5.1 [facility] Sodium [Moles/Vol] 136 mmol/L Normal 136-144 [facility]ital Urea nitrogen [Mass/Vol] 8 mg/dL Normal 7-21 [facility] CBCon 05-26-2020 Absolute nRBC <0.01 Normal <0.01 [facility] Erythrocyte distribution width (RBC) [Ratio] 25.3 % High 11.5-15.0 [facility] Hematocrit (Bld) [Volume fraction] 29.6 % Low 36.0-46.0 [facility] Hemoglobin (Bld) [Mass/Vol] 8.4 g/dL Low 11.5-15.5 [facility] MCH 21.1 pG Low 26.0-34.0 [facility] MCHC (RBC) [Mass/Vol] 28.4 g/dL Low 30.5-36.0 [facility] MCV (RBC) [Entitic vol] 74.2 fL Low 80.0-100.0 [facility] Platelet mean volume (Bld) [Entitic vol] 9.1 fL Normal 9.0-12.7 [facility] l Platelets (Bld) [#/Vol] 228 10*3/uL Normal 150-400 [facility] RBC (Bld) [#/Vol] 3.99 10*6/uL Normal 3.90-5.20 [facility] WBC (Bld) [#/Vol] 5.70 10*3/uL Normal 3.70-11.00 [facility] Absolute nRBC 0.02 k/uL High <0.01 [facility] al Erythrocyte distribution width (RBC) [Ratio] 25.4 % High 11.5-15.0 [facility] Hematocrit (Bld) [Volume fraction] 25.4 % Low 36.0-46.0 [facility] Hemoglobin (Bld) [Mass/Vol] 7.0 g/dL Low 11.5-15.5 [facility] MCH 19.8 pG Low 26.0-34.0 [facility] MCHC (RBC) [Mass/Vol] 27.6 g/dL Low 30.5-36.0 [facility] MCV (RBC) [Entitic vol] 72.0 fL Low 80.0-100.0 [facility] Platelet mean volume (Bld) [Entitic vol] 9.2 fL Normal 9.0-12.7 [facility] l Platelets (Bld) [#/Vol] 200 10*3/uL Normal 150-400 [facility] RBC (Bld) [#/Vol] 3.53 10*6/uL Low 3.90-5.20 [facility] WBC (Bld) [#/Vol] 5.22 10*3/uL Normal 3.70-11.00 [facility] CONSULT PROGon 05-26-2020 CONSULT PROG HNO ID: [id number] Author: Nicolasa Mcneill (Pa) Service: Hospital Medicine Author Type: Physician Temp Recruiter Type: Consult Progress Note Filed: 05/26/2020 1:56 PM Note Text: DEPARTMENT OF HOSPITAL MEDICINE CONSULT PROGRESS NOTE SERVICE DATE: 05/26/2020 SERVICE TIME: 1:44 PM Primary Care Physician: Alek Sherwood MD NIGHT AND WEEKEND COVERAGE: [place] COVERAGE: Days: [phone], please contact via [employer] Nights: [phone], please page CC Hospitalist Night coverage pager [phone] Subjective INTERVAL HPI: Pt states hip pain has improved today. She is worried about hemoglobin continuing to drop. She continues to deny hematuria and BRBPR. She does not have any personal or family history of any bleeding or hematological disorders that she is aware of. Travel Screening Question Response In the last month, have you been in contact with someone who was confirmed or suspected to have Coronavirus / COVID-19? No / Unsure Have you had a COVID-19 viral test in the last 14 days? No Do you have any of the following new or worsening symptoms? None of these Have you traveled internationally or domestically in the last month? No Travel History Travel since 04/25/20 No documented travel since 04/25/20 Current Facility-Administered Medications Medication Dose Route Frequency - PARoxetine 10 mg tab(s) (PAXIL) 10 mg ORAL DAILY - losartan 50 mg tab(s) (COZAAR) 50 mg ORAL DAILY - therapeutic multivitamin-minerals tablet (THERA-M PLUS) 1 tablet ORAL DAILY - sodium chloride 0.9 % (flush) 2-10 mL (BD POSIFLUSH) 2-10 mL INTRAVENOUS q 12 H - morphine 2 mg injection 2 mg INTRAVENOUS q 2 H PRN - oxyCODONE IR 5 mg tab(s) (ROXICODONE) 5 mg ORAL q 3 H PRN - oxyCODONE IR 5 mg tab(s) (ROXICODONE) 5 mg ORAL q 4 H PRN - acetaminophen 1,000 mg tab(s) (TYLENOL) 1,000 mg ORAL q 8 H - ondansetron 4 mg tab(s) (ZOFRAN) 4 mg ORAL q 6 H PRN Or - ondansetron (PF) 4 mg injection (ZOFRAN) 4 mg INTRAVENOUS q 6 H PRN - magnesium hydroxide 400 mg/5 mL 30 mL (MOM) 30 mL ORAL DAILY PRN - bisacodyl EC 10 mg tab(s) (DULCOLAX) 10 mg ORAL DAILY - aluminum-magnesium hydroxide-simethicone 200-200-20 mg/5 mL 30 mL (MAALOX,MYLANTA,MAG-A L PLUS) 30 mL ORAL q 2 H PRN - ascorbic acid (vitamin C) 500 mg tab(s) (VITAMIN C) 500 mg ORAL BID w MEALS - senna 17.2 mg tab(s) (SENOKOT) 17.2 mg ORAL AT BEDTIME - NaCl 0.9% iv infusion 75 mL/hr INTRAVENOUS CONTINUOUS - dextrose 40 % 15 g 15 g ORAL PRN Or - glucagon 1 mg injection 1 mg INTRAMUSCULAR PRN Or - dextrose 50% in water 25 mL syringe 12.5 g INTRAVENOUS PRN - ferrous sulfate 325 mg tab(s) 325 mg ORAL BID w MEALS - insulin lispro injection (rapid acting) (HumaLOG) SUBCUTANEOUS w MEALS - insulin lispro injection (rapid acting) (HumaLOG) SUBCUTANEOUS AT BEDTIME Objective PHYSICAL EXAM: BP 141/55 Pulse 90 Temp (Src) 97.9 (Oral) Resp 14 Ht 5' 4 (1.63m) Wt 263 lb 3.7 oz (119.4kg) SpO2 97% LMP 05/12/2020 BMI 45.16 kg/(m2). O2 Therapy: Room Air Physical Exam Performed: GENERAL: Alert, no distress, cooperative. Pale HEAD/SINUSES: No significant findings NECK: No jugulovenous distention, Supple BACK: Back symmetric, Normal curvature, ROM normal, No CVAT. LUNGS: Lungs clear to auscultation, Good diaphragmatic excursion CARDIAC: Normal S1 and S2; no rubs, murmurs, or gallops ABDOMEN: Abdomen soft, non-tender, BS normal, No masses or organomegaly EXTREMITIES: Extremities normal, no deformities, edema, clubbing or skin discoloration. Right hip dressing dry and intact NEURO: Reflexes normal and symmetric. Sensation grossly intact, Cranial nerves II-XII intact PULSES: 2+ radial, 2+ dorsalis pedis Lines, Drains, and Airways Line Peripheral 05/24/20 1140 Admission to Hospital Short Right Forearm 22 Gauge 2 days Peripheral 05/26/20 1132 Assessment Short Left Forearm 20 Gauge <1 day Reviewed lines and needs to be continued: REASONS: Difficulty in obtaining/maintaining access and Telemetry DATA: Diagnostic tests reviewed for today's visit: Most recent labs Most recent imaging Assessment/Plan Problem List Iron deficiency anemia Type 2 diabetes mellitus without complication, without long-term current use of insulin (HCC) Essential hypertension Nicotine use disorder, F17.2 Stress fracture of right femur Active Problems: Iron deficiency anemia - Diagnosed on 05/20/20 and started on ferrous sulfate 325 mg BID - UA negative for Hgb - Vitamin B12, iron, TIBC, transferrin, folate, and ferritin wnl - Retic count slightly elevated (lab drawn 1 day after unit of PRBC given) - 05/24: 1 unit PRBC given - 05/26: 1 unit PRBC given ? Hemoglobin (g/dL) Date Value 05/26/2020 7.0 05/25/2020 7.1 05/25/2020 7.3 PLAN: - * IF REPEAT HGB ON 05/26 IS > 7.3, PT MAY BE DISCHARGED WITH HEMATOLOGY FOLLOW UP. - Continue ferrous sulfate 325 mg BID - CBC daily, transfuse for Hgb < 7 - Check occult stool - LD and haptoglobin pending - (more content not included)... Normal [facility] Ferritinon 05-26-2020 Ferritin [Mass/Vol] 27.5 ng/mL Normal 14.7-205.1 [facility] Comment on above: Performed By: #### H APTO, LD6 #### [facility] [address] [place], [place] [address] Folate, Serumon 05-26-2020 Folate [Mass/Vol] 8.4 ng/mL Normal >4.7 [facility] spital Haptoglobinon 05-26-2020 Haptoglobin 202 mg/dL Normal 31-238 [facility] Comment on above: Performed By: #### H APTO, LD6 #### [facility] [address] [place], [place] [address] Iron and TIBCon 05-26-2020 Iron [Mass/Vol] 72 ug/dL Normal 41-186 [facility] Comment on above: Performed By: #### H APTO, LD6 #### [facility] [address] [place], [place] [address] TIBC 370 ug/dL Normal 232-386 [facility] Comment on above: Performed By: #### H APTO, LD6 #### [facility] [address] [place], [place] [address] Transferrin Saturatn 19 % Normal 15-57 [facility] Comment on above: Performed By: #### H APTO, LD6 #### [facility] [address] [place], [place] [address] LDon 05-26-2020 LD 155 U/L Normal 135-214 [facility] Comment on above: Performed By: #### H APTO, LD6 #### [facility] [address] [place], [place] [address] NURSING PROGon 05-26-2020 NURSING PROG HNO ID: [id number] Author: Angela Mariano (Rn) JASMINE Stockton Service: PICC Team Author Type: Registered Nurse Type: Nursing Progress Note Filed: 05/26/2020 11:15 AM Note Text: Called to floor for difficult IV access. 20G long angiocath placed in the L forearm under ultrasound guidance. Blood return present, flushed w/ 20cc NS w/o difficulty, DSD to site BARIB. Martha Stockton RN. Normal [facility] Occult Blood Screenon 2020 Occult Blood Screen Negative Normal Negative [facility] Occult Blood Source: Stool Normal [facility] PT EDon 05-26-2020 PT ED HNO ID: [id number] Author: Angela Millan Service: ? Author Type: Registered Dietitian Type: Patient Education Filed: 05/26/2020 2:18 PM Note Text: DIABETES EDUCATION INPATIENT PROGRESS NOTE INITIAL OR FOLLOW-UP: First diabetes care AND education visit this admission VISIT TYPE: in-person SERVICE DATE: 05/26/2020 SERVICE TIME: 1:45 PM RECOMMENDATIONS TO DISCHARGING PROVIDER FOR DISCHARGE ORDERS: Follow-up with PCP after discharge Follow up with endocrinology provider after discharge Scripts needed for diabetes supplies: OneTouch Delica lancets, 100/box, epic code [id number] OneTouch Verio test strips, 25 or 50 or 100 per box, epic code [id number] If any issues with insurance, please order: Glucose meter (epic code: 76406) DISP: 1 glucose meter Test Strips (epic code: 25512) DISP: test strips/month w/refills Lancets (epic code: 50165) DISP: lancets/month w/refills RECOMMENDATIONS TO INPATIENT NURSE: N/A PATIENT HISTORY/ASSESSMENT: New diagnosis: Type 2 INTERVENTIONS/TOPICS COVERED: -Diabetes Basics: diabetes disease process, role of insulin in the body, role of glucose in the body, difference between Type 1 and Type 2, insulin resistance, relationship of glucose and insulin in the body, Type 2 diabetes risk factors, progression of Type 2 and symptoms of diabetes -Monitoring: BG targets, A1c meaning and target <7%, using a home glucose monitor, control testing, logging, testing frequency and sharps disposal -Healthy Eating: impact of carbs on BG, Plate Method, basic carb counting, portion sizes and recommendation for 30-45 g carb per meal -Medications: medication safety/timing, medication side effects and reviewed home DM meds Comments: Pt states when she was recently diagnosed w/ dm her A1C was 8 %. I advised her of her most recent A1C. 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 She hasn't been checking BG at home. She was encouraged to start checking fasting BG daily. We discussed a carb controlled meal plan. Hemoglobin A1C (%) Date Value 05/20/2020 6.1 EDUCATION: Cognitive ability: Alert and Oriented. Motivation to learn: Interested. Barriers to learning: None Family support: Unable to assess - Family not present Education Type: Individual instruction Written instruction - handouts Verbal instruction Demonstration-Hands on Learning Response to education: States/Identifies. Education provided to: Patient. Teachback method used: Yes Handouts provided: Healthy You: Survival Skills and Healthy You: Planning Healthy Meals Time Spent (Minutes): 25 SIGNATURE: Angela Millan RD PATIENT NAME: Sue Momin DATE: May 26, 2020 TIME: 2:11 PM PAGER: [phone] [facility] Reticulocyteon 05-26-2020 Abs Retic 0.152 M/uL [facility] Comment on above: Performed By: #### H APTO, LD6 #### [facility] [address] [place] [address] Retic% 4.1 % High 0.4-2.0 [facility] Comment on above: Performed By: #### H APTO, LD6 #### [facility] [address] [place] [address] THERAPY NTon 05-26-2020 THERAPY NT HNO ID: [id number] Author: Chapis Eric Service: Occupational Therapy Author Type: Occupational Therapist Type: Therapy (PT/OT/Speech/Resp) Filed: 05/26/2020 4:48 PM Note Text: OCCUPATIONAL THERAPY MISSED VISIT SERVICE DATE: 05/26/2020 SERVICE TIME: 1645 to 1645 ROOM: [place] [address] Attempted Treatment. Patient not seen due to Another service at bedside, working to arrange w/c delivery for home. Plans are for discharge to home on after all equipment is delivered. Plan to work with patient in preparation of going home. SIGNATURE: LINA Hayes/L PATIENT NAME: Sue Momin DATE: May 26, 2020 TIME: 4:47 PM [facility] THERAPY NT HNO ID: [id number] Author: Jun VelazquezPtSylvia Martino Service: Physical Therapy Author Type: Physical Therapist Type: Therapy (PT/OT/Speech/Resp) Filed: 05/26/2020 3:07 PM Note Text: Physical Therapy Treatment SERVICE DATE: 05/26/2020 SERVICE TIME: 1410 to 1450 ROOM: [place] [address] Recommended Discharge Disposition: Home PT Anticipated Discharge Needs: Physical Assist at Home Physical Assist at Home for: Transportation;Shoppi ng;Self Care;Stairs;Meals;[place] ndry;Cleaning;Ambulat ion;Transfers;Safety Recommended Discharge Equipment: Wheelchair Wheelchair Size: 20 Wheelchair Specifications: Elevating Leg Rests PT 6 Clicks Score: 15 Precautions/Activity Restrictions: Weight Bearing Restrictions Extremity With Weight Bearing Restricted: Right Lower Extremity Right Lower Extremity Weight Bearing Status: NWB Current Hospital Course: s/p R hip ORIF 05/24 Reason for Hospital Admission: R hip pain, stress fracture hip Relevant Past Medical History: DM, HTN, iron deficiency anemia, obesity Physical Therapy Problem List: Pain;Functional Mobility Impairment;Balance Impaired;Education Deficit Treatment Interventions: Education;Functional Mobility Training Home Environment Patient Lives With: Spouse 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 , drive Patient Report: I slept in the chair last night. I can move much better in the chair than the bed CURRENT FUNCTIONAL STATUS: Most recent performance Current Functional Mobility Assist Level Additional Information Rolling Supine to Sit Moderate Assistance Sit to Supine Scooting Sit to Stand Contact Guard Assistance (to stand by) Stand to Sit Stand By Assistance Bed to Chair Moderate Assistance Bed To Chair Transfer Type: Stand Pivot Bed To Chair Transfer Equipment: Wheeled Walker Toilet/Commode Minimal Assistance Gait Stand By Assistance Gait Device: Wheeled Walker Gait Distance (feet): 7 Stairs Total Assistance Stairs Device: Other: See Comment (w/c bump up method with 2 person) Number of Stairs: 3 Curb Step Car Transfer Blank zhu indicate activity not attempted Gait Deviations Right Lower Extremity: Foot clearance decreased;Step length decreased (kept TTNWB with cues) Gait Deviations Left Lower Extremity: Foot clearance decreased;Step length decreased General Deviations/Observatio ns: Antalgic gait;Christy decreased;Difficulty changing direction/turning -HLM: 5: Standing (1 or more minutes) Learning/Educational Needs: Discharge Plan;Functional Activities/Mobility;P recautions Goals for Plan of Care: Patient /Caregiver Goals: Walk;Go Home;Care For Self Goals: Patient will demonstrate progress with functional mobility to allow safe discharge to home with available support and/or physical assistance. Progress Toward Goals: Progressing as expected Rehab Potential: Good Patient will be discontinued from Physical Therapy when no further skilled needs are identified in this setting. PLAN: Treatment Frequency (times per week): 6 Current admission Plan of Care developed with: Patient TREATMENT INTERVENTIONS: Therapy Diagnosis: Reduced mobility-other;Diffic ulty walking-musculoskelet al Interventions Provided: Therapeutic Activity (30494);Gait Training (16660) Therapeutic Activity (19291) Treatment Minutes: 15 $ Therapeutic Activity (20375) Billed Units: 2 units Gait Training (55799) Treatment Minutes: 25 $ Gait Training (43550) Billed Units: 1 unit Training AND education provided in: Transfers, Stair navigation, Assistive device use, Discharge planning, Equipment, Gait pattern, reduction of deviations, Precautions/restricti ons The following therapeutic skills were used: Cuing visual, Cuing verbal, Physical assist, Cues for sequencing/proper technique for activity Total Timed Code Treatment Minutes: 40 Total Treatment Time (minutes): 40 Please see discipline specific clinical documentation flowsheet for complete details for this therapy evaluation/treatment. SIGNATURE: Jun Martino PT PATIENT NAME: Sue Momin DATE: May 26, 2020 TIME: 3:[address] [facility] Urinalysison 05-26-2020 Bilirubin, Urine Negative Normal Negative [facility] Clarity (U) Cloudy Critically abnormal Clear [facility] Color (U) Yellow Normal Yellow [facility] Glucose Ql (U) Negative Normal Negative [facility] [place] Hemoglobin/Blood,Ur Negative Normal Negative [facility] Ketones Ql (U) Trace Critically abnormal Negative [facility] Leukest 2+ Critically abnormal Negative [facility] Nitrite Ql (U) Negative Normal Negative [facility] [place] pH (U) 6.0 [pH] Normal 5.0-8.0 [facility] Protein, Urine Negative [facility] [place] Specific [place], Ur 1.028 Normal 1.005-1.030 [facility] Urobilinogen Qn (U) 1.0 {Jacqueline'U}/dL Normal 0.2-1.0 [facility] Urine Microscopic (FOR LAB U SE ONLY)on 05-26-2020 Bacteria Present Critically abnormal 0 [facility] Cast SEE COMMENT Normal 0 [facility] Comment on above: Result Comment: 0 Epithelial cells LM Ql (Urine sed) SEE COMMENT Normal [facility] Comment on above: Result Comment: Squa mous Epithelial Cells Many RBC 0-3 Normal 0-3 [facility] Urine Varghese Comment SEE COMMENT Normal [facility] Comment on above: Result Comment: Muco us strands present. WBC 6-10 Critically abnormal 0-5 [facility] Vitamin B12on 05-26-2020 Cobalamin (Vitamin B12) [Mass/Vol] 357 pg/mL Normal 232-1245 [facility] Basic Metabolic Panlon 05-25 Anion gap [Moles/Vol] 12 mmol/L Normal 9-18 [facility] Calcium [Mass/Vol] 7.5 mg/dL Low 8.5-10.2 [facility] Chloride [Moles/Vol] 99 mmol/L Normal 97-105 [facility] CO2 [Moles/Vol] 26 mmol/L Normal 22-30 [facility] ital Creatinine [Mass/Vol] 0.57 mg/dL Low 0.58-0.96 [facility] eGFR- Amer. >60 Normal [facility] eGFR-All Other Races >[address] [facility] Comment on above: Result Comment: eGFR (Estimated GFR) Units of measure: mL/min/1.73 meters squared eGFR is derived from the reexpressed MDRD Study equation using the following parameters: serum creatinine, age, gender and race. The creatinine assay has been calibrated to be traceable to IDMS. An eGFR <60 mL/min/1.73m2 for >3 months is consistent with chronic kidney disease. Refer to KDOQI guidelines for clinical interpretation. In patients with unstable renal function, e.g. those with acute kidney injury, the eGFR may not accurately reflect actual GFR. Glucose [Mass/Vol] 168 mg/dL High 74-99 [facility] Comment on above: Result Comment: The [place] Diabetes Association (ADA) provides guidance for cutoff values for fasting glucose and random glucose. The ADA defines fasting as no caloric intake for at least 8 hours. Fasting plasma glucose results between 100 to 125 mg/dL indicate increased risk for diabetes (prediabetes). Fasting plasma glucose results greater than or equal to 126 mg/dL meet the criteria for diagnosis of diabetes. In the absence of unequivocal hyperglycemia, results should be confirmed by repeat testing. In a patient with classic symptoms of hyperglycemia or hyperglycemic crisis, random plasma glucose results greater than or equal to 200 mg/dL meet the criteria for diagnosis of diabetes. Reference: Standards of Medical Care in Diabetes 2016, [place] Diabetes Association. Diabetes Care. 2016.39(Suppl 1). Potassium [Moles/Vol] 3.3 mmol/L Low 3.7-5.1 [facility] Sodium [Moles/Vol] 137 mmol/L Normal 136-144 [facility] Urea nitrogen [Mass/Vol] 11 mg/dL Normal 7-21 [facility] CBCon 05-25-2020 Absolute nRBC 0.02 k/uL High <0.01 [facility] al Erythrocyte distribution width (RBC) [Ratio] 25.0 % High 11.5-15.0 [facility] Hematocrit (Bld) [Volume fraction] 25.7 % Low 36.0-46.0 [facility] Hemoglobin (Bld) [Mass/Vol] 7.1 g/dL Low 11.5-15.5 [facility] MCH 19.8 pG Low 26.0-34.0 [facility] MCHC (RBC) [Mass/Vol] 27.6 g/dL Low 30.5-36.0 [facility] MCV (RBC) [Entitic vol] 71.6 fL Low 80.0-100.0 [facility] Platelet mean volume (Bld) [Entitic vol] 8.9 fL Low 9.0-12.7 [facility] l Platelets (Bld) [#/Vol] 220 10*3/uL Normal 150-400 [facility] RBC (Bld) [#/Vol] 3.59 10*6/uL Low 3.90-5.20 [facility] WBC (Bld) [#/Vol] 5.00 10*3/uL Normal 3.70-11.00 [facility] Absolute nRBC <0.01 Normal <0.01 [facility] Eryth[facility] distribution width (RBC) [Ratio] 24.2 % High 11.5-15.0 [facility] Hematocrit (Bld) [Volume fraction] 26.3 % Low 36.0-46.0 [facility] Hemoglobin (Bld) [Mass/Vol] 7.3 g/dL Low 11.5-15.5 [facility] MCH 19.5 pG Low 26.0-34.0 [facility] MCHC (RBC) [Mass/Vol] 27.8 g/dL Low 30.5-36.0 [facility] MCV (RBC) [Entitic vol] 70.1 fL Low 80.0-100.0 [facility] Platelet mean volume (Bld) [Entitic vol] 9.1 fL Normal 9.0-12.7 [facility] l Platelets (Bld) [#/Vol] 232 10*3/uL Normal 150-400 [facility] RBC (Bld) [#/Vol] 3.75 10*6/uL Low 3.90-5.20 [facility] WBC (Bld) [#/Vol] 5.01 10*3/uL Normal 3.70-11.00 [facility] CONSULTon 05-25-2020 CONSULT HNO ID: [id number] Author: Nicolasa Mcneill (Pa) Service: Hospital Medicine Author Type: Physician Temp Recruiter Type: Consults Filed: 05/25/2020 2:54 PM Note Text: DEPARTMENT OF HOSPITAL MEDICINE INITIAL CONSULT SERVICE DATE: 05/25/2020 SERVICE TIME: 2:22 PM Primary Care Physician: Alek Sherwood MD NIGHT AND WEEKEND COVERAGE: [place] COVERAGE: Days: [phone], please contact via [employer] Nights: [phone], please page [facility] Hospitalist Night coverage pager [phone] REASON FOR CONSULT: Anemia REQUESTING PHYSICIAN: Dr. Ayala Subjective CHIEF COMPLAINT: Anemia HPI: This is a 49 yo female with a history iron deficiency anemia, hypertension, and recently diagnosed with type 2 diabetes. About 2 months ago, she slipped on ice and fell onto her right hip. She was seen by orthopedic surgery who recommended a prophylactic pinning. 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 Prior to this, she had not seen a doctor for 20 years. This lab work showed a hemoglobin of 6.7. After her procedure, her hemoglobin dropped to 5.9. She was given 1 unit of blood and her hemoglobin improved to 7.3. She is taking iron supplements twice a day at home prior to the procedure. She denies hematuria, BRBPR, and hemoptysis. She states she feels tired most of the time, but attributed it to working full-time. She denies fever/chill, N/V/D, chest or abdominal pain, SOB, and urinary complaints. Travel Screening Question Response In the last month, have you been in contact with someone who was confirmed or suspected to have Coronavirus / COVID-19? No / Unsure Have you had a COVID-19 viral test in the last 14 days? No Do you have any of the following new or worsening symptoms? None of these Have you traveled internationally or domestically in the last month? No Travel History Travel since 04/24/20 No documented travel since 04/24/20 PAST MEDICAL HISTORY Diagnosis Date - Diabetes (HCC) - Heartburn - Hypertension - Iron deficiency anemia - Morbidly obese (HCC) - Tobacco use disorder PAST SURGICAL HISTORY Procedure Laterality Date - PAST SURGICAL HISTORY OF 1999 gastric bypass surgery - PAST SURGICAL HISTORY OF c-sections, 1990 and 1992 - PAST SURGICAL HISTORY OF Bilateral 1980 achilles tendon lengthening - PAST SURGICAL HISTORY OF Right 1977 right wrist surgery following fracture - PAST SURGICAL HISTORY OF wisdom teeth extraction History reviewed. No pertinent family history. Social History Tobacco Use - Smoking status: Current Some Day Smoker Packs/day: 0.10 Years: 8.00 Pack years: 0.80 Types: Cigarettes - Smokeless tobacco: Never Used Substance Use Topics - Alcohol use: Yes Alcohol/week: 7.8 standard drinks Types: 6 Mixed Drinks per week Comment: 6 drinks/week - Drug use: Never PRIOR TO ADMISSION MEDICATIONS: multivitamin tablet, Take 1 tablet by mouth once daily., Disp: , Rfl: , 05/23/2020 at Unknown time glipiZIDE (GLUCOTROL XL) 10mg 24 hr tablet, Take 10 mg by mouth once daily., Disp: , Rfl: , 05/23/2020 at Unknown time cholecalciferol (VITAMIN D-3) 50 mcg (2,000 unit) tablet, Take 2,000 Units by mouth once daily., Disp: , Rfl: , 05/23/2020 at Unknown time PARoxetine (PAXIL) 10 mg tablet, Take 10 mg by mouth once daily., Disp: , Rfl: , 05/24/2020 at Unknown time losartan (COZAAR) 50 mg tablet, Take 50 mg by mouth once daily., Disp: , Rfl: , 05/23/2020 at Unknown time potassium chloride 20 mEq TbER, Take by mouth., Disp: , Rfl: , 05/23/2020 at Unknown time INV FUROSEMIDE 40 MG TABLET (IRB 18-610), Take by mouth. For Investigational Drug Use Only. PI: Jordan Joy MD., Disp: , Rfl: , 05/23/2020 at Unknown time [DISCONTINUED] traMADol (ULTRAM) 50 mg tablet, Take 50 mg by mouth every 6 hours as needed., Disp: , Rfl: , 05/23/2020 at Unknown time [DISCONTINUED] docusate sodium (COLACE) 100 mg capsule, Take 100 mg by mouth twice daily as needed., Disp: , Rfl: , 05/23/2020 at Unknown time [DISCONTINUED] ferrous sulfate 325 mg (65 mg iron) tablet, Take 325 mg by mouth daily with breakfast. Taking twice a day, Disp: , Rfl: , 05/23/2020 at Unknown time Current Facility-Administered Medications Medication Dose Route Frequency - PARoxetine 10 mg tab(s) (PAXIL) 10 mg ORAL DAILY - losartan 50 mg tab(s) (COZAAR) 50 mg ORAL DAILY - therapeutic multivitamin-minerals tablet (THERA-M PLUS) 1 tablet ORAL DAILY - sodium chloride 0.9 % (flush) 2-10 mL (BD POSIFLUSH) 2-10 mL INTRAVENOUS q 12 H - morphine 2 mg injection 2 mg INTRAVENOUS q 2 H PRN - oxyCODONE IR 5 mg tab(s) (ROXICODONE) 5 mg ORAL q 3 H PRN - oxyCODONE IR 5 mg tab(s) (ROXICODONE) 5 mg ORAL q 4 H PRN - acetaminophen 1,000 mg tab(s) (TYLENOL) 1,000 mg ORAL q 8 H - ondansetron 4 mg tab(s) (ZOFRAN) 4 mg ORAL q 6 H PRN Or - ondansetron (PF) 4 mg injection (ZOFRAN) 4 mg INTRAVENOUS q 6 H PRN - magnesium hydroxide 400 mg/5 mL 30 mL (MOM) 30 mL ORAL D (more content not included)... Normal [facility] THERAPY NTon 05-25-2020 THERAPY NT HNO ID: [id number] Author: Chapis (Ot) Hernesto Service: Occupational Therapy Author Type: Occupational Therapist Type: Therapy (PT/OT/Speech/Resp) Filed: 05/25/2020 5:05 PM Note Text: Occupational Therapy Evaluation SERVICE DATE: 05/25/2020 SERVICE TIME: 1540 to 1638 ROOM: [place] [address] Recommended Discharge Disposition: Home OT Anticipated Discharge Needs: Physical Assist at Home Physical Assist at Home for: Transportation;Shoppi ng;Self Care;Stairs;Meals;[place] ndry;Cleaning;Ambulat ion;Transfers;Safety Recommended Discharge Equipment: Commode-Bedside;ADL Kit;Extended tub bench (facet hand held shower) OT 6 Clicks Score: 18 Precautions/Activity Restrictions: Weight Bearing Restrictions Extremity With Weight Bearing Restricted: Right Lower Extremity Right Lower Extremity Weight Bearing Status: NWB Current Hospital Course: s/p R hip ORIF 05/24 Reason for Hospital Admission: R hip pain, stress fracture hip Relevant Past Medical History: DM, HTN, iron deficiency anemia, obesity Response to Therapy Interventions: Good participation in activities, On-track to achieve discharge goals, Pain Continue skilled needs due to: Safety concerns, Functional impairment, Family training required Occupational Therapy Problem List: Education Deficit;Pain;Safety Deficits;Impaired Self Care;Decreased Range Of Motion;Decreased Strength;Functional Mobility Impairment;Balance Impaired Cognition/Communicati on Deficits Responsiveness: Alert, Awake Follows Commands: 3-step Commands Treatment Interventions: Education;Self Care / Home Management;Energy Conservation Training;Joint Mobility;Strengthenin g;Functional Mobility Training;Balance Training Plan for next visit: Chair/commode transfer training, Dressing training Home Environment Patient Lives With: Spouse 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 , drive Patient Report: I didn't expect it to hurt where is does CURRENT FUNCTIONAL STATUS: Most recent performance Current Activities of Daily Living Assist Level Additional Information Feeding Set Up Grooming Set Up Bathing Upper Body Set Up Bathing Lower Body Moderate Assistance Dressing Upper Body Set Up Dressing Lower Body Maximal Assistance Toileting Maximal Assistance Instrumental Activities of Daily Living Assist Level Additional Information Meal/Beverage Prep Cleaning Laundry Medication Management with Strategies Functional Mobility Assist Level Additional Information Rolling Supine to Sit Sit to Supine Scooting Sit to Stand Moderate Assistance Stand to Sit Moderate Assistance Bed to Chair Moderate Assistance Standard Walker Toilet/Commode Shower Functional Mobility Moderate Assistance Standard Walker Blank zhu indicate activity not attempted Learning/Educational Needs: Discharge Plan;Equipment;Family Education/Training;Fu nctional Activities/Mobility;P kaylan of Care;Precautions;Reha bilitation Techniques and Procedures;Self Care;Safety Goals for Plan of Care: Patient /Caregiver Goals: Walk;Go Home Goals: Patient will demonstrate progress with self-care, cognitive and/or coping needs identified to allow safe discharge to home with available support and/or physical assistance. Rehab Potential: Good Patient will be discontinued from Occupational Therapy when no further skilled needs are identified in this setting. PLAN: Treatment Frequency (times per week): 5 Current admission Plan of Care developed with: Patient TREATMENT INTERVENTIONS: Therapy Diagnosis: Reduced mobility-other;Decrea sed activities of daily living (ADL);Muscle Weakness (generalized) Interventions Provided: Evaluation;Self Fpc Management (17145) $ Evaluation-Moderate (82513) Billed Units: 1 unit Self Fpc Management (70719) Treatment Minutes: 40 $ Self Fpc Management (58305) Billed Units: 3 units Training AND education provided in: Activity adaption / compensatory strategies, Adaptive equipment / DME, Assistive device use, Benefits of in-hospital mobility, Discharge planning, Expected functional level, Functional mobility involving ADL's, Lower extremity dressing, Precautions/restricti ons, Role of Occupational Therapy, Standing balance to improve independence with ADLs/self-care, Transfer - Sit to stand The following therapeutic skills were used: Activity dosing, Cuing verbal, Cuing visual, Physical assist, Task analysis learning, Teach-back for education, Therapeutic use of self Total Timed Code Treatment Minutes: 40 Total Treatment Time (minutes): 55 Please see discipline specific clinical documentation flowsheet for complete details for this therapy evaluation/treatment. (more content not included)... [facility] THERAPY NT HNO ID: [id number] Author: Jun (Pt) Hirzel Service: Physical Therapy Author Type: Physical Therapist Type: Therapy (PT/OT/Speech/Resp) Filed: 05/25/2020 1:12 PM Note Text: Physical Therapy Evaluation SERVICE DATE: 05/25/2020 SERVICE TIME: 1157 to 1242 ROOM: [place] [address] Anticipate d/c home, but will need w/c and family education to learn how to bump w/c into the home. She also requires further bed mobility>gait training. Recommended Discharge Disposition: Home PT Anticipated Discharge Needs: Physical Assist at Home Physical Assist at Home for: Stairs;Transportation ;Shopping;Cleaning;La undry;Meals Recommended Discharge Equipment: Wheelchair Wheelchair Size: 20 Wheelchair Specifications: Elevating Leg Rests PT 6 Clicks Score: 14 Precautions/Activity Restrictions: Weight Bearing Restrictions Extremity With Weight Bearing Restricted: Right Lower Extremity Right Lower Extremity Weight Bearing Status: NWB Current Hospital Course: s/p R hip ORIF 05/24 Reason for Hospital Admission: R hip pain, stress fracture hip Relevant Past Medical History: DM, HTN, iron deficiency anemia, obesity Response to Therapy Interventions: Pain, Good participation in activities Continue skilled needs due to: Functional mobility/skill impairments Physical Therapy Problem List: Pain;Functional Mobility Impairment;Balance Impaired;Education Deficit Treatment Interventions: Education;Functional Mobility Training Home Environment Patient Lives With: Spouse 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 I kept walking on it, but then it started to get worse and I couldn't CURRENT FUNCTIONAL STATUS: Most recent performance Current Functional Mobility Assist Level Additional Information Rolling Supine to Sit Moderate Assistance Sit to Supine Scooting Sit to Stand Minimal Assistance Stand to Sit Minimal Assistance Bed to Chair Moderate Assistance Bed To Chair Transfer Type: Stand Pivot Bed To Chair Transfer Equipment: Wheeled Walker Toilet/Commode Minimal Assistance Gait Minimal Assistance Gait Device: Wheeled Walker;With Wheelchair Follow Gait Distance (feet): 5 Stairs Curb Step Car Transfer Blank zhu indicate activity not attempted Gait Deviations Right Lower Extremity: Foot clearance decreased;Step length decreased (kept TTNWB with cues) Gait Deviations Left Lower Extremity: Foot clearance decreased;Step length decreased General Deviations/Observatio ns: Antalgic gait;Christy decreased;Difficulty changing direction/turning JH-HLM: 5: Standing (1 or more minutes) Learning/Educational Needs: Discharge Plan;Functional Activities/Mobility;P recautions Goals for Plan of Care: Patient /Caregiver Goals: Walk;Go Home;Care For Self Goals: Patient will demonstrate progress with functional mobility to allow safe discharge to home with available support and/or physical assistance. Rehab Potential: Good Patient will be discontinued from Physical Therapy when no further skilled needs are identified in this setting. PLAN: Treatment Frequency (times per week): 6 Current admission Plan of Care developed with: Patient TREATMENT INTERVENTIONS: Therapy Diagnosis: Difficulty walking-musculoskelet al;Reduced mobility-other Interventions Provided: Evaluation;Therapeuti c Activity (30451);Gait Training (01271);Therapeutic Exercise (08776) $ Evaluation-Low (17307) Billed Units: 1 unit Therapeutic Exercise (18819) Treatment Minutes: 6 Therapeutic Activity (73066) Treatment Minutes: 12 $ Therapeutic Activity (86505) Billed Units: 1 unit Gait Training (32663) Treatment Minutes: 8 $ Gait Training (19527) Billed Units: 1 unit Training AND education provided in: Bed mobility, Assistive device use, Patient Exercise/Therapy program support needs, Transfers, Role of Physical Therapy, Precautions/restricti ons, Discharge planning, Expected functional level, Gait pattern, reduction of deviations The following therapeutic skills were used: Cues for sequencing/proper technique for activity, Cuing verbal, Cuing tactile, Cuing visual, Physical assist Total Timed Code Treatment Minutes: 26 Total Treatment Time (minutes): 41 Please see discipline specific clinical documentation flowsheet for complete details for this therapy evaluation/treatment. SIGNATURE: Jun Martino PT PATIENT NAME: Sue Momin DATE: May 25, 2020 TIME: 1:10 PM [facility] ANES POSTPROC EVALon 021 ANES POSTPROC EVAL HNO ID: [id number] Author: Jeannie Hodge Service: Anesthesiology Author Type: Anesthesiologist Type: Anesthesia Postprocedure Evaluation Filed: 05/24/2020 3:50 PM Note Text: POST ANESTHESIA EVALUATION NOTE : 1970 Procedure Summary Date: 05/24/20 Room / Location: OR04 / AV OR Anesthesia Start: 1233 Anesthesia Stop: 1430 Procedure: PERCUTANEOUS FIXATION FEMORAL FRACTURE, PROXIMAL END, NECK (Right Hip) Diagnosis: Stress fracture of right femur, initial encounter Surgeons: Clay Ayala Jr. Responsible Provider: Jeannie Hodge Anesthesia Type: general ASA Status: 3 Anesthesia Type: general Last vitals Vitals Value Taken Time BP 152/62 05/24/20 1541 Temp 36.6 ?C (97.9 ?F) 05/24/20 1430 Pulse 91 05/24/20 1549 Resp 21 05/24/20 1549 SpO2 95 % 05/24/20 1549 Vitals shown include unvalidated device data. Post Anesthesia Patient Status Patient Evaluation: bedside. Anticipated Disposition: phase 2 then home. Neurological Status: aware and responsive. Pulmonary Status: breathing comfortably on room air Airway Control: returned to baseline unsupported. Cardiovascular Status: stable. Pain Management: clinically adequate - multimodal analgesia pain management approach Postoperative Hydration: acceptable. Intraoperative Events: no significant anesthesia events Recommendation: continue current plan of care and further care per PACU/ICU/floor team. No complications documented. SIGNATURE: Jeannie Hodge MD PATIENT NAME: Sue Momin DATE: May 24, 2020 TIME: 3:50 PM CSN: [id number] [facility] ANES PRE-OPon 05-24-2020 ANES PRE-OP HNO ID: [id number] Author: Jeannie Hodge Service: Anesthesiology Author Type: Anesthesiologist Type: Anesthesia Preprocedure Evaluation Filed: 05/24/2020 11:24 AM Note Text: ANESTHESIOLOGY DAY OF SURGERY NOTE : 1970 Procedure(s) (LRB): PERCUTANEOUS FIXATION FEMORAL FRACTURE, PROXIMAL END, NECK (Right) Surgeon(s): Clay Ayala Jr. Estimated body mass index is 42.05 kg/m? as calculated from the following: Height as of 05/20/20: 162.6 cm (5' 4 ). Weight as of 05/20/20: 111.1 kg (245 lb). Most recent hematocrit and potassium results: Hematocrit 23.5 05/24/2020 Potassium 3.0 05/24/2020 Relevant Problems CARDIO (+) Essential hypertension ENDO (+) Type 2 diabetes mellitus without complication, without long-term current use of insulin (HCC) I - PHYSICAL EVALUATION AIRWAY Patient intubated: No. Tracheostomy tube not present Mallampati: II. TM distance: >3 FB. Neck ROM: full ROM without neurological symptoms. Mouth opening: adequate. Short neck: no. Thick neck: no DENTAL Dental findings: teeth intact. Additional exam findings: no II - ANESTHESIA PLAN ASA Score: 3 Anesthetic Plan: general Airway type: LMA Anesthetic plan additional comments: GA WITH LMA/ETT WILL ACCEPT BLOOD PRDTS PRN . NPO Status: adequate Monitoring plan: Standard ASA. Postoperative analgesic plan: parenteral or oral opioids, multimodal analgesia and per surgical service. Anesthetic Risks, Benefits, Alternatives, Personnel Discussed. Consent obtained from: patient.Patient / Surrogate agrees to blood products: yes DNR status not reviewed with patient and/or family prior to surgery. Significant changes in the patient condition since the History and Physical, not otherwise documented in primary service progress note: no. Potential Anesthesia issues that may suggest increased risk of complications or contraindication to planned procedure: none. Vitals Value Taken Time BP 164/86 05/24/20 1116 Pulse Resp 18 05/24/20 1116 Temp 36.5 ?C (97.7 ?F) 05/24/20 1116 SpO2 98 % 05/24/20 1116 No current facility-administered medications on file as of 05/24/2020. No current outpatient medications on file as of 05/24/2020. I have interviewed and examined the patient. I have reviewed the medical record and/or the pre-anesthesia evaluation, pertinent labs, and test results. This contains updated information obtained within 48 hours of Surgery/Procedure. SIGNATURE: Jeannie Hodge MD PATIENT NAME: Sue Momin DATE: May 24, 2020 TIME: 11:24 AM CSN: [id number] [facility] BRIEF OP NOTon 05-24-2020 BRIEF OP NOT HNO ID: [id number] Author: Clay Ayala Jr. Service: Orthopaedic Surgery Author Type: Physician Type: Operative Report Filed: 05/24/2020 2:19 PM Note Text: [facility] OPERATIVE REPORT PATIENT NAME: Sue Momin AGE: [age] year old LOG ID: [id number] Surgery Date: 05/24/2020 SURGEON: Clay Ayala M.D. BOND MANAGER: Marybel Mason PA-C, her assistance consisted of assistance with retraction, positioning and closing of the wound No resident physicians were available to participate in the case. PROCEDURE: Right Percutaneous Pinning Procedure(s) (LRB): PERCUTANEOUS FIXATION FEMORAL FRACTURE, PROXIMAL END, NECK (Right) Incision Start: 1:05 PM Incision Stop: 2:09 PM Anesthesia: General Preop Diagnosis: Pre-Op Diagnosis Codes: * Stress fracture of right femur, initial encounter [M84.351A] Postop Diagnosis: Same as Pre-Op Diagnosis Codes: * Stress fracture of right femur, initial encounter [M84.351A] OPERATIVE INDICATIONS: This is a 49 year old female with a stress fracture of the femoral neck fracture of the right hip. The decision was made to proceed with a percutaneous pinning. Risks, benefits, and alternatives were discussed. She expressed understanding and consented to the procedure as outlined above. IMPLANTS: Synthes Femoral Neck Fracture System 1 hole Plate 80 mm Blade 80 mm Anti Rotation Screw 40 mm Locking Screw PROCEDURE: Patient was brought to the operating room. After adequate induction of anesthesia by Anesthesiology, the patient was placed supine on the fracture table. The Right leg was placed in gentle traction and slight adduction. The Left leg was placed in a flexed and abducted position. The Right lower extremity was then prepped and draped in sterile fashion with ChloraPrep. An incision was opened up distal to the greater trochanter over the proximal lateral femur. Sharp dissection was carried out through skin and subcutaneous tissue down to the level of the IT band. The IT band was split in line with the skin incision and an elevator was used to elevate the tissue off the lateral femur. A guidewire was inserted under fluoroscopic guidance into the femoral head. Starting point was proximal to the lesser trochanter. It was in a good position in the inferior neck. It's placement was confirmed on AP and lateral fluoroscopy. The depth of the necessary screw was measured with the ruler over the guidewire and it measured 95 mm. I then reamed with the reamer for the 1 hole plate and blade. After placing a 90 mm blade it appeared a little long so I placed an 85 which looked a little long on the lateral view. I decided on an 80 which look good in the AP and lateral planes. I was able to seat the plate against the femur without compromising the femoral head with an 80 mm. Good purchase was obtained in the femoral head. The guide wire was removed. Using the outrigger I then placed a single 40 mm screw through the 1 hole plate. I then drilled and placed the 80 mm antirotation screw completing the construct.. Final AP and lateral images were obtained to confirm placement of the hardware. The wound was then irrigated out with normal saline. The subcutaneous tissue was closed with 2-0 Vicryl and the skin was closed with a 4-0 Monocryl. A sterile Aquacel dressing was applied. The patient was stable to PACU, POSTOPERATIVE MANAGEMENT: The patient is to be non- weightbearing. They will receive aspirin for DVT prophylaxis, 24 hours of appropriate antibiotic coverage, and appropriate pain medications. SPECIMENS: None EBL: 50 cc DRAINS: None. COUNTS: Correct. COMPLICATIONS: None. Operative Time: * Missing case tracking time(s) * Heat Pump Installer closed, under direct supervision and the remainder of the procedure was performed by the primary surgeon/proceduralist with assistance. SIGNATURE: Clay Ayala Jr, MD DATE: May 24, 2020 TIME: 2:[address] [facility] Basic Metabolic Panlon 05-24 Anion gap [Moles/Vol] 11 mmol/L Normal 9-18 [facility] Calcium [Mass/Vol] 7.7 mg/dL Low 8.5-10.2 [facility] Chloride [Moles/Vol] 103 mmol/L Normal 97-105 [facility] CO2 [Moles/Vol] 23 mmol/L Normal 22-30 [facility] Creatinine [Mass/Vol] 0.50 mg/dL Low 0.58-0.96 [facility] eGFR- Amer. >60 Normal [facility] eGFR-All Other Races >[address] [facility] Comment on above: Result Comment: eGFR (Estimated GFR) Units of measure: mL/min/1.73 meters squared eGFR is derived from the reexpressed MDRD Study equation using the following parameters: serum creatinine, age, gender and race. The creatinine assay has been calibrated to be traceable to IDMS. An eGFR <60 mL/min/1.73m2 for >3 months is consistent with chronic kidney disease. Refer to KDOQI guidelines for clinical interpretation. In patients with unstable renal function, e.g. those with acute kidney injury, the eGFR may not accurately reflect actual GFR. Glucose [Mass/Vol] 191 mg/dL High 74-99 [facility] Comment on above: Result Comment: The [place] Diabetes Association (ADA) provides guidance for cutoff values for fasting glucose and random glucose. The ADA defines fasting as no caloric intake for at least 8 hours. Fasting plasma glucose results between 100 to 125 mg/dL indicate increased risk for diabetes (prediabetes). Fasting plasma glucose results greater than or equal to 126 mg/dL meet the criteria for diagnosis of diabetes. In the absence of unequivocal hyperglycemia, results should be confirmed by repeat testing. In a patient with classic symptoms of hyperglycemia or hyperglycemic crisis, random plasma glucose results greater than or equal to 200 mg/dL meet the criteria for diagnosis of diabetes. Reference: Standards of Medical Care in Diabetes 2016, [place] Diabetes Association. Diabetes Care. 2016.39(Suppl 1). Potassium [Moles/Vol] 3.6 mmol/L Low 3.7-5.1 [facility] Sodium [Moles/Vol] 137 mmol/L Normal 136-144 [facility] Urea nitrogen [Mass/Vol] 11 mg/dL Normal 7-21 [facility] Anion gap [Moles/Vol] 13 mmol/L Normal 9-18 [facility] Calcium [Mass/Vol] 8.2 mg/dL Low 8.5-10.2 [facility] Chloride [Moles/Vol] 104 mmol/L Normal 97-105 [facility] CO2 [Moles/Vol] 25 mmol/L Normal 22-30 [facility] Creatinine [Mass/Vol] 0.61 mg/dL Normal 0.58-0.96 [facility] Glucose [Mass/Vol] 119 mg/dL High 74-99 [facility] Comment on above: Result Comment: The [place] Diabetes Association (ADA) provides guidance for cutoff values for fasting glucose and random glucose. The ADA defines fasting as no caloric intake for at least 8 hours. Fasting plasma glucose results between 100 to 125 mg/dL indicate increased risk for diabetes (prediabetes). Fasting plasma glucose results greater than or equal to 126 mg/dL meet the criteria for diagnosis of diabetes. In the absence of unequivocal hyperglycemia, results should be confirmed by repeat testing. In a patient with classic symptoms of hyperglycemia or hyperglycemic crisis, random plasma glucose results greater than or equal to 200 mg/dL meet the criteria for diagnosis of diabetes. Reference: Standards of Medical Care in Diabetes 2016, [place] Diabetes Association. Diabetes Care. 2016.39(Suppl 1). Potassium [Moles/Vol] 3.0 mmol/L Low 3.7-5.1 [facility] Sodium [Moles/Vol] 142 mmol/L Normal 136-144 [facility] CBCon 05-24-2020 Absolute nRBC <0.01 Normal <0.01 [facility] Erythrocyte distribution width (RBC) [Ratio] 24.2 % High 11.5-15.0 [facility] Hematocrit (Bld) [Volume fraction] 22.3 % Low 36.0-46.0 [facility] Hemoglobin (Bld) [Mass/Vol] 5.9 g/dL Critically low 11.5-15.5 [facility] Comment on above: Result Comment: Call ed to and read back by: Cecile FERRARO [facility] PACU 05/24/20 1541 [place] MCH 18.2 pG Low 26.0-34.0 [facility] MCHC (RBC) [Mass/Vol] 26.5 g/dL Low 30.5-36.0 [facility] MCV (RBC) [Entitic vol] 68.8 fL Low 80.0-100.0 [facility] Platelet mean volume (Bld) [Entitic vol] 9.1 fL Normal 9.0-12.7 [facility] l Platelets (Bld) [#/Vol] 235 10*3/uL Normal 150-400 [facility] RBC (Bld) [#/Vol] 3.24 10*6/uL Low 3.90-5.20 [facility] WBC (Bld) [#/Vol] 3.85 10*3/uL Normal 3.70-11.00 [facility] CBC and Differentialon 05-24 Abs Baso <0.03 Normal <0.11 [facility] Abs [place] 0.32 k/uL Normal <0.87 [facility] Abs Neut 1.43 k/uL Low 1.45-7.50 [facility] Absolute nRBC 0.02 k/uL High <0.01 [facility] Basophils/100 WBC (Bld) 0.7 % Normal [facility] DTYPE Auto Diff Normal [facility] Eosinophils (Bld) [#/Vol] 0.08 10*3/uL Normal <0.46 [facility] Eosinophils/100 WBC (Bld) 2.9 % Normal [facility] Erythrocyte distribution width (RBC) [Ratio] 24.3 % High 11.5-15.0 [facility] Hematocrit (Bld) [Volume fraction] 23.5 % Low 36.0-46.0 [facility] Hemoglobin (Bld) [Mass/Vol] 6.3 g/dL Low 11.5-15.5 [facility] Lymphocytes (Bld) [#/Vol] 0.88 10*3/uL Low 1.00-4.00 [facility] Lymphocytes/100 WBC (Bld) 32.2 % Normal [facility] MCH 18.4 pG Low 26.0-34.0 [facility] MCHC (RBC) [Mass/Vol] 26.8 g/dL Low 30.5-36.0 [facility] MCV (RBC) [Entitic vol] 68.7 fL Low 80.0-100.0 [facility] Monocytes/100 WBC (Bld) 11.7 % Normal [facility] Neutrophils/100 WBC (Bld) 52.5 % Normal [facility] NRBCs 0.7 /100 WBC High 0 [facility] Platelet mean volume (Bld) [Entitic vol] 8.5 fL Low 9.0-12.7 [facility] Platelets (Bld) [#/Vol] 227 10*3/uL Normal 150-400 [facility] RBC (Bld) [#/Vol] 3.42 10*6/uL Low 3.90-5.20 [facility] WBC (Bld) [#/Vol] 2.73 10*3/uL Low 3.70-11.00 [facility] Confirm Blood Typeon 021 ABO/RH(D) Positive Normal [facility] HISTORY PHYSICALon 04-05-202 1 HISTORY PHYSICAL HNO ID: [id number] Author: Marybel Mason Service: Orthopaedic Surgery Author Type: Physician Temp Recruiter Type: HANDP Filed: 05/24/2020 12:16 PM Note Text: UPDATED HISTORY AND PHYSICAL EXAMINATION SERVICE DATE: 05/24/2020 SERVICE TIME: 12:13 PM PHYSICAL EXAM MUST BE COMPLETED ON ADMISSION The History and Physical (completed in the past 30 days) has been reviewed and the patient has been examined. The contents accurately reflect the patient's condition with the following additions or revisions since the HANDP was completed. Examination indicates no changes. This HANDP can be found in the Electronic Medical Record dated 05/20/2020. Chronic anemia with STAT HANDH of 6.3 and 23.5. Will transfuse 1 unit to proceed with procedure. Patient will be admitted for observation. SIGNATURE: Marybel Mason PA-C PATIENT NAME: Sue Momin DATE: May 24, 2020 TIME: 12:12 PM [facility] NURSING PROGon 05-24-2020 NURSING PROG HNO ID: [id number] Author: Kalie VelazquezRnSylvia Montanez RN Service: Nursing Author Type: Registered Nurse Type: Nursing Progress Note Filed: 05/24/2020 5:33 PM Note Text: Nursing Progress Note Patient Name: Sue Momin Patient Location[place] [address] [address] Transfer Note: Patient transferred into room/unit 06-27 in stable condition. Actions taken: Patient belongings with patient. Pt at bedside. Pt aware of low hbg. Pt consented for 1 unit PRBCs. Declines pain, see NPR for neuro assessment. IVF infusing per orders 17:10- 1 unit PRBCs infusing per orders. This note was completed by: Kalie Montanez RN [facility] OPERATIVE NOon 05-24-2020 OPERATIVE NO HNO ID: [id number] Author: Clay Ayala Jr. Service: Orthopaedic Surgery Author Type: Physician Type: Operative Report Filed: 05/24/2020 2:19 PM Note Text: [facility] OPERATIVE REPORT PATIENT NAME: Sue Momin AGE: [age] year old LOG ID: [id number] Surgery Date: 05/24/2020 SURGEON: Clay Ayala M.D. BOND MANAGER: Marybel Mason PA-C, her assistance consisted of assistance with retraction, positioning and closing of the wound No resident physicians were available to participate in the case. PROCEDURE: Right Percutaneous Pinning Procedure(s) (LRB): PERCUTANEOUS FIXATION FEMORAL FRACTURE, PROXIMAL END, NECK (Right) Incision Start: 1:05 PM Incision Stop: 2:09 PM Anesthesia: General Preop Diagnosis: Pre-Op Diagnosis Codes: * Stress fracture of right femur, initial encounter [M84.351A] Postop Diagnosis: Same as Pre-Op Diagnosis Codes: * Stress fracture of right femur, initial encounter [M84.351A] OPERATIVE INDICATIONS: This is a 49 year old female with a stress fracture of the femoral neck fracture of the right hip. The decision was made to proceed with a percutaneous pinning. Risks, benefits, and alternatives were discussed. She expressed understanding and consented to the procedure as outlined above. IMPLANTS: Synthes Femoral Neck Fracture System 1 hole Plate 80 mm Blade 80 mm Anti Rotation Screw 40 mm Locking Screw PROCEDURE: Patient was brought to the operating room. After adequate induction of anesthesia by Anesthesiology, the patient was placed supine on the fracture table. The Right leg was placed in gentle traction and slight adduction. The Left leg was placed in a flexed and abducted position. The Right lower extremity was then prepped and draped in sterile fashion with ChloraPrep. An incision was opened up distal to the greater trochanter over the proximal lateral femur. Sharp dissection was carried out through skin and subcutaneous tissue down to the level of the IT band. The IT band was split in line with the skin incision and an elevator was used to elevate the tissue off the lateral femur. A guidewire was inserted under fluoroscopic guidance into the femoral head. Starting point was proximal to the lesser trochanter. It was in a good position in the inferior neck. It's placement was confirmed on AP and lateral fluoroscopy. The depth of the necessary screw was measured with the ruler over the guidewire and it measured 95 mm. I then reamed with the reamer for the 1 hole plate and blade. After placing a 90 mm blade it appeared a little long so I placed an 85 which looked a little long on the lateral view. I decided on an 80 which look good in the AP and lateral planes. I was able to seat the plate against the femur without compromising the femoral head with an 80 mm. Good purchase was obtained in the femoral head. The guide wire was removed. Using the outrigger I then placed a single 40 mm screw through the 1 hole plate. I then drilled and placed the 80 mm antirotation screw completing the construct.. Final AP and lateral images were obtained to confirm placement of the hardware. The wound was then irrigated out with normal saline. The subcutaneous tissue was closed with 2-0 Vicryl and the skin was closed with a 4-0 Monocryl. A sterile Aquacel dressing was applied. The patient was stable to PACU, POSTOPERATIVE MANAGEMENT: The patient is to be non- weightbearing. They will receive aspirin for DVT prophylaxis, 24 hours of appropriate antibiotic coverage, and appropriate pain medications. SPECIMENS: None EBL: 50 cc DRAINS: None. COUNTS: Correct. COMPLICATIONS: None. Operative Time: * Missing case tracking time(s) * Heat Pump Installer closed, under direct supervision and the remainder of the procedure was performed by the primary surgeon/proceduralist with assistance. SIGNATURE: Clay Ayala Jr, MD DATE: May 24, 2020 TIME: 2:05 PM [facility] XR HIP 2V AP/LAT RTon 2020 XR HIP 2V AP/LAT RT * * *Final Report* * * DATE OF EXAM: May 24 2020 2:05PM [facility] 5280 - XR HIP 2V AP/LAT RT / PROCEDURE REASON: percutaneous hip pinning * * * * Physician Interpretation * * * * EXAMINATION: XR HIP 2V AP/LAT RT CLINICAL HISTORY: Percutaneous hip pinning Technique: Intraoperative fluoroscopic images Comparison: X-ray hip 05/19/2020 RESULT: Screw transversing the femoral neck. Please see operative note for details. Fluoroscopic Radiation Summary: Plane A, Air Kerma: 15.4 mGy Dose Area Product (DAP): 0.0 mGy*cm^2 Fluoro time: 1:05 min:sec IMPRESSION: Please see operative note for details. Trim Die Maker: PSCB Transcribe Date/Time: May 24 2020 2:39P Dictated by : BETY RICE MD This examination was interpreted and the report reviewed and electronically signed by: BETY RICE MD on May 24 2020 2:40PM EST [id number] Normal [facility] PreOp/PreProc COVIDon 2020 SARS-CoV-2 (COVID-19) RNA BENIGNO+probe Ql (Unsp spec) UPPER RESPIRATORY TRACT SWAB Normal [facility] Comment on above: Performed By: #### P OCOVD ####[facility] [place], [place] [phone] SARS-CoV-2 (COVID-19) RNA BENIGNO+probe Ql (Unsp spec) Negative Normal Negative for COVID19 (SARS CoV2) by PCR. [facility] Comment on above: Result Comment: This test was developed and its performance characteristics determined by [facility]'s [facility] [place]. This test has been authorized by FDA under an Emergency Use Authorization (EUA). This test has been validated in accordance with the FDA's Guidance Document Policy for Diagnostics Testing in Laboratories Certified to Perform High Complexity Testing under CLIA prior to Emergency use Authorization for Coronavirus Disease 2019 during the Public Health Emergency issued on April 19, 2019. Test performed by [facility], [facility] [place], [address], [place] [address]. Performed By: #### P OCOVD ####[facility] [address] [place], [place] [phone] APTTon 05-20-2020 aPTT Coag (Bld) [Time] 21.7 s Low 23.0-32.4 [facility] Comment on above: Result Comment: Unfr actionated Heparin Therapeutic Ranges: Standard Heparin Nomogram: 53 to 78 seconds (anti-Xa level of 0.3 to 0.7 U/ml) Low Dose/ACS Nomogram: 49 to 67 seconds (anti-Xa level of 0.2 to 0.5 U/ml) Stroke Treatment Nomogram: 49 to 67 seconds (anti-Xa level of 0.2 to 0.5 U/ml) Note: The APTT therapeutic range has been determined for the current lot of laboratory APTT reagent in use throughout the [facility]. Basic Metabolic Panlon 05-20 Anion gap [Moles/Vol] 11 mmol/L Normal 9-18 [facility] Calcium [Mass/Vol] 9.2 mg/dL Normal 8.5-10.2 [facility] Chloride [Moles/Vol] 99 mmol/L Normal 97-105 [facility] CO2 [Moles/Vol] 28 mmol/L Normal 22-30 [facility] Creatinine [Mass/Vol] 0.52 mg/dL Low 0.58-0.96 [facility] eGFR- Amer. >60 Normal [facility] eGFR-All Other Races >60 Normal [facility] Comment on above: Result Comment: eGFR (Estimated GFR) Units of measure: mL/min/1.73 meters squared eGFR is derived from the reexpressed MDRD Study equation using the following parameters: serum creatinine, age, gender and race. The creatinine assay has been calibrated to be traceable to IDMS. An eGFR <60 mL/min/1.73m2 for >3 months is consistent with chronic kidney disease. Refer to KDOQI guidelines for clinical interpretation. In patients with unstable renal function, e.g. those with acute kidney injury, the eGFR may not accurately reflect actual GFR. Glucose [Mass/Vol] 143 mg/dL High 74-99 [facility] Comment on above: Result Comment: The [place] Diabetes Association (ADA) provides guidance for cutoff values for fasting glucose and random glucose. The ADA defines fasting as no caloric intake for at least 8 hours. Fasting plasma glucose results between 100 to 125 mg/dL indicate increased risk for diabetes (prediabetes). Fasting plasma glucose results greater than or equal to 126 mg/dL meet the criteria for diagnosis of diabetes. In the absence of unequivocal hyperglycemia, results should be confirmed by repeat testing. In a patient with classic symptoms of hyperglycemia or hyperglycemic crisis, random plasma glucose results greater than or equal to 200 mg/dL meet the criteria for diagnosis of diabetes. Reference: Standards of Medical Care in Diabetes 2016, [place] Diabetes Association. Diabetes Care. 2016.39(Suppl 1). Potassium [Moles/Vol] 3.0 mmol/L Low 3.7-5.1 [facility] Sodium [Moles/Vol] 138 mmol/L Normal 136-144 [facility] Urea nitrogen [Mass/Vol] 11 mg/dL Normal 7-21 [facility] CBC and Differentialon 05-20 Abs Baso <0.03 Normal <0.11 [facility] Abs [place] 0.37 k/uL Normal <0.87 [facility] Abs Neut 2.98 k/uL Normal 1.45-7.50 [facility] Absolute nRBC 0.02 k/uL High <0.01 [facility] Basophils/100 WBC (Bld) 0.4 % Normal [facility] DTYPE Auto Diff Normal [facility] Eosinophils (Bld) [#/Vol] 0.07 10*3/uL Normal <0.46 [facility] Eosinophils/100 WBC (Bld) 1.6 % Normal [facility] Erythrocyte distribution width (RBC) [Ratio] 23.4 % High 11.5-15.0 [facility] Hematocrit (Bld) [Volume fraction] 25.6 % Low 36.0-46.0 [facility] Hemoglobin (Bld) [Mass/Vol] 6.7 g/dL Low 11.5-15.5 [facility] Lymphocytes (Bld) [#/Vol] 1.04 10*3/uL Normal 1.00-4.00 [facility] Lymphocytes/100 WBC (Bld) 23.1 % Normal [facility] MCH 17.6 pG Low 26.0-34.0 [facility] MCHC (RBC) [Mass/Vol] 26.2 g/dL Low 30.5-36.0 [facility] MCV (RBC) [Entitic vol] 67.2 fL Low 80.0-100.0 [facility] Monocytes/100 WBC (Bld) 8.2 % Normal [facility] Neutrophils/100 WBC (Bld) 66.7 % Normal [facility] NRBCs 0.4 /100 WBC High 0 [facility] Platelet mean volume (Bld) [Entitic vol] 9.1 fL Normal 9.0-12.7 [facility] Platelets (Bld) [#/Vol] 258 10*3/uL Normal 150-400 [facility] RBC (Bld) [#/Vol] 3.81 10*6/uL Low 3.90-5.20 [facility] WBC (Bld) [#/Vol] 4.50 10*3/uL Normal 3.70-11.00 [facility] HISTORY PHYSICALon HISTORY PHYSICAL HNO ID: [id number] Author: Chapis Sanchez Service: ? Author Type: Physician Temp Recruiter Type: HANDP Filed: 05/21/2020 3:24 PM Note Text: HISTORY AND PHYSICAL EXAMINATION SERVICE DATE: 05/20/2020 SERVICE TIME: 2:43 PM PRIMARY CARE PHYSICIAN: Alek Sherwood MD REASON FOR VISIT: Sue Momin is a 49 year old female who is scheduled for PERCUTANEOUS FIXATION FEMORAL FRACTURE, PROXIMAL END, NECK RIGHT at the request of Dr. Clay Ayala Jr. for consultation. My final recommendation will be communicated back to the requesting physician by way of shared medical record or letter. The patient has the following: ACTIVE PROBLEM LIST Class 3 Severe Obesity Due to Excess Calories Without Serious Comorbidity With Body Mass Index (Bmi) of 40.0 to 44.9 in Adult ([facility]) Essential Hypertension Type 2 Diabetes Mellitus Without Complication, Without Long-Term Current Use of Insulin ([facility]) Heartburn Iron Deficiency Anemia Subjective CHIEF COMPLAINT: Pre op exam HPI: Patient is a 49 year old female with c/o pain to right groin and right hip. States she fell 2 months ago injuring right hip, has had pain ever since. Denies numbness or tingling. Has been seen and evaluated by orthopedic surgeon. MRI right hip revealed femoral neck strip stress fracture. Recommended for surgery listed above; patient electing to proceed. PAST MEDICAL HISTORY Diagnosis Date - Diabetes ([facility]) - Heartburn - Hypertension - Iron deficiency anemia - Morbidly obese ([facility]) - Tobacco use disorder PAST SURGICAL HISTORY Procedure Laterality Date - PAST SURGICAL HISTORY OF 1999 gastric bypass surgery - PAST SURGICAL HISTORY OF c-sections, 1990 and 1992 - PAST SURGICAL HISTORY OF Bilateral 1980 achilles tendon lengthening - PAST SURGICAL HISTORY OF Right 1976 right wrist surgery following fracture - PAST SURGICAL HISTORY OF wisdom teeth extraction History reviewed. No pertinent family history. SOCIAL HISTORY: Social History Tobacco Use - Smoking status: Current Some Day Smoker Packs/day: 0.10 Years: 8.00 Pack years: 0.80 Types: Cigarettes - Smokeless tobacco: Never Used Substance Use Topics - Alcohol use: Yes Alcohol/week: 7.8 standard drinks Types: 6 Mixed Drinks per week Comment: 6 drinks/week - Drug use: Never Prior to Admission medications as of 05/20/20 1519 Medication Sig Last Dose Taking traMADol (ULTRAM) 50 mg tablet Take 50 mg by mouth every 6 hours as needed. Yes docusate sodium (COLACE) 100 mg capsule Take 100 mg by mouth twice daily as needed. Yes multivitamin tablet Take 1 tablet by mouth once daily. Yes ferrous sulfate 325 mg (65 mg iron) tablet Take 325 mg by mouth daily with breakfast. Taking twice a day Yes glipiZIDE (GLUCOTROL XL) 10mg 24 hr tablet Take 10 mg by mouth once daily. Yes cholecalciferol (VITAMIN D-3) 50 mcg (2,000 unit) tablet Take 2,000 Units by mouth once daily. Yes PARoxetine (PAXIL) 10 mg tablet Take 10 mg by mouth once daily. Yes losartan (COZAAR) 50 mg tablet Take 50 mg by mouth once daily. Yes potassium chloride 20 mEq TbER Take by mouth. Yes INV FUROSEMIDE 40 MG TABLET (IRB 18-610) Take by mouth. For Investigational Drug Use Only. PI: Jordan Joy MD. Yes No medication comments found. ALLERGIES Allergen Reactions - Latex Rash Rash - itch and swelling REVIEW OF SYSTEMS: PAIN ASSESSMENT: Pain Pain Level: 1 Pain Location: Hip-Right (increases to 8/9 with standing) Description: Sharp Frequency: Continuous Intervention: Reposition;Relaxation General: No weight loss, malaise or fevers. Neuro: No history of TIA's, stroke, [employer]SE[employer]ORES tumor, impaired sensorium, hemiplegia, paraplegia or quadraplegia. No neurological symptoms or problems. Respiratory: Positive for current some day smoker; childhood asthma, Negative for COPD, Current cough, Dyspnea, Pneumonia within 6 weeks (date), URI < 2 weeks Cardiovascular: Positive for: Hypertension, Negative for Arrhythmia, CAD, Chest Pain, CHF, Valvular Heart Disease, DVT/PE GI: Positive for Heartburn, Negative for Nausea, Vomiting, Abdominal pain, Liver disease : No history of dysuria, frequency or incontinence,, stones or chronic kidney disease DELINEATOR: Negative for abnormal vaginal bleeding, abnormal vaginal discharge. : N/A, Patient's last menstrual period was 05/12/2020 (approximate). Endocrine: Diabetes Mellitus on oral agent Denies thyroid problems Hematology: +iron def anemia on PO iron Oncology: No history of CA metastasis, chemo within 30 days, or radiotherapy within 90 days. Has not lost 10% of body wt in 6 months. No history of oncological symptoms or problems. Psych: Anxiety Musculoskeletal: See HPI Skin: Negative for lesions, rash and itching. Objective PHYSICAL EXAM: VITALS: BP 145/64 Pulse 97 Temp (Src) 97.6 (Temporal Artery) Resp 18 Ht 5' 4 (1.63m) Wt 245 lb (111.1kg) SpO2 100% LMP 05/12/2020 BMI 42.03 kg/(m2). Gene (more content not included)... Normal [facility] Hemoglobin A1con 05-20-2020 Glucose [Mass/Vol] 128 mg/dL Normal [facility] Comment on above: Result Comment: eAG: (Estimated average glucose) is a calculated value from HgbA1c and is financial representative of the average blood glucose level in the last 2-3 month period. HbA1c (Bld) [Mass fraction] 6.1 % High 4.3-5.6 [facility] Comment on above: Result Comment: Amer [place] Diabetes Association guidelines indicate that patients with HgbA1c in the range 5.7-6.4% are at increased risk for development of diabetes, and intervention by lifestyle modification may be beneficial. HgbA1c greater or equal to 6.5% is considered diagnostic of diabetes. Protimeon 05-20-2020 PT INR 1.0 Normal 0.9-1.3 [facility] Comment on above: Result Comment: Breana min K Antagonist (VKA) Therapeutic Range: INR 2 to 3 (Target INR of 2.5) Note: For patients treated with VKA drugs, such as warfarin, the [place] College of Chest Physicians 2012 Guideline recommends a therapeutic INR range of 2 to 3 (target INR of 2.5). This recommendation includes high-risk patients with antiphospholipid syndrome with previous arterial or venous thromboembolism, current-generation mechanical or bioprosthetic aortic heart valve replacement. Note: Patients with mechanical aortic valve replacement and additional risk factors for thromboembolic events (atrial fibrillation, previous thromboembolism, LV dysfunction, hypercoagulable conditions) or an older generation mechanical AVR (i.e., ball in-Cage) or any mechanical MVR should have a INR therapeutic range of 2.5 to 3.5 (target INR of 3). Tom GH, et al. Chest 2012, 141:7S-47S Leno RA, et al. [facility] 2017, 70: 252-289 PT Sec 10.2 sec Normal 9.7-13.0 [facility] Type and SCR (30D)on 021 ABO/RH(D) Positive Normal [facility] CNOVon 05-19-2020 CNOV Office Visit ([facility] ) SUE MOMIN ([id number]) 1970 F Date Time Provider Department 05/19/20 9:45 AM CLAY AYALA JR [facility] During your visit today, we recorded the following information about you: Clay Ayala Jr, MD 05/19/2020 12:37 PM Addendum HISTORY: Sue is a 49 year old female. She is here following up for complaints of right groin pain and hip pain. She states she fell 2 months ago injuring her right hip. She has had pain ever since. She had an MRI of the hip which showed a femoral neck strip stress fracture. She was referred by my partner for follow-up. She denies any pain in the hip prior to this. She is never been diagnosed with osteoporosis. She denies any numbness or tingling in the right lower extremity. She has pain ambulating. She has been using a walker. The patient's past medical history, surgical history, social history, family history, medications and allergies were reviewed with the patient today and are available in the chart for further review. PHYSICAL EXAMINATION: Vitals: There were no vitals taken for this visit. PSYCH: Pleasant, good affect and mood General Appearance: Well appearing, alert, in no acute distress, well-hydrated, well nourished. and Obese. She has pain with right hip flexion, internal and external rotation. There is no crepitus with this. She has pain with resisted hip flexion. She has no pain with resisted knee extension. She has intact ankle dorsiflexion and plantarflexion on the right. RADIOGRAPHS: Right hip films were negative today. MRI: Per the MRI report there is abnormal bone edema in the medial femoral neck consistent with a femoral neck stress fracture. There is no evidence of a labral tear. No cartilaginous defect seen. I do not have the actual MRI imaging itself. IMPRESSION: Encounter Diagnosis ICD-10-CM 1. Stress fracture of right femur, initial encounter M84.351A SURGICAL REQUEST - ELECTIVE (09/2019) PRE-PROCEDURE AND PRE-OPERATIVE COVID PROCEDURE: None. PLAN: Given the patient's symptoms of pain as well as the MRI findings I would recommend a prophylactic pinning. I explained the procedure and recovery. The risks, benefits alternatives were reviewed. Questions were answered. Clay Ayala Jr, MD Referring Provider: CLAY AYALA JR [[id number]] Allergies As of Date: 05/19/2020 Noted Allergy Reaction LATEX 05/19/2020 2 - Rash Comments: Rash - itch and swelling Date Reviewed: 05/19/2020 Reviewed by: Dasha Saldana - Fully Assessed Reason for Visit: Follow Up [171] Cmt: Stress fracture - Slipped on ice 2 months ago Fracture [4131] Cmt: Stress fracture - Slipped on ice 2 months ago Primary Visit Diagnosis:Stress fracture of right femur, initial encounter [M84.351A] Order(s):SURGICAL REQUEST - ELECTIVE (09/2019) [[id number]] Order #: [id number]: 1 PRE-PROCEDURE AND PRE-OPERATIVE COVID [SQPOCOVD] Order #: [id number] FUTURE Prescriptions as of 05/19/2020 Sig: FERROUS SULFATE 325 MG (65 MG* Take 325 mg by mouth daily wi* GLIPIZIDE ER 10 MG TABLET, EX* Take 10 mg by mouth once bianka* CHOLECALCIFEROL (VITAMIN D3) * Take 2,000 Units by mouth onc* PAROXETINE 10 MG TABLET Take 10 mg by mouth once bianka* LOSARTAN 50 MG TABLET Take 50 mg by mouth once bianka* POTASSIUM CHLORIDE ER 20 MEQ * Take by mouth. INV FUROSEMIDE 40 MG TABLET (* Take by mouth. For Investigat* Problem List As Of Date: 05/19/2020 (None) Letter Text Encounter Status:Closed by DASHA PROCTOR on 05/19/20 Chart Close Cosign Accepted by: CLAY AYALA MD[[id number]] Chart Close Cosign Accepted on: SunMay 19, 2020 12:36 PM [facility] SUE MOMIN ([id number]) 1970 F Date Time Provider Department 05/19/20 CLAY AYALA JR [facility] During your visit today, we recorded the following information about you: Lidya Ly 05/19/2020 1:40 PM Addendum Pt states she lives down the road from [facility]. She wants to know if she can have her preprocedure COVID testing done there or if it has to be with [facility]. Please advise. [phone] (home) Lidya Ly May 19, 2020 1:39 PM Patient was in office and we spoke to her that due to time constraints - We would be unable to have this done at an outside facility. Patient understood and was agreeable to getting it completed in [place]. Dasha Saldana Allergies As of Date: 05/19/2020 Noted Allergy Reaction LATEX 05/19/2020 2 - Rash Comments: Rash - itch and swelling Date Reviewed: 05/19/2020 Reviewed by: Dasha Saldana - Fully Assessed Reason for Visit: Preparations For Procedures [899] Prescriptions as of 05/19/2020 Sig: FERROUS SULFATE 325 MG (65 MG* Take 325 mg by mouth daily wi* GLIPIZIDE ER 10 MG TABLET, EX* Take 10 mg by mouth once bianka* CHOLECALCIFEROL (VITAMIN D3) * Take 2,000 Units by mouth onc* PAROXETINE 10 MG TABLET Take 10 mg by mouth once bianka* LOSARTAN 50 MG TABLET Take 50 mg by mouth once bianka* POTASSIUM CHLORIDE ER 20 MEQ * Take by mouth. INV FUROSEMIDE 40 MG TABLET (* Take by mouth. For Investigat* Problem List As Of Date: 05/19/2020 (None) Encounter Status:Closed by DASHA PROCTOR on 05/21/20 Normal [facility] XR HIP 3V PELV+ AP/LAT RTon 05-19-2020 XR HIP 3V PELV+ AP/LAT RT * * *Final Report* * * DATE OF EXAM: May 19 2020 9:46AM SVX [id number] - XR HIP 3V PELV+ AP/LAT RT / PROCEDURE REASON: Pain in right hip * * * * Physician Interpretation * * * * PELVIS AND RIGHT HIP RADIOGRAPHS HISTORY: Pain in right hip . TECHNIQUE: Single view of the pelvis and two views of the right hip are submitted. COMPARISON: None. RESULT: No acute fracture or dislocation. Hip joints are maintained. Bony pelvic ring is intact. IMPRESSION: No acute osseous abnormality. Trim Die Maker: [facility] Transcribe Date/Time: May 19 2020 10:39A Dictated by : CINTHYA LANDIN MD This examination was interpreted and the report reviewed and electronically signed by: CINTHYA LANDIN MD on May 19 2020 10:44AM EST [id number] Normal [facility] CNOVon 05-12-2020 CNOV Office Visit ([facility] ) SUE MOMIN ([id number]) 1970 F Date Time Provider Department 05/12/20 10:00 AM MANI DUNLAP) [facility] During your visit today, we recorded the following information about you: Weight Height 113.4 kg 1.626 m Mani Dunlap PA-C 05/12/2020 12:33 PM Signed SERVICE DATE: May 12, 2020 PCP: Alek Sherwood MD Consult requested by Alek Sherwood MD for an opinion regarding chief complaint as stated below. My final impression and recommendations will be communicated back to the requesting physician by way of the shared medical record or letter via US mail. Subjective Patient ID: Sue is a 49 year old female. 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 This began after an incident approximately 2 months ago where she slipped on the ice coming out of her house and torqued the right hip. Did not fall on it. Was sore initially but became more more sore as the day went on. Her symptoms are now getting worse rather than better. She is used Tylenol, ibuprofen and occasional tramadol without much improvement in her symptoms. 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 This she obtained on 04/28/2020 at [facility] in [place], [place]. She has been using a cane more recently but prior to that was holding onto furniture and the wall to take pressure off of her hip. Her pain level is an 8 or 10 depending on activities and is all in the anterior groin. Denies any pain down into her thigh or knee. Denies any history of prior symptoms before this incident. 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 Denies any bisphosphonate use. TREATMENTS PRIOR TO INITIAL CONSULT: Oral NSAIDS Cane Review of Systems Constitutional: Negative for fever. HENT: Negative for congestion. Respiratory: Negative for cough and shortness of breath. Cardiovascular: Negative for chest pain. Gastrointestinal: Negative for abdominal pain. History of GERD and uses Prilosec as needed Endocrine: Positive for diabetic associated symptoms. Recent diagnosis Skin: Negative for color change and rash. Neurological: Positive for numbness. Numbness in both feet which she attributes to the diabetes Hematological: Chronic anemia, recent diagnosis Musculoskeletal: Negative for joint swelling. All other systems reviewed and are negative. There is no problem list on file for this patient. No past medical history on file. No past surgical history on file. No family history on file. Social History Tobacco Use - Smoking status: Not on file Substance Use Topics - Alcohol use: Not on file - Drug use: Not on file ALLERGIES Not on File MEDICATIONS: No prescriptions on file. Allergies, medications, past surgical history, family history and past medical history were reviewed per this encounter. Objective Right Hip Exam Tenderness The patient is experiencing tenderness in the anterior (No tenderness in the thigh). Range of Motion Abduction: 30 (With pain in the groin) Adduction: 15 (With pain in the groin) Extension: 0 Flexion: 70 (With significant groin pain) External rotation: 30 Internal rotation: 20 (With groin pain) Muscle Strength Right hip normal muscle strength: Pain with resisted flexion. Abduction: 5/5 Adduction: 5/5 Flexion: 5/5 Other Erythema: absent Scars: absent Sensation: normal (Slight decrease sensation of both feet) Pulse: present Comments: She has some groin discomfort with right knee range of motion. Denies any thigh pain. Ambulating with a cane with groin pain on weightbearing. Motor and sensory are intact other than that described above. From the diabetic neuropathy. Left Hip Exam Left hip exam is normal. Radiographs: Reviewed x-rays taken today personally and with Dr. Booth which show some hypertrophic changes of the posterior aspect of the femur but no periostitis. No obvious fracture though after reviewing the MRI done at [facility] on 04/28/2020, there is evidence of a femoral neck stress fracture. Assessment/Plan ASSESSMENT Diagnosis (M84.351A) Stress fracture of right femur, initial encounter (primary encounter diagnosis) Comment: femoral neck (M79.604) Right leg pain Plan: XR FEMUR GENERAL 2V AP/LAT RT (M89.8X5) Pain in right femur Plan: XR FEMUR GENERAL 2V AP/LAT RT Office (more content not included)... Normal [facility] XR FEMUR 2V AP/LAT RTon 04-20 XR FEMUR 2V AP/LAT RT * * *Final Report* * * DATE OF EXAM: May 12 2020 10:20AM LZX 5333 - XR FEMUR 2V AP/LAT RT / PROCEDURE REASON: multiple diagnoses * * * * Physician Interpretation * * * * EXAMINATION / TECHNIQUE: XR FEMUR 2V AP/LAT RT HISTORY: HX OF A FALL X2 MONTHS AGO Right leg pain Pain in right femur COMPARISON: RESULT: No acute fracture. No malalignment. The joint spaces are maintained. There is some chronic smooth periosteal hypertrophy along the posterior aspect of the femoral shaft, a common finding. No acute or aggressive periostitis. IMPRESSION: No acute osseous abnormality. Trim Die Maker: [facility]ITAL[facility] Transcribe Date/Time: May 12 2020 10:26A Dictated by : ROEL HERCULES MD This examination was interpreted and the report reviewed and electronically signed by: ROEL HERCULES MD on May 12 2020 11:41AM EST [id number] Normal [facility] MRI Hip w/o Contrast Righton 04-28-2020 MRI Hip w/o Contrast Right EXAM: MRI Hip w/o Contrast Right HISTORY: The patient is a 49-year-old female with right hip pain since falling one month ago. COMPARISON: Radiographs from 03/13/2020. TECHNIQUE: Large zuspr-el-llys images were obtained through both hips: Axial T1, fat-suppressed T2. Smaller jldta-oj-jlbg images were obtained through the right hip only: Coronal T1, fat-suppressed T2, sagittal fat-suppressed T2; oblique axial PD. FINDINGS: The small fribl-fi-mqqj images demonstrate abnormal bone marrow edema emanating from the medial femoral neck. The appearance is that of a femoral neck stress fracture. No displaced fracture fragments or cortical discontinuities are seen. The large roded-iz-kyey images demonstrate replacement of the normal fatty bone marrow diffusely throughout the bony pelvis. The appearance is that of hemopoietic bone marrow, and this raises the suspicion of chronic anemia. Correlation with hematologic laboratory values is recommended. There is a physiologic amount of fluid within both hip joints. No abnormal fluid collections or soft tissue masses are seen within or around either hip or elsewhere throughout the bony pelvis. No greater trochanteric bursal fluid collections are seen lateral to either greater trochanter. No muscle or tendon tears are seen around either hip. There is no evidence of a labral tear on this non-arthrographic study. No paralabral cyst or iliopsoas bursal fluid collections are present. No focal cartilage defects are identified within the right hip joint. IMPRESSION: 1. Right femoral neck stress fracture. 2. Suspected diffuse hematopoietic bone marrow. Final Dictated by: Nolan Patel MD Dictated DT/TM: 04/28/2020 8:33 pm Signed by: Nolan Patel MD Signed (Electronic Signature): 04/28/2020 8:41 pm (If Report Is Signed, Electronically Signed in Other Vendor System) Normal [facility] Encounters Encounter Date Encounter Type Care Provider Facility Start: 05-30-2022 Encounter for genera l adult medical examination without abnormal findings DR ALEK SHERWOOD [facility] Start: 05-24-2022 End: 05-25-[address] ALEK SHERWOOD Facility:[facility] Start: 05-24-2022 End: 05-25-2022 Encounter for general adult medical examination without abnormal findings DR ALEK SHERWOOD Facility:[facility] Start: 05-18-2022 End: 05-19-[address] ALEK SHERWOOD Facility:[facility] Start: 04-03-2022 End: 04-03-2022 ambulatory [facility] Facility:[facility] Start: 08-24-[address] ALEK SHERWOOD [facility] ity:[facility] Start: 04-28-2020 End: 04-29-2020 Patient encounter procedure ALEK SHERWOOD Facility:[facility] Procedures Date Procedure Procedure Detail Performing Clinician Start: 08-12-2020 Antibody screen Start: 05-20-2020 Antibody screen Payers Date Payer Category Payer Unknown 1970 Unknown [id number] 1970 Unknown [id number] 1970 Unknown [id number] 1970 Unknown [id number] [id number] [id number] 1970 Unknown [id number] 2.16.84 [id number] 1961 Private Health Insurance [id number] 1961 Unknown [id number] Clinical Notes 05-12-2020 to 11-26-2020 Note Date & Type Note Facility 11-26-2020 Note HNO ID: [id number] Author: Dragan Mohr MD Service: ? Author Type: Physician Type: Progress Notes Filed: 11/30/2020 8:40 PM Note Text: NAME: Sue Momin CLINIC NO.: [id number] DATE OF SERVICE: November 26, 2020 Some elements in this clinic note that are critical to medical decision making have been carefully reviewed and included from a prior clinic note dated: September 24, 2020 Referring Provider: Nicolasa Mcneill PA-C Additional Clinicians involved in Sue Momin's care: Alek Sherwood CC: Anemia ASSESSMENT: 1. Other iron deficiency anemia She was found to be severely anemic during a recent operation for a right femur fracture in early 2020. She required 2 units of PRBCs and recently received IV iron on 06/15/2020 due to poor absorption following her gastric bypass 20 year ago. She would also probably benefit from GI consult as she is 50 years old with iron deficiency anemia. Patient reluctant, but agrees.to reschedule.. 2. S/P gastric bypass She had gastric bypass over 20 years ago, which is likely the cause of her iron deficiency. B12 has been normal in the past. PLAIN: 1. Labs in 8 weeks include CBC, CMP, Iron, B12 2. B12 shot today and q 4 weeks 2. RTC in 9 weeks to review results and plan iron infusion as well as B12 shot after. 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 Recovering nicely from ortho injuries. Diabetes is improving. Needs a new PCP. B12 is relatively low. Updated Visit, September 24, 2020: Sue is 50 and after having had a hip replacement, she fell and refractured and needed extensive repair. Remains in a wheelchair for now and will delay her GI workup until she is ambulatory. Hgb is excellent and B12 will be reassessed. Doesn't need anything for now. Updated Visit, June 25, 2020: Patient returns for follow up after having IV iron on 06.15.2020 for iron deficiency due to malabsorption. She tolerated it well and is feeling better. She denies any bleeding. She reports she has never had a GI work up. Initial Visit, June 04, 2020: Sue Momin presents today Hematology and Oncology evaluation. She is a 49 year old female who had a Right femur fracture after slipping on the ice. 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 Quit smoking after her surgery with internal fixation. Found her to be severely anemic with Hgb of 7.8 05/27/2020 Transfused x 2 Today 10.2 Also found to have DM Probably need sleep study due to fatigue and daytime somnolence as well as body habitus. Gastric bypass - 20 years ago Which is the likely cause of her iron deficiency and also likely to have malabsorption of B12. still smoke 3 ppd. REVIEW OF SYSTEMS Per HPI and otherwise negative by full review of organ systems. ECOG PERFORMANCE STATUS: 1 PHYSICAL EXAMINATION: Vitals: BP 140/74 Pulse 90 Temp (Src) 97.3 (Temporal) Resp 18 Ht 5' 4.016 (1.63m) Wt 222 lb 9.6 oz (101.0kg) SpO2 97% LMP 05/12/2020 BMI 38.19 kg/(m2). Very pleasant, morbidly obese. Exam limited to gross visualization where appropriate due to COVID-19. Gen.: This is an age-appropriate patient in no acute distress. Head: Appears atraumatic with no visible lesions. Eyes: Pupils equally round and reactive to light, extraocular muscles are intact. Neck: Supple. Mouth: Mucous membranes appeared to be moist. Respiratory: Appears to be respiring comfortably. Neurologic: Nonfocal to gross visualization. Alert and oriented ?3. Psychiatric: No evidence of inappropriate anxiety or depression. Skin: Visible areas of skin without rash, lesions, wounds or petechiae. ALLERGIES: ALLERGIES Allergen Reactions - Envoirnmental [Othe* - Latex Rash Rash - itch and swelling MEDICATIONS: folic acid 1 mg tablet Take 1 mg by mouth once daily. THIAMINE HCL ORAL Take 1,000 mg by mouth once daily. ascorbic acid, vitamin C, (VITAMIN C) 500 mg tablet Take 1 tablet by mouth twice daily with meals for 21 doses. multivitamin tablet Take 1 tablet by mouth once daily. glipiZIDE (GLUCOTROL XL) 10mg 24 hr tablet Take 10 mg by mouth once daily. cholecalciferol (VITAMIN D-3) 50 mcg (2,000 unit) tablet Take 2,000 Units by mouth once daily. losartan (COZAAR) 50 mg tablet Take 50 mg by mouth once daily. aspirin, enteric coated (ASPIRIN, ENTERIC COATED) 81 mg EC tablet Take 1 tablet by mouth twice daily. PARoxetine (PAXIL) 10 mg tablet Take 10 mg by mouth once daily. potassium chloride 20 mEq TbER Take by mouth. INV FUROSEMIDE 40 MG TABLET (IRB 18-610) Take by mouth. For Investigational Drug Use Only. PI: Jordan Joy MD. LABORATORY VALUES: Hemoglobin (g/dL) Date Value 11/19/2020 13.2 Hematocrit (%) Date Value 11/19/2020 39.7 WBC (k/uL) Date Value 11/19/2020 7.25 Platelet Count (k/uL) Date Value 11/19/2020 244 DIAGNOSIS: (Z98.84) S/P gastric bypass (pr (more content not included)... [facility] 11-08-2020 Note HNO ID: [id number] Author: Marybel Mason PA-C Service: ? Author Type: Physician Temp Recruiter Type: Progress Notes Filed: 11/08/2020 3:39 PM Note Text: HISTORY: Sue is a 50 year old female. She is here for follow up on her right hip fracture. She is about 3 months status post cephlomedullary nail. She has no complaints of any pain in the hip. She is using a cane for stability and some weakness. She has been working on her strengthening exercises. She denies any numbness in her leg or foot. The patient's past medical history, surgical history, social history, family history, medications and allergies were reviewed with the patient today and are available in the chart for further review. REVIEW OF SYSTEMS: Patient did not have, and does not currently have, any weight loss, malaise, fever, chills, headache, chest pain, chest pressure,nausea, vomiting, diarrhea, constipation PHYSICAL EXAMINATION: PSYCH: Pleasant, good affect and mood General Appearance: Well appearing, alert, in no acute distress, well-hydrated, well nourished. Skin: Skin color, texture, turgor normal, no suspicious rashes or lesions. Peripheral Pulses: Normal. Neurologic: Gait normal. Reflexes normal and symmetric. Sensation grossly intact. On physical examination of the right hip, the incision is healed. There is no erythema or warmth. Extensor mechanism is intact. Hip motion is smooth and not irritable. Calf is soft and non-tender. RADIOGRAPHS: right hip films show fracture to be healed. Hardware is in good position and stable. IMPRESSION: Encounter Diagnosis ICD-10-CM 1. Periprosthetic fracture of hip, subsequent encounter M97.8XXD Z96.649 PLAN: Patient is doing well. She can continue to advance her activities as she tolerates it. Anything that increases her pain she should back off of. She can come off the cane as she feels strong enough. I will see her back as needed. Marybel Mason PA-C [facility] 11-08-2020 Note HNO ID: [id number] Author: RT Aixa(R) Service: ? Author Type: Technologist Type: Progress Notes Filed: 11/08/2020 3:23 PM Note Text: Radiology Service Progress Note PATIENT NAME: Sue Momin DATE OF SERVICE: November 08, 2020 TIME: 3:22 PM PATIENT IDENTITY VERIFICATION COMPLETED USING TWO (2) IDENTIFIERS: Name and Date of confirmed by patient verbally. FALL SCREENING: Has the patient had 2 falls in the last year or 1 fall with injury or currently using an Ambulatory Assistive Device (Walker, Cane, Wheelchair, Crutches, etc.)? Yes, Patient High Risk for Falls What interventions were put in place to prevent falls during this visit? Instructed Patient to Remain Seated (Not on Exam Table) Until Exam and Increased Observations by Caregivers PATIENT GENDER DATA: Female. status: : No status: NO. PATIENT RELEVANT IMPLANT DATA REVIEWED: Not Applicable RADIOLOGY DEPARTMENT: General X-ray: Exam(s) Completed: Pelvis X-Ray: Pelvis with Hip Right PERIPHERAL IV DATA: Not applicable SIGNED BY: Roberta Phelps, RT(R) November 08, 2020 3:22 PM [facility] 10-24-2020 Note Patient: SUE MOMIN Age: 50 years Sex: Female : 1970 Associated Diagnoses: None Author: LASHAWN HARDY, SHAUNA Discharge Information Discharge Summary Information: Admitted 10/15/2020, Discharged 10/20/2020. Hospital Course Hospital Course Alcohol withdrawal, alcohol abuse Alcoholic liver disease Anxiety Hypokalemia, hypomagnesemia Diabetes mellitus, hypertension Patient was admitted to breakthrough program and treated with CIWA protocol. Electrolytes were replaced. She is improved but extremely anxious about relapsing and wanted to start naltrexone. Discussed with Dr. Padilla and started on naltrexone 25 mg daily for 5 days then 50 mg daily. She will follow-up outpatient as arranged through the breakthrough program. She has encouraged to obtain a PCP. Physical Examination VS/Measurements Vital Signs (last 24 hrs) Last Charted Heart Rate Peripheral 77 bpm (OCT 20 05:) Resp Rate 18 br/min (OCT 20:) SBP H 144mmHg (OCT 20:) DBP 87 mmHg (OCT 20:) Anxious appearing Lungs: Clear to auscultation bilaterally CVS S1-S2 Abdomen: Plus bowel sounds, soft, tender Musculoskeletal no pitting edema Results Review General results Most recent results Labs (Last four charted values) WBC L 4.3 (OCT 20) 5.7 (OCT 15) Hgb 12.9 (OCT 20) 13.9 (OCT 15) Hct 38.6 (OCT 20) 40.3 (OCT 15) Plt L 103 (OCT 20) L 81 (OCT 15) Na 139 (OCT 20) 139 (OCT 19) 139 (OCT 18) 138 (OCT 17) K 3.9 (OCT 20) 3.6 (OCT 19) 3.6 (OCT 18) 3.9 (OCT 17) CO2 26.0 (OCT 20) 23.7 (OCT 19) 25.2 (OCT 18) 28.4 (OCT 17) Cl 107 (OCT 20) 107 (OCT 19) 109 (OCT 18) 105 (OCT 17) Cr 0.7 (OCT 20) 0.6 (OCT 19) 0.6 (OCT 18) 0.7 (OCT 17) BUN 13 (OCT 20) 11 (OCT 19) 11 (OCT 18) L 9 (OCT 17) Glucose Random H 113 (OCT 20) H 106 (OCT 19) H 125 (OCT 18) H 125 (OCT 17) Mg 2.2 (OCT 20) 1.9 (OCT 19) 2.0 (OCT 18) 2.1 (OCT 17) Phos H 5.7 (OCT 20) 4.7 (OCT 19) 4.4 (OCT 18) 3.6 (OCT 17) Ca L 8.3 (OCT 20) L 8.4 (OCT 19) 8.5 (OCT 18) L 8.4 (OCT 17) INR 1.1 (OCT 15) Discharge Home Medications (7) Active bismuth subsalicylate 525 mg/15 mL oral suspension 525 mg = 15 mL, PRN, ORAL, QID calcium carbonate 1000 mg oral tablet, chewable 2,000 mg = 2 tabs, PRN, QID folic acid 1 mg oral tablet 1 mg = 1 tabs, ORAL, DAILY metFORMIN 500 mg oral tablet 500 mg = 1 tabs, ORAL, BIDWM multivitamin , ORAL, DAILY naltrexone 50 mg oral tablet 50 mg = 1 tabs, ORAL, DAILY thiamine 100 mg oral tablet 100 mg = 1 tabs, ORAL, DAILY Discharge Plan Discharge Summary Plan Discharge Status. Discharge instructions given. Discharge disposition. Prescriptions. Discharge time= 30 minutes [facility] 10-15-2020 Note Patient: SUE MOMIN [facility]: [id number] Age: 50 years Sex: Female : 1970 Associated Diagnoses: None Author: BENJAMIN HARDY, BRITTNEE Chief Complaint Alcohol withdrawal History of Present Illness This is a 50-year-old female with history of alcohol abuse presented for breakthrough, however she was noted to be tachycardic with a heart rate 121, blood pressure 211/114, tremulous. The patient was admitted to the ICU for further management. The patient drinks 1 pint of tequila every day with the last drink last night at 9 PM. Her CIWA score is 38. Denies any chest pain but complains of nausea abdominal discomfort irritability anxiety. Histories Past Medical History: Hypertension, diabetes mellitus, anemia, right hip fracture status post repair 2 months ago requiring 2 surgeries, uses a walker Family History: Hypertension Social History Social & Psychosocial History Social History Alcohol Current, Liquor, Daily, Started age 28 Years. Previous treatment: None. Ready to change: Yes. Feel should cut down on drinking: Yes. Annoyed by people criticizing your drinking> Yes. [place] bad or guilty about drinking: Yes. 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 CAGE 2 or greater, Physician called: Yes. Comment: patient reports drinking 1 bottle of tequila daily after getting home from work, can increase to 2 bottles on the weekends (10/15/2020 11:09 - Mara Maher RN) Home/Environment Lives with Spouse. Living situation: Home/Independent. Home equipment: Walker/Cane. Home monitoring equipment: None. Special/Community resources: None. Mobility prior to admit: Independent. Home Barriers: None. Will patient require additional/new services upon discharge? No. Tobacco 10 or more cigarettes (1/2 pack or more)/day in last 30 days Tobacco Use:. Cigarettes, 22 year(s). Started age 28 Years. Previous treatment: None. Ready to change: Yes. Exposure Lives with someone who smokes. Smoking cessation packet Accepted. Desires smoking cessation counselor: Yes. Never Smokeless Tobacco Use:. Domestic Concerns Yes, Stressors Employment Stress. No, Emotional support available Yes. Coping: Ineffective. Hospital finance concerns: Yes. Finance concerns: Yes. Yes Psychosocial History No active psychosocial history has been recorded. Health Status Allergies (1) Active Reaction LATEX allergy Itching .Current medications: Home Meds (ST) No qualifying data available Review of Systems Constitutional: Negative except as documented in history of present illness. Eye: Negative except as documented in history of present illness. Ear/Nose/Mouth/Throat: Negative except as documented in history of present illness. Respiratory: Negative except as documented in history of present illness. Cardiovascular: Negative except as documented in history of present illness. Gastrointestinal: Negative except as documented in history of present illness. Genitourinary: Negative except as documented in history of present illness. Hematology/Lymphatics: Negative except as documented in history of present illness. Endocrine: Negative except as documented in history of present illness. Immunologic: Negative except as documented in history of present illness. Musculoskeletal: Negative except as documented in history of present illness. Integumentary: Negative except as documented in history of present illness. Neurologic: Negative except as documented in history of present illness. Psychiatric: Negative except as documented in history of present illness. All Other ROS: ROS reviewed as documented in chart. Physical Examination VS/Measurements Vital Signs (last 24 hrs) Last Charted Temp Axillary H 36.9degC (OCT 15 10:45) Heart Rate Peripheral H 102bpm (OCT 15 12:00) Resp Rate H 22br/min (OCT 15 12:00) SBP H 176mmHg (OCT 15 12:00) DBP 68 mmHg (OCT 15 12:00) BMI 38.03 (OCT 15 10:31) General: Alert, Oriented, she looks acutely ill and tremulous, anxious HEENT: Normocephalic, atraumatic, EOMI, PERRL, neck is supple, trachea midline Cardiovascular: RR, tachycardic , positive s1, s2, no JVD noted Lungs: Diminished breath sounds bilaterally Abdomen: Soft, NT, ND, positive bowel sounds Extremities: No peripheral edema Psych: appropriate mood and affect. Skin: warm and dry. No pallor cyanosis, clubbing or jaundice. Neuro: Cranial nerves II through XII grossly intact, no focal deficits. sensation intact. Lymph: No cervical, submandibular or axillary lymphadenopathy seen or palpated Review / Management Results review: General Labs (ST) CBCWD WBC: 5.7 x106/uL (10/15/20)\.br\HGB: 13.9 g/dL (10/15/20)\.br\HCT: 40.3 % (10/15/20)\.br\MCV: 83.9 fL (10/15/20)\.br\MCH: 28.9 pg (10/15/20)\.br\MCHC: 34.4 g/dL (10/15/20)\.br\RDW: 18.9 High (10/15/20)\.br\Platelet: 81 x1000 Low (10/15/20)\.br\MPV: 6.5 fL Low (10/15/20)\.br\CMP\.br\BUN: 7 mg/dL Low (10/15/20)\.br\Na: 137 mmol/L (10/15/20)\.br\K: 3.3 mmo (more content not included)... [facility] 10-11-2020 Note HNO ID: [id number] Author: Marybel Mason PA-C Service: ? Author Type: Physician Temp Recruiter Type: Progress Notes Filed: 10/11/2020 8:26 AM Note Text: HISTORY: Sue is a 50 year old female. She is here for follow up on her right hip. She is 7 weeks status post periprosthetic fracture with cephlamedullary nailing. She has no complaints of any pain in the hip. She has been following the non-weight bearing status using a walker. She denies any numbness in her foot. The patient's past medical history, surgical history, social history, family history, medications and allergies were reviewed with the patient today and are available in the chart for further review. REVIEW OF SYSTEMS: Patient did not have, and does not currently have, any weight loss, malaise, fever, chills, headache,nausea, vomiting, diarrhea, constipation PHYSICAL EXAMINATION: PSYCH: Pleasant, good affect and mood General Appearance: Well appearing, alert, in no acute distress, well-hydrated, well nourished. Skin: Skin color, texture, turgor normal, no suspicious rashes or lesions. Peripheral Pulses: Normal. Neurologic: Gait normal. Reflexes normal and symmetric. Sensation grossly intact. On physical examination of the right hip, the incision is healed. There is no erythema or warmth. Extensor mechanism is intact. Hip motion is smooth and not irritable. Sensation is intact to light touch in the foot. Calf is soft and non-tender. RADIOGRAPHS: right hip films show hardware to be in stable position. Fracture is aligned and appears to be healed. IMPRESSION: Encounter Diagnosis ICD-10-CM 1. 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 At this time I will allow her to advance her weight bearing with the use of a walker. She should do this slowly over the next week. If she has increased pain then she should back off the weight she is putting on the leg. I will see her back in 1 month for follow up and x-rays. Marybel Mason PA-C [facility] 10-01-2020 Note HNO ID: [id number] Author: RT Aixa(R) Service: ? Author Type: Printed Circuit Boards Stripper Etcher Type: Progress Notes Filed: 10/01/2020 2:01 PM Note Text: Radiology Service Progress Note PATIENT NAME: Sue Momin DATE OF SERVICE: October 01, 2020 TIME: 2:00 PM PATIENT IDENTITY VERIFICATION COMPLETED USING TWO (2) IDENTIFIERS: Name and Date of confirmed by patient verbally. FALL SCREENING: Has the patient had 2 falls in the last year or 1 fall with injury or currently using an Ambulatory Assistive Device (Walker, Cane, Wheelchair, Crutches, etc.)? Yes, Patient High Risk for Falls What interventions were put in place to prevent falls during this visit? Increased Observations by Caregivers PATIENT GENDER DATA: Female. status: : No status: NO. PATIENT RELEVANT IMPLANT DATA REVIEWED: Not Applicable RADIOLOGY DEPARTMENT: General X-ray: Exam(s) Completed: Pelvis X-Ray: Pelvis with Hip Right PERIPHERAL IV DATA: Not applicable SIGNED BY: RT Aixa(R) October 01, 2020 2:00 PM [facility] 09-24-2020 Note HNO ID: [id number] Author: Dragan Mohr MD Service: ? Author Type: Physician Type: Progress Notes Filed: 10/03/2020 7:42 PM Note Text: NAME: Sue Momin CLINIC NO.: [id number] DATE OF SERVICE: September 24, 2020 Some elements in this clinic note that are critical to medical decision making have been carefully reviewed and included from a prior clinic note dated: June 25, 2020 Referring Provider: Nicolasa Mcneill PA-C Additional Clinicians involved in Sue Momin's care: Alek Sherwood CC: Anemia ASSESSMENT: 1. Other iron deficiency anemia She was found to be severely anemic during a recent operation for a right femur fracture in early 2020. She required 2 units of PRBCs and recently received IV iron on 06/15/2020 due to poor absorption following her gastric bypass 20 year ago. She would also probably benefit from GI consult as she is 50 years old with iron deficiency anemia. Patient reluctant, but agrees.to reschedule after she gets . 2. S/P gastric bypass She had gastric bypass over 20 years ago, which is likely the cause of her iron deficiency. B12 has been normal in the past. PLAIN: 1. Labs in 8 weeks include CBC, CMP, Iron, B12 2. RTC in 9 weeks to review results and plan iron infusion as well as B12 shot after. HPI: Updated Visit, September 24, 2020: Sue is 50 and after having had a hip replacement, she fell and refractured and needed extensive repair. Remains in a wheelchair for now and will delay her GI workup until she is ambulatory. Hgb is excellent and B12 will be reassessed. Doesn't need anything for now. Updated Visit, June 25, 2020: Patient returns for follow up after having IV iron on 06.15.2020 for iron deficiency due to malabsorption. She tolerated it well and is feeling better. She denies any bleeding. She reports she has never had a GI work up. Initial Visit, June 04, 2020: Sue Momin presents today Hematology and Oncology evaluation. She is a 49 year old female who had a Right femur fracture after slipping on the ice. 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 Quit smoking after her surgery with internal fixation. Found her to be severely anemic with Hgb of 7.8 05/27/2020 Transfused x 2 Today 10.2 Also found to have DM Probably need sleep study due to fatigue and daytime somnolence as well as body habitus. Gastric bypass - 20 years ago Which is the likely cause of her iron deficiency and also likely to have malabsorption of B12. still smoke 3 ppd. REVIEW OF SYSTEMS Per HPI and otherwise negative by full review of organ systems. ECOG PERFORMANCE STATUS: 1 PHYSICAL EXAMINATION: Vitals: BP 179/92 Pulse 102 Temp (Src) 97.6 (Temporal) Resp 18 Ht 5' 4.016 (1.63m) Wt 226 lb (102.5kg) SpO2 97% LMP 05/12/2020 BMI 38.77 kg/(m2). Very pleasant, morbidly obese. Exam limited to gross visualization where appropriate due to COVID-19. Gen.: This is an age-appropriate patient in no acute distress. Head: Appears atraumatic with no visible lesions. Eyes: Pupils equally round and reactive to light, extraocular muscles are intact. Neck: Supple. Mouth: Mucous membranes appeared to be moist. Respiratory: Appears to be respiring comfortably. Neurologic: Nonfocal to gross visualization. Alert and oriented ?3. Psychiatric: No evidence of inappropriate anxiety or depression. Skin: Visible areas of skin without rash, lesions, wounds or petechiae. ALLERGIES: ALLERGIES Allergen Reactions - Envoirnmental [Othe* - Latex Rash Rash - itch and swelling MEDICATIONS: aspirin, enteric coated (ASPIRIN, ENTERIC COATED) 81 mg EC tablet Take 1 tablet by mouth twice daily. multivitamin tablet Take 1 tablet by mouth once daily. glipiZIDE (GLUCOTROL XL) 10mg 24 hr tablet Take 10 mg by mouth once daily. cholecalciferol (VITAMIN D-3) 50 mcg (2,000 unit) tablet Take 2,000 Units by mouth once daily. PARoxetine (PAXIL) 10 mg tablet Take 10 mg by mouth once daily. losartan (COZAAR) 50 mg tablet Take 50 mg by mouth once daily. potassium chloride 20 mEq TbER Take by mouth. INV FUROSEMIDE 40 MG TABLET (IRB 18-610) Take by mouth. For Investigational Drug Use Only. PI: Jordan Joy MD. ascorbic acid, vitamin C, (VITAMIN C) 500 mg tablet Take 1 tablet by mouth twice daily with meals for 21 doses. LABORATORY VALUES: Hemoglobin (g/dL) Date Value 09/17/2020 13.1 Hematocrit (%) Date Value 09/17/2020 39.4 WBC (k/uL) Date Value 09/17/2020 4.52 Platelet Count (k/uL) Date Value 09/17/2020 101 DIAGNOSIS: (Z98.84) S/P gastric bypass (primary encounter diagnosis) Plan: VITAMIN B12 BLOOD, CBC + DIFF (FOR REMOTE [facility] USE), COMP METABOLIC PANEL, FERRITIN BLD, IRON + TIBC (D50.8) Other iron deficiency anemia Plan: VITAMIN B12 BLOOD, CBC + DIFF (FOR REMOTE [facility] USE), COMP METABOLIC PANEL, FERRITIN BLD, IRON + TIBC (D53.9) Deficiency anemia Plan: VITAMIN B12 BLOOD, CBC + DIFF (FOR REMOTE [facility] USE), COMP METAB (more content not included)... [facility] 09-03-2020 Note HNO ID: [id number] Author: Marybel Mason PA-C Service: ? Author Type: Physician Temp Recruiter Type: Progress Notes Filed: 09/03/2020 10:17 AM Note Text: HISTORY: Sue is a 50 year old female. She is 3 weeks status post right hip ORIF with cephlomedullary nail. She underwent a hip pinning on 05/24. She then fell backwards over the dog causing her to fracture the hip below the hip pinning. She underwent surgery again on 08/14. She has some complaints of pain in the hip. She states that pain is in the groin and thigh. This surgery is more painful then the first. She has been protective weight bearing with a walker. She denies any numbness in her foot. The patient's past medical history, surgical history, social history, family history, medications and allergies were reviewed with the patient today and are available in the chart for further review. REVIEW OF SYSTEMS: Patient did not have, and does not currently have, any weight loss, malaise, fever, chills, headache, cough, nausea, vomiting, diarrhea, constipation PHYSICAL EXAMINATION: PSYCH: Pleasant, good affect and mood General Appearance: Well appearing, alert, in no acute distress, well-hydrated, well nourished. Skin: Skin color, texture, turgor normal, no suspicious rashes or lesions. Peripheral Pulses: Normal. Neurologic: Gait normal. Reflexes normal and symmetric. Sensation grossly intact. On physical examination of the right hip, the incision is intact. There is no erythema or warmth. Passive hip motion is smooth and not irritable. Extensor mechanism is intact. Calf is soft and non-tender. Sensation is intact to light touch in the foot. Dorsalis pedal pulse is 2+ and palpable. RADIOGRAPHS: right hip films show hardware to be in stable position. Fracture is aligned. IMPRESSION: Encounter Diagnosis ICD-10-CM 1. Periprosthetic fracture of hip, subsequent encounter M97.8XXD Z96.649 PLAN: I reviewed the xrays with the patient. I have removed the tejal today. She needs to continue to be toe touch weight bearing with a walker. She can work on hip motion and quad strengthening like before. She remembers the exercises she can be doing from when therapy was at the house with the hip pinning. I recommended that she follow up with her PCP for potentially work up and treatment of osteoporosis. I will see her back in 1 month to see how things are coming along. We will get a new x-ray at that time and look to advance her weight bearing status. Marybel Mason PA-C [facility] 08-31-2020 Note HNO ID: [id number] Author: Carlos Lemon MD Service: ? Author Type: Physician Type: Progress Notes Filed: 09/01/2020 2:39 PM Note Text: HPI: Sue Momin, 50 year old female, presents in the office today at the request of Moriah Benavides for iron deficiency anemia, history of gastric bypass. My final recommendations will be communicated back to the requesting physician by the way of the shared medical record, fax, or via US Mail. Patient with anxiety and diabetes. Morbid obesity. RnY in 1999. Seen in hematology 06/25/20 Other iron deficiency anemia She was found to be severely anemic during a recent operation for a right femur fracture in early 2020. She required 2 units of PRBCs and recently received IV iron on 06/15/2020 due to poor absorption following her gastric bypass 20 year ago. She has had normalization of her hemoglobin today. ? She would also probably benefit from GI consult as she is 50 years old with iron deficiency anemia. Patient reluctant, but agrees. I will refer her today. No Prior colonoscopy. No FH of colon cancer. Recent Femur fractures x2. See Hospital Encounter from [facility] 07/2020 Current Medications: Current Outpatient Medications Medication Sig - aspirin, enteric coated (ASPIRIN, ENTERIC COATED) 81 mg EC tablet Take 1 tablet by mouth twice daily. - gabapentin (NEURONTIN) 300 mg capsule Take 1 capsule by mouth twice daily for 7 days, THEN 1 capsule daily at bedtime for 7 days. - oxyCODONE IR (ROXICODONE) 5 mg immediate release tablet Take 1-2 tablets by mouth every 4 hours as needed for pain. - naloxone 4 mg/actuation nasal spray (NARCAN) Use 1 spray in one nostril as needed for overdose. May repeat every 2 to 3 min in alternating nostrils until medical assistance is available - ascorbic acid, vitamin C, (VITAMIN C) 500 mg tablet Take 1 tablet by mouth twice daily with meals for 21 doses. - acetaminophen (TYLENOL) 500 mg tablet Take 2 tablets by mouth every 8 hours. - docusate sodium (COLACE) 100 mg capsule Take 1 capsule by mouth twice daily as needed for Constipation. - multivitamin tablet Take 1 tablet by mouth once daily. - glipiZIDE (GLUCOTROL XL) 10mg 24 hr tablet Take 10 mg by mouth once daily. - cholecalciferol (VITAMIN D-3) 50 mcg (2,000 unit) tablet Take 2,000 Units by mouth once daily. - PARoxetine (PAXIL) 10 mg tablet Take 10 mg by mouth once daily. - losartan (COZAAR) 50 mg tablet Take 50 mg by mouth once daily. - potassium chloride 20 mEq TbER Take by mouth. - INV FUROSEMIDE 40 MG TABLET ([facility] 18-610) Take by mouth. For Investigational Drug Use Only. PI: Jordan Joy MD. No current facility-administered medications for this visit. Past Medical History: PAST MEDICAL HISTORY Diagnosis Date - Diabetes (HCC) - Heartburn - Hypertension - Iron deficiency anemia - Iron deficiency anemia secondary to inadequate dietary iron intake 06/04/2020 - Morbidly obese (HCC) - Tobacco use disorder - Type II or unspecified type diabetes mellitus without mention of complication, not stated as uncontrolled history of ,prior to gastric bypass - Unspecified essential hypertension history of, prior to gastric bypass Surgical History: PAST SURGICAL HISTORY Procedure Laterality Date - DELIVERY ONLY X 2 - GASTRIC BYPASS 1999 - LEG/ANKLE SURGERY PROC UNLISTED does not know what surgery she had - LIGATE FALLOPIAN TUBE - PAST SURGICAL HISTORY OF 1999 gastric bypass surgery - PAST SURGICAL HISTORY OF c-sections, 1990 and 1992 - PAST SURGICAL HISTORY OF Bilateral 1980 achilles tendon lengthening - PAST SURGICAL HISTORY OF Right 1976 right wrist surgery following fracture - PAST SURGICAL HISTORY OF wisdom teeth extraction Family History: FAMILY HISTORY Problem Relation Age of Onset - Diabetes Mother - Diabetes Father - Hypertension Mother - Hypertension Father - Blood Disease Maternal Grandmother - Prostate Cancer Paternal Grandfather Social History: Social History Tobacco Use - Smoking status: Former Smoker Packs/day: 0.10 Years: 8.00 Pack years: 0.80 Types: Cigarettes Quit date: 05/23/2020 Years since quittin.2 - Smokeless tobacco: Never Used Substance Use Topics - Alcohol use: Yes Alcohol/week: 7.8 standard drinks Types: 6 Mixed Drinks per week Comment: 6 drinks/week - Drug use: Never Allergies: ALLERGIES Allergen Reactions - Envoirnmental [Othe* - Latex Rash Rash - itch and swelling REVIEW OF SYSTEMS GENERAL: No weight loss, malaise or fevers HEENT: Negative for frequent or significant headaches, No changes in hearing or vision, no nose bleeds or other nasal problems NECK: Negative for lumps, goiter, pain and significant neck swelling RESPIRATORY: Negative for cough, hemoptysis, wheezing, COPD, dyspnea or shortness of breath CARDIOVASCULAR: Negative for chest pain, leg swelling, hypertension, CHF or palpitations GI: No nausea, vomiti (more content not included)... [facility] 08-30-2020 Note HNO ID: [id number] Author: RT Coral(Emilee) Service: ? Author Type: Printed Circuit Boards Stripper Etcher Type: Progress Notes Filed: 08/30/2020 8:15 AM Note Text: Radiology Service Progress Note PATIENT NAME: Sue Momin DATE OF SERVICE: August 30, 2020 TIME: 8:13 AM PATIENT IDENTITY VERIFICATION COMPLETED USING TWO (2) IDENTIFIERS: Name and Date of confirmed by patient verbally. FALL SCREENING: Has the patient had 2 falls in the last year or 1 fall with injury or currently using an Ambulatory Assistive Device (Walker, Cane, Wheelchair, Crutches, etc.)? Yes, Patient High Risk for Falls What interventions were put in place to prevent falls during this visit? Instructed Patient to Call for Help if Needed, Offered Assistance with Transfers/Clothing, Instructed Patient to Remain Seated (Not on Exam Table) Until Exam and Increased Observations by Caregivers PATIENT GENDER DATA: Female. status: : No status: NO. PATIENT RELEVANT IMPLANT DATA REVIEWED: Not Applicable RADIOLOGY DEPARTMENT: General X-ray: Exam(s) Completed: Pelvis X-Ray: Pelvis with Hip Right PERIPHERAL IV DATA: Not applicable SIGNED BY: RT Coral(Emilee) August 30, 2020 8:13 AM [facility] 08-17-2020 Note HNO ID: [id number] Author: Ingrid Yoder ([employer]) Service: ? Author Type: ? Type: Plan of Care Filed: 08/17/2020 4:32 PM Note Text: The following medications were delivered to the patient: Medication List START taking these medications aspirin, enteric coated 81 mg EC tablet Commonly known as: ASPIRIN, ENTERIC COATED Take 1 tablet by mouth twice daily. X gabapentin 300 mg capsule Commonly known as: NEURONTIN Take 1 capsule by mouth twice daily for 7 days, THEN 1 capsule daily at bedtime for 7 days. Start taking on: August 17, 2020 naloxone 4 mg/actuation nasal spray Use 1 spray in one nostril as needed for overdose. May repeat every 2 to 3 min in alternating nostrils until medical assistance is available X oxyCODONE IR 5 mg immediate release tablet Commonly known as: ROXICODONE Take 1-2 tablets by mouth every 4 hours as needed for pain. CONTINUE taking these medications acetaminophen 500 mg tablet Commonly known as: TYLENOL Take 2 tablets by mouth every 8 hours. ascorbic acid (vitamin C) 500 mg tablet Commonly known as: VITAMIN C Take 1 tablet by mouth twice daily with meals for 21 doses. docusate sodium 100 mg capsule Commonly known as: COLACE Take 1 capsule by mouth twice daily as needed for Constipation. glipiZIDE XL 10 mg 24 hr tablet Commonly known as: GLUCOTROL XL INV FUROSEMIDE 40 MG TABLET ([facility] 18-610) losartan 50 mg tablet Commonly known as: COZAAR multivitamin tablet PARoxetine 10 mg tablet Commonly known as: PAXIL potassium chloride 20 mEq Tber Vitamin D-3 50 mcg (2,000 unit) tablet Generic drug: cholecalciferol You might also be taking other medications not listed above. If you have questions about any of your other medications, talk to the person who prescribed them or your Primary Care Provider. Ingrid Yoder (Foot Doctor) PAGER: nico August 17, 2020 4:[address] [facility] 08-17-2020 Note HNO ID: [id number] Author: Ethan Best PA-C Service: Orthopaedic Surgery Author Type: Physician Temp Recruiter Type: Progress Notes Filed: 08/17/2020 9:29 AM Note Text: ORTHOPAEDIC POSTOP PROGRESS NOTE SERVICE DATE: 08/17/2020 SERVICE TIME: 0920 Subjective Patient states that they are comfortable Well Controlled hip pain. Pain better controlled today compared to yesterday. Denies incisional pain. Objective VITAL SIGNS: BP 112/53 Pulse 69 Temp 37 ?C (98.6 ?F) (Oral) Resp 17 Ht 162.6 cm (5' 4 ) Wt 102.5 kg (225 lb 15.5 oz) LMP 05/12/2020 (Approximate) SpO2 96% BMI 38.79 kg/m? INTAKE AND OUTPUT: Intake/Output Summary (Last 24 hours) at 08/17/2020924 Last data filed at 08/16/2020 1900 Gross per 24 hour Intake 540 ml Output 300 ml Net 240 ml PHYSICAL EXAMINATION: General appearance: Well appearing, alert, in no acute distress, well-hydrated, well nourished. Lungs: Unlabored on room air Right Lower Extremity: Dorsalis pedis pulses palpable. Posterior tibial pulses palpable. Dorsi flexion 5/5. Plantar flexion 5/5. Extensor hallucis extension: 5/5. Sensory intact to light touch L1-S1. Dressing clean, dry and intact. Surgical site Aquacell intact. Compartments soft. Negative Katie's sign. Problem Review and Assessment: Patient monitored, no new events overnight. LABS: Recent Labs 08/16/20 0635 08/15/20 1050 HB 12.3 12.4 HCT 37.7 37.1 DATA: Diagnostic tests reviewed for today's visit: Most recent labs and imaging results. Assessment/Plan S/P Procedure(s) (LRB): REMOVAL HARDWARE HIP ADULT (Right) INSERTION NAIL / ZUHAIR INTRAMEDULLARY OPEN REDUCTION FEMUR (Right) on 08/14/2020 POSTOP PLAN: Physical Therapy evaluation Occupational Therapy evaluation Pain control ASA for DVT prophylaxis 5% TTWB with assist device Discharge planning Patient is orthopaedically stable for discharge at any time. Plan discussed with orthopedic surgical attending Dr. Ayala this AM. ACTIVE PROBLEM LIST Class 3 Severe Obesity Due to Excess Calories Without Serious Comorbidity With Body Mass Index (Bmi) of 40.0 to 44.9 in Adult (Hcc) Essential Hypertension Type 2 Diabetes Mellitus Without Complication, Without Long-Term Current Use of Insulin (Hcc) Heartburn Iron Deficiency Anemia Nicotine use disorder, F17.2 Stress Fracture of Right Femur Cardiac Murmur, Unspecified Iron Deficiency Anemia Secondary to Inadequate Dietary Iron Intake Closed Fracture of Right Hip With Delayed Healing Fall Closed Right Hip Fracture (Hcc) Obesity, Class II, Bmi 35-39.9 Periprosthetic Hip Fracture Medication and Non-Pharmacologic VTE Prophylaxis/Anticoagulants Anticoagulant AND Antiplatelet Medications (From admission, onward) Comment Start Dose Route Frequency Last Action Ordered Stop 08/15/20 0900 aspirin, enteric coated 81 mg tab(s) (Surgical Risk Categories) 81 mg ORAL 2 TIMES DAILY Given, 08/17 0840 08/14/20 1149 -- 08/14/20 1200 pneumatic compression stockings (fl,oh) 08/14/20 1200 graduated compression stockings (nj,oh) 08/14/20 1200 activity - mobilize patient (nj,oh) 08/14/20 1200 activity - mobilize patient (nj,oh) 08/14/20 1200 activity - mobilize patient (nj,oh) VTE Prophylaxis: VTE prophylaxis appropriate POST OPERATIVE COMPLICATIONS: Complicated by: pain control issues SIGNATURE: Ethan Best PA-C PATIENT NAME: Sue Momin DATE: August 17, 2020 TIME: 9:29 AM ETX#[id number] [facility] 08-16-2020 Note HNO ID: [id number] Author: Clay Ayala Jr., MD Service: Orthopaedic Surgery Author Type: Physician Type: Progress Notes Filed: 08/16/2020 4:41 PM Note Text: ORTHOPAEDIC SURGERY POSTOP PROGRESS NOTE Patient Name: Sue Momin Admission Date: 08/12/2020 Date of Evaluation: 08/16/2020 Time of Evaluation: 4:39 PM Hospital/POD # 2 S/P: Right hip hardware removal, open reduction internal fixation, cephalomedullary nailling INTERVAL HPI: Ms. Momin reports excessive pain. Overnight events noted: none. OBJECTIVE: Patient Vitals for the past 24 hrs: BP Temp Temp src Pulse Resp SpO2 08/16/20 1612 ? ? ? 72 ? 97 % 08/16/20 1611 109/51 37.2 ?C (99 ?F) Oral 79 17 89 % 08/16/20 1226 121/64 36.6 ?C (97.9 ?F) Oral 89 18 98 % 08/16/20 0736 123/71 36.7 ?C (98.1 ?F) Oral 92 17 97 % 08/16/20 0200 ? 16 ? 08/16/20 0053 161/65 ? 08/16/20 0051 173/79 36.7 ?C (98.1 ?F) Oral 118 16 96 % 08/15/20 1956 150/59 36.6 ?C (97.9 ?F) Oral 78 16 92 % Intake/Output Summary (Last 24 hours) at 08/16/2020 1639 Last data filed at 08/16/2020 1500 Gross per 24 hour Intake 540 ml Output 1375 ml Net -835 ml Hemovac Drain output: N/A right hip exam: Dressing clean/dry/intact Negative Katie's, No calf tenderness, No palpable cords Compartments soft Sensation to light touch intact Positive distal pulses Positive EHL/FHL/AT/GS/Quad/HS Labs: CBC: WBC 7.37 08/16/2020 Hemoglobin 12.3 08/16/2020 Hematocrit 37.7 08/16/2020 Platelet Count 248 08/16/2020 CMP: Sodium 132 08/16/2020 Potassium 4.0 08/16/2020 BUN 11 08/16/2020 Creatinine 0.64 08/16/2020 Glucose 134 08/16/2020 COAGS: APTT 27.9 08/12/2020 PT INR 1.0 08/12/2020 URINALYSIS: Ketones, Urine Trace 05/26/2020 Nitrites Negative 05/26/2020 Specific [place], Ur 1.028 05/26/2020 Protein, Urine Negative 05/26/2020 Leukest 2+ 05/26/2020 Leukocytes 6-10 05/26/2020 Bacteria Present 05/26/2020 SED RATE/CRP: No results found for this basename: wsr:*,crp:* SURGICAL PATHOLOGY: N/A FLUID/CULTURE ANALYSIS: N/A Imaging: Not applicable. ASSESSMENT: - Orthopedically stable - Post op pain PLAN: 1. Postop course: - Physical therapy, toe touch weight bearing 5% with assistance device - Labs, monitoring daily - Maintain dressing - ice and elevation - Intermittent pneumatic compression device (IPC) - Out of bed and ambulate - aspirin 81mg PO BID, aspirin for DVT prophylaxis to reduce risk of bleeding 2. Medical intervention: Pain management consult 3. Disposition: D/C planning ELECTRONICALLY SIGNED: Clay Ayala Jr, MD 08/16/2020 4:[address] [facility] 08-16-2020 Note HNO ID: [id number] Author: eNlla Joseph RN Service: Care Management Author Type: Registered Nurse Type: Care Mgt Progress Note Filed: 08/16/2020 11:40 AM Note Text: CARE MANAGEMENT PROGRESS NOTE SERVICE DATE: 08/16/2020 SERVICE TIME: 11:36 AM LOS: 4 days [place] of Choice Given: No Reason Not Given: Patient refused Met with patient for continued discharge planning. HHC offered. Patient declines HHC at this time as she states she just went through this and doesn't feel like she needs anything. Patient has wc and walker at home. SIGNATURE: Nella Joseph RN PATIENT NAME: Sue Momin DATE: August 16, 2020 TIME: 11:36 AM PAGER/CONTACT #: [phone] [facility] 08-16-2020 Note HNO ID: [id number] Author: Latia Molina DO Service: Hospital Medicine Author Type: Physician Type: Progress Notes Filed: 08/16/2020 3:51 PM Note Text: DEPARTMENT OF HOSPITAL MEDICINE PROGRESS NOTE SERVICE DATE: 08/16/2020 SERVICE TIME: 11:21 AM Hospital Medicine/Primary Attending: Latia Molina DO NIGHT AND WEEKEND COVERAGE: [place] COVERAGE: Days: [phone], please contact via [employer] Nights: [phone], please page [facility] Hospitalist Night coverage pager [phone] Subjective INTERVAL HPI: uncontrolled pain overnight, despite scheduled acetaminophen, OxyIR q 3 hours prn and IV morphine for breakthrough. Current Facility-Administered Medications Medication Dose Route Frequency - dextrose 40 % 15 g 15 g ORAL PRN Or - glucagon 1 mg injection 1 mg INTRAMUSCULAR PRN Or - dextrose 50% in water 25 mL syringe 12.5 g INTRAVENOUS PRN - losartan 50 mg tab(s) (COZAAR) 50 mg ORAL DAILY - PARoxetine 10 mg tab(s) (PAXIL) 10 mg ORAL DAILY - miconazole 2 % 1 application topical powder (LOTRIMIN AF, DESENEX) 1 application TOPICAL BID - polyethylene glycol 3350 17 g packet (MIRALAX, GLYCOLAX) 17 g ORAL DAILY - bisacodyl 10 mg suppository (DULCOLAX) 10 mg RECTAL DAILY PRN - sodium chloride 0.9 % (flush) 2-10 mL (BD POSIFLUSH) 2-10 mL INTRAVENOUS q 12 H - morphine 2 mg injection 2 mg INTRAVENOUS q 2 H PRN - oxyCODONE IR 5-10 mg tab(s) (ROXICODONE) 5-10 mg ORAL q 3 H PRN - oxyCODONE IR 5 mg tab(s) (ROXICODONE) 5 mg ORAL q 4 H PRN - acetaminophen 1,000 mg tab(s) (TYLENOL) 1,000 mg ORAL q 8 H - ondansetron 4 mg tab(s) (ZOFRAN) 4 mg ORAL q 6 H PRN Or - ondansetron (PF) 4 mg injection (ZOFRAN) 4 mg INTRAVENOUS q 6 H PRN - magnesium hydroxide 400 mg/5 mL 30 mL (MOM) 30 mL ORAL DAILY PRN - bisacodyl EC 10 mg tab(s) (DULCOLAX) 10 mg ORAL DAILY - aluminum-magnesium hydroxide-simethicone 200-200-20 mg/5 mL 30 mL (MAALOX,MYLANTA,MAG-AL PLUS) 30 mL ORAL q 2 H PRN - ferrous sulfate 325 mg tab(s) 325 mg ORAL DAILY wLUNCH - ascorbic acid (vitamin C) 500 mg tab(s) (VITAMIN C) 500 mg ORAL BID w MEALS - senna 17.2 mg tab(s) (SENOKOT) 17.2 mg ORAL AT BEDTIME - aspirin, enteric coated 81 mg tab(s) 81 mg ORAL BID - NaCl 0.9% iv infusion 75 mL/hr INTRAVENOUS CONTINUOUS - insulin lispro injection (rapid acting) (HumaLOG) SUBCUTANEOUS AC and HS Objective PHYSICAL EXAM: BP 123/71 Pulse 92 Temp (Src) 98.1 (Oral) Resp 17 Ht 5' 4 (1.63m) Wt 225 lb 15.5 oz (102.5kg) SpO2 97% LMP 05/12/2020 BMI 38.77 kg/(m2). O2 Therapy: Room Air Physical Exam Performed Gen: NAD, AANDO HEENT: MMM Heart: RRR Lungs: CTAB. No accessory muscle use Abd: soft, NT, ND. NABS. No masses Ext: no edema. R hip incisions bandaged. No surrounding ecchymosis. Skin: no rashes Neuro: Face symmetric. Moves all four extremities without gross deficits. Lines, Drains, and Airways Line Peripheral 08/13/20 0000 Assessment Short Left Hand 22 Gauge 3 days Drain External Collection Device 08/12/20 2330 3 days Reviewed Ya and needs to be continued: REASONS: Surgery related/surgical need DATA: Diagnostic tests reviewed for today's visit: Most recent labs Assessment/Plan Problem List Periprosthetic hip fracture POA: . Type 2 diabetes mellitus without complication, without long-term current use of insulin ([facility]) POA: Yes Essential hypertension POA: Yes Class 3 severe obesity due to excess calories without serious comorbidity with body mass index (BMI) of 40.0 to 44.9 in adult (HCC) POA: Yes Nicotine use disorder, F17.2 POA: Yes Obesity, Class II, BMI 35-39.9 POA: . Closed fracture of right hip with extension to the hardware Due to mechanical fall CT of the right hip from [facility]: suspect acute right hip fracture extending to hardware Appreciate ortho input-?s/p hardware removal and short cephalomedullary nailing 08/14/2020 Continue attempts at pain control. Pain Management consult appreciated. DVT prophylaxis as per Orthopedics: ASA 81mg PO BID. Activity status: TTWB 5% right leg. ?Type 2 diabetes mellitus without complication, without long-term current use of insulin ([facility]) BG reviewed. Stable. Correctional insulin while NPO Takes glipizide at home (held) ? Essential hypertension Stable. Continue home Losartan ? Medication and Non-Pharmacologic VTE Prophylaxis/Anticoagulants Anticoagulant AND Antiplatelet Medications (From admission, onward) Comment Start Dose Route Frequency Last Action Ordered Stop 08/15/20 0900 aspirin, enteric coated 81 mg tab(s) (Surgical Risk Categories) 81 mg ORAL 2 TIMES DAILY Given, 08/16 0944 08/14/20 1149 -- VTE Prophylaxis: VTE prophylaxis appropriate Disposition: home once pain controlled Latia Molina DO August 16, 2020 11:[address] [facility] 08-15-2020 Note HNO ID: [id number] Author: Clay Ayala Jr., MD Service: Orthopaedic Surgery Author Type: Physician Type: Progress Notes Filed: 08/15/2020 11:42 AM Note Text: ORTHOPAEDIC SURGERY POSTOP PROGRESS NOTE Patient Name: Sue Momin Admission Date: 08/12/2020 Date of Evaluation: 08/15/2020 Time of Evaluation: 11:40 AM Hospital/POD # 1 S/P: Right hip hardware removal, open reduction internal fixation, cephalomedullary nailling INTERVAL HPI: Ms. Momin reports pain. Overnight events noted: none. OBJECTIVE: Patient Vitals for the past 24 hrs: BP Temp Temp src Pulse Resp SpO2 08/15/20 0731 129/58 36.7 ?C (98.1 ?F) Oral 76 18 98 % 08/15/20 0434 114/75 36.7 ?C (98.1 ?F) Oral 85 16 97 % 08/15/20 0242 ? 16 ? 08/14/20 2305 157/69 36.6 ?C (97.9 ?F) Oral 71 16 98 % 08/14/20 2039 ? 16 ? 08/14/20 2007 186/69 36.6 ?C (97.9 ?F) Oral 70 16 97 % 08/14/20 1533 167/69 36.5 ?C (97.7 ?F) Oral 63 20 92 % 08/14/20 1217 138/67 36.3 ?C (97.4 ?F) Oral 65 20 96 % 08/14/20 1146 132/51 36.4 ?C (97.5 ?F) Axillary 63 18 97 % Intake/Output Summary (Last 24 hours) at 08/15/2020 1140 Last data filed at 08/15/2020 0913 Gross per 24 hour Intake 1100 ml Output 2800 ml Net -1700 ml Hemovac Drain output: N/A right hip and thigh exam: Dressing clean/dry/intact Negative Katie's, No calf tenderness, No palpable cords Compartments soft Sensation to light touch intact Positive distal pulses Positive EHL/FHL/AT/GS/Quad/HS Labs: CBC: WBC 6.75 08/15/2020 Hemoglobin 12.4 08/15/2020 Hematocrit 37.1 08/15/2020 Platelet Count 249 08/15/2020 CMP: Sodium 134 08/14/2020 Potassium 4.5 08/14/2020 BUN 9 08/14/2020 Creatinine 0.63 08/14/2020 Glucose 181 08/14/2020 COAGS: APTT 27.9 08/12/2020 PT INR 1.0 08/12/2020 URINALYSIS: Ketones, Urine Trace 05/26/2020 Nitrites Negative 05/26/2020 Specific [place], Ur 1.028 05/26/2020 Protein, Urine Negative 05/26/2020 Leukest 2+ 05/26/2020 Leukocytes 6-10 05/26/2020 Bacteria Present 05/26/2020 SED RATE/CRP: No results found for this basename: wsr:*,crp:* SURGICAL PATHOLOGY: N/A FLUID/CULTURE ANALYSIS: N/A Imaging: Not applicable. ASSESSMENT: - Appropriate postop course - Orthopedically stable PLAN: 1. Postop course: - Physical therapy, toe touch weight bearing 5% with assistance device - Antibiotics, post-op antibiotics per protocol - Labs, monitoring daily - Maintain dressing - ice and elevation - operative findings discussed with patient - Intermittent pneumatic compression device (IPC) - Out of bed and ambulate - aspirin 81mg PO BID, aspirin for DVT prophylaxis to reduce risk of bleeding 2. Medical intervention: ABOVE 3. Disposition: D/C planning ELECTRONICALLY SIGNED: Clay Ayala Jr, MD 08/15/2020 11:[address] [facility] 08-15-2020 Note HNO ID: [id number] Author: Latia Molina DO Service: Hospital Medicine Author Type: Physician Type: Progress Notes Filed: 08/15/2020 3:46 PM Note Text: DEPARTMENT OF HOSPITAL MEDICINE PROGRESS NOTE SERVICE DATE: 08/15/2020 SERVICE TIME: 10:55 AM Hospital Medicine/Primary Attending: Latia Molina DO NIGHT AND WEEKEND COVERAGE: [place] COVERAGE: Days: [phone], please contact via [employer] Nights: [phone], please page CC Hospitalist Night coverage pager [phone] Subjective INTERVAL HPI: uncontrolled pain overnight. Some improvement today. Current Facility-Administered Medications Medication Dose Route Frequency - dextrose 40 % 15 g 15 g ORAL PRN Or - glucagon 1 mg injection 1 mg INTRAMUSCULAR PRN Or - dextrose 50% in water 25 mL syringe 12.5 g INTRAVENOUS PRN - insulin lispro injection (rapid acting) (HumaLOG) SUBCUTANEOUS q 6 H - losartan 50 mg tab(s) (COZAAR) 50 mg ORAL DAILY - PARoxetine 10 mg tab(s) (PAXIL) 10 mg ORAL DAILY - miconazole 2 % 1 application topical powder (LOTRIMIN AF, DESENEX) 1 application TOPICAL BID - polyethylene glycol 3350 17 g packet (MIRALAX, GLYCOLAX) 17 g ORAL DAILY - bisacodyl 10 mg suppository (DULCOLAX) 10 mg RECTAL DAILY PRN - sodium chloride 0.9 % (flush) 2-10 mL (BD POSIFLUSH) 2-10 mL INTRAVENOUS q 12 H - morphine 2 mg injection 2 mg INTRAVENOUS q 2 H PRN - oxyCODONE IR 5-10 mg tab(s) (ROXICODONE) 5-10 mg ORAL q 3 H PRN - oxyCODONE IR 5 mg tab(s) (ROXICODONE) 5 mg ORAL q 4 H PRN - acetaminophen 1,000 mg tab(s) (TYLENOL) 1,000 mg ORAL q 8 H - ondansetron 4 mg tab(s) (ZOFRAN) 4 mg ORAL q 6 H PRN Or - ondansetron (PF) 4 mg injection (ZOFRAN) 4 mg INTRAVENOUS q 6 H PRN - magnesium hydroxide 400 mg/5 mL 30 mL (MOM) 30 mL ORAL DAILY PRN - [START ON 08/16/2020] bisacodyl EC 10 mg tab(s) (DULCOLAX) 10 mg ORAL DAILY - aluminum-magnesium hydroxide-simethicone 200-200-20 mg/5 mL 30 mL (MAALOX,MYLANTA,MAG-AL PLUS) 30 mL ORAL q 2 H PRN - ferrous sulfate 325 mg tab(s) 325 mg ORAL DAILY wLUNCH - ascorbic acid (vitamin C) 500 mg tab(s) (VITAMIN C) 500 mg ORAL BID w MEALS - senna 17.2 mg tab(s) (SENOKOT) 17.2 mg ORAL AT BEDTIME - aspirin, enteric coated 81 mg tab(s) 81 mg ORAL BID - NaCl 0.9% iv infusion 75 mL/hr INTRAVENOUS CONTINUOUS Objective PHYSICAL EXAM: BP 129/58 Pulse 76 Temp (Src) 98.1 (Oral) Resp 18 Ht 5' 4 (1.63m) Wt 225 lb 15.5 oz (102.5kg) SpO2 98% LMP 05/12/2020 BMI 38.77 kg/(m2). O2 Therapy: Room Air Physical Exam Performed Gen: NAD, AANDO HEENT: MMM Heart: RRR Lungs: CTAB. No accessory muscle use Abd: soft, NT, ND. NABS. No masses Ext: no edema. R hip incisions bandaged. No surrounding ecchymosis. Skin: no rashes Neuro: Face symmetric. Moves all four extremities without gross deficits. Lines, Drains, and Airways Line Peripheral 08/13/20 0000 Assessment Short Left Hand 22 Gauge 2 days Drain External Collection Device 08/12/20 2330 2 days Reviewed Ya and needs to be continued: REASONS: Surgery related/surgical need DATA: Diagnostic tests reviewed for today's visit: Most recent labs Assessment/Plan Problem List Periprosthetic hip fracture POA: . Type 2 diabetes mellitus without complication, without long-term current use of insulin ([facility]) POA: Yes Essential hypertension POA: Yes Class 3 severe obesity due to excess calories without serious comorbidity with body mass index (BMI) of 40.0 to 44.9 in adult (HCC) POA: Yes Nicotine use disorder, F17.2 POA: Yes Obesity, Class II, BMI 35-39.9 POA: . Closed fracture of right hip with extension to the hardware Due to mechanical fall CT of the right hip from [facility]: suspect acute right hip fracture extending to hardware Appreciate ortho input-?s/p hardware removal and short cephalomedullary nailing 08/14/2020 Continue attempts at pain control. DVT prophylaxis as per Orthopedics: ASA 81mg PO BID. Activity status: TTWB 5% right leg. ?Type 2 diabetes mellitus without complication, without long-term current use of insulin ([facility]) BG reviewed. Stable. Correctional insulin while NPO Takes glipizide at home (held) ? Essential hypertension Stable. Continue home Losartan ? Medication and Non-Pharmacologic VTE Prophylaxis/Anticoagulants Anticoagulant AND Antiplatelet Medications (From admission, onward) Comment Start Dose Route Frequency Last Action Ordered Stop 08/15/20 0900 aspirin, enteric coated 81 mg tab(s) (Surgical Risk Categories) 81 mg ORAL 2 TIMES DAILY Given, 08/15 0908 08/14/20 1149 -- VTE Prophylaxis: VTE prophylaxis appropriate Disposition: home tomorrow once pain more controlled Latia Molina DO August 15, 2020 11:[address] [facility] 08-14-2020 Note HNO ID: [id number] Author: Latia Molina DO Service: Hospital Medicine Author Type: Physician Type: Progress Notes Filed: 08/14/2020 4:32 PM Note Text: DEPARTMENT OF HOSPITAL MEDICINE PROGRESS NOTE SERVICE DATE: 08/14/2020 SERVICE TIME: 10:12 AM Hospital Medicine/Primary Attending: Latia Molina DO NIGHT AND WEEKEND COVERAGE: [place] COVERAGE: Days: [phone], please contact via [employer] Nights: [phone], please page CC Hospitalist Night coverage pager [phone] Subjective INTERVAL HPI: no overnight events. To OR this morning. Pain controlled. Some numbness still in the foot. Current Facility-Administered Medications Medication Dose Route Frequency - [MAR Hold due to Transfer] NaCl 0.9% iv infusion 100 mL/hr INTRAVENOUS CONTINUOUS - [MAR Hold due to Transfer] dextrose 40 % 15 g 15 g ORAL PRN Or - [MAR Hold due to Transfer] glucagon 1 mg injection 1 mg INTRAMUSCULAR PRN Or - [MAR Hold due to Transfer] dextrose 50% in water 25 mL syringe 12.5 g INTRAVENOUS PRN - [MAR Hold due to Transfer] insulin lispro injection (rapid acting) (HumaLOG) SUBCUTANEOUS q 6 H - [MAR Hold due to Transfer] ondansetron (PF) 4 mg injection (ZOFRAN) 4 mg INTRAVENOUS q 6 H PRN - [MAR Hold due to Transfer] losartan 50 mg tab(s) (COZAAR) 50 mg ORAL DAILY - [MAR Hold due to Transfer] docusate sodium 100 mg cap(s) (COLACE) 100 mg ORAL BID PRN - [MAR Hold due to Transfer] PARoxetine 10 mg tab(s) (PAXIL) 10 mg ORAL DAILY - [MAR Hold due to Transfer] heparin 5,000 Units injection 5,000 Units SUBCUTANEOUS q 12 H - [MAR Hold due to Transfer] miconazole 2 % 1 application topical powder (LOTRIMIN AF, DESENEX) 1 application TOPICAL BID - [MAR Hold due to Transfer] HYDROcodone 5 mg - acetaminophen 325 mg tablet (NORCO) 1-2 tablet ORAL q 6 H PRN - [MAR Hold due to Transfer] morphine 4 mg injection 4 mg INTRAVENOUS q 4 H PRN - [MAR Hold due to Transfer] polyethylene glycol 3350 17 g packet (MIRALAX, GLYCOLAX) 17 g ORAL DAILY - [MAR Hold due to Transfer] bisacodyl 10 mg suppository (DULCOLAX) 10 mg RECTAL DAILY PRN Facility-Administered Medications Ordered in Other Encounters Medication Dose Route Frequency - ketamine injection (KETALAR) INTRAVENOUS PRN - midazolam (PF) injection (VERSED) INTRAVENOUS PRN - propofol injection (DIPRIVAN) INTRAVENOUS PRN - propofol infusion (DIPRIVAN) INTRAVENOUS X (ONE-STEP ONLY) CONTINUOUS PRN - PHENYLephrine 10 mg/mL injection (CORBIN-SYNEPHRINE) INTRAVENOUS PRN - glycopyrrolate injection (ROBINUL) INTRAVENOUS PRN - ePHEDrine injection (AKOVAZ) INTRAVENOUS PRN - fentaNYL 50 mcg/mL injection (SUBLIMAZE) INTRAVENOUS PRN - ondansetron (PF) injection (ZOFRAN) INTRAVENOUS PRN - dexAMETHasone sodium phosphate injection (DECADRON) INTRAVENOUS PRN - lactated ringers iv infusion INTRAVENOUS X (ONE-STEP ONLY) CONTINUOUS PRN Objective PHYSICAL EXAM: BP 132/63 Pulse 50 Temp (Src) 97.9 (Oral) Resp 16 Ht 5' 4 (1.63m) Wt 225 lb 15.5 oz (102.5kg) SpO2 100% LMP 05/12/2020 BMI 38.77 kg/(m2). O2 Therapy: Room Air Physical Exam Performed Gen: NAD, AANDO HEENT: MMM Heart: RRR Lungs: CTAB. No accessory muscle use Abd: soft, NT, ND. NABS. No masses Ext: no edema. R hip incisions bandaged. No surrounding ecchymosis. Skin: no rashes Neuro: Face symmetric. Moves all four extremities without gross deficits. Lines, Drains, and Airways Line Peripheral 08/13/20 0000 Assessment Short Left Hand 22 Gauge 1 day Drain External Collection Device 08/12/20 2330 1 day Reviewed Ya and needs to be continued: REASONS: Surgery related/surgical need DATA: Diagnostic tests reviewed for today's visit: Most recent labs Assessment/Plan Problem List Periprosthetic hip fracture POA: . Type 2 diabetes mellitus without complication, without long-term current use of insulin (HCC) POA: Yes Essential hypertension POA: Yes Class 3 severe obesity due to excess calories without serious comorbidity with body mass index (BMI) of 40.0 to 44.9 in adult (HCC) POA: Yes Nicotine use disorder, F17.2 POA: Yes Obesity, Class II, BMI 35-39.9 POA: . Closed fracture of right hip with extension to the hardware Due to mechanical fall CT of the right hip from [facility]: suspect acute right hip fracture extending to hardware Appreciate ortho input-?s/p hardware removal and short cephalomedullary nailing today. Pain control. DVT prophylaxis as per Orthopedics. ?Type 2 diabetes mellitus without complication, without long-term current use of insulin (HCC) BG reviewed. Stable. Correctional insulin while NPO Takes glipizide at home (held) ? Essential hypertension Stable. Continue home Losartan ? Medication and Non-Pharmacologic VTE Prophylaxis/Anticoagulants Anticoagulant AND Antiplatelet Medications (From admission, onward) Comment Start Dose Route Frequency Last Action Ordered Stop 08/12/20 1530 [MAR Hold due to Transf (more content not included)... [facility] 08-14-2020 Note HNO ID: [id number] Author: Tato Zafar MD Service: Anesthesiology Author Type: Anesthesiologist Type: Anesthesia Procedure Notes Filed: 08/14/2020 8:38 AM Note Text: ANESTHESIOLOGY PROCEDURE NOTE Spinal Block General Information Procedure Start Time/Medication Administration: 08/14/2020 8:20 AM Patient location during procedure: OR Timeout Performed Pre-procedure: timeout performed Consent Obtained: Yes Patient identity confirmed: arm band and patient Reason for Block: primary surgical anesthetic Staffing Anesthesiologist: Tato Zafar MD Preparation Sterility Preparation: hand hygiene performed prior to procedure, surgical cap used, mask used, sterile drape used during line insertion, skin prep agent completely dried prior to procedure Site Prep: Duraprep Procedure Details Patient Position: sitting Monitoring: Pulse Ox and NIBP Approach: Midline Location: L4-5 Injection Technique: single-shot Needle Needle Type: cutting Needle Gauge: 22 G Needle Length: 3.5 in Assessment Events: tolerated well Medications Administered Bupivacaine-dextrose 0.75 % (7.5 mg/mL) injection (SENSORCAINE MPF SPINAL), 1.6 mL SIGNATURE: Tato Zafar MD PATIENT NAME: Sue Momin DATE: August 14, 2020 TIME: 8:37 AM CSN: [id number] [facility] 08-13-2020 Note HNO ID: [id number] Author: Sylvester De La Cruz MD Service: Hospital Medicine Author Type: Physician Type: Progress Notes Filed: 08/13/2020 6:22 PM Note Text: DEPARTMENT OF HOSPITAL MEDICINE Sylvester De La Cruz MD SERVICE DATE: 08/13/2020 Code Status: Not on file SERVICE TIME: 11:01 AM Primary Care Physician: Alek Sherwood MD NIGHT AND WEEKEND COVERAGE: [place] COVERAGE: Days: [phone], please contact via [employer] Nights: [phone], please page CC Hospitalist Night coverage pager [phone] HPI: Underwent right hip percutaneous pinning on 05/24/2020 She was on the verge of returning back to work but sustained a fall. CT at [facility] showed right femur fracture extending to the hardware Transferred to [facility] per request PRIOR TO ADMISSION MEDICATIONS: ascorbic acid, vitamin C, (VITAMIN C) 500 mg tablet, Take 1 tablet by mouth twice daily with meals for 21 doses., Disp: 21 tablet, Rfl: 0 acetaminophen (TYLENOL) 500 mg tablet, Take 2 tablets by mouth every 8 hours., Disp: , Rfl: , Unknown at Unknown time docusate sodium (COLACE) 100 mg capsule, Take 1 capsule by mouth twice daily as needed for Constipation., Disp: , Rfl: , Unknown at Unknown time multivitamin tablet, Take 1 tablet by mouth once daily., Disp: , Rfl: , Unknown at Unknown time glipiZIDE (GLUCOTROL XL) 10mg 24 hr tablet, Take 10 mg by mouth once daily., Disp: , Rfl: , Unknown at Unknown time cholecalciferol (VITAMIN D-3) 50 mcg (2,000 unit) tablet, Take 2,000 Units by mouth once daily., Disp: , Rfl: , Unknown at Unknown time PARoxetine (PAXIL) 10 mg tablet, Take 10 mg by mouth once daily., Disp: , Rfl: , Unknown at Unknown time losartan (COZAAR) 50 mg tablet, Take 50 mg by mouth once daily., Disp: , Rfl: , Unknown at Unknown time potassium chloride 20 mEq TbER, Take by mouth., Disp: , Rfl: INV FUROSEMIDE 40 MG TABLET (IRB 18-610), Take by mouth. For Investigational Drug Use Only. PI: Jordan Joy MD., Disp: , Rfl: , Unknown at Unknown time ALLERGIES Allergen Reactions - Envoirnmental [Othe* - Latex Rash Rash - itch and swelling REVIEW OF SYSTEM: PAIN ASSESSMENT: CURRENTLY HAVING PAIN; see HPI GENERAL: No weight loss, malaise or fevers HEENT: Negative for frequent or significant headaches, No changes in hearing or vision, no nose bleeds or other nasal problems RESPIRATORY: Negative for cough, hemoptysis, wheezing, COPD, dyspnea or shortness of breath CARDIOVASCULAR: Negative for chest pain, leg swelling, hypertension, CHF or palpitations GI: No nausea, vomiting, or diarrhea : No history of dysuria, frequency or incontinence DELINEATOR: Negative for abnormal vaginal bleeding, abnormal vaginal discharge HEMATOLOGY/LYMPHOLOGY: Negative for prolonged bleeding, bruising easily or swollen nodes ENDOCRINE: Negative for cold or heat intolerance, polyuria, polydipsia and goiter NEURO: No history of headaches, syncope, paralysis, seizures or tremors Objective PHYSICAL EXAM: BP 149/63 Pulse 55 Temp (Src) 97.3 (Oral) Resp 18 Ht 5' 4 (1.63m) Wt 225 lb 15.5 oz (102.5kg) SpO2 98% LMP 05/12/2020 BMI 38.77 kg/(m2). O2 Therapy: Room Air Physical Exam Performed: GENERAL: Obese, Alert, Moderate Distress, Cooperative HEAD/SINUSES: No significant findings EYES: PERRLA, EOMI NECK: No jugulovenous distention, No carotid bruits, Carotid pulse normal contour, Supple LUNGS: Lungs clear to auscultation, Good diaphragmatic excursion CARDIAC: Normal S1 and S2; no rubs, murmurs, or gallops ABDOMEN: Abdomen soft, non-tender, BS normal, No masses or organomegaly EXTREMITIES: Exam deferred NEURO: Grossly normal cognition, motor function, and cranial nerves III-XII Lines, Drains, and Airways Line Peripheral 08/13/20 0000 Assessment Short Left Hand 22 Gauge <1 day Drain External Collection Device 08/12/20 2330 <1 day Reviewed lines and needs to be continued: REASONS: Intravenous fluids and needs peripheral line DATA: Diagnostic tests reviewed for today's visit: Most recent labs Most recent imaging reviewed CT and test results from [facility] COVID-19 test was negative Assessment/Plan Problem List Closed fracture of right hip with delayed healing POA: Yes Class 3 severe obesity due to excess calories without serious comorbidity with body mass index (BMI) of 40.0 to 44.9 in adult (HCC) POA: Yes Essential hypertension POA: Yes Type 2 diabetes mellitus without complication, without long-term current use of insulin (HCC) POA: Yes Iron deficiency anemia POA: Yes Nicotine use disorder, F17.2 POA: Yes Fall POA: Yes Closed right hip fracture (HCC) POA: Yes Obesity, Class II, BMI 35-39.9 POA: . HOSPITAL COURSE: Closed fracture of right hip with extension to the hardware Due to mechanical fall CT of the right hip from [facility] suspect acute right hip fracture extending to hardware Appreciate ortho input- recommended hardware remov (more content not included)... [facility] 08-12-2020 Note HNO ID: [id number] Author: WENDY Harris Service: ? Author Type: Clinical Printed Circuit Boards Stripper Etcher Type: Progress Notes Filed: 08/12/2020 12:32 PM Note Text: Radiology Service Progress Note PATIENT NAME: Sue Momin DATE OF SERVICE: August 12, 2020 TIME: 12:31 PM PATIENT IDENTITY VERIFICATION COMPLETED USING TWO (2) IDENTIFIERS: Name and Date of confirmed by patient verbally and Name and Date of confirmed by identification band. FALL SCREENING: Has the patient had 2 falls in the last year or 1 fall with injury or currently using an Ambulatory Assistive Device (Walker, Cane, Wheelchair, Crutches, etc.)? Inpatient: Screened on floor PATIENT GENDER DATA: Female. status: : No status: NO. PATIENT RELEVANT IMPLANT DATA REVIEWED: Not Applicable RADIOLOGY DEPARTMENT: CT; Exam(s) Completed: Lower extremity PERIPHERAL IV DATA: Not applicable SIGNED BY: WENDY Sahu August 12, 2020 12:[address] [facility] 08-12-2020 Note HNO ID: [id number] Author: Nella Joseph RN Service: Care Management Author Type: Registered Nurse Type: Care Mgt Initial Assessment Filed: 08/12/2020 11:38 AM Note Text: CARE MANAGEMENT: ASSESSMENT AND DISCHARGE PLAN SERVICE DATE: August 12, 2020 SERVICE TIME: 11:34 AM PRIMARY CARE PHYSICIAN: Alek Sherwood MD ADMISSION STATUS: Inpatient MEDICAL: BLUE ACCESS PPO Patient/[employer] Stated Goals: To return home to life as it was Health Insurance: [place] [facility] Issues Impacting Discharge Plan: Newly diagnosed Newly Diagnosed: hip fracture Last Discharge Date: 05/27/20 Is this Within the Past 30 days? 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 : 1 - Never How confident are you filling out medical forms by yourself?: 1 - Extremely If Patient scores > 3 on either question, the following interventions were put into place:: Patient did not score > 3 on either question. Baseline Mental Status Prior to this Illness what was the patient's Baseline Mental Status?: Alert AND Oriented Prior to this illness, has anyone described the patient having any of the following behaviors?: Not Applicable Relationship of the informant to the patient:: Self Functional Status: Independent Does Patient Currently Receive Any Community Services or Home Care?: None Equipment Prior to Admission: Walker;Wheelchair;Cane Has the Patient Been in a Halfway Facility in the Past 30 days?: No SOCIAL: Living Arrangements: Home Lives With: Spouse Financial Resources: Employed Primary Contact: Extended Emergency Contact Information Primary Emergency Contact: ANDERSON MOMIN Mobile Relation: Spouse Supportive Patient Contact:: Yes Contact Resources: Family Caregiver AssessmentCaregiver is ready, willing and able to meet the patient's needs as recommended by the inter-professional team:: No Does the patient have an acute stroke diagnosis, or has the patient had a stroke during this admission?: No Patient's transition needs and plan for meeting these needs: Patient is hopeful to go home at discharge Patient's perception of need for this admission: fall with hip fracture Medication Adherance I am convinced of the importance of my prescription medication: 0 - Agree Completely I worry that my prescription medication will do more harm than good to me : 0 - Disagree Completely I feel financially burdened by my [id number] expenses for my prescription medication:: 0 - Disagree Completely Risk Score: 0 Patient is categorized as: Low risk < 2 Are you interested in bedside delivery of your medications? Yes Is Patient Psychosocially Complex?: No ASSESSMENT AND PLAN: Medical Needs: Medical Needs: Obesity;Fall risk or frequent falls Psychosocial Needs: Psychosocial Needs: None FREEDOM OF CHOICE EXPLAINED: [place] of Choice Given: No Reason Not Given: Unable to complete with this assessment - revisit POTENTIAL TRANSITION PLANS Home;Home OT/PT Patient from home with spouse. Patient had hip surgery back in May after a slip and fall. States she had a plate and a screw placed. This AM was feeding dog and she fell. She states they told her at [place] ED that a screw is out of place in the hip and she also has a fracture. She has a wheelchair walker and cane at home. She states she did not have any home PT or OP PT with last surgery. She states she was just given exercises to do at home on her own. Needs to be determined post op. SIGNATURE: Nella Joseph RN PATIENT NAME: Sue Momin DATE: August 12, 2020 TIME: 11:34 AM PAGER/CONTACT #: [phone] [facility] 07-20-2020 Note HNO ID: [id number] Author: Marybel Mason PA-C Service: ? Author Type: Physician Temp Recruiter Type: Progress Notes Filed: 07/20/2020 11:34 AM Note Text: HISTORY: Sue is a 50 year old female. She is 6 weeks status post right percutaneous hip pinning for a stress fracture of the right femur. She has no complaints of any pain in the hip. She has been non-weight bearing using a walker. The patient's past medical history, surgical history, social history, family history, medications and allergies were reviewed with the patient today and are available in the chart for further review. REVIEW OF SYSTEMS: Patient did not have, and does not currently have, any weight loss, malaise, fever, chills, headache, chest pain, chest pressure, palpitations, cough, shortness of breath, orthopnea, paroxsymal nocturnal dyspnea, nausea, vomiting, diarrhea, constipation PHYSICAL EXAMINATION: PSYCH: Pleasant, good affect and mood General Appearance: Well appearing, alert, in no acute distress, well-hydrated, well nourished.. Skin: Skin color, texture, turgor normal, no suspicious rashes or lesions. Peripheral Pulses: Normal. Neurologic: Gait normal. Reflexes normal and symmetric. Sensation grossly intact.. On physical examination of the right leg, the incision is healed. There is no erythema or warmth. Extensor mechanism is intact. Hip motion is smooth and not irritable. Sensation is intact to light touch in the foot. Dorsalis pedal pulse is 2+ and palpable. RADIOGRAPHS: Right hip films show percutaneous pinning to be in stable position. IMPRESSION: Encounter Diagnosis ICD-10-CM 1. Stress fracture of right femur with routine healing, subsequent encounter M84.351D 2. Post-operative state Z98.890 PLAN: I reviewed the x-rays with the patient today. She is approximately 6 weeks status post. At this time she may start to weight-bear as tolerated. I explained her that I would have her do this gradually over the next few weeks. She should use a walker at first and progress to a cane as she is pain free and stable. She should use tylenol as needed for her pain. I will see her back in 1 month for follow up and x-rays. Marybel Mason PA-C [facility] 07-14-2020 Note HNO ID: [id number] Author: RT Coral(R) Service: ? Author Type: Printed Circuit Boards Stripper Etcher Type: Progress Notes Filed: 07/14/2020 3:21 PM Note Text: Radiology Service Progress Note PATIENT NAME: Sue Momin DATE OF SERVICE: July 14, 2020 TIME: 3:21 PM PATIENT IDENTITY VERIFICATION COMPLETED USING TWO (2) IDENTIFIERS: Name and Date of confirmed by patient verbally. FALL SCREENING: Has the patient had 2 falls in the last year or 1 fall with injury or currently using an Ambulatory Assistive Device (Walker, Cane, Wheelchair, Crutches, etc.)? Yes, Patient High Risk for Falls What interventions were put in place to prevent falls during this visit? Instructed Patient to Call for Help if Needed, Offered Assistance with Transfers/Clothing, Instructed Patient to Remain Seated (Not on Exam Table) Until Exam and Increased Observations by Caregivers PATIENT GENDER DATA: Female. status: : No status: NO. PATIENT RELEVANT IMPLANT DATA REVIEWED: Not Applicable RADIOLOGY DEPARTMENT: General X-ray: Exam(s) Completed: Pelvis X-Ray: Pelvis with Hip Right PERIPHERAL IV DATA: Not applicable SIGNED BY: RT Cecily July 14, 2020 3:21 PM [facility] 06-25-2020 Note HNO ID: [id number] Author: Moriah Benavides PA-C Service: ? Author Type: Physician Temp Recruiter Type: Progress Notes Filed: 06/25/2020 3:58 PM Note Text: NAME: Sue Momin [facility] NO.: [id number] DATE OF SERVICE: June 25, 2020 (Elements copied from Dr. Cabrera's note dated June 04, 2020, have been reviewed and updated where appropriate, and all reflect current assessment and medical decision making during today's encounter, June 25, 2020) Referring Provider: Nicolasa Mcneill PA-C Additional Clinicians involved in Sue Momin's care: Alek [place]wood CC: Anemia ASSESSMENT/PLAN: 1. Other iron deficiency anemia She was found to be severely anemic during a recent operation for a right femur fracture in early 2020. She required 2 units of PRBCs and recently received IV iron on 06/15/2020 due to poor absorption following her gastric bypass 20 year ago. She has had normalization of her hemoglobin today. She would also probably benefit from GI consult as she is 50 years old with iron deficiency anemia. Patient reluctant, but agrees. I will refer her today. We will plan to see her back in 3 months with repeat labs and follow up and possible iron. 2. S/P gastric bypass She had gastric bypass over 20 years ago, which is likely the cause of her iron deficiency. Her B12 level was normal on recent labs. HPI: Updated Visit, June 25, 2020: Patient returns for follow up after having IV iron on 06.15.2020 for iron deficiency due to malabsorption. She tolerated it well and is feeling better. She denies any bleeding. She reports she has never had a GI work up. Initial Visit, June 04, 2020: Sue Momin presents today Hematology and Oncology evaluation. She is a 49 year old female who had a Right femur fracture after slipping on the ice. 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 Quit smoking after her surgery with internal fixation. Found her to be severely anemic with Hgb of 7.8 05/27/2020 Transfused x 2 Today 10.2 Also found to have DM Probably need sleep study due to fatigue and daytime somnolence as well as body habitus. Gastric bypass - 20 years ago Which is the likely cause of her iron deficiency and also likely to have malabsorption of B12. still smoke 3 ppd. REVIEW OF SYSTEMS Per HPI and otherwise negative by full review of organ systems. ECOG PERFORMANCE STATUS: 1 PHYSICAL EXAMINATION: Vitals: BP 181/80 Pulse 114 Temp (Src) 97.6 (Temporal) Resp 16 Ht 5' 4.016 (1.63m) Wt 233 lb 12.8 oz (106.1kg) SpO2 97% LMP 05/12/2020 BMI 40.11 kg/(m2). Very pleasant, morbidly obese. Exam limited to gross visualization where appropriate due to COVID-19. Gen.: This is an age-appropriate patient in no acute distress. Head: Appears atraumatic with no visible lesions. Eyes: Pupils equally round and reactive to light, extraocular muscles are intact. Neck: Supple. Mouth: Mucous membranes appeared to be moist. Respiratory: Appears to be respiring comfortably. Neurologic: Nonfocal to gross visualization. Alert and oriented ?3. Psychiatric: No evidence of inappropriate anxiety or depression. Skin: Visible areas of skin without rash, lesions, wounds or petechiae. ALLERGIES: ALLERGIES Allergen Reactions - Envoirnmental [Othe* - Latex Rash Rash - itch and swelling MEDICATIONS: ascorbic acid, vitamin C, (VITAMIN C) 500 mg tablet Take 1 tablet by mouth twice daily with meals for 21 doses. acetaminophen (TYLENOL) 500 mg tablet Take 2 tablets by mouth every 8 hours. docusate sodium (COLACE) 100 mg capsule Take 1 capsule by mouth twice daily as needed for Constipation. multivitamin tablet Take 1 tablet by mouth once daily. glipiZIDE (GLUCOTROL XL) 10mg 24 hr tablet Take 10 mg by mouth once daily. cholecalciferol (VITAMIN D-3) 50 mcg (2,000 unit) tablet Take 2,000 Units by mouth once daily. PARoxetine (PAXIL) 10 mg tablet Take 10 mg by mouth once daily. losartan (COZAAR) 50 mg tablet Take 50 mg by mouth once daily. potassium chloride 20 mEq TbER Take by mouth. INV FUROSEMIDE 40 MG TABLET (IRB 18-610) Take by mouth. For Investigational Drug Use Only. PI: Jordan Joy MD. [place]ES COMPLETE TAB CHEW PO qd LABORATORY VALUES: Hemoglobin (g/dL) Date Value 06/25/2020 12.0 Hematocrit (%) Date Value 06/25/2020 39.6 WBC (k/uL) Date Value 06/25/2020 8.41 Platelet Count (k/uL) Date Value 06/25/2020 216 DIAGNOSIS: (D50.8) Other iron deficiency anemia (primary encounter diagnosis) Plan: CBC + DIFF (FOR REMOTE [facility] USE), COMP METABOLIC PANEL, IRON + TIBC, FERRITIN BLD, CONSULT TO GASTROENTEROLOGY (Z98.84) S/P gastric bypass Plan: CBC + DIFF (FOR REMOTE [facility] USE), COMP METABOLIC PANEL, IRON + TIBC, FERRITIN BLD, CONSULT TO GASTROENTEROLOGY PAST MEDICAL HISTORY Diagnosis Date - Diabetes (HCC) - Heartburn - Hypertension - Iron deficiency anemia - Iron deficiency anemia secondary to inadequate dietary iron intake (more content not included)... [facility] 06-15-2020 Note HNO ID: [id number] Author: Donna Armando RN Service: ? Author Type: Registered Nurse Type: Progress Notes Filed: 06/15/2020 3:34 PM Note Text: Per JASMINE Feldman and JASMINE García okay to treat with iron as ordered today despite pending status. Donna Armando RN [facility] 06-07-2020 Note HNO ID: [id number] Author: Marybel Mason Service: ? Author Type: Physician Temp Recruiter Type: Progress Notes Filed: 06/07/2020 3:42 PM Note Text: HISTORY: Sue is a 49 year old female. She is 2 weeks status post ORIF right hip stress fracture. She states that her pain is a lot better then before surgery. She still occasionally has some groin pain. She has been toe touch weight bearing with a walker. She is taking tylenol when needed. The patient's past medical history, surgical history, social history, family history, medications and allergies were reviewed with the patient today and are available in the chart for further review. REVIEW OF SYSTEMS: Patient did not have, and does not currently have, any weight loss, malaise, fever, chills, headache, chest pain, chest pressure, palpitations, cough, shortness of breath, orthopnea, paroxsymal nocturnal dyspnea, nausea, vomiting, diarrhea, constipation PHYSICAL EXAMINATION: PSYCH: Pleasant, good affect and mood General Appearance: Well appearing, alert, in no acute distress, well-hydrated, well nourished.. Skin: Skin color, texture, turgor normal, no suspicious rashes or lesions. Peripheral Pulses: Normal. Neurologic: Gait normal. Reflexes normal and symmetric. Sensation grossly intact.. On physical examination of the right hip, the skin is intact. There is no erythema or warmth. Extensor mechanism is intact. Hip motion is smooth and not irritable. Sensation is intact to light touch in the foot. RADIOGRAPHS: right hip films show hardware to be in stable position. IMPRESSION: Encounter Diagnosis ICD-10-CM 1. Stress fracture of right femur, initial encounter M84.351A PLAN: Patient is doing well. I would like her to continue to be toe touch weight bearing for another 4 weeks. I will see her back in the office in 4 weeks and look to progress her weight bearing at that time. We will start PT at that time to help her. I will get x-rays at her next appointment. Marybel Mason PA-C [facility] 06-07-2020 Note HNO ID: [id number] Author: Roberta Thomas (Rt) Lenin Service: ? Author Type: Printed Circuit Boards Stripper Etcher Type: Progress Notes Filed: 06/07/2020 2:58 PM Note Text: Radiology Service Progress Note PATIENT NAME: Sue Momin DATE OF SERVICE: June 07, 2020 TIME: 2:58 PM PATIENT IDENTITY VERIFICATION COMPLETED USING TWO (2) IDENTIFIERS: Name and Date of confirmed by patient verbally. FALL SCREENING: Has the patient had 2 falls in the last year or 1 fall with injury or currently using an Ambulatory Assistive Device (Walker, Cane, Wheelchair, Crutches, etc.)? Yes, Patient High Risk for Falls What interventions were put in place to prevent falls during this visit? Increased Observations by Caregivers PATIENT GENDER DATA: Female. status: : No status: NO. PATIENT RELEVANT IMPLANT DATA REVIEWED: Not Applicable RADIOLOGY DEPARTMENT: General X-ray: Exam(s) Completed: Pelvis X-Ray: Pelvis with Hip Right PERIPHERAL IV DATA: Not applicable SIGNED BY: RT Coral June 07, 2020 2:58 PM [facility] 06-04-2020 Note HNO ID: [id number] Author: Dragan Mohr Service: ? Author Type: Physician Type: Progress Notes Filed: 06/09/2020 3:00 PM Note Text: NAME: Sue Momin [facility] NO.: [id number] DATE OF SERVICE: June 04, 2020 Referring Provider: Nicolasa Mcneill PA-C Consultation requested by Nicolasa Mcneill for an opinion regarding Ms. Sue Momin, and my final recommendations will be communicated back to the requesting physician by way of shared medical record or letter via US mail. Additional Clinicians involved in Sue Momin's care: Alek Sherwood CC: Severe anemia ASSESSMENT: 49-year-old woman with gastric bypass found to have severe anemia during her operation for a right femur fracture that occurred several months ago in early 2020. Her hemoglobin today is 10.2 reflecting the recently transfused 2 units packed red blood cells and appropriate absorption of iron as the cells disintegrated. Since she has had a gastric bypass, I doubt that she is able to absorb oral iron and her microcytic anemia likely represents a very chronic process of low-grade but steady blood loss. I think we can resolve this with parenteral replacement. PLAN: 1. Stop oral Iron 2. Iron infusion next week MUNIRA 3. RTC in 3 weeks - Brianna / Moriah - labs same day. HPI: Initial Visit, June 04, 2020: Sue Momin presents today Hematology and Oncology evaluation. She is a 49 year old female who had a Right femur fracture after slipping on the ice. 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 Quit smoking after her surgery with internal fixation. Found her to be severely anemic with Hgb of 7.8 05/27/2020 Transfused x 2 Today 10.2 Also found to have DM Probably need sleep study due to fatigue and daytime somnolence as well as body habitus. Gastric bypass - 20 years ago Which is the likely cause of her iron deficiency and also likely to have malabsorption of B12. still smoke 3 ppd. REVIEW OF SYSTEMS Per HPI and otherwise negative by full review of organ systems. ECOG PERFORMANCE STATUS: 1 PHYSICAL EXAMINATION: Vitals: BP 139/71 Temp (Src) 96.9 (Temporal) Resp 16 Ht 5' 4.016 (1.63m) Wt 235 lb 9.6 oz (106.9kg) SpO2 99% LMP 05/12/2020 BMI 40.42 kg/(m2). Body surface area is 2.2 meters squared. Very pleasant, morbidly obese. Exam limited to gross visualization where appropriate due to COVID-19. Gen.: This is an age-appropriate patient in no acute distress. Head: Appears atraumatic with no visible lesions. Eyes: Pupils equally round and reactive to light, extraocular muscles are intact. Neck: Supple. Mouth: Mucous membranes appeared to be moist. Respiratory: Appears to be respiring comfortably. Neurologic: Nonfocal to gross visualization. Alert and oriented ?3. Psychiatric: No evidence of inappropriate anxiety or depression. Skin: Visible areas of skin without rash, lesions, wounds or petechiae. ALLERGIES: ALLERGIES Allergen Reactions - Latex Rash Rash - itch and swelling MEDICATIONS: ascorbic acid, vitamin C, (VITAMIN C) 500 mg tablet Take 1 tablet by mouth twice daily with meals for 21 doses. acetaminophen (TYLENOL) 500 mg tablet Take 2 tablets by mouth every 8 hours. docusate sodium (COLACE) 100 mg capsule Take 1 capsule by mouth twice daily as needed for Constipation. ferrous sulfate 325 mg (65 mg iron) tablet Take 1 tablet by mouth twice daily with meals for 21 days. multivitamin tablet Take 1 tablet by mouth once daily. glipiZIDE (GLUCOTROL XL) 10mg 24 hr tablet Take 10 mg by mouth once daily. cholecalciferol (VITAMIN D-3) 50 mcg (2,000 unit) tablet Take 2,000 Units by mouth once daily. PARoxetine (PAXIL) 10 mg tablet Take 10 mg by mouth once daily. losartan (COZAAR) 50 mg tablet Take 50 mg by mouth once daily. potassium chloride 20 mEq TbER Take by mouth. INV FUROSEMIDE 40 MG TABLET (IRB 18-610) Take by mouth. For Investigational Drug Use Only. PI: Jordan Joy MD. ferrous sulfate 325 mg (65 mg iron) tablet Take 1 tablet by mouth twice daily with meals. docusate sodium (COLACE) 100 mg capsule Take 1 capsule by mouth twice daily for 14 days. LABORATORY VALUES: WBC (k/uL) Date Value 06/04/2020 6.26 RBC (m/uL) Date Value 06/04/2020 4.68 Hemoglobin (g/dL) Date Value 06/04/2020 10.2 (L) Hematocrit (%) Date Value 06/04/2020 35.2 (L) MCV (fL) Date Value 06/04/2020 75.2 (L) MCH (pG) Date Value 06/04/2020 21.8 (L) MCHC (g/dL) Date Value 06/04/2020 29.0 (L) RDW-CV (%) Date Value 06/04/2020 28.4 (H) Platelet Count (k/uL) Date Value 06/04/2020 339 MPV (fL) Date Value 06/04/2020 9.4 Glucose (mg/dL) Date Value 06/04/2020 97 BUN (mg/dL) Date Value 06/04/2020 12 Creatinine (mg/dL) Date Value 06/04/2020 0.65 Sodium (mmol/L) Date Value 06/04/2020 137 Potassium (mmol/L) Date Value 06/04/2020 4.6 Chloride (mmol/L) Date Value 06/04/2020 102 CO2 (mmol/L) Date Value 06/04/2020 2 (more content not included)... [facility] 05-27-2020 Note HNO ID: [id number] Author: Ingrid Yoder (Foot Doctor) Service: ? Author Type: ? Type: Plan of Care Filed: 05/27/2020 4:55 PM Note Text: The following medications were delivered to the patient: Medication List START taking these medications acetaminophen 500 mg tablet Commonly known as: TYLENOL Take 2 tablets by mouth every 8 hours. ascorbic acid (vitamin C) 500 mg tablet Commonly known as: VITAMIN C Take 1 tablet by mouth twice daily with meals for 21 doses. X oxyCODONE IR 5 mg immediate release tablet Commonly known as: ROXICODONE Take 1-2 tablets by mouth every 4-6 hours as needed for pain CHANGE how you take these medications X * docusate sodium 100 mg capsule Commonly known as: COLACE Take 1 capsule by mouth twice daily as needed for Constipation. What changed: reasons to take this * DOK 100 mg capsule Generic drug: docusate sodium Take 1 capsule by mouth twice daily for 14 days. What changed: You were already taking a medication with the same name, and this prescription was added. Make sure you understand how and when to take each. X * ferrous sulfate 325 mg (65 mg iron) tablet Take 1 tablet by mouth twice daily with meals for 21 days. What changed: ? when to take this ? additional instructions * FEROSUL 325 mg (65 mg iron) tablet Generic drug: ferrous sulfate Take 1 tablet by mouth twice daily with meals. What changed: You were already taking a medication with the same name, and this prescription was added. Make sure you understand how and when to take each. * This list has 4 medication(s) that are the same as other medications prescribed for you. Read the directions carefully, and ask your doctor or other care provider to review them with you. CONTINUE taking these medications glipiZIDE XL 10 mg 24 hr tablet Commonly known as: GLUCOTROL XL INV FUROSEMIDE 40 MG TABLET (IRB 18-610) losartan 50 mg tablet Commonly known as: COZAAR multivitamin tablet PARoxetine 10 mg tablet Commonly known as: PAXIL potassium chloride 20 mEq Tber Vitamin D-3 50 mcg (2,000 unit) tablet Generic drug: cholecalciferol You might also be taking other medications not listed above. If you have questions about any of your other medications, talk to the person who prescribed them or your Primary Care Provider. STOP taking these medications traMADol 50 mg tablet Commonly known as: ALEXEY Yoder (Foot Doctor) PAGER: nico May 27, 2020 4:[address] [facility] 05-27-2020 Note HNO ID: [id number] Author: Cher Augustine RN Service: Care Management Author Type: Registered Nurse Type: Care Mgt Progress Note Filed: 05/27/2020 2:19 PM Note Text: CARE MANAGEMENT DISCHARGE NOTE SERVICE DATE: 05/27/2020 SERVICE TIME: 2:18 PM LOS: 0 days Admission Date: 05/24/2020 DISCHARGE ARRANGEMENT (list agency and phone number) Discharge Arrangement: Home [facility] Care: PT TRANSPORTATION ARRANGEMENTS: Transportation Arrangements: Car Discharge Information Row Name Admission (Current) from 05/24/[address] Durable Medical Equipment Agency [employer] Equipment Needed WC with elevated leg rest. Needs Prior to Discharge: Ready for Discharge Plan is d/c to home with [facility]. [employer] is delivering WC to the [facility] hospital room.. SIGNATURE: Cher Augustine RN PATIENT NAME: Sue Momin DATE: May 27, 2020 TIME: 2:18 PM PAGER/CONTACT #: [phone] [facility] 05-26-2020 Note HNO ID: [id number] Author: Monika Mcdaniel (Pac) Service: Orthopaedic Surgery Author Type: Physician Temp Recruiter Type: Progress Notes Filed: 05/26/2020 10:14 AM Note Text: -- Attestation signed by Clay Ayala Jr. at 05/26/2020 12:28 PM Attending Note: Patient seen in conjunction with physician neurology physician assistant. Mcdonnell findings confirmed. Patient examined. Discussed with the Physician Temp Recruiter and patient. Plan as outlined. Clay Ayala MD -- ORTHOPAEDIC SURGERY POSTOP PROGRESS NOTE Patient Name: Sue Momin Admission Date: 05/24/2020 Date of Evaluation: 05/26/2020 Time of Evaluation: 10:10 AM POD # 2 S/P: Right hip percutaneous pinning INTERVAL HPI: Ms. Momin reports pain. Overnight events noted: none. OBJECTIVE: Patient Vitals for the past 24 hrs: BP Temp Temp src Pulse Resp SpO2 05/26/20 0904 146/64 37.3 ?C (99.1 ?F) Oral 86 18 96 % 05/26/20 0242 141/55 36.8 ?C (98.2 ?F) Oral 81 16 98 % 05/25/20 1911 140/57 36.8 ?C (98.2 ?F) Oral 86 16 98 % 05/25/20 1531 122/55 36.6 ?C (97.9 ?F) Oral 87 18 98 % 05/25/20 1105 135/58 36.7 ?C (98.1 ?F) ? 89 ? 97 % Intake/Output Summary (Last 24 hours) at 05/26/2020 1010 Last data filed at 05/26/2020 0237 Gross per 24 hour Intake 780 ml Output 1750 ml Net -970 ml Hemovac Drain output: N/A right hip exam: Dressing clean/dry/intact Negative Katie's, No calf tenderness, No palpable cords Compartments soft Sensation to light touch intact Positive distal pulses (initially dopplered and marked DP, then palpable once located with doppler.) Labs: CBC: WBC 5.22 05/26/2020 Hemoglobin 7.0 05/26/2020 Hematocrit 25.4 05/26/2020 Platelet Count 200 05/26/2020 CMP: Sodium 136 05/26/2020 Potassium 3.4 05/26/2020 BUN 8 05/26/2020 Creatinine 0.49 05/26/2020 Glucose 137 05/26/2020 COAGS: APTT 21.7 05/20/2020 PT INR 1.0 05/20/2020 URINALYSIS: Ketones, Urine Trace 05/26/2020 Nitrites Negative 05/26/2020 Specific [place], Ur 1.028 05/26/2020 Protein, Urine Negative 05/26/2020 Leukest 2+ 05/26/2020 WBC, Urine 6-10 05/26/2020 Bacteria Present 05/26/2020 SED RATE/CRP: No results found for this basename: wsr:*,crp:* SURGICAL PATHOLOGY: N/A FLUID/CULTURE ANALYSIS: N/A Imaging: Not applicable. ASSESSMENT: - Appropriate postop course - Orthopedically stable - Chronic anemia ? PLAN: 1. Postop course: - Physical therapy, toe touch weight bearing 5% with assistance device - Antibiotics, post-op antibiotics per protocol - Maintain dressing - Transfusion of PRBC x 1 unit(s) today per medicine (will be s/p 2u PRBC total) - ice and elevation - Intermittent pneumatic compression device (IPC) - Out of bed and ambulate - Ideally --> aspirin 81mg PO BID, aspirin for DVT prophylaxis to reduce risk of bleeding. ---> Medicine rec to hold dose until follow up with heme/onc next week. Last dose was yesterday am. -->Will d/w Dr Ayala. 2. Medical intervention: ABOVE 3. Disposition: As above D/C planning-- today vs tomorrow ELECTRONICALLY SIGNED: Monika Mcdaniel PA-C 05/26/2020 10:[address] 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 Last discharge within 30 days: No Advance Directive: Current Advance Directive: None Roof Designer Attempted to Assist with AD Completion: Yes Action: Patient Unwilling Health LiteracyHow often do you need to have someone help you when you read instructions, pamphlets, or other written material from your doctor or pharmacy? : 1 - Never How confident are you filling out medical forms by yourself?: 1 - Extremely Baseline Mental Status Prior to this Illness what was the patient's Baseline Mental Status?: Alert AND Oriented Prior to this illness, has anyone described the patient having any of the following behaviors?: Unable to complete assessment Relationship of the informant to the patient:: Self Functional Status: Independent Does Patient Currently Receive Any Community Services or Home Care?: None Equipment Prior to Admission: Walker Has the Patient Been in a Halfway Facility in the Past 30 days?: No SOCIAL: Living Arrangements: Home Lives With: Spouse Financial Resources: Employed Primary Contact: Extended Emergency Contact Information Primary Emergency Contact: MOMINANDERSON Mobile Relation: Spouse Supportive Patient Contact:: Yes Contact Resources: Significant Other Caregiver AssessmentCaregiver is ready, willing and able to meet the patient's needs as recommended by the inter-professional team:: No Caregiver needed Does the patient have an acute stroke diagnosis, or has the patient had a stroke during this admission?: No Patient's perception of need for this admission: . Medication Adherance I am convinced of the importance of my prescription medication: 0 - Agree Completely I worry that my prescription medication will do more harm than good to me : 0 - Disagree Completely I feel financially burdened by my [id number] expenses for my prescription medication:: 0 - Disagree Completely Risk Score: 0 Patient is categorized as: Low risk < 2 Are you interested in bedside delivery of your medications? No Is Patient Psychosocially Complex?: No ASSESSMENT AND PLAN: Medical Needs: Psychosocial Needs: Psychosocial Needs: None FREEDOM OF CHOICE EXPLAINED: POTENTIAL TRANSITION PLANS Home Care Plan is d/c to home with [facility] and equip- WC and shower chair. [facility]errals [facility] to [facility] and [facility]. to transport home. Pt has a walker currently. 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 Pt is toe touch wt bearing for the nxet 6 weeks. SIGNATURE: Cher Augustine RN PATIENT NAME: Sue Momin DATE: May 25, 2020 TIME: 2:58 PM PAGER/CONTACT #: [phone] [facility] 05-25-2020 Note HNO ID: [id number] Author: Reina Garg Service: Orthopaedic Surgery Author Type: Physician Temp Recruiter Type: Progress Notes Filed: 05/25/2020 12:45 PM Note Text: Name: Sue Momin Date: May 25, 2020 POD# 1 s/p right percutaneous pinning by Dr. Ayala INTERVAL HPI and PERTINENT ROS: No events overnight. h/o DM and chronic anemia. Patient was transfused 1U PRBC pre op for H/H .05/13 Patient states pain is managed; she denies CP or SOB MEDICATIONS: Current Facility-Administered Medications Medication Dose Route Frequency - PARoxetine 10 mg tab(s) (PAXIL) 10 mg ORAL DAILY - losartan 50 mg tab(s) (COZAAR) 50 mg ORAL DAILY - therapeutic multivitamin-minerals tablet (THERA-M PLUS) 1 tablet ORAL DAILY - sodium chloride 0.9 % (flush) 2-10 mL (BD POSIFLUSH) 2-10 mL INTRAVENOUS q 12 H - morphine 2 mg injection 2 mg INTRAVENOUS q 2 H PRN - oxyCODONE IR 5 mg tab(s) (ROXICODONE) 5 mg ORAL q 3 H PRN - oxyCODONE IR 5 mg tab(s) (ROXICODONE) 5 mg ORAL q 4 H PRN - acetaminophen 1,000 mg tab(s) (TYLENOL) 1,000 mg ORAL q 8 H - ondansetron 4 mg tab(s) (ZOFRAN) 4 mg ORAL q 6 H PRN Or - ondansetron (PF) 4 mg injection (ZOFRAN) 4 mg INTRAVENOUS q 6 H PRN - magnesium hydroxide 400 mg/5 mL 30 mL (MOM) 30 mL ORAL DAILY PRN - [START ON 05/26/2020] bisacodyl EC 10 mg tab(s) (DULCOLAX) 10 mg ORAL DAILY - aluminum-magnesium hydroxide-simethicone 200-200-20 mg/5 mL 30 mL (MAALOX,MYLANTA,MAG-AL PLUS) 30 mL ORAL q 2 H PRN - ascorbic acid (vitamin C) 500 mg tab(s) (VITAMIN C) 500 mg ORAL BID w MEALS - senna 17.2 mg tab(s) (SENOKOT) 17.2 mg ORAL AT BEDTIME - NaCl 0.9% iv infusion 75 mL/hr INTRAVENOUS CONTINUOUS - dextrose 40 % 15 g 15 g ORAL PRN Or - glucagon 1 mg injection 1 mg INTRAMUSCULAR PRN Or - dextrose 50% in water 25 mL syringe 12.5 g INTRAVENOUS PRN - ferrous sulfate 325 mg tab(s) 325 mg ORAL BID w MEALS - insulin lispro injection (rapid acting) (HumaLOG) SUBCUTANEOUS w MEALS - insulin lispro injection (rapid acting) (HumaLOG) SUBCUTANEOUS AT BEDTIME - potassium chloride ER 40 mEq tab(s) (K-DUR, KLOR-CON) 40 mEq ORAL ONCE PHYSICAL EXAM: BP 135/58 Pulse 89 Temp 36.7 ?C (98.1 ?F) Resp 18 Ht 162.6 cm (5' 4 ) Wt 119.4 kg (263 lb 3.7 oz) LMP 05/12/2020 (Approximate) SpO2 97% BMI 45.18 kg/m? Intake/Output Summary (Last 24 hours) at 05/25/2020 0659 Last data filed at 05/25/2020 0549 Gross per 24 hour Intake 4098 ml Output 150 ml Net 3948 ml Physical Exam: EXTREMITIES: Extremities normal, no deformities, edema, clubbing or skin discoloration. Good capillary refill., No ulcers NEURO: Gait normal. Reflexes normal and symmetric. Sensation grossly intact Dressing clean/dry/intact No calf tenderness Compartments soft Sensation to light touch intact Positive distal pulses LABS CBC, Coags, BMP, Mg, Phos Recent Labs 05/25/20 0905 05/24/20 1515 05/24/20 1507 05/24/20 1000 WBC 5.01 -- 3.85 2.73* HB 7.3* -- 5.9* 6.3* HCT 26.3* -- 22.3* 23.5* PLT 232 -- 235 227 NA 137 137 -- 142 K 3.3* 3.6* -- 3.0* CHLOR 99 103 -- 104 CO2 26 23 -- 25 BUN 11 11 -- 11 CREAT 0.57* 0.50* -- 0.61 GLUC 168* 191* -- 119* CA 7.5* 7.7* -- 8.2* ASSESSMENT and PLAN of Care: POD# 1 s/p right percutaneous pinning by Dr. Ayala - Physical therapy, toe touch weight bearing 5% with assistance device - hospital medicine consulted on admission - Intermittent pneumatic compression device (IPC) - stable for discharge from surgery standpoint - continue current pain management - discharge pending PT and Medicine recommendations SIGNATURE: Reina Garg PA-C Pager [phone] [facility] 05-25-2020 Note HNO ID: [id number] Author: Clay Ayala Jr. Service: Orthopaedic Surgery Author Type: Physician Type: Progress Notes Filed: 05/25/2020 7:38 AM Note Text: ORTHOPAEDIC SURGERY POSTOP PROGRESS NOTE Patient Name: Sue Momin Admission Date: 05/24/2020 Date of Evaluation: 05/25/2020 Time of Evaluation: 7:36 AM Hospital/POD # 1 S/P: Right hip percutaneous pinning INTERVAL HPI: Ms. Momin reports pain is controlled. Overnight events noted: none. OBJECTIVE: Patient Vitals for the past 24 hrs: BP Temp Temp src Pulse Resp SpO2 Height Weight 05/25/20 0731 137/71 36.7 ?C (98.1 ?F) ? 92 ? 96 % ? ? 05/25/20 0535 ? 119.4 kg (263 lb 3.7 oz) 05/25/20 0403 154/76 36.6 ?C (97.9 ?F) Oral 92 20 98 % ? ? 05/24/20 2341 147/60 36.7 ?C (98.1 ?F) Oral 98 16 95 % ? ? 05/24/20 2102 135/59 36.6 ?C (97.9 ?F) Oral 96 18 92 % ? ? 05/24/20 1912 143/63 36.3 ?C (97.4 ?F) Oral 95 14 93 % ? ? 05/24/20 1725 149/70 36.3 ?C (97.3 ?F) Oral 91 14 98 % 162.6 cm (5' 4 ) 111.1 kg (245 lb) 05/24/20 1639 153/73 36.6 ?C (97.9 ?F) Oral 91 16 97 % ? ? 05/24/20 1600 162/79 ? ? 88 18 97 % ? ? 05/24/20 1550 135/86 ? ? 91 21 (!) 85 % ? ? 05/24/20 1541 152/62 ? ? 76 19 99 % ? ? 05/24/20 1540 (!) 203/102 ? ? 80 16 99 % ? ? 05/24/20 1535 198/78 ? ? 75 ? 05/24/20 1530 191/78 ? ? 82 21 95 % ? ? 05/24/20 1520 189/88 ? ? 83 24 95 % ? ? 05/24/20 1510 173/84 ? ? 89 13 93 % ? ? 05/24/20 1500 141/103 ? ? 83 17 98 % ? ? 05/24/20 1450 146/82 ? ? 86 20 98 % ? ? 05/24/20 1440 143/70 ? ? 86 16 95 % ? ? 05/24/20 1430 148/66 36.6 ?C (97.9 ?F) Temporal 85 16 95 % ? ? 05/24/20 1116 164/86 36.5 ?C (97.7 ?F) Temporal ? 18 98 % ? ? Intake/Output Summary (Last 24 hours) at 05/25/2020 0736 Last data filed at 05/25/2020 0549 Gross per 24 hour Intake 4098 ml Output 150 ml Net 3948 ml Hemovac Drain output: N/A right hip exam: Dressing clean/dry/intact Negative Katie's, No calf tenderness, No palpable cords Compartments soft Sensation to light touch intact Positive distal pulses Positive EHL/FHL/AT/GS/Quad/HS Labs: CBC: WBC 3.85 05/24/2020 Hemoglobin 5.9 05/24/2020 Hematocrit 22.3 05/24/2020 Platelet Count 235 05/24/2020 CMP: Sodium 137 05/24/2020 Potassium 3.6 05/24/2020 BUN 11 05/24/2020 Creatinine 0.50 05/24/2020 Glucose 191 05/24/2020 COAGS: APTT 21.7 05/20/2020 PT INR 1.0 05/20/2020 URINALYSIS: No results found for this basename: uket,nitrites,spgr,uprot,leukest,uwbc,u bacteria SED RATE/CRP: No results found for this basename: wsr:*,crp:* SURGICAL PATHOLOGY: N/A FLUID/CULTURE ANALYSIS: N/A Imaging: Not applicable. ASSESSMENT: - Appropriate postop course - Orthopedically stable - Chronic anemia PLAN: 1. Postop course: - Physical therapy, toe touch weight bearing 5% with assistance device - Antibiotics, post-op antibiotics per protocol - Maintain dressing - Transfusion of PRBC x 1 unit(s) yesterday for anemia - ice and elevation - operative findings discussed with patient - Intermittent pneumatic compression device (IPC) - Out of bed and ambulate - aspirin 81mg PO BID, aspirin for DVT prophylaxis to reduce risk of bleeding 2. Medical intervention: ABOVE 3. Disposition: As above D/C planning Orthopedically stable for discharge when ok with primary team ELECTRONICALLY SIGNED: Clay Ayala Jr, MD 05/25/2020 7:[address] [facility] 05-24-2020 Note HNO ID: [id number] Author: Lucy Spicer Service: ? Author Type: Nurse Proposal Consultant Type: Anesthesia Procedure Notes Filed: 05/24/2020 1:09 PM Note Text: ANESTHESIOLOGY PROCEDURE NOTE PIV General Information Procedure Start Time/Medication Administration: 05/24/2020 12:44 PM Patient Location: OR Staffing SPOOL MAKER: Lucy Spicer Performed by: NEDRA Preparation Sterility Preparation: hand hygiene performed prior to procedure Site Prep: Betadine and chlorhexidine Procedure Details Indication: need for IV access Needle Size/Type: 18 gauge angiocath Orientation: Left Location: Other (upper arm) Imaging Guidance Used: No SIGNATURE: Lucy Spicer APRN.CRNA PATIENT NAME: Sue Momin DATE: May 24, 2020 TIME: 1:09 PM CSN: [id number] [facility] 05-24-2020 Note HNO ID: [id number] Author: Lucy Spicer Service: ? Author Type: Nurse Proposal Consultant Type: Anesthesia Procedure Notes Filed: 05/24/2020 1:09 PM Note Text: ANESTHESIOLOGY PROCEDURE NOTE Airway General Information Procedure Start Time/Medication Administration: 05/24/2020 12:43 PM Patient location during procedure: OR Staffing SPOOL MAKER: Lucy Spicer Performed by: SPOOL MAKER Indications and Patient Condition Preoxygenated: yes Patient position: sniffing Difficult Mask: No Indications for airway management: anesthesia anesthesia circuit Method: asleep Final Airway Details Final airway type: endotracheal airway Final Endotracheal Airway: ETT Cuffed: yes Successful intubation technique: direct laryngoscopy Endotracheal tube insertion site: oral Blade: Milagro Blade size: #4 ETT size (mm): 7.0 Measured from: lips Measurement (cm): 21 Placement verified by: capnometry Cormack-Lehane Classification: grade I - full view of glottis Number of attempts at approach: 1 Airway not difficult SIGNATURE: Lucy Spicer APRN.CRNA PATIENT NAME: Sue Momin DATE: May 24, 2020 TIME: 1:08 PM CSN: [id number] [facility] 05-19-2020 Note HNO ID: [id number] Author: Clay Ayala Jr. Service: ? Author Type: Physician Type: Progress Notes Filed: 05/19/2020 12:37 PM Note Text: HISTORY: Sue is a 49 year old female. She is here following up for complaints of right groin pain and hip pain. She states she fell 2 months ago injuring her right hip. She has had pain ever since. She had an MRI of the hip which showed a femoral neck strip stress fracture. She was referred by my partner for follow-up. She denies any pain in the hip prior to this. She is never been diagnosed with osteoporosis. She denies any numbness or tingling in the right lower extremity. She has pain ambulating. She has been using a walker. The patient's past medical history, surgical history, social history, family history, medications and allergies were reviewed with the patient today and are available in the chart for further review. PHYSICAL EXAMINATION: Vitals: There were no vitals taken for this visit. PSYCH: Pleasant, good affect and mood General Appearance: Well appearing, alert, in no acute distress, well-hydrated, well nourished. and Obese. She has pain with right hip flexion, internal and external rotation. There is no crepitus with this. She has pain with resisted hip flexion. She has no pain with resisted knee extension. She has intact ankle dorsiflexion and plantarflexion on the right. RADIOGRAPHS: Right hip films were negative today. MRI: Per the MRI report there is abnormal bone edema in the medial femoral neck consistent with a femoral neck stress fracture. There is no evidence of a labral tear. No cartilaginous defect seen. I do not have the actual MRI imaging itself. IMPRESSION: Encounter Diagnosis ICD-10-CM 1. Stress fracture of right femur, initial encounter M84.351A SURGICAL REQUEST - ELECTIVE (09/2019) PRE-PROCEDURE AND PRE-OPERATIVE COVID PROCEDURE: None. PLAN: Given the patient's symptoms of pain as well as the MRI findings I would recommend a prophylactic pinning. I explained the procedure and recovery. The risks, benefits alternatives were reviewed. Questions were answered. Clay Ayala Jr, MD [facility] 05-19-2020 Note HNO ID: [id number] Author: Roberta Phelps (Rt) Service: ? Author Type: [employer]ed [employer] Boards Stripper Etcher Type: Progress Notes Filed: 05/19/2020 9:40 AM Note Text: Radiology Service Progress Note PATIENT NAME: Sue Momin DATE OF SERVICE: May 19, 2020 TIME: 9:40 AM PATIENT IDENTITY VERIFICATION COMPLETED USING TWO (2) IDENTIFIERS: Name and Date of confirmed by patient verbally. FALL SCREENING: Has the patient had 2 falls in the last year or 1 fall with injury or currently using an Ambulatory Assistive Device (Walker, Cane, Wheelchair, Crutches, etc.)? Yes, Patient High Risk for Falls What interventions were put in place to prevent falls during this visit? Increased Observations by Caregivers PATIENT GENDER DATA: Female. status: : No status: NO. PATIENT RELEVANT IMPLANT DATA REVIEWED: Not Applicable RADIOLOGY DEPARTMENT: General X-ray: Exam(s) Completed: Pelvis X-Ray: Pelvis with Hip Right PERIPHERAL IV DATA: Not applicable SIGNED BY: RT Coral May 19, 2020 9:40 AM [facility] 05-12-2020 Note HNO ID: [id number] Author: Mani Dunlap (Pa) Service: ? Author Type: Physician Temp Recruiter Type: Progress Notes Filed: 05/12/2020 12:33 PM Note Text: SERVICE DATE: May 12, 2020 PCP: Alek Sherwood MD Consult requested by Alek Sherwood MD for an opinion regarding chief complaint as stated below. My final impression and recommendations will be communicated back to the requesting physician by way of the shared medical record or letter via US mail. Subjective Patient ID: Sue is a 49 year old female. 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 This began after an incident approximately 2 months ago where she slipped on the ice coming out of her house and torqued the right hip. Did not fall on it. Was sore initially but became more more sore as the day went on. Her symptoms are now getting worse rather than better. She is used Tylenol, ibuprofen and occasional tramadol without much improvement in her symptoms. 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 This she obtained on 04/28/2020 at [facility] in [place], [place]. She has been using a cane more recently but prior to that was holding onto furniture and the wall to take pressure off of her hip. Her pain level is an 8 or 10 depending on activities and is all in the anterior groin. Denies any pain down into her thigh or knee. Denies any history of prior symptoms before this incident. 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 Denies any bisphosphonate use. TREATMENTS PRIOR TO INITIAL CONSULT: Oral NSAIDS Cane Review of Systems Constitutional: Negative for fever. HENT: Negative for congestion. Respiratory: Negative for cough and shortness of breath. Cardiovascular: Negative for chest pain. Gastrointestinal: Negative for abdominal pain. History of GERD and uses Prilosec as needed Endocrine: Positive for diabetic associated symptoms. Recent diagnosis Skin: Negative for color change and rash. Neurological: Positive for numbness. Numbness in both feet which she attributes to the diabetes Hematological: Chronic anemia, recent diagnosis Musculoskeletal: Negative for joint swelling. All other systems reviewed and are negative. There is no problem list on file for this patient. No past medical history on file. No past surgical history on file. No family history on file. Social History Tobacco Use - Smoking status: Not on file Substance Use Topics - Alcohol use: Not on file - Drug use: Not on file ALLERGIES Not on File MEDICATIONS: No prescriptions on file. Allergies, medications, past surgical history, family history and past medical history were reviewed per this encounter. Objective Right Hip Exam Tenderness The patient is experiencing tenderness in the anterior (No tenderness in the thigh). Range of Motion Abduction: 30 (With pain in the groin) Adduction: 15 (With pain in the groin) Extension: 0 Flexion: 70 (With significant groin pain) External rotation: 30 Internal rotation: 20 (With groin pain) Muscle Strength Right hip normal muscle strength: Pain with resisted flexion. Abduction: 5/5 Adduction: 5/5 Flexion: 5/5 Other Erythema: absent Scars: absent Sensation: normal (Slight decrease sensation of both feet) Pulse: present Comments: She has some groin discomfort with right knee range of motion. Denies any thigh pain. Ambulating with a cane with groin pain on weightbearing. Motor and sensory are intact other than that described above. From the diabetic neuropathy. Left Hip Exam Left hip exam is normal. Radiographs: Reviewed x-rays taken today personally and with Dr. Booth which show some hypertrophic changes of the posterior aspect of the femur but no periostitis. No obvious fracture though after reviewing the MRI done at [facility] on 04/28/2020, there is evidence of a femoral neck stress fracture. Assessment/Plan ASSESSMENT Diagnosis (M84.351A) Stress fracture of right femur, initial encounter (primary encounter diagnosis) Comment: femoral neck (M79.604) Right leg pain Plan: XR FEMUR GENERAL 2V AP/LAT RT (M89.8X5) Pain in right femur Plan: XR FEMUR GENERAL 2V AP/LAT RT Office Visit on 05/12/20 - XR FEMUR GENERAL 2V AP/LAT RT PLAN We discussed that this is a femoral neck stress fracture which after 2 months of conservative treatment is not healing. She is currently off work Captual (more content not included)... [facility] 05-12-2020 Note HNO ID: [id number] Author: Melany VelazquezRt) Isrrael Service: ? 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 FALL SCREENING: Has the patient had 2 falls in the last year or 1 fall with injury or currently using an Ambulatory Assistive Device (Walker, Cane, Wheelchair, Crutches, etc.)? No PATIENT GENDER DATA: Female. status: : No status: NO. PATIENT RELEVANT IMPLANT DATA REVIEWED: Not Applicable RADIOLOGY DEPARTMENT: General X-ray: Exam(s) Completed: Lower Extremity X-Ray(s): Femur, Right: PERIPHERAL IV DATA: Not applicable SIGNED BY: RT Josue May 12, 2020 9:43 AM [facility] Summary Purpose Family History No Family History Records FoundNo Family History Records FoundNo Family History Records FoundNo Family History Records FoundNo Family History Records FoundNo Family History Records Found Advance Directives No Advanced Directives Records FoundNo Advanced Directives Records FoundNo Advanced Directives Records FoundNo Advanced Directives Records FoundNo Advanced Directives Records FoundNo Advanced Directives Records Found Additional Source Comments INFORMATION SOURCE (unrecogn ized section and content) DATE CREATED AUTHOR 04/30/2020 [facility] DATE CREATED AUTHOR AUTHOR'S ORGANIZ ATION 08/24/2020 [facility] DATE CREATED AUTHOR AUTHOR'S ORGANIZ ATION 08/25/2020 [facility] DATE CREATED AUTHOR AUTHOR'S ORGANIZ ATION 10/25/2020 [facility] DATE CREATED AUTHOR AUTHOR'S ORGANIZ ATION 03/20/2021 [facility] DATE CREATED AUTHOR AUTHOR'S ORGANIZ ATION 05/30/2022 [facility] FOR RECORDS PERTAINING TO PATIENTS WHO ARE OR HAVE BEEN ENROLLED IN A CHEMICAL DEPENDENCY/SUBSTANCEABUSE PROGRAM, SOME INFORMATION MAY BE OMITTED. This clinical summary was aggregated from multiple sources. Caution should be exercised in using it in the provision of clinical care. This summary normalizes information from multiple sources, and as a consequence, information in this document may materially change the coding, format and clinical context of patient data. In addition, data may be omitted in some cases. CLINICAL DECISIONS SHOULD BE BASED ON THE PRIMARY CLINICAL RECORDS. [facility] [employer] provides no warranty or guarantee of the accuracy or completeness of information in this document.
[2023-03-12 18:04] LABS: Basophils Percent Auto 0.5 % (0.2-2.0); Eosinophils Absolute Auto 0.2 10^3/uL (0.0-0.7); Eosinophils Percent Auto 2.3 % (0.9-7.0); Hematocrit 41.8 % (36.0-48.0); Hemoglobin 13.5 g/dL (12.0-16.0); Immature Granulocytes Abs Auto 0.03 10^3/uL (0.00-0.03); Immature Granulocytes Pct Auto 0.4 % (0.0-0.5); Lymphocytes Absolute Auto 2.1 10^3/uL (1.2-3.8); Mean Corpuscular HGB Conc 32.3 g/dL (29.9-35.2); Mean Corpuscular Hemoglobin 24.8 pg (26.7-34.0); Mean Corpuscular Volume 76.7 fL (81.0-99.0); Mean Platelet Volume 9.2 fL (9.5-13.5); Monocytes Absolute Auto 0.3 10^3/uL (0.3-0.8); Monocytes Percent Auto 4.5 % (1.7-12.0); Neutrophils Absolute Auto 4.7 10^3/uL (1.4-6.5); Neutrophils Percent Auto 63.3 % (43.0-75.0); Platelet Count 258 10^3/uL (150-450); Red Blood Count 5.45 10^6/uL (4.20-5.40); Red Cell Distribution Width 19.5 % (11.0-15.0); White Blood Count 7.4 10^3/uL (4.0-11.0)
[2023-03-12 18:23] LABS: Percent Iron Saturation 17.6 %
== END 2023-03-12 16:26 | disposition home or self-care (01) ==
LOC: LAB 16:25
PROVIDERS: Visit Provider Internal Medicine Hematology & Oncology
DX: E55.9 Vitamin D deficiency, unspecified (principal); D64.9 Anemia, unspecified; D50.9 Iron deficiency anemia, unspecified; K90.9 Intestinal malabsorption, unspecified
CPT/HCPCS: 36415; 82728; 83540; 83550; 85025

== ENCOUNTER 2023-03-20 08:17 | Outpatient (RCR) | payer BC, SELFPAY | END 2023-03-21 23:59 | disposition home or self-care (01) | LOC: INF 08:17 | PROVIDERS: Visit Provider Internal Medicine Hematology & Oncology | DX: E55.9 Vitamin D deficiency, unspecified (principal); D64.9 Anemia, unspecified; D50.9 Iron deficiency anemia, unspecified; K90.9 Intestinal malabsorption, unspecified; Z98.84 Bariatric surgery status; Z87.891 Personal history of nicotine dependence; Z80.3 Family history of malignant neoplasm of breast | CPT/HCPCS: G0463 ==

== ENCOUNTER 2023-10-01 06:26 | Outpatient (OUT) | payer BC, SELFPAY ==
--- OUTSIDE RECORDS SUMMARY | 2023-10-01 06:30 | XMS_ITS | CCD ---
Author Organization [facility] Care Team Providers Care Internet Webmaster Name Role Phone ALEK SHERWOOD Attending Unavailabl [...] Unavailable MARKER ., DR MEJIA Consulting Unavailable DALTON, GRAY Consulting Unavailable DELIA, VÍCTOR Thomas Consulting Unavailable NADEREEmilee, ALEK Attending Unavailable Allergies Allergy Classification Reported Allergen(s) Allergy Type Date of Onset Reaction(s) Facility (1 source) Latex Drug allergy (disorder) 07-06-2012 [facility] Repository Problems Active Problems Problem Classification Problem [...] 05-24-2022 BASO # 0.0 103/ul Normal 0.0-0.1 [facility] Comment on above: Performed By: #### C BC ####[facility] [address] [place], [place] [address]Dr. Yandy Saunders Basophils/100 WBC (Bld) 0.6 % Normal 0.2-2.0 [facility] Comment on above: Performed By: #### C BC ####[facility] [address] [place], [place] [address]Dr. Yandy Saunders EO # 0.1 103/ul Normal 0.0-0.7 [facility] Comment on above: Performed By: #### C BC ####[facility] [address] [place], [place] [address]Dr. Yandy Saunders Eosinophils/100 WBC (Bld) 1.9 % Normal 0.9-7.0 [facility] Comment on above: Performed By: #### C BC ####[facility] [address] [place], [place] [address]Dr. Yandy Saunders Erythrocyte distribution width (RBC) [Ratio] 18.7 % Critically high 11.0-15.0 [facility] Comment on above: Performed By: #### C BC ####[facility] [address] [place] [address]Dr. Yandy Saunders Hematocrit (Bld) [Volume fraction] 38.7 % Normal 36.0-48.0 [facility] Comment on above: Performed By: #### C BC ####[facility] [address] [place] [address]Dr. Yandy Saunders Hemoglobin (Bld) [Mass/Vol] 12.3 g/dL Normal 12.0-16.0 [facility] Comment on above: Performed By: #### C BC ####[facility] [address] [place] [address]Dr. Yandy Saunders IG # 0.03 10e3/ul Normal 0.00-0.03 [facility] Comment on above: Performed By: #### C BC ####[facility] [address] [place], [place] [address]Dr. Yandy Saunders IG % 0.4 % Normal 0.0-0.5 [facility] Comment on above: Performed By: #### C BC ####[facility] [address] [place], [place] [address]Dr. Yandy Saunders LYMPH # 2.2 103/ul Normal 1.2-3.8 [facility] Comment on above: Performed By: #### C BC ####[facility] [address] [place] [address]Dr. Yandy Saunders Lymphocytes/100 WBC (Bld) 30.8 % Normal 20.5-60.0 [facility] Comment on above: Performed By: #### C BC ####[facility] [address] [place], [place] [address]Dr. Yandy Saunders MANUAL DIFF REQ NO Normal [facility] Comment on above: Performed By: #### C BC ####[facility] [address] [place], [place] [address]Dr. Yandy Saunders MCH (RBC) [Entitic mass] 22.4 pg Critically low 26.7-34.0 [facility] Comment on above: Performed By: #### C BC ####[facility] [address] [place] [id number]. Yandy Chip MCHC (RBC) [Mass/Vol] 31.8 g/dL Normal 29.9-35.2 [facility] Comment on above: Performed By: #### C BC ####[facility] [address] [place] [id number]. Yandy Saunders MCV (RBC) [Entitic vol] 70.5 fL Critically low 81.0-99.0 [facility] Comment on above: Performed By: #### C BC ####[facility] [address] [place] [id number]. Yandy Saunders MONO # 0.4 103/ul Normal 0.3-0.8 [facility] Comment on above: Performed By: #### C BC ####[facility] V[address] [place], [place] [address]Dr. Yandy Saunedrs Monocytes/100 WBC (Bld) 5.3 % Normal 1.7-12.0 [facility] Comment on above: Performed By: #### C BC ####[facility] [address] [place], [place] [address]Dr. Yandy Saunders NEUT # 4.4 103/ul Normal 1.4-6.5 [facility] Comment on above: Performed By: #### C BC ####[facility] [address] [place], [place] [address]Dr. Yandy Saunders Neutrophils/100 WBC (Bld) 61.0 % Normal 43.0-75.0 [facility] Comment on above: Performed By: #### C BC ####[facility] [address] [place], [place] [address]Dr. Yandy Saunders Platelet mean volume (Bld) [Entitic vol] 8.9 fL Critically low 9.5-13.5 [facility] Comment on above: Performed By: #### C BC ####[facility] [address] [place], [place] [address]Dr. Yandy Saunders PLT 284 103/ul Normal 150-450 [facility] Comment on above: Performed By: #### C BC ####[facility] [address] [place], [place] [address]Nd. Yandy Saunders RBC 5.49 106/ul Critically high 4.20-5.40 [facility] Comment on above: Performed By: #### C BC ####[facility] [address] [place], [place] [address]VhFredi Saunders WBC 7.2 103/ul Normal 4.0-11.0 [facility] Comment on above: Performed By: #### C BC ####[facility] [address] [place], [place] [address]EbDr. Yandy Saunders GLYCOHEMOGLOBIN A1Con 2022 ADA RECOMMENDATION SEE BELOW Normal [facility] Comment on above: Result Comment: ADA RECOMMENDED LIMIT 4.0 - 6.0 ADA THERAPEUTIC TARGET < 7.0 ACTION SUGGESTED > 7.0 Performed By: #### A 1C #### [facility] Laboratory [address] [address] [address] Yandy Saunders Glucose [Mass/Vol] 171 mg/dL Normal [facility] Comment on above: Performed By: #### A 1C #### [facility] Laboratory [address] [address] [address] Yandy Saunders HbA1c (Bld) [Mass fraction] 7.6 % Critically high 4.5-6.2 [facility] Comment on above: Performed By: #### A 1C #### [facility] Laboratory [address] [address] [address] Yandy Saunders LIPID PROFILEon 05-24-2022 CHOL-HDL RATIO NORM SEE BELOW Normal [facility] Comment on above: Result Comment: 3.3 - 4.4 LOW RISK 4.4 - 7.1 AVERAGE RISK 7.1 - 11.0 MODERATE RISK >11.0 HIGH RISK Performed By: #### L IPID, TSH, BMP, LIVER ####[facility] [address] [place], [place] [address]AhDr. Yandy Saunders Cholesterol [Mass/Vol] 127 mg/dL Normal <=200 [facility] Comment on above: Performed By: #### L IPID, TSH, BMP, LIVER ####[facility] [address] [place] [id number]. Yandy Saunders Cholesterol in HDL [Mass/Vol] 39 mg/dL Critically low 40-60 [facility] Comment on above: Performed By: #### L IPID, TSH, BMP, LIVER ####[facility] [address] [place] [id number]. Yandy Saunders Cholesterol in LDL [Mass/Vol] 67.0 mg/dL Normal [facility] Comment on above: Performed By: #### L IPID, TSH, BMP, LIVER ####[facility] [address] [place] [id number]. Yandy Saunders Cholesterol.total/Ch olesterol in HDL [Mass ratio] 3.3 {ratio} Normal [facility] Comment on above: Performed By: #### L IPID, TSH, BMP, LIVER ####[facility] [address] [place] [id number]. Yandy Saunders HDL NORMAL > or = 60 mg/dl - LO W CARDIOVASCULAR RISK <40 mg/dl - HIGH CARDIOVASCULAR RISK Normal [facility] Comment on above: Performed By: #### L IPID, TSH, BMP, LIVER ####[facility] [address] [place] [id number]. Yandy Saunders LDL CALC NORMAL SEE BELOW Normal [facility] Comment on above: Result Comment: <100 mg/dl OPTIMAL 100 - 129 mg/dl NEAR OR ABOVE OPTIMAL 130 - 159 mg/dl BORDERLINE HIGH 160 - 189 mg/dl HIGH >190 mg/dl VERY HIGH Performed By: #### L IPID, TSH, BMP, LIVER ####[facility] [address] [place] [id number]. Yandy Saunders Triglyceride [Mass/Vol] 105 mg/dL Normal <=150 [facility] Comment on above: Performed By: #### L IPID, TSH, BMP, LIVER ####[facility] [address] [place] [id number]. Yandy Saunders VLDL CALC 21.0 mg/dL Normal [facility] Comment on above: Performed By: #### L IPID, TSH, BMP, LIVER ####[facility] [address] [place] [address]Dr. Yandy Saunders LIVER PROFILEon 05-24-2022 Albumin [Mass/Vol] 3.5 g/dL Normal 3.4-5.0 [facility] Comment on above: Performed By: #### L IPID, TSH, BMP, LIVER ####[facility] [address] [place] [address]Dr. Madinakaylan Saunders Albumin/Globulin [Mass ratio] 0.8 {ratio} Normal [facility] Comment on above: Performed By: #### L IPID, TSH, BMP, LIVER ####[facility] [address] [place] [address]Dr. Yandy Saunders ALP [Catalytic activity/Vol] 41 U/L Critically low 46-116 [facility] Comment on above: Performed By: #### L IPID, TSH, BMP, LIVER ####[facility] Z[address] [place], [place] [address]Dr. Madinakaylan Saunders ALT [Catalytic activity/Vol] 62 U/L Critically high 14-59 [facility] Comment on above: Performed By: #### L IPID, TSH, BMP, LIVER ####[facility] [address] [place], [place] [address]Dr. Yandy Saunders AST [Catalytic activity/Vol] 15 U/L Normal 15-37 [facility] Comment on above: Performed By: #### L IPID, TSH, BMP, LIVER ####[facility] [address] [place], [place] [address]Dr. Yandy Chip BILI, CONJUGATED 0.1 mg/dL Normal 0.0-0.2 [facility] Comment on above: Performed By: #### L IPID, TSH, BMP, LIVER ####[facility] [address] [place], [place] [address]Dr. Yandy Saunders Bilirubin [Mass/Vol] 0.4 mg/dL Normal 0.2-1.0 [facility] Comment on above: Performed By: #### L IPID, TSH, BMP, LIVER ####[facility] [address] [place] [address]Dr. Yandy Saunders Globulin (S) [Mass/Vol] 4.4 g/dL Normal [facility] Comment on above: Performed By: #### L IPID, TSH, BMP, LIVER ####[facility] [address] [place] [address]Dr. Yandy Saunders Protein [Mass/Vol] 7.9 g/dL Normal 6.4-8.2 [facility] Comment on above: Performed By: #### L IPID, TSH, BMP, LIVER ####[facility] [address] [place] [address]Dr. Yandy Saunders PROF CHEM 8 (BAS METB)on Anion gap [Moles/Vol] 13.1 mmol/L Normal [facility] Comment on above: Performed By: #### L IPID, TSH, BMP, LIVER #### [facility] Laboratory [address] [address] [address] Yandy Saunders Calcium [Mass/Vol] 9.2 mg/dL Normal 8.5-10.1 [facility] Comment on above: Performed By: #### L IPID, TSH, BMP, LIVER #### [facility] Laboratory [address] [address] [address] Yandy Saunders Chloride [Moles/Vol] 103 mmol/L Normal 98-107 [facility] Comment on above: Performed By: #### L IPID, TSH, BMP, LIVER #### [facility] Laboratory [address] [address] [address] Yandy Saunders CO2 [Moles/Vol] 26.6 mmol/L Normal 21.0-32.0 [facility] Comment on above: Performed By: #### L IPID, TSH, BMP, LIVER #### [facility] Laboratory [address] [address] [address] Yandy Saunders Creatinine [Mass/Vol] 0.67 mg/dL Normal 0.55-1.02 [facility] Comment on above: Performed By: #### L IPID, TSH, BMP, LIVER #### [facility] Laboratory [address] [address] [address] Yandy Saunders EGFR-AF WALLISIAN >60 Normal >=60 [facility] Comment on above: Performed By: #### L IPID, TSH, BMP, LIVER #### [facility] Laboratory [address] [address] [address] Yandy Saunders EGFR-NON AF WALLISIAN >60 Normal >=60 [facility] Comment on above: Performed By: #### L IPID, TSH, BMP, LIVER #### [facility] Laboratory [address] [address] [address] Yandy Saunders Glucose [Mass/Vol] 156 mg/dL Critically high 74-106 T [facility] Comment on above: Performed By: #### L IPID, TSH, BMP, LIVER #### [facility] Laboratory [address] [address] [address] Yandy Saunders Potassium [Moles/Vol] 3.7 mmol/L Normal 3.5-5.1 [facility] Comment on above: Performed By: #### L IPID, TSH, BMP, LIVER #### [facility] Laboratory [address] [address] [address] Yandy Saunders Sodium [Moles/Vol] 139 mmol/L Normal 136-145 [facility] Comment on above: Performed By: #### L IPID, TSH, BMP, LIVER #### [facility] Laboratory [address] [address] [address] Yandy Saunders Urea nitrogen [Mass/Vol] 16.0 mg/dL Normal 7.0-18.0 [facility] Comment on above: Performed By: #### L IPID, TSH, BMP, LIVER #### [facility] Laboratory [address] [place] [address] Dr. Yandy Saunders Urea nitrogen/Creatinine [Mass ratio] 23.9 mg/mg Normal [facility] Comment on above: Performed By: #### L IPID, TSH, BMP, LIVER #### [facility] Laboratory [address] [address] [address] Yandy Saunders TSHon 05-24-2022 TSH 2.378 uIU/mL Normal 0.358-3.740 [facility] Comment on above: Performed By: #### L IPID, TSH, BMP, LIVER ####[facility] [address] [place], [place] [address]UdDr. Yandy Saunders VITAMIN D 25 OHon 05-24-2022 VIT D 25-OH 29.7 ng/mL Normal [facility] Comment on above: Performed By: #### V ITAD #### [facility] [address] [place], [place] [address] Dr. Yandy Saunders VIT D RANGES SEE BELOW Normal [facility] Comment on above: Result Comment: <20 ng/mL Vit D deficient 20 - <30 ng/mL Vit D insufficient 30 - 100 ng/mL Vit D sufficient >100 ng/mL Potential Toxicity Performed By: #### V ITAD #### [facility] [address] [place], [place] [address] ABD/PELV W CONon [...] Sabine DALTON Date: 2022-05-18 23:03 Normal [facility] Covid-19 PCR (CVDTBH)on 04-21 SARS-CoV-2 (COVID-19) RNA BENIGNO+probe Ql (Unsp spec) Not detected Normal NOT DETECTED [facility] Comment on above: Result Comment: When diagnostic [...] for this test is supported by the [place] of Health and Human Service's declaration that [...] longer be used). Performed By: #### C VDTBH #### [facility] Laboratory [address] [place] [address] Dr. Yandy Saunders CBC AUTO DIFFon 05-18-2022 BASO # 0.0 103/ul Normal 0.0-0.1 [facility] Comment on above: Performed By: #### C BC #### [facility] Laboratory [address] [place] [address] Dr. Yandy Saunders Basophils/100 WBC (Bld) 0.4 % Normal 0.2-2.0 [facility] Comment on above: Performed By: #### C BC #### [facility] Laboratory [address] [place] [address] Dr. Yandy Saunders EO # 0.2 103/ul Normal 0.0-0.7 [facility] Comment on above: Performed By: #### C BC #### [facility] Laboratory [address] [place] [address] Dr. Yandy Saunders Eosinophils/100 WBC (Bld) 2.1 % Normal 0.9-7.0 [facility] Comment on above: Performed By: #### C BC #### [facility] Laboratory [address] [place] [address] Dr. Yandy Saunders Erythrocyte distribution width (RBC) [Ratio] 18.7 % Critically high 11.0-15.0 [facility] Comment on above: Performed By: #### C BC #### [facility] Laboratory [address] [place] [address] Dr. Yandy Saunders Hematocrit (Bld) [Volume fraction] 38.6 % Normal 36.0-48.0 [facility] Comment on above: Performed By: #### C BC #### [facility] Laboratory [address] [place] [address] Dr. Yandy Saunders Hemoglobin (Bld) [Mass/Vol] 12.3 g/dL Normal 12.0-16.0 [facility] Comment on above: Performed By: #### C BC #### [facility] Laboratory [address] [place] [address] Dr. Yandy Saunders IG # 0.03 10e3/ul Normal 0.00-0.03 [facility] Comment on above: Performed By: #### C BC #### [facility] Laboratory [address] [place] [address] Dr. Yandy Saunders IG % 0.4 % Normal 0.0-0.5 [facility] Comment on above: Performed By: #### C BC #### [facility] Laboratory [address] [place] [address] Dr. Yandy Saunders LYMPH # 2.3 103/ul Normal 1.2-3.8 [facility] Comment on above: Performed By: #### C BC #### [facility] Laboratory [address] [place] [address] Dr. Yandy Saunders Lymphocytes/100 WBC (Bld) 31.5 % Normal 20.5-60.0 [facility] Comment on above: Performed By: #### C BC #### [facility] Laboratory [address] [place] [address] Dr. Yandy Saunders MANUAL DIFF REQ NO Normal [facility] Comment on above: Performed By: #### C BC #### [facility] Laboratory [address] [place] [address] Dr. Yandy Saunders MCH (RBC) [Entitic mass] 22.3 pg Critically low 26.7-34.0 [facility] Comment on above: Performed By: #### C BC #### [facility] Laboratory [address] [place] [address] Dr. Yandy Saunders MCHC (RBC) [Mass/Vol] 31.9 g/dL Normal 29.9-35.2 [facility] Comment on above: Performed By: #### C BC #### [facility] Laboratory [address] [place] [address] Dr. Yandy Saunders MCV (RBC) [Entitic vol] 70.1 fL Critically low 81.0-99.0 [facility] Comment on above: Performed By: #### C BC #### [facility] Laboratory [address] [place] [address] Dr. Yandy Saunders MONO # 0.3 103/ul Normal 0.3-0.8 [facility] Comment on above: Performed By: #### C BC #### [facility] Laboratory [address] [place] [address] Dr. Yandy Saunders Monocytes/100 WBC (Bld) 4.5 % Normal 1.7-12.0 [facility] Comment on above: Performed By: #### C BC #### [facility] Laboratory [address] [place] [address] Dr. Yandy Saunders NEUT # 4.5 103/ul Normal 1.4-6.5 [facility] Comment on above: Performed By: #### C BC #### [facility] Laboratory [address] [place] [address] Dr. Yandy Saunders Neutrophils/100 WBC (Bld) 61.1 % Normal 43.0-75.0 [facility] Comment on above: Performed By: #### C BC #### [facility] Laboratory [address] [address] [address] Yandy Saunders Platelet mean volume (Bld) [Entitic vol] 9.1 fL Critically low 9.5-13.5 [facility] Comment on above: Performed By: #### C BC #### [facility] Laboratory [address] [address] [address] Yandy Saunders PLT 272 103/ul Normal 150-450 [facility] Comment on above: Performed By: #### C BC #### [facility] Laboratory [address] [address] [address] Yandy Saunders RBC 5.51 106/ul Critically high 4.20-5.40 [facility] Comment on above: Performed By: #### C BC #### [facility] Laboratory [address] [address] [address] Yandy Saunders WBC 7.3 103/ul Normal 4.0-11.0 [facility] Comment on above: Performed By: #### C BC #### [facility] Laboratory [address] [address] [address] Yandy Saunders ER URINE PROFILEon 3 Bilirubin Ql (U) Negative Normal NEGATIVE [facility] Comment on above: Performed By: #### E RUR ####[facility] [address] [place], [place] [address]DrFredi Saunders Clarity (U) CLEAR Normal CLEAR [facility] Comment on above: Performed By: #### E RUR ####[facility] [address] [place] [address]DrFredi Saunders Color (U) YELLOW Normal YELLOW [facility] Comment on above: Performed By: #### E RUR ####[facility] [facility] [address] [place], [place] [address]DrFredi Saunders ERUAHD A micrscopic examination will be performed if indicated. Normal The [facility] Comment on above: Performed By: #### E RUR ####[facility] [address] [address]Dr. Yandy Saunders Glucose Ql (U) Negative Normal NEGATIVE [facility] Comment on above: Performed By: #### E RUR ####[facility] [address] [place], [place] [address]Dr. Yandy Saunders Hemoglobin Ql (U) Negative Normal NEGATIVE [facility] Comment on above: Performed By: #### E RUR ####[facility] [address] [place], [place] [address]Dr. Yandy Saunders Ketones Ql (U) Negative Normal NEGATIVE [facility] Comment on above: Performed By: #### E RUR ####[facility] Ol[address] [place], [place] [address]Dr. Yandy Saunders LEUKOCYTES Negative Normal NEGATIVE [facility] Comment on above: Performed By: #### E RUR ####[facility] [address] [place], [place] [address]Dr. Yandy Saunders Nitrite Ql (U) Negative Normal NEGATIVE [facility] Comment on above: Performed By: #### E RUR ####[facility] [address]ars[address] [place], [place] [address]Dr. Yandy Saunders pH (U) 5.5 [pH] Normal 5-9 [facility] Comment on above: Performed By: #### E RUR ####[facility] [address] [place], [place] [address]Dr. Yandy Chip SPEC GRAVITY >=1.030 Abnormal 1.005-<=1.025 [facility] Comment on above: Performed By: #### E RUR ####[facility] [address] [place], [place] [address]Dr. Yandy Chip UA PROTEIN Negative Normal NEGATIVE/ TRACE [facility] Comment on above: Performed By: #### E RUR ####[facility] U[address] [place], [place] [address]Dr. Yandy Saunders UR MICRO IND NOT INDICATED Normal [facility] Comment on above: Performed By: #### E RUR ####[facility] [address] [place], [place] [address]Dr. Yandy Saunders Urobilinogen Qn (U) 0.2 {Jacqueline'U}/dL Normal 0.2 - 1. 0 [facility] Comment on above: Performed By: #### E RUR ####[facility] [address] [address]Dr. Yandy Saunders LIPASEon 05-18-2022 Lipase [Catalytic activity/Vol] 1358.0 U/L Critically high 73.0-393.0 [facility] Comment on above: Performed By: #### L IPA, CMP #### [facility] [address] [address] [address] Yandy Saunders PROF 14(COMP METB)on 023 Albumin [Mass/Vol] 3.6 g/dL Normal 3.4-5.0 [facility] Comment on above: Performed By: #### L IPA, CMP #### [facility] [address] [address] [address] Yandy Saunders Albumin/Globulin [Mass ratio] 0.9 {ratio} Normal [facility] Comment on above: Performed By: #### L IPA, CMP #### [facility] [address] [address] [address] Yandy Saunders ALP [Catalytic activity/Vol] 58 U/L Normal 46-116 [facility] Comment on above: Performed By: #### L IPA, CMP #### [facility] [address] [address] [address] Yandy Saunders ALT [Catalytic activity/Vol] 34 U/L Normal 14-59 [facility] Comment on above: Performed By: #### L IPA, CMP #### [facility] [address] [address] [address] Yandy Saunders Anion gap [Moles/Vol] 14.0 mmol/L Normal [facility] Comment on above: Performed By: #### L IPA, CMP #### [facility] [address] [address] [address] Yandy Saunders AST [Catalytic activity/Vol] 44 U/L Critically high 15-37 [facility] Comment on above: Performed By: #### L IPA, CMP #### [facility] [address] [address] [address] Yandy Saunders Bilirubin [Mass/Vol] 0.2 mg/dL Normal 0.2-1.0 [facility] Comment on above: Performed By: #### L IPA, CMP #### [facility] [address] [place] [address] Dr. Yandy Saunders Calcium [Mass/Vol] 8.9 mg/dL Normal 8.5-10.1 [facility] Comment on above: Performed By: #### L IPA, CMP #### [facility] [address] [place] [address] Dr. Yandy Saunders Chloride [Moles/Vol] 104 mmol/L Normal 98-107 [facility] Comment on above: Performed By: #### L IPA, CMP #### [facility] [address] [place] [address] Dr. Yandy Saunders CO2 [Moles/Vol] 24.7 mmol/L Normal 21.0-32.0 [facility] Comment on above: Performed By: #### L IPA, CMP #### [facility] [address] [place] [address] Dr. Yandy Saunders Creatinine [Mass/Vol] 0.82 mg/dL Normal 0.55-1.02 [facility] Comment on above: Performed By: #### L IPA, CMP #### [facility] [address] [place] [address] Dr. Yandy Saunders EGFR-AF WALLISIAN >60 Normal >=60 [facility] Comment on above: Performed By: #### L IPA, CMP #### [facility] [address] [place] [address] Dr. Yandy Saunders EGFR-NON AF WALLISIAN >60 Normal >=60 [facility] Comment on above: Performed By: #### L IPA, CMP #### [facility] [address] [place] [address] Dr. Yandy Saunders Globulin (S) [Mass/Vol] 4.1 g/dL Normal [facility] Comment on above: Performed By: #### L IPA, CMP #### [facility] [address] [address] [address] Yandy Saunders Glucose [Mass/Vol] 215 mg/dL Critically high 74-106 [facility] Comment on above: Performed By: #### L IPA, CMP #### [facility] [address] [address] [address] Yandy Saunders Potassium [Moles/Vol] 3.7 mmol/L Normal 3.5-5.1 [facility] Comment on above: Performed By: #### L IPA, CMP #### [facility] [address] [address] [address] Yandy Saunders Protein [Mass/Vol] 7.7 g/dL Normal 6.4-8.2 [facility] Comment on above: Performed By: #### L IPA, CMP #### [facility] [address] [place] [address] Dr. Yandy Saunders Sodium [Moles/Vol] 139 mmol/L Normal 136-145 [facility] Comment on above: Performed By: #### L IPA, CMP #### [facility] [address] [address] [address] Yandy Saunders Urea nitrogen [Mass/Vol] 18.0 mg/dL Normal 7.0-18.0 [facility] Comment on above: Performed By: #### L IPA, CMP #### [facility] [address] [place] [address] Dr. Yandy Saunders Urea nitrogen/Creatinine [Mass ratio] 22.0 mg/mg Normal [facility] Comment on above: Performed By: #### L IPA, CMP #### [facility] [address] [place] [address] Dr. Yandy Saunders Covid-19 PCR ([facility]on 03-22 SARS-CoV-2 (COVID-19) RNA BENIGNO+probe Ql (Unsp spec) Detected Abnormal NOT DETECTED [facility] Comment on above: Result Comment: This test is not yet approved or cleared by the [place] FDA. When there are no FDA-approved or cleared tests available, and other criteria are met, FDA can make tests available under an emergency access mechanism called an Emergency Use Authorization (EUA). The EUA for this test is supported by the [place] of Health and Human Service's declaration that [...] used). Performed By: #### C VDTB #### [facility] [address] [place] [address] Dr. Yandy Saunders INFLUENZA A AND B [facility] 04-03 [facility] SEE BELOW Normal [facility] Comment on above: Result Comment: Nega tive for Flu A protein angiten. Infection due to Flu A cannot be ruled out. Flu A angiten in the sample may be below the detection limit of the test. Performed By: #### I NFLUAB #### [facility] [address] [place] [address] Dr. Yandy Saunders [facility] SEE BELOW Normal [facility] Comment on above: Result Comment: Nega tive for Flu B protein antigen. Infection due to Flu B cannot be ruled out. Flu B antigen in the sample may be below the detection limit of the test. Performed By: #### I NFLUAB #### [facility] [address] [place] [address] Dr. Yandy Saunders INFLUENZA A AG Negative Normal NEGATIVE SEE COMMENT [facility] Comment on above: Performed By: #### I NFLUAB #### [facility] [address] [place] [address] Dr. Yandy Saunders INFLUENZA B AG Negative Normal NEGATIVE SEE COMMENT [facility] Comment on above: Performed By: #### I NFLUAB #### [facility] [address] [place] [address] Dr. Yandy Saunders CNNURSEon 12-24-2020 CNNURSE Nurse Visit (HEMASA) SUE MOMIN ([id number]) 1970 F CHT Date Time Provider Department 12/24/20 3:30 PM SUSAN NURSE AMINA AVALOS During your visit today, we recorded the following information about you: Temperature Pulse Respiration Blood pressure 97.4 degrees 96/minute 18/minute 152/77 oSbia Gonzalez MA 12/24/2020 3:20 PM Signed Patient Identification confirmed: yes. Injection given and documented on APR per provider order. Sobia Gonzalez MA Referring Provider: DRAGAN MOHR [[id number]] Allergies As of Date: 12/24/2020 Noted Allergy Reaction Envoirnmental [Other] 10/29/2000 LATEX 05/19/2020 2 - Rash Comments: Rash - itch and swelling Date Reviewed: 11/26/2020 Reviewed by: Sobia Gonzalez MA - Fully Assessed Primary Visit Diagnosis:S/P gastric bypass [Z98.84] Order(s):TREATMENT PARAMETER-NOT NEEDED [1192200] Order #: [id number]: 1 [facility] NURSING COMMUNICATION [[id number]] Order #: [id number]: 1 STANDING [] cyanocobalamin 1,000 mcg injectionDisp: [...] Encounter Status:Closed by SOBIA GONZALEZ on 12/24/20 [facility] 11-26-2020 CNNURSE Nurse Visit (HEMASA) SUE MOIMN ([id number]) 1970 F CHT Date Time Provider Department 11/26/20 2:15 PM SUSAN NURSE AMINA AVALOS During your visit today, we recorded the following information about you: Sobia Gonzalez MA 11/26/2020 2:37 PM Signed Patient Identification confirmed: yes. Injection given and documented on APR per provider order. Sobia Gonzalez MA Referring Provider: DRAGAN MOHR [[id number]] Allergies As of Date: 11/26/2020 Noted Allergy Reaction Envoirnmental [Other] 10/29/2000 LATEX 05/19/2020 2 - Rash Comments: Rash - itch and swelling Date Reviewed: 11/26/2020 Reviewed by: Sobia Gonzalez MA - Fully Assessed Primary Visit Diagnosis:S/P gastric bypass [Z98.84] Order(s):[facility] NURSING COMMUNICATION [[id number]] Order #: [id number]: 1 STANDING [] cyanocobalamin 1,000 mcg injectionDisp: [...] Encounter Status:Closed by SOBIA GONZALEZ on 11/26/20 [facility] CNOVSPon 11-26-2020 CNOVSP Visit (SP) Office (HEMASA) SUE MOMIN ([id number]) 1970 F CHT Date Time Provider Department 11/26/20 2:00 PM DRAGAN MOHR During your visit today, we recorded the following information about you: Temperature Pulse Respiration Blood pressure 97.3 degrees 90/minute 18/minute 140/74 Weight Height 101 kg 1.626 m Dragan Mohr MD 11/30/2020 8:40 PM Signed NAME: Sue Momin CLINIC NO.: [id number] DATE OF SERVICE: November 26, 2020 Some [...] mouth. Fo (more content not included)... Normal [facility] Comp Metabolic Panelon 11-19 Albumin Duplicate request Normal 3.9-4.9 [facility] Comment on above: Result Comment: Acco unt Credited DUPLICATE ORDER MW [id number] 0658 Performed By: #### F ERR, B12, CMP, IRON ####[facility] [place], [place] [phone] Alkaline Phosphatase Duplicate request Normal 34-123 [facility] Comment on above: Result Comment: Acco unt Credited DUPLICATE ORDER MW [id number] 0658 Performed By: #### F ERR, B12, CMP, IRON ####[facility] [phone] ALT Duplicate request Normal 7-38 [facility] Comment on above: Result Comment: Acco unt Credited DUPLICATE ORDER MW [id number] 0658 Performed By: #### F ERR, B12, CMP, IRON ####[facility] [phone] Anion Gap Duplicate request Normal 9-18 [facility] Comment on above: Result Comment: Acco unt Credited DUPLICATE ORDER MW [id number] Performed By: #### F ERR, B12, CMP, IRON ####[facility] [phone] AST Duplicate request Normal 13-35 [facility] Comment on above: Result Comment: Acco unt Credited DUPLICATE ORDER MW [id number] 0658 Performed By: #### F ERR, B12, CMP, IRON ####[facility] [address] [phone] Bilirubin, Total Duplicate request Normal 0.2-1.3 [facility] Comment on above: Result Comment: Acco unt Credited DUPLICATE ORDER MW [id number] Performed By: #### F ERR, B12, CMP, IRON ####[facility] [address]leveland[address] [phone] BUN Duplicate request Normal 7-21 [facility] Comment on above: Result Comment: Acco unt Credited DUPLICATE ORDER MW [id number] 0658 Performed By: #### F ERR, B12, CMP, IRON ####[facility] [phone] Calcium, Total Duplicate request Normal 8.5-10.2 [facility] Comment on above: Result Comment: Acco unt Credited DUPLICATE ORDER MW [id number] [id number] Performed By: #### F ERR, B12, CMP, IRON ####[facility] [phone] Chloride Duplicate request Normal 97-105 [facility] Comment on above: Result Comment: Acco unt Credited DUPLICATE ORDER MW [id number] [id number] Performed By: #### F ERR, B12, CMP, IRON ####[facility] [phone] CO2 Duplicate request Normal 22-30 [facility] Comment on above: Result Comment: Acco unt Credited DUPLICATE ORDER MW [id number] Performed By: #### F ERR, B12, CMP, IRON ####[facility] [address] [phone] Creatinine Duplicate request Normal 0.58-0.96 [facility] Comment on above: Result Comment: Acco unt Credited DUPLICATE ORDER MW [id number] 0658 Performed By: #### F ERR, B12, CMP, IRON ####[facility] [address] [phone] eGFR- Amer. Duplicate request Normal [facility] Comment on above: Result Comment: Acco unt Credited DUPLICATE ORDER MW [id number] 0658 Performed By: #### F ERR, B12, CMP, IRON ####[facility] [address] AveCA[address] [phone] eGFR-All Other Races Duplicate request Normal [facility] Comment on above: Result Comment: Acco unt Credited DUPLICATE ORDER MW [id number] 0658 Performed By: #### F ERR, B12, CMP, IRON ####[facility] [address]CA[address] [phone] eGFR-Ped. Factor Duplicate request Normal [facility] Comment on above: Result Comment: Acco unt Credited DUPLICATE ORDER MW [id number] 0658 Performed By: #### F ERR, B12, CMP, IRON ####[facility] [phone] Glucose Duplicate request Normal 74-99 [facility] Comment on above: Result Comment: Acco unt Credited DUPLICATE ORDER MW [id number] 0658 Performed By: #### F ERR, B12, CMP, IRON ####[facility] [phone] Potassium Duplicate request Normal 3.7-5.1 [facility] Comment on above: Result Comment: Acco unt Credited DUPLICATE ORDER MW [id number] 0658 Performed By: #### F ERR, B12, CMP, IRON ####[facility] [address] [phone] Protein, Total Duplicate request Normal 6.3-8.0 [facility] Comment on above: Result Comment: Acco unt Credited DUPLICATE ORDER MW [id number] 0658 Performed By: #### F ERR, B12, CMP, IRON ####[facility] [phone] Sodium Duplicate request Normal 136-144 [facility] Comment on above: Result Comment: Acco unt Credited DUPLICATE ORDER [id number] Performed By: #### F ERR, B12, CMP, IRON ####[address] [phone] Albumin [Mass/Vol] 4.2 g/dL Normal 3.9-4.9 [facility] Comment on above: Performed By: #### C MP ####[address] [address] [address] [phone] ALP [Catalytic activity/Vol] 35 U/L Normal 34-123 [facility] Comment on above: Performed By: #### C MP ####[address] [place] [phone] ALT [Catalytic activity/Vol] 15 U/L Normal 7-38 [facility] Comment on above: Performed By: #### C MP ####[address] [place] [phone] Anion gap [Moles/Vol] 15 mmol/L Normal 9-18 [facility] Comment on above: Performed By: #### C MP ####[address] [place] [phone] AST [Catalytic activity/Vol] 25 U/L Normal 13-35 [facility] Comment on above: Performed By: #### C MP ####[address] [phone] Bilirubin [Mass/Vol] 0.3 mg/dL Normal 0.2-1.3 [facility] Comment on above: Performed By: #### C MP ####[address] [phone] Calcium [Mass/Vol] 9.8 mg/dL Normal 8.5-10.2 [facility] Comment on above: Performed By: #### C MP ####[address], [place] [phone] Chloride [Moles/Vol] 104 mmol/L Normal 97-105 [facility] Comment on above: Performed By: #### C MP ####[facility] [place], [place] [phone] CO2 [Moles/Vol] 22 mmol/L Normal 22-30 [facility] Comment on above: Performed By: #### C MP ####[address] [phone] Creatinine [Mass/Vol] 0.75 mg/dL Normal 0.58-0.96 [facility] Comment on above: Performed By: #### C MP ####[address] [phone] eGFR- Amer. >60 Normal [facility] Comment on above: Performed By: #### C MP ####[address] [phone] eGFR-All Other Races >60 Normal [facility] Comment on above: Result Comment: eGFR [...] actual GFR. Performed By: #### C MP ####[address] [phone] Glucose [Mass/Vol] 71 mg/dL Low 74-99 [facility] Comment on above: Result Comment: The [place] [employer] (ADA) provides guidance for cutoff [...] Standards of Medical Care in Diabetes 2016, [place] [employer]. Diabetes Care. 2016.39(Suppl 1). Performed By: #### C MP ####[address] [phone] Potassium [Moles/Vol] 4.7 mmol/L Normal 3.7-5.1 [facility] Comment on above: Performed By: #### C MP ####[address] [phone] Protein [Mass/Vol] 7.8 g/dL Normal 6.3-8.0 [facility] Comment on above: Performed By: #### C MP ####[address] [phone] Sodium [Moles/Vol] 141 mmol/L Normal 136-144 [facility] Comment on above: Performed By: #### C MP ####[address] [phone] Urea nitrogen [Mass/Vol] 21 mg/dL Normal 7-21 [facility] Comment on above: Performed By: #### C MP ####[address] [phone] Ferritinon 11-19-2020 Ferritin [Mass/Vol] 58.2 ng/mL Normal 14.7-205.1 [facility] Comment on above: Performed By: #### F ERR, B12, CMP, IRON ####[address] [phone] Iron and TIBCon 11-19-2020 Iron [Mass/Vol] 44 ug/dL Normal 41-186 [facility] Comment on above: Performed By: #### F ERR, B12, CMP, IRON ####[facility] [address], [place] [phone] TIBC 333 ug/dL Normal 232-386 [facility] Comment on above: Performed By: #### F ERR, B12, CMP, IRON ####[facility] [place], [place] [phone] Transferrin Saturatn 13 % Low 15-57 [facility] Comment on above: Performed By: #### F ERR, B12, CMP, IRON ####[facility] [place], [place] [phone] Remote CBCDIF (for [facility] use o nly)on 11-19-2020 Abs Baso 0.03 k/uL Normal <0.11 [facility] Abs [place] 0.37 k/uL Normal <0.87 [facility] Abs Neut 4.56 k/uL Normal 1.45-7.50 [facility] Absolute nRBC <0.01 Normal <0.01 [facility] Basophils/100 WBC (Bld) 0.4 % Normal [facility] DTYPE Auto Diff Normal [facility] Eosinophils (Bld) [#/Vol] 0.15 10*3/uL Normal <0.46 [facility] Eosinophils/100 WBC (Bld) 2.1 % Normal [facility] Erythrocyte distribution width (RBC) [Ratio] 15.4 % High 11.5-15.0 [facility] Hematocrit (Bld) [Volume fraction] 39.7 % Normal 36.0-46.0 [facility] Hemoglobin (Bld) [Mass/Vol] 13.2 g/dL Normal 11.5-15.5 [facility] Lymphocytes (Bld) [#/Vol] 2.14 10*3/uL Normal 1.00-4.00 [facility] Lymphocytes/100 WBC (Bld) 29.5 % Normal [facility] MCH 27.8 pG Normal 26.0-34.0 [facility] MCHC (RBC) [Mass/Vol] 33.2 g/dL Normal 30.5-36.0 [facility] MCV (RBC) [Entitic vol] 83.6 fL Normal 80.0-100.0 [facility] Monocytes/100 WBC (Bld) 5.1 % Normal [facility] Neutrophils/100 WBC (Bld) 62.9 % Normal [facility] NRBCs 0.0 /100 WBC Normal 0 [facility] Platelet mean volume (Bld) [Entitic vol] 9.0 fL Normal 9.0-12.7 [facility] Platelets (Bld) [#/Vol] 244 10*3/uL Normal 150-400 [facility] RBC (Bld) [#/Vol] 4.75 10*6/uL Normal 3.90-5.20 [facility] WBC (Bld) [#/Vol] 7.25 10*3/uL Normal 3.70-11.00 [facility] Vitamin B12on 11-19-2020 Cobalamin (Vitamin B12) [Mass/Vol] 381 pg/mL Normal 232-1245 [facility] Comment on above: Performed By: #### F ERR, B12, CMP, IRON ####[facility] [address] [place], [place] [phone] CNOVon 11-08-2020 CNOV Office Visit (WILMER ) SUE MOMIN ([id number]) 1970 F CHT Date Time Provider Department [...] Marybel Mason PA-C Referring Provider: MARYBEL MASON [[id number]] Allergies As of Date: 11/08/2020 Noted Allergy [...] 09/24/2020 Encounter Status:Closed by MARYBEL MASON on 11/08/20 Normal [facility] XR HIP 3V PELV+ AP/LAT [...] ORIF FIXATION OF RIGHT PROXIMAL FEMUR DESCRIBED. Desktop Analyst: PSCB Transcribe Date/Time: Nov 09 2020 9:15A Dictated by : LUZ ENRIQUE MD This examination was interpreted and the report reviewed and electronically signed by: LUZ ENRIQUE MD on Nov 09 2020 9:29AM EST [id number] Normal [facility] Utilization Review Noteon Utilization Review Note From: Rebeka Mcknight Sent: Thursday, October 15, 2020 11:11 AM To: Trudy Patrick ; Anjali Molina ; Keena Dang ; Angie Chacon Subject: [facility] Observ? BreakThru to medical admission Reza Andino Again, Another Breakthru changed to Medical (Observ) Admit in [facility] Sue Momin : 66 Medical #: [id number] [place] Comm plan. I believe they just admitted today (10/15/20) and are currently in Observation status. Who would be following this patient for Observ? No Auth req for [place] [facility] as Observ. Thank you, Rebeka From: Amanda [...] is: Sue Momin : 66 Medical #: [id number] Amanda Augustine 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 UPDATE DUE TO START W 10/18 ONWARD FAX# [phone] PH# [phone] Faxed update [place] @ [place] [facility] V-M: apprved as inpt adm of 10/15/20 thru 10/19/20, fax#[phone] ph# [phone] extention of Oct 20 denied by medical billing coordinator., patient disch on 10/20/20. so all days are apprved as INPT for this adm of 10/15 thru 10/19/20 Normal [facility] Pathologist Reviewon 021 Diff Review Interp Mild thrombocytopeni a and mild leukopenia of unknown etiology. If they are persistent, further investigation is recommended. Normal [facility] Comment on above: Order Comment: Added on by Discern Expert Rule. Result Comment: NUZHAT SANCHEZ (Electronic Signature) Date Verified 10/21/20 Performed By: #### 1 [id number] #### [facility] [address] [place], [place] [id number] Diamond Wheel Molder: Jesse Nguyen MD COMPMETAon 10-20-2020 Albumin/Globulin [Mass ratio] 1.1 {ratio} Normal [facility] Comment on above: Performed By: #### 1 [id number] #### [facility] [address] [place] [address] Diamond Wheel Molder: Jesse Nguyen MD GFR AA >60 Normal [facility] Comment on above: Result Comment: Afri can Maldivian GFR Calc Medical judgement is necessary to [...] for drug dosing. Performed By: #### 1 [id number] #### [facility] [address] [place] [address] Diamond Wheel Molder: Jesse Nguyen MD Globulin (S) [Mass/Vol] 3.2 g/dL Normal [facility] Comment on above: Performed By: #### 1 [id number] #### [facility] [address] [place] [address] Diamond Wheel Molder: Jesse Nguyen MD Glomerular Filtration Rate >60 Normal [facility] Comment on above: Result Comment: Non GFR [...] for drug dosing. Performed By: #### 1 [id number] #### [facility] [address] [place] [address] Diamond Wheel Molder: Jesse Nguyen MD Osmolality [Osmolality] 279 mosm/kg Normal 275-295 [facility] Comment on above: Performed By: #### 1 [id number] #### [facility] [address] [place] [address] Diamond Wheel Molder: Jesse Nguyen MD Urea nitrogen/Creatinine [Mass ratio] 18.5 mg/mg Normal [facility] Comment on above: Performed By: #### 1 [id number] #### [facility] [address] [place] [address] Diamond Wheel Molder: Jesse Nguyen MD Albumin [Mass/Vol] 3.5 g/dL Normal 3.4-5.0 [facility] Comment on above: Performed By: #### 1 [id number] #### [facility] [address] [place] [address] Diamond Wheel Molder: Jesse Nguyen MD Alk Phos 28 unit/L Low 45-117 [facility] Comment on above: Performed By: #### 1 [id number] #### [facility] [address] [place] [address] Diamond Wheel Molder: Jesse Nguyen MD Bilirubin [Mass/Vol] 0.73 mg/dL Normal 0.20-1.00 [facility] Comment on above: Result Comment: Use of this assay is not recommended for patients undergoing treatment with eltrombopag due to the potential for falsely elevated results. Performed By: #### 1 [id number] #### [facility] [address] [place], [place] [address] Diamond Wheel Molder: Jesse Nguyen MD Calcium [Mass/Vol] 8.3 mg/dL Low 8.5-10.5 [facility] Comment on above: Performed By: #### 1 [id number] #### [facility] [address] [place], [place] [address] Diamond Wheel Molder: Jesse Nguyen MD Chloride [Moles/Vol] 107 mmol/L Normal 100-109 [facility] Comment on above: Performed By: #### 1 [id number] #### [facility] [address] [place] [address] Diamond Wheel Molder: Jesse Nguyen MD CO2 [Moles/Vol] 26.0 mmol/L Normal 21.0-32.0 [facility] Comment on above: Performed By: #### 1 [id number] #### [facility] [address] [place] [address] Diamond Wheel Molder: Jesse Nguyen MD Creatinine [Mass/Vol] 0.7 mg/dL Normal 0.6-1.0 [facility] Comment on above: Performed By: #### 1 [id number] #### [facility] [address] [place], [place] [address] Diamond Wheel Molder: Jesse Nguyen MD Glucose [Mass/Vol] 113 mg/dL High 72-100 [facility] Comment on above: Result Comment: Erin puncture should occur prior to sulfasalazine administration due to the potential for falsely depressed results. Venipuncture should occur prior to sulfapyridine administration due to the potential falsely elevated results. Baseline assay values before administration of sulfasalazine and sulfapyridine therapy would not be affected. Performed By: #### 1 [id number] #### [facility] [address] [place], [place] [address] Diamond Wheel Molder: Jesse Nguyen MD GOT 31 unit/L Normal 15-37 [facility] Comment on above: Result Comment: Erin puncture should occur prior to sulfasalazine and/or sulfapyridine administration due to the potential for falsely depressed results. Baseline assay values before administration of sulfasalazine and sulfapyridine therapy would not be affected. Performed By: #### 1 [id number] #### [facility] [address] [place], [place] [address] Diamond Wheel Molder: Jesse Nguyen MD GPT 33 unit/L Normal 13-56 [facility] Comment on above: Result Comment: Erin puncture should occur prior to sulfasalazine and/or sulfapyridine administration due to the potential for falsely depressed results. Baseline assay values before administration of sulfasalazine and sulfapyridine therapy would not be affected. Performed By: #### 1 [id number] #### [facility] [address] [place], [place] [address] Diamond Wheel Molder: Jesse Nguyen MD Potassium [Moles/Vol] 3.9 mmol/L Normal 3.5-5.1 [facility] Comment on above: Performed By: #### 1 [id number] #### [facility] [address] [place], [place] [address] Diamond Wheel Molder: Jesse Nguyen MD Protein [Mass/Vol] 6.7 g/dL Normal 6.0-8.5 [facility] Comment on above: Performed By: #### 1 [id number] #### [facility] [address] [place] [address] Diamond Wheel Molder: Jesse Nguyen MD Sodium [Moles/Vol] 139 mmol/L Normal 135-145 [facility] Comment on above: Performed By: #### 1 [id number] #### [facility] [address] [place] [address] Diamond Wheel Molder: Jesse Nguyen MD Urea nitrogen [Mass/Vol] 13 mg/dL Normal 10-20 [facility] Comment on above: Performed By: #### 1 [id number] #### [facility] [address] [place] [address] Diamond Wheel Molder: Jesse Nguyen MD Discharge Educationon 2020 Discharge Education Patient Education Material Normal [facility] HEMOon 10-20-2020 Nucleated RBC 0 /100WBC Normal [facility] Comment on above: Performed By: #### 1 [id number] #### [facility] [address] [place] [address] Diamond Wheel Molder: Jesse Nguyen MD DIFF? Yes Normal [facility] Comment on above: Performed By: #### 1 [id number] #### [facility] [address] [place] [address] Diamond Wheel Molder: Jesse Nguyen MD HEM PATH REVIEW See Diff Review Interp Normal [facility] Comment on above: Performed By: #### 1 [id number] #### [facility] [address] [place] [address] Diamond Wheel Molder: Jesse Nguyen MD DxH Actions See Notes Abnormal [facility] Comment on above: Result Comment: Scan for RBC Morphology SNV Performed By: #### 1 [id number] #### [facility] [address] [place] [address] Diamond Wheel Molder: Jesse Nguyen MD Erythrocyte distribution width (RBC) [Ratio] 20.3 % High 11.5-14.5 [facility] Comment on above: Performed By: #### 1 [id number] #### [facility] [address] [place] [address] Diamond Wheel Molder: Jesse Nguyen MD Hematocrit (Bld) [Volume fraction] 38.6 % Normal 36.0-46.0 [facility] Comment on above: Performed By: #### 1 [id number] #### [facility] [address] [place], [place] [address] Diamond Wheel Molder: Jesse Nguyen MD Hemoglobin (Bld) [Mass/Vol] 12.9 g/dL Normal 12.0-16.0 [facility] Comment on above: Performed By: #### 1 [id number] #### [facility] [address] [place], [place] [address] Diamond Wheel Molder: Jesse Nguyen MD Instr WBC 4.3 Normal [facility] Comment on above: Performed By: #### 1 [id number] #### [facility] [address] [place] [address] Diamond Wheel Molder: Jesse Nguyen MD MCH (RBC) [Entitic mass] 29.4 pg Normal 27.0-34.0 [facility] Comment on above: Performed By: #### 1 [id number] #### [facility] [address] [place] [address] Diamond Wheel Molder: Jesse Nguyen MD MCHC (RBC) [Mass/Vol] 33.5 g/dL Normal 32.0-37.0 [facility] Comment on above: Performed By: #### 1 [id number] #### [facility] [address] [place] [address] Diamond Wheel Molder: Jesse Nguyen MD MCV (RBC) [Entitic vol] 87.8 fL Normal 80.0-100.0 [facility] Comment on above: Performed By: #### 1 [id number] #### [facility] [address] [place] [address] Diamond Wheel Molder: Jesse Nguyen MD Platelet 103 x1000 Low 150-450 [facility] Comment on above: Performed By: #### 1 [id number] #### [facility] [address] [place] [address] Diamond Wheel Molder: Jesse Nguyen MD Platelet mean volume (Bld) [Entitic vol] 6.4 fL Low 7.4-10.4 [facility] Comment on above: Performed By: #### 1 [id number] #### [facility] [address] [place] [address] Diamond Wheel Molder: Jesse Nguyen MD RBC 4.39 x10 Normal 4.20-5.40 [facility] Comment on above: Result Comment: Note : RBC morphology is normal unless otherwise stated. Evaluation performed only if differential is requested. Performed By: #### 1 [id number] #### [facility] [address] [place] [address] Diamond Wheel Molder: Jesse Nguyen MD WBC 4.3 x10 Low 4.5-11.0 [facility] Comment on above: Performed By: #### 1 [id number] #### [facility] [address] [place] [address] Diamond Wheel Molder: Jesse Nguyen MD Inpatient Patient Summaryon 10-20-2020 Inpatient Patient Summary [facility] Discharge Instructions [address] [place] [address] \.br\(Patient Copy)\.br\ \.br\ \.br\Name: SUE MOMIN : 1970 \.br\Diagnosis: \.br\ \.br\Allergies: LATEX allergy\.br\ \.br\Registration Date: 10/15/20\.br\.br\.b r\ \.br\ Current Date Time: 10/20/2020 11:06:03 \.br\ \.br\Address: [facility] [address] [facility] [address] \.br\ \.br\ \.br\Primary Care Provider: \.br\Name: \.br\Phone: \.br\ \.br\Thank you for choosing [facility] for your care. You are very important to us. Our goal is to demonstrate our high quality medical care and provide you with a very good patient experience.\.br\ You may receive a survey about our service. Please take the time to complete the survey and return it so we can continue to enhance our service.\.br\ Thank you again for allowing [facility] to care for your medical needs. If [...] I mis (more content not included)... Normal [facility] MAN DIFFon 10-20-[address] 0.04 x1000 Normal 0.00-0.70 [facility] Comment on above: Performed By: #### 1 [id number] #### [facility] [address] [place], [place] [address] Diamond Wheel Molder: Jesse Nguyen MD Absolute Baso Ct 0.04 x1000 Normal 0.00-0.20 [facility] Comment on above: Performed By: #### 1 [id number] #### [facility] [address] [place] [address] Diamond Wheel Molder: Jesse Nguyen MD Absolute Eos Ct 0.04 x1000 Normal 0.00-0.50 [facility] Comment on above: Performed By: #### 1 [id number] #### [facility] [address] [place] [address] Diamond Wheel Molder: Jesse Nguyen MD Absolute Lymph Ct 1.29 x1000 Normal 1.20-4.80 [facility] Comment on above: Performed By: #### 1 [id number] #### [facility] [address] [place] [address] Diamond Wheel Molder: Jesse Nguyen MD Absolute [address] 0.47 x1000 Normal 0.10-1.00 [facility] Comment on above: Performed By: #### 1 [id number] #### [facility] [address] [place] [address] Diamond Wheel Molder: Jesse Nguyen MD Absolute Neutrophil Ct 2.40 x1000 Normal 1.40-8.80 [facility] Comment on above: Performed By: #### 1 [id number] #### [facility] [address] [place] [address] Diamond Wheel Molder: Jesse Nguyen MD Absolute Seg Ct 2.36 x1000 Normal 1.40-8.80 [facility] Comment on above: Performed By: #### 1 [id number] #### [facility] [address] [place] [address] Diamond Wheel Molder: Jesse Nguyen MD Anisocytosis Ql (Bld) Mod/Mkd Normal [facility] Comment on above: Performed By: #### 1 [id number] #### [facility] [address] [place] [address] Diamond Wheel Molder: Jesse Nguyen MD Band form neutrophils/100 WBC (Bld) 1 % Normal [facility] Comment on above: Performed By: #### 1 [id number] #### [facility] [address] [place] [address] 148[address] Diamond Wheel Molder: Jesse Nguyen MD Basophils/100 WBC (Bld) 1 % Normal [facility] Comment on above: Performed By: #### 1 [id number] #### [facility] [address] [place] [address] Diamond Wheel Molder: Jesse Nguyen MD Eosinophils/100 WBC (Bld) 1 % Normal [facility] Comment on above: Performed By: #### 1 [id number] #### [facility] [address] [place] [address] Diamond Wheel Molder: Jesse Nguyen MD Left Shift Present Abnormal [facility] Comment on above: Performed By: #### 1 [id number] #### [facility] [address] [place] [address] Diamond Wheel Molder: Jesse Nguyen MD Lymphocytes/100 WBC (Bld) 30 % Normal [facility] Comment on above: Performed By: #### 1 [id number] #### [facility] [address] [place] [address] Diamond Wheel Molder: Jesse Nguyen MD Monocytes/100 WBC (Bld) 11 % Normal [facility] Comment on above: Performed By: #### 1 [id number] #### [facility] [address] [place] [address] Diamond Wheel Molder: Jesse Nguyen MD Myelocyte % 1 % Normal [facility] Comment on above: Performed By: #### 1 [id number] #### [facility] [address] [place] [address] Diamond Wheel Molder: Jesse Nguyen MD Segmented neutrophils/100 WBC (Bld) 55 % Normal [facility] Comment on above: Performed By: #### 1 [id number] #### [facility] [address] [place] [address] Diamond Wheel Molder: Jesse Nguyen MD MG LEVELon 10-20-2020 Magnesium [Mass/Vol] 2.2 mg/dL Normal 1.6-2.6 [facility] Comment on above: Performed By: #### 1 [id number] #### [facility] [address] [place] [address] Diamond Wheel Molder: Jesse Nguyen MD Nursing Clinical Noteon Nursing Clinical Note 1130: Received report. Patient resting in bed. No signs of distress. Respirations even and unlabored. No needs at this time. Call light is within reach. Normal [facility] PHOS LEVELon 10-20-2020 Phosphate [Mass/Vol] 5.7 mg/dL High 2.5-4.9 [facility] Comment on above: Performed By: #### 1 [id number] #### [facility] [address] [place] [address] Diamond Wheel Molder: Jesse Nguyen MD POC Glucoseon 10-20-2020 Glucose [Mass/Vol] 133 mg/dL High 72-100 [facility] Comment on above: Performed By: #### 1 [id number] ####[facility] [address] [place], [place] [id number]) [phone] Director: Jesse Nguyen MD COMPMETAon 10-19-2020 Albumin/Globulin [Mass ratio] 1.1 {ratio} Normal [facility] Comment on above: Performed By: #### 1 [id number] #### [facility] [address] [place] [address] Diamond Wheel Molder: Jesse Nguyen MD GFR AA >60 [facility] Comment on above: Result Comment: Afri can Maldivian GFR Calc Medical judgement is necessary to [...] for drug dosing. Performed By: #### 1 [id number] #### [facility] [address] [place] [address] Diamond Wheel Molder: Jesse Nguyen MD Glomerular Filtration Rate >60 Normal [facility] Comment on above: Result Comment: Non GFR [...] for drug dosing. Performed By: #### 1 [id number] #### [facility] [address] [place] [address] Diamond Wheel Molder: Jesse Nguyen MD Osmolality [Osmolality] 277 mosm/kg Normal 275-295 [facility] Comment on above: Performed By: #### 1 [id number] #### [facility] [address] [place] [address] Diamond Wheel Molder: Jesse Nguyen MD Urea nitrogen/Creatinine [Mass ratio] 17.3 mg/mg Normal [facility] Comment on above: Performed By: #### 1 [id number] #### [facility] [address] [place] [address] Diamond Wheel Molder: Jesse Nguyen MD Albumin [Mass/Vol] 3.4 g/dL Normal 3.4-5.0 [facility] Comment on above: Performed By: #### 1 [id number] #### [facility] [address] [place] [address] Diamond Wheel Molder: Jesse Nguyen MD Alk Phos 30 unit/L Low 45-117 [facility] Comment on above: Performed By: #### 1 [id number] #### [facility] [address] [place] [address] Diamond Wheel Molder: Jesse Nguyen MD Bilirubin [Mass/Vol] 0.56 mg/dL Normal 0.20-1.00 [facility] Comment on above: Result Comment: Use of this assay is not recommended for patients undergoing treatment with eltrombopag due to the potential for falsely elevated results. Performed By: #### 1 [id number] #### [facility] [address] [place], [place] [address] Diamond Wheel Molder: Jesse Nguyen MD Calcium [Mass/Vol] 8.4 mg/dL Low 8.5-10.5 [facility] Comment on above: Performed By: #### 1 [id number] #### [facility] [address] [place], [place] [address] Diamond Wheel Molder: Jesse Nguyen MD Chloride [Moles/Vol] 107 mmol/L Normal 100-109 [facility] Comment on above: Performed By: #### 1 [id number] #### [facility] [address] [place], [place] [address] Diamond Wheel Molder: Jesse Nguyen MD CO2 [Moles/Vol] 23.7 mmol/L Normal 21.0-32.0 [facility] Comment on above: Performed By: #### 1 [id number] #### [facility] [address] [place], [place] [address] Diamond Wheel Molder: Jesse Nguyen MD Creatinine [Mass/Vol] 0.6 mg/dL Normal 0.6-1.0 [facility] Comment on above: Performed By: #### 1 [id number] #### [facility] [address] [place], [place] [address] Diamond Wheel Molder: Jesse Nguyen MD Globulin (S) [Mass/Vol] 3.2 g/dL Normal [facility] Comment on above: Performed By: #### 1 [id number] #### [facility] [address] [place], [place] [address] Diamond Wheel Molder: Jesse Nguyen MD Glucose [Mass/Vol] 106 mg/dL High 72-100 [facility] Comment on above: Result Comment: Erin puncture should occur prior to sulfasalazine administration due to the potential for falsely depressed results. Venipuncture should occur prior to sulfapyridine administration due to the potential falsely elevated results. Baseline assay values before administration of sulfasalazine and sulfapyridine therapy would not be affected. Performed By: #### 1 [id number] #### [facility] [address] [place], [place] [address] Diamond Wheel Molder: Jesse Nguyen MD GOT 33 unit/L Normal 15-37 [facility] Comment on above: Result Comment: Erin puncture should occur prior to sulfasalazine and/or sulfapyridine administration due to the potential for falsely depressed results. Baseline assay values before administration of sulfasalazine and sulfapyridine therapy would not be affected. Performed By: #### 1 [id number] #### [facility] [address] [place], [place] [address] Diamond Wheel Molder: Jesse Nguyen MD GPT 37 unit/L Normal 13-56 [facility] Comment on above: Result Comment: Erin puncture should occur prior to sulfasalazine and/or sulfapyridine administration due to the potential for falsely depressed results. Baseline assay values before administration of sulfasalazine and sulfapyridine therapy would not be affected. Performed By: #### 1 [id number] #### [facility] [address] [place] [address] Diamond Wheel Molder: Jesse Nguyen MD Potassium [Moles/Vol] 3.6 mmol/L Normal 3.5-5.1 [facility] Comment on above: Performed By: #### 1 [id number] #### [facility] [address] [place], [place] [id number] Diamond Wheel Molder: Jesse Nguyen MD Protein [Mass/Vol] 6.6 g/dL Normal 6.0-8.5 [facility] Comment on above: Performed By: #### 1 [id number] #### [facility] [address] [place] [address] Diamond Wheel Molder: Jesse Nguyen MD Sodium [Moles/Vol] 139 mmol/L Normal 135-145 [facility] Comment on above: Performed By: #### 1 [id number] #### [facility] [address] [place] [address] 9[address] [employer] Molder: Jesse Nguyen MD Urea nitrogen [Mass/Vol] 11 mg/dL Normal 10-20 [facility] Comment on above: Performed By: #### 1 [id number] #### [facility] [address] [place] [address] 04678 [employer] Molder: Jesse Nguyen MD MG LEVELon 10-19-2020 Magnesium [Mass/Vol] 1.9 mg/dL Normal 1.6-2.6 [facility] Comment on above: Performed By: #### 1 [id number] #### [facility] [address] [place] [address] Diamond Wheel Molder: Jesse Nguyen MD Nursing Clinical Noteon 09-21 Nursing Clinical Note 0105 Pt arrived to room 268 from [facility]. Pt oriented to room and call light system. Assessment completed. CIWA completed. Pt medicated appropriately. Call light in reach. Normal [facility] PHOS LEVELon 10-19-2020 Phosphate [Mass/Vol] 4.7 mg/dL Normal 2.5-4.9 [facility] Comment on above: Performed By: #### 1 [id number] #### [facility] [address] [place] [address] 36[address] [employer] Molder: Jesse Nguyen MD POC Glucoseon 10-19-2020 Glucose [Mass/Vol] 121 mg/dL High 72-100 [facility] Comment on above: Performed By: #### 1 [id number] #### [facility] [address] [place] [address] Diamond Wheel Molder: Jesse Nguyen MD Glucose [Mass/Vol] 144 mg/dL High 72-100 [facility] Comment on above: Performed By: #### 1 [id number] #### [facility] [address] [place] [address] 29214 Diamond Wheel Molder: Jesse Nguyen MD Glucose [Mass/Vol] 123 mg/dL High 72-100 [facility] Comment on above: Performed By: #### 1 [id number] #### [facility] [address] [id number] [employer] Molder: Jesse Nguyen MD Progress Note-Physicianon Progress Note-Physician [...] NICOTINE PATCH SITE CHECK 1 patches, Transderm, G4BSQLL THIAMINE (VIT B1) 100MG TABLET 100 mg 1 tabs, ORAL, DAILY Continuous: (0) PRN: (14) DICYCLOMINE 20MG TABLET 20 mg 1 tabs, ORAL, B9DAYWD HydrALAZINE 20MG/1ML INJ 10 mg 0.5 mL, IV Push, C5EKAHS LOPERAMIDE 2MG CAPSULE 2 mg 1 caps, ORAL, I1SWRZR LORAZepam 1MG TABLET 1 mg 1 tabs, ORAL, U8BJHNJ LORAZepam 1MG TABLET 1 mg 1 tabs, ORAL, N8QMVRI LORAZepam 1MG TABLET 2 mg 2 tabs, ORAL, M1MKTJZ LORAZepam 1MG TABLET 2 mg 2 tabs, ORAL, Q1HOUR LORAZepam 2mg=ATIVAN INJ 2 mg 1 mL, IV Push, PRN LORAZepam 2mg=ATIVAN INJ 1 mg 0.5 mL, IV Push, K1QHCIH LORAZepam 2mg=ATIVAN INJ 1 mg 0.5 mL, IV Push, M0PPLWD LORAZepam 2mg=ATIVAN INJ 2 mg 1 mL, IV Push, A0MJQKB LORAZepam 2mg=ATIVAN INJ 2 mg 1 mL, IV Push, Q1HOUR MAGNESIUM SULFATE 1G/ D5W 100ml IVPB 1 g 100 mL, IV Piggyback, DAILY TRIMETHOBENZAMIDE 200MG/2ML INJ 200 mg 2 mL, IM, U1WMUVT [employer] Charting was completed using voice recognition technology and may include unintended errors. Results Review General results Normal [facility] Transfer Documentson 021 Transfer Documents 10/19/20 0030 pt transfered via her wheelchair with belonging to [employer] , VSS she states she will let her know of transfer , all care explaiend emotionla support offerd see ivew for assessment Normal [facility] CDIFF TOXon 10-18-2020 C. Difficile Toxin Negative Normal [facility] Comment on above: Result Comment: Clos tridium difficile toxin assay is now performed via real-time and reverse transcritption Polymerase Chain Reaction (RTPCR) and (PCR) assays. Performed By: #### 1 [id number] #### [facility] [address] [place] [address] Diamond Wheel Molder: Jesse Nguyen MD COMPMETAon 10-18-2020 Albumin/Globulin [Mass ratio] 0.9 {ratio} [facility] Comment on above: Performed By: #### 1 37236, 529715, 613549 ####[facility] [address] [place] [address] Medical Director: Jesse Nguyen MD GFR AA >60 [facility] Comment on above: Result Comment: Afri can Maldivian GFR Calc Medical judgement is necessary to [...] for drug dosing. Performed By: #### 1 65947, 328661, 500561 ####[facility] [address] [place] [address] Medical Director: Jesse Nguyen MD Glomerular Filtration Rate >60 Normal [facility] Comment on above: Result Comment: Non GFR [...] for drug dosing. Performed By: #### 1 17662, 915215, 291116 ####[facility] [address] [place] [address] Medical Director: Jesse Nguyen MD Osmolality [Osmolality] 278 mosm/kg Normal 275-295 [facility] Comment on above: Performed By: #### 1 33408, 071065, 806639 ####[facility] [address]fv25[address] [place], [place] [id number]) [phone] Director: Jesse Nguyen MD Urea nitrogen/Creatinine [Mass ratio] 17.3 mg/mg Normal [facility] Comment on above: Performed By: #### 1 96937, 293808, 242322 ####[facility] [address]w83575 [place] [address] Medical Director: Jesse Nguyen MD Albumin [Mass/Vol] 3.3 g/dL Low 3.4-5.0 [facility] Comment on above: Performed By: #### 1 08412, 085806, 822790 ####[facility] [address] [place] [address] Medical Director: Jesse Nguyen MD Alk Phos 30 unit/L Low 45-117 [facility] Comment on above: Performed By: #### 1 72252, 812416, 962722 ####[facility] [address]hv[address] [place], [place] [id number]) [phone] Director: Jesse Nguyen MD Bilirubin [Mass/Vol] 0.67 mg/dL Normal 0.20-1.00 [facility] Comment on above: Result Comment: Use of this assay is not recommended for patients undergoing treatment with eltrombopag due to the potential for falsely elevated results. Performed By: #### 1 01936, 197754, 034271 ####[facility] [address]45 [place] [address] Medical Director: Jesse Nguyen MD Calcium [Mass/Vol] 8.5 mg/dL Normal 8.5-10.5 [facility] Comment on above: Performed By: #### 1 87095, 914728, 948367 ####[facility] [address]ye[address]19 [place] [address] Medical Director: Jesse Nguyen MD Chloride [Moles/Vol] 109 mmol/L Normal 100-109 [facility] Comment on above: Performed By: #### 1 28150, 449072, 911051 ####[facility] [address]tr[address]6426 [place] [address] Medical Director: Jesse Nguyen MD CO2 [Moles/Vol] 25.2 mmol/L Normal 21.0-32.0 [facility] Comment on above: Performed By: #### 1 10555, 663489, 163427 ####[facility] [address] [place] [address] Medical Director: Jesse Nguyen MD Creatinine [Mass/Vol] 0.6 mg/dL Normal 0.6-1.0 [facility] Comment on above: Performed By: #### 1 23507, 673202, 076517 ####[facility] Udwtptri86096 [place] [address] Medical Director: Jesse Nguyen MD Globulin (S) [Mass/Vol] 3.7 g/dL Normal [facility] Comment on above: Performed By: #### 1 76070, 784704, 732137 ####[facility] [address] [place] [address] Medical Director: Jesse Nguyen MD Glucose [Mass/Vol] 125 mg/dL High 72-100 [facility] Comment on above: Result Comment: Erin puncture should occur prior to sulfasalazine administration due to the potential for falsely depressed results. Venipuncture should occur prior to sulfapyridine administration due to the potential falsely elevated results. Baseline assay values before administration of sulfasalazine and sulfapyridine therapy would not be affected. Performed By: #### 1 78759, 816989, 614834 ####[facility] [address]fcfdj55[address] [place], [place] [id number]) [phone] Director: Jesse Nguyen MD GOT 43 unit/L High 15-37 [facility] Comment on above: Result Comment: Erin puncture should occur prior to sulfasalazine and/or sulfapyridine administration due to the potential for falsely depressed results. Baseline assay values before administration of sulfasalazine and sulfapyridine therapy would not be affected. Performed By: #### 1 86671, 462505, 653248 ####[facility] [address]qcaj[address] [place] [address] Medical Director: Jesse Nguyen MD GPT 39 unit/L Normal 13-56 [facility] Comment on above: Result Comment: Erin puncture should occur prior to sulfasalazine and/or sulfapyridine administration due to the potential for falsely depressed results. Baseline assay values before administration of sulfasalazine and sulfapyridine therapy would not be affected. Performed By: #### 1 42384, 093020, 417445 ####[facility] [address]ff[address]198 [place] [address] Medical Director: Jesse Nguyen MD Potassium [Moles/Vol] 3.6 mmol/L Normal 3.5-5.1 [facility] Comment on above: Performed By: #### 1 73059, 396052, 767305 ####[facility] [address]ztavyxi58915 [place] [address] Medical Director: Jesse Ngueyn MD Protein [Mass/Vol] 7.0 g/dL Normal 6.0-8.5 [facility] Comment on above: Performed By: #### 1 11551, 408766, 180746 ####[facility] [address]kplmu36244 [place] [address] Medical Director: Jesse Nguyen MD Sodium [Moles/Vol] 139 mmol/L Normal 135-145 [facility] Comment on above: Performed By: #### 1 01608, 088571, 647306 ####[facility] [address]smrugxn[address]41 [place] [address] Medical Director: Jesse Nguyen MD Urea nitrogen [Mass/Vol] 11 mg/dL Normal 10-20 [facility] Comment on above: Performed By: #### 1 43715, 405318, 012221 ####[facility] [address]bdlgx12707 [place] [address] Medical Director: Jesse Nguyen MD MG LEVELon 10-18-2020 Magnesium [Mass/Vol] 2.0 mg/dL Normal 1.6-2.6 [facility] Comment on above: Performed By: #### 1 19497, 683391, 309533 #### [facility] [address] [place] [address] Diamond Wheel Molder: Jesse Nguyen MD Nursing Clinical Noteon 09-21 Nursing Clinical Note 10/18/20 0640 medicated per CIWA scale /score effective , VSS no acute distress , call johnson in reach , see ivew for full assessment Normal [facility] PHOS LEVELon 10-18-2020 Phosphate [Mass/Vol] 4.4 mg/dL Normal 2.5-4.9 [facility] Comment on above: Performed By: #### 1 68557, 322766, 895499 #### [facility] [address] [place] [address] [employer] Wheel Molder: Jesse Nguyen MD POC Glucoseon 10-18-2020 Glucose [Mass/Vol] 184 mg/dL [address] Comment on above: Performed By: #### 1 [id number] #### [facility] [address] [place], [place] [address]30 [employer] Wheel Molder: Jesse Nguyen MD Glucose [Mass/Vol] 174 mg/dL [address] Comment on above: Performed By: #### 1 [id number] #### [facility] [address] [place] [address] [employer] Molder: Jesse Nguyen MD Glucose [Mass/Vol] 136 mg/dL [address] Comment on above: Performed By: #### 1 [id number] #### [facility] [address] [place], [place] [address]30 [employer] Wheel Molder: Jesse Nguyen MD Glucose [Mass/Vol] 140 mg/dL [address] Comment on above: Performed By: #### 1 [id number] #### [facility] [address] [place], [place] [address]30 [employer] Molder: Jesse Nguyen MD Progress Note-Physicianon Progress Note-Physician [...] recognition technology and might contain unintended computerized spindle sander errors. Normal [facility] Behavioral Health Consultati onon 10-17-2020 Behavioral Health Consultation According to patient's nurse, patient will be returning to [facility] tomorrow. She was apparently admitted to the ICU due to htn. [facility] to discuss follow up care. Normal [facility] COMPMETAon 10-17-2020 Albumin [Mass/Vol] 3.4 g/dL Normal 3.4-5.0 [facility] Comment on above: Performed By: #### 1 [id number] #### [facility] [address] [place] [address] Diamond Wheel Molder: Jesse Nguyen MD Albumin/Globulin [Mass ratio] 1.0 {ratio} Normal [facility] Comment on above: Performed By: #### 1 [id number] #### [facility] [address] [place] [address] [employer] Wheel Molder: Jesse Nguyen MD Alk Phos 30 unit/L Low 45-117 [facility] Comment on above: Performed By: #### 1 [id number] #### [facility] [address] [place] [address] Diamond Wheel Molder: Jesse Nguyen MD Bilirubin [Mass/Vol] 0.84 mg/dL Normal 0.20-1.00 [facility] Comment on above: Result Comment: Use of this assay is not recommended for patients undergoing treatment with eltrombopag due to the potential for falsely elevated results. Performed By: #### 1 [id number] #### [facility] [address] [place] [address] Diamond Wheel Molder: Jesse Nguyen MD Calcium [Mass/Vol] 8.4 mg/dL Low 8.5-10.5 [facility] Comment on above: Performed By: #### 1 [id number] #### [facility] [address] [place], [place] 245[address]30 [employer] Wheel Molder: Jesse Nguyen MD Chloride [Moles/Vol] 105 mmol/L Normal 100-109 [facility] Comment on above: Performed By: #### 1 [id number] #### [facility] [address] [place] [address] Diamond Wheel Molder: Jesse Nguyen MD CO2 [Moles/Vol] 28.4 mmol/L Normal 21.0-32.0 [facility] Comment on above: Performed By: #### 1 [id number] #### [facility] [address] [place] [address] Diamond Wheel Molder: Jesse Nguyen MD Creatinine [Mass/Vol] 0.7 mg/dL Normal 0.6-1.0 [facility] Comment on above: Performed By: #### 1 [id number] #### [facility] [address] [place] [address] 525[address] Diamond Wheel Molder: Jesse Nguyen MD GFR AA >60 Normal [facility] Comment on above: Result Comment: Afri can Maldivian GFR Calc Medical judgement is necessary to [...] for drug dosing. Performed By: #### 1 [id number] #### [facility] [address] [place] [address] 32740 Diamond Wheel Molder: Jesse Nguyen MD Globulin (S) [Mass/Vol] 3.5 g/dL Normal [facility] Comment on above: Performed By: #### 1 [id number] #### [facility] [address] [place] [address]30 Diamond [employer] Molder: Jesse Nguyen MD Glomerular Filtration Rate >60 Normal [facility] Comment on above: Result Comment: Non GFR [...] for drug dosing. Performed By: #### 1 [id number] #### [facility] [address] [place] [address] Diamond Wheel Molder: Jesse Nguyen MD Glucose [Mass/Vol] 125 mg/dL High 72-100 [facility] Comment on above: Result Comment: Erin puncture should occur prior to sulfasalazine administration due to the potential for falsely depressed results. Venipuncture should occur prior to sulfapyridine administration due to the potential falsely elevated results. Baseline assay values before administration of sulfasalazine and sulfapyridine therapy would not be affected. Performed By: #### 1 [id number] #### [facility] [address] [place], [place] [address] [employer] Wheel Molder: Jesse Nguyen MD GOT 43 unit/L High 15-37 [facility] Comment on above: Result Comment: Erin puncture should occur prior to sulfasalazine and/or sulfapyridine administration due to the potential for falsely depressed results. Baseline assay values before administration of sulfasalazine and sulfapyridine therapy would not be affected. Performed By: #### 1 [id number] #### [facility] [address] [place] [address] Diamond Wheel Molder: Jesse Nguyen MD GPT 29 unit/L Normal 13-56 [facility] Comment on above: Result Comment: Erin puncture should occur prior to sulfasalazine and/or sulfapyridine administration due to the potential for falsely depressed results. Baseline assay values before administration of sulfasalazine and sulfapyridine therapy would not be affected. Performed By: #### 1 [id number] #### [facility] [address] [place], [place] [address] Diamond Wheel Molder: Jesse Nguyen MD Osmolality [Osmolality] 276 mosm/kg Normal 275-295 [facility] Comment on above: Performed By: #### 1 [id number] #### [facility] [address] [place] [address]6420 Diamond Wheel Molder: Jesse Nguyen MD Potassium [Moles/Vol] 3.9 mmol/L Normal 3.5-5.1 [facility] Comment on above: Performed By: #### 1 [id number] #### [facility] [address] [place] [address] 389[address] Diamond Wheel Molder: Jesse Nguyen MD Protein [Mass/Vol] 6.9 g/dL Normal 6.0-8.5 [facility] Comment on above: Performed By: #### 1 [id number] #### [facility] [address] [place], [place] [address] Diamond Wheel Molder: Jesse Nguyen MD Sodium [Moles/Vol] 138 mmol/L Normal 135-145 [facility] Comment on above: Performed By: #### 1 [id number] #### [facility] [address] [place] [address] Diamond Wheel Molder: Jesse Nguyen MD Urea nitrogen [Mass/Vol] 9 mg/dL Low 10-20 [facility] Comment on above: Performed By: #### 1 [id number] #### [facility] [address] [place], [place] [address] Diamond Wheel Molder: Jesse Nguyen MD Urea nitrogen/Creatinine [Mass ratio] 13.1 mg/mg Normal [facility] Comment on above: Performed By: #### 1 [id number] #### [facility] [address] [place] [address] Diamond Wheel Molder: Jesse Nguyen MD MG LEVELon 10-17-2020 Magnesium [Mass/Vol] 2.1 mg/dL Normal 1.6-2.6 [facility] Comment on above: Performed By: #### 1 [id number] #### [facility] [address] [place] [address] 21436 Diamond Wheel Molder: Jesse Nguyen MD Nursing Clinical Noteon 09-20 [...] REACH, NEEDS MET. CONTINUE TO MONITOR. Normal [facility] PHOS LEVELon 10-17-2020 Phosphate [Mass/Vol] 3.6 mg/dL Normal 2.5-4.9 [facility] Comment on above: Performed By: #### 1 [id number] #### [facility] [address] [place], [place] [address] Diamond Wheel Molder: Jesse Nguyen MD POC Glucoseon 10-17-2020 Glucose [Mass/Vol] 161 mg/dL High 72-100 [facility] Comment on above: Performed By: #### 1 [id number] #### [facility] [address] [place], [place] [address] Diamond Wheel Molder: Jesse Nguyen MD Glucose [Mass/Vol] 141 mg/dL High 72-100 [facility] Comment on above: Performed By: #### 1 [id number] #### [facility] [address] [place], [place] [address] Diamond Wheel Molder: Jesse Nguyen MD Glucose [Mass/Vol] 129 mg/dL High 72-100 [facility] Comment on above: Performed By: #### 1 [id number] #### [facility] [address] [place] [address] Diamond Wheel Molder: Jesse Nguyen MD Glucose [Mass/Vol] 128 mg/dL High 72-100 [facility] Comment on above: Performed By: #### 1 [id number] #### [facility] [address] [place] [address] Diamond Wheel Molder: Jesse Nguyen MD Progress Note-Physicianon Progress Note-Physician Patient: SUE MOMIN Age: 50 years Sex: Female : 1970 Associated Diagnoses: None Author: BENJAMIN HARDY, [facility] Impression and Plan Alcohol withdrawal, alcohol abuse [...] recognition technology and might contain unintended computerized spindle sander errors. Normal [facility] COMPMETAon 10-16-2020 Albumin/Globulin [Mass ratio] 0.9 {ratio} Normal [facility] Comment on above: Performed By: #### 1 [id number] #### [facility] [address] [place], [place] [address] Diamond Wheel Molder: Jesse Nguyen MD GFR AA >60 Normal [facility] Comment on above: Result Comment: Afri can Maldivian GFR Calc Medical judgement is necessary to [...] for drug dosing. Performed By: #### 1 [id number] #### [facility] [address] [place] [address] Diamond Wheel Molder: Jesse Nguyen MD Glomerular Filtration Rate >60 Normal [facility] Comment on above: Result Comment: Non GFR [...] for drug dosing. Performed By: #### 1 [id number] #### [facility] [address] [place] [address] Diamond Wheel Molder: Jesse Nguyen MD Osmolality [Osmolality] 275 mosm/kg Normal 275-295 [facility] Comment on above: Performed By: #### 1 [id number] #### [facility] [address] [place], [place] [address] Diamond Wheel Molder: Jesse Nguyen MD Urea nitrogen/Creatinine [Mass ratio] 13.3 mg/mg Normal [facility] Comment on above: Performed By: #### 1 [id number] #### [facility] [address] [place], [place] [address] Diamond Wheel Molder: Jesse Nguyen MD Albumin [Mass/Vol] 3.2 g/dL Low 3.4-5.0 [facility] Comment on above: Performed By: #### 1 [id number] #### [facility] [address] [place], [place] [address] Diamond Wheel Molder: Jesse Nguyen MD Alk Phos 32 unit/L Low 45-117 [facility] Comment on above: Performed By: #### 1 [id number] #### [facility] [address] [place], [place] [address] Diamond Wheel Molder: Jesse Nguyen MD Bilirubin [Mass/Vol] 1.04 mg/dL High 0.20-1.00 [facility] Comment on above: Result Comment: Use of this assay is not recommended for patients undergoing treatment with eltrombopag due to the potential for falsely elevated results. Performed By: #### 1 [id number] #### [facility] [address] [place] [address] Diamond Wheel Molder: Jesse Ngueyn MD Calcium [Mass/Vol] 7.9 mg/dL Low 8.5-10.5 [facility] Comment on above: Performed By: #### 1 [id number] #### [facility] [address] [place] [address] Diamond Wheel Molder: Jesse Nguyen MD Chloride [Moles/Vol] 101 mmol/L Normal 100-109 [facility] Comment on above: Performed By: #### 1 [id number] #### [facility] [address] [place] [address] Diamond Wheel Molder: Jesse Nguyen MD CO2 [Moles/Vol] 31.6 mmol/L Normal 21.0-32.0 [facility] Comment on above: Performed By: #### 1 [id number] #### [facility] [address] [place] [address] Diamond Wheel Molder: Jesse Nguyen MD Creatinine [Mass/Vol] 0.6 mg/dL Normal 0.6-1.0 [facility] Comment on above: Performed By: #### 1 [id number] #### [facility] [address] [place] [address] Diamond Wheel Molder: Jesse Nguyen MD Globulin (S) [Mass/Vol] 3.5 g/dL Normal [facility] Comment on above: Performed By: #### 1 [id number] #### [facility] [address] [place] [address] Diamond Wheel Molder: Jesse Nguyen MD Glucose [Mass/Vol] 118 mg/dL High 72-100 [facility] Comment on above: Result Comment: Erin puncture should occur prior to sulfasalazine administration due to the potential for falsely depressed results. Venipuncture should occur prior to sulfapyridine administration due to the potential falsely elevated results. Baseline assay values before administration of sulfasalazine and sulfapyridine therapy would not be affected. Performed By: #### 1 [id number] #### [facility] [address] [place] [address] 79[address] Diamond Wheel Molder: Jesse Nguyen MD GOT 19 unit/L Normal 15-37 [facility] Comment on above: Result Comment: Erin puncture should occur prior to sulfasalazine and/or sulfapyridine administration due to the potential for falsely depressed results. Baseline assay values before administration of sulfasalazine and sulfapyridine therapy would not be affected. Performed By: #### 1 [id number] #### [facility] [address] [place] [address] Diamond Wheel Molder: Jesse Nguyen MD GPT 18 unit/L Normal 13-56 [facility] Comment on above: Result Comment: Erin puncture should occur prior to sulfasalazine and/or sulfapyridine administration due to the potential for falsely depressed results. Baseline assay values before administration of sulfasalazine and sulfapyridine therapy would not be affected. Performed By: #### 1 [id number] #### [facility] [address] [place], [place] [address] Diamond Wheel Molder: Jesse Nguyen MD Potassium [Moles/Vol] 3.4 mmol/L Low 3.5-5.1 [facility] Comment on above: Performed By: #### 1 [id number] #### [facility] [address] [place], [place] [address] Diamond Wheel Molder: Jesse Nguyen MD Protein [Mass/Vol] 6.7 g/dL Normal 6.0-8.5 [facility] Comment on above: Performed By: #### 1 [id number] #### [facility] [address] [place], [place] [address] [employer] Wheel Molder: Jesse Nguyen MD Sodium [Moles/Vol] 138 mmol/L Normal 135-145 [facility] Comment on above: Performed By: #### 1 [id number] #### [facility] [address] [place] [address] [employer] Wheel Molder: Jesse Nguyen MD Urea nitrogen [Mass/Vol] 8 mg/dL Low 10-20 [facility] Comment on above: Performed By: #### 1 [id number] #### [facility] [address] [place] [address] Diamond Wheel Molder: Jesse Nguyen MD MG LEVELon 10-16-2020 Magnesium [Mass/Vol] 2.3 mg/dL Normal 1.6-2.6 [facility] Comment on above: Performed By: #### 1 [id number] #### [facility] [address] [place] [address]859 Diamond Wheel Molder: Jesse Nguyen MD Nursing Clinical Noteon 09-20 Nursing Clinical Note 2027 - Pt awake in bed. Ativan given per CIWA score. All other needs voiced. Call light in reach. Normal [facility] PHOS LEVELon 10-16-2020 Phosphate [Mass/Vol] 3.8 mg/dL Normal 2.5-4.9 [facility] Comment on above: Performed By: #### 1 [id number] #### [facility] [address] [place] [address] Diamond Wheel Molder: Jesse Nguyen MD POC Glucoseon 10-16-2020 Glucose [Mass/Vol] 194 mg/dL High [address] Comment on above: Performed By: #### 1 [id number] #### [facility] [address] [place] [address]99 Diamond Wheel Molder: Jesse Nguyen MD Glucose [Mass/Vol] 131 mg/dL [facility] [address] [facility] Comment on above: Performed By: #### 1 [id number] #### [facility] [address] [place] [address] Diamond Wheel Molder: Jesse Nguyen MD Glucose [Mass/Vol] 131 mg/dL [facility] [address] [facility] Comment on above: Performed By: #### 1 [id number] #### [facility] [address] [place] [address] Diamond Wheel Molder: Jesse Nguyen MD Glucose [Mass/Vol] 137 mg/dL High 72-100 [facility] Comment on above: Performed By: #### 1 [id number] #### [facility] [address] [place] [address] Diamond Wheel Molder: Jesse Nguyen MD Progress Note-Physicianon Progress Note-Physician Patient: SUE MOMIN Age: 50 years Sex: Female : 1970 Associated Diagnoses: None Author: BENJAMIN HARDY, [facility] Impression and Plan Alcohol withdrawal, alcohol abuse [...] recognition technology and might contain unintended computerized spindle sander errors. Normal [facility] U DOA WITH FENTANYLon 2020 Amphetamines, U Negative Normal [facility] Comment on above: Result Comment: Urin [...] non-medical purposes. Urine for Drugs of Abuse [place] Levels: Barbiturate 200 ng/ml PCP 25 ng/ml Cocaine 300 ng/ml Opiates 2000 ng/ml Amphetamines 1000 ng/ml Benzodiazepines 200 ng/ml THC 50 ng/ml EXTC 500 ng/ml Performed By: #### 1 [id number] #### [facility] [address] [place], [place] [address] Diamond Wheel Molder: Jesse Nguyen MD Barbituates, U Negative [facility] Comment on above: Performed By: #### 1 [id number] #### [facility] [address] [place], [place] [address] Diamond Wheel Molder: Jesse Nguyen MD Benzodiazepines, U Negative Normal [facility] Comment on above: Performed By: #### 1 [id number] #### [facility] [address] [place] [address] Diamond Wheel Molder: Jesse Nguyen MD Cocaine, [facility] Comment on above: Performed By: #### 1 [id number] #### [facility] [address] [place] [address] Diamond Wheel Molder: Jesse Nguyen MD Ecstasy, [facility] Comment on above: Performed By: #### 1 [id number] #### [facility] [address] [place] [address] Diamond Wheel Molder: Jesse Nguyen MD Fentanyl, [facility] Comment on above: Result Comment: Urin [...] be used for non-medical purposes. Urine Fentanyl [place] Level: 1 ng/ml Performed By: #### 1 [id number] #### [facility] [address] [place] [address] Diamond Wheel Molder: Jesse Nguyen MD Opiates, [facility] Comment on above: Performed By: #### 1 [id number] #### [facility] [address] [place] [address] Diamond Wheel Molder: Jesse Nguyen MD PCP, [facility] Comment on above: Performed By: #### 1 [id number] #### [facility] [address] [place] [address]27 Diamond Wheel Molder: Jesse Nguyen MD THC, [facility] Comment on above: Performed By: #### 1 [id number] #### [facility] [address] [place] [address] Diamond Wheel Molder: Jesse Nguyen MD ALCOHOL SERUMon 10-15-2020 Alcohol, Serum <3 Normal [facility] Comment on above: Result Comment: Note : Alcohol values performed at [facility] are performed on Serum and reported in mg/dl, which is different then the state reporting units of g/dl which is performed on whole blood. Result reporting units are based on test methodology and are not interchangable. Performed By: #### 1 [id number] #### [facility] [address] [phone] Diamond Wheel Molder: Jesse Ngueyn MD AMMONon 10-15-2020 Ammonia (P) [Moles/Vol] 17 umol/L Normal 11-45 [facility] Comment on above: Result Comment: Erin puncture should occur prior to sulfasalazine administration due to the potential for falsely elevated results. Venipuncture should occur prior to sulfapyridine administration due to the potential for falsely depressed results. Baseline assay values before administration of sulfasalazine and sulfapyridine therapy would not be affected. Performed By: #### 1 [id number] #### [facility] [address] [phone] Diamond Wheel Molder: Jesse Nguyen MD AUTO DIFFon 10-15-2020 Baso Count 0.01 x1000 Normal 0.00-0.20 [facility] Comment on above: Performed By: #### 1 39502, 2682827, 274477, 591079, 997588, 964469, 567116 ####[facility] [address] [place] [address] Medical Director: Jesse Nguyen MD Basos % 0.2 % Normal [facility] Comment on above: Performed By: #### 1 32045, 8761222, 944653, 361486, 161877, 794750, 245076 ####[facility] Pfspovsw06082 [place] [address] Medical Director: Jesse Nguyen MD Eos Count 0.01 x1000 Normal 0.00-0.50 [facility] Comment on above: Performed By: #### 1 23347, 3651477, 808700, 520164, 819366, 037079, 634742 ####[facility] Bzgquuxw57096 [place] [address] Medical Director: Jesse Nguyen MD Eosinophils/100 WBC (Bld) 0.2 % Normal [facility] Comment on above: Performed By: #### 1 26537, 1219916, 041508, 989843, 737781, 660091, 873260 ####[facility] Wziuywre18111 [place] [address] Medical Director: Jesse Nguyen MD Lymph Count 1.08 x1000 Low 1.20-4.80 [facility] Comment on above: Performed By: #### 1 79404, 9790427, 967748, 006312, 923897, 831875, 301050 ####[facility] [address] [place] [address] Medical Director: Jesse Nguyen MD Lymphocytes/100 WBC (Bld) 18.9 % Normal [facility] Comment on above: Performed By: #### 1 94466, 1405936, 178337, 018628, 288125, 507611, 257797 ####[facility] [address] [place] [address] Medical Director: Jesse Nguyen MD [place] Count 0.29 x1000 Normal 0.10-1.00 [facility] Comment on above: Performed By: #### 1 67751, 3176543, 328840, 846642, 531993, 033286, 709688 ####[facility] Zqihsozn74414 [place] [address] Medical Director: Jesse Nguyen MD Monocytes/100 WBC (Bld) 5.1 % Normal [facility] Comment on above: Performed By: #### 1 12768, 2950633, 396478, 034385, 469320, 735152, 875309 ####[facility] [address]ldr32154 [place] [address] Medical Director: Jesse Nguyen MD Neutrophil Count (ANC) 4.33 x1000 Normal 1.40-8.80 [facility] Comment on above: Performed By: #### 1 81682, 6031325, 300754, 477255, 260746, 967580, 687686 ####[facility] Hacstylr39797 [place] [address] Medical Director: Jesse Nguyen MD Neutrophils/100 WBC (Bld) 75.6 % Normal [facility] Comment on above: Performed By: #### 1 32006, 4221981, 700962, 186300, 811161, 483439, 165509 ####[facility] Ixxeklbb39647 [place] [address] Medical Director: Jesse Nguyen MD Red Blood Cell Morphology See Notes Abnormal [facility] Comment on above: Result Comment: Anis ocytosis 2+ Polychromasia 1+ Performed By: #### 1 47024, 3608972, 800990, 352309, 454210, 796552, 441028 ####[facility] Zmwvmmut72561 [place] [address] Medical Director: Jesse Nguyen MD Scan Differential Diff Scd Normal [facility] Comment on above: Result Comment: Slid e reviewed by technologist. Performed By: #### 1 16356, 6006769, 932146, 968999, 869060, 513895, 284963 ####[facility] Mhjamstg06659 [place] [address] Medical Director: Jesse Nguyen MD BILIDon 10-15-2020 Bilirubin.indirect [Mass/Vol] 0.59 mg/dL High 0.00-0.20 [facility] Comment on above: Performed By: #### 1 91918, 1501718, 797451, 623430, 476964, 109629, 349985 ####[facility] Mcbf[address]ypa67299 [place] [address] Medical Director: Jesse Nguyen MD COMPMETAokris 10-15-2020 Albumin/Globulin [Mass ratio] 1.1 {ratio} Normal [facility] Comment on above: Performed By: #### 1 29173, 1492628, 894700, 503968, 011445, 766186, 253967 ####[facility] Rtazpkau45251 [place] [address] Medical Director: Jesse Nguyen MD GFR AA >60 Normal [facility] Comment on above: Result Comment: Afri can Mal[place]ian GFR Calc Medical judgement is necessary to [...] for drug dosing. Performed By: #### 1 69066, 7930808, 017367, 226105, 351372, 009299, 404916 ####[facility] Bdtnkhvv32110 [place] [address] Medical Director: Jesse Nguyen MD Glomerular Filtration Rate >60 Normal [facility] Comment on above: Result Comment: Non GFR [...] for drug dosing. Performed By: #### 1 48614, 3752455, 122763, 794713, 303461, 924029, 822656 ####[facility] Txruxdkb54160 [place] [address] Medical Director: Jesse Nguyen MD Osmolality [Osmolality] 272 mosm/kg Low 275-295 [facility] Comment on above: Performed By: #### 1 05027, 8617684, 423722, 337090, 306242, 691789, 043810 ####[facility] Tdxensxp13811 [place], [place] [address]) [phone] Director: Jesse Nguyen MD Urea nitrogen/Creatinine [Mass ratio] 12.4 mg/mg Normal [facility] Comment on above: Performed By: #### 1 95845, 2726296, 488179, 759773, 092704, 822959, 086709 ####[facility] Pkpuzlvt53131 [place], [place] [address]40) [phone] Director: Jesse Nguyen MD Albumin [Mass/Vol] 4.0 g/dL Normal 3.4-5.0 [facility] Comment on above: Performed By: #### 1 40561, 8757041, 965337, 526534, 243993, 080268, 598917 ####[facility] [address] [place] [id number]) [phone] Director: Jesse Nguyen MD Alk Phos 40 unit/L Low 45-117 [facility] Comment on above: Performed By: #### 1 41376, 3096971, 653188, 246291, 277440, 901064, 530738 ####[facility] X[address]vbjt[address] [place] [id number]) [phone] Director: Jesse Nguyen MD Bilirubin [Mass/Vol] 1.70 mg/dL High 0.20-1.00 [facility] Comment on above: Result Comment: Use of this assay is not recommended for patients undergoing treatment with eltrombopag due to the potential for falsely elevated results. Performed By: #### 1 72211, 9100018, 764068, 236874, 133399, 042252, 445717 ####[facility] Lgngqhjc11587 [place], [place] [address]) [phone] Director: Jesse Nguyen MD Calcium [Mass/Vol] 8.4 mg/dL Low 8.5-10.5 [facility] Comment on above: Performed By: #### 1 97944, 2400808, 820336, 468599, 298687, 744652, 982641 ####[facility] Pdeqljqt55858 [place], [place] [address]) [phone] Director: Jesse Nguyen MD Chloride [Moles/Vol] 96 mmol/L Low 100-109 [facility] Comment on above: Performed By: #### 1 14010, 5508403, 733764, 362642, 031169, 829625, 890932 ####[facility] Llzbotop97976 [place], [place] 2388[address]40) [phone] Director: Jesse Nguyen MD CO2 [Moles/Vol] 23.7 mmol/L Normal 21.0-32.0 [facility] Comment on above: Performed By: #### 1 67452, 5639870, 866489, 036803, 858996, 923251, 566228 ####[facility] Yypdvgrl86852 [place] [address] Medical Director: Jesse Nguyen MD Creatinine [Mass/Vol] 0.6 mg/dL Normal 0.6-1.0 [facility] Comment on above: Performed By: #### 1 11439, 5767289, 824697, 049706, 814478, 158592, 249466 ####[facility] Drbdlcmu91673 [place] [address] Medical Director: Jesse Nguyen MD Globulin (S) [Mass/Vol] 3.7 g/dL Normal [facility] Comment on above: Performed By: #### 1 91336, 0698869, 151645, 696281, 330151, 193439, 024295 ####[facility] Qlatrzoi70700 [place], [place] [address]) [phone] Director: Jesse Nguyen MD Glucose [Mass/Vol] 110 mg/dL High 72-100 [facility] Comment on above: Result Comment: Erin puncture should occur prior to sulfasalazine administration due to the potential for falsely depressed results. Venipuncture should occur prior to sulfapyridine administration due to the potential falsely elevated results. Baseline assay values before administration of sulfasalazine and sulfapyridine therapy would not be affected. Performed By: #### 1 82421, 4195613, 940394, 666274, 553448, 699759, 390912 ####[facility] Zkwvhgpw70842 [place] [address] Medical Director: Jesse Nguyen MD GOT 30 unit/L Normal 15-37 [facility] Comment on above: Result Comment: Erin puncture should occur prior to sulfasalazine and/or sulfapyridine administration due to the potential for falsely depressed results. Baseline assay values before administration of sulfasalazine and sulfapyridine therapy would not be affected. Performed By: #### 1 29373, 8315026, 561368, 300069, 521871, 823560, 862257 ####[facility] Lqumfggp29511 [place] [address] Medical Director: Jesse Nguyen MD GPT 23 unit/L Normal 13-56 [facility] Comment on above: Result Comment: Erin puncture should occur prior to sulfasalazine and/or sulfapyridine administration due to the potential for falsely depressed results. Baseline assay values before administration of sulfasalazine and sulfapyridine therapy would not be affected. Performed By: #### 1 20717, 9072595, 141439, 004706, 473727, 935457, 771914 ####[facility] Eakkngfx38958 [place], [place] 5272830 Medical Director: Jesse Nguyen MD Potassium [Moles/Vol] 3.3 mmol/L Low 3.5-5.1 [facility] Comment on above: Performed By: #### 1 65420, 8695791, 203138, 026697, 033902, 473164, 939515 ####[facility] Jhtivlfa56938 [place] [address] Medical Director: Jesse Nguyen MD Protein [Mass/Vol] 7.7 g/dL Normal 6.0-8.5 [facility] Comment on above: Performed By: #### 1 33646, 7465567, 412486, 694846, 179308, 745173, 662486 ####[facility] Oiilckln26898 [place] [address] Medical Director: Jesse Nguyen MD Sodium [Moles/Vol] 137 mmol/L Normal 135-145 [facility] Comment on above: Performed By: #### 1 84472, 6230252, 493367, 895254, 007532, 885533, 288147 ####[facility] Wpkdlyjg22267 [place], [place] [address]40) [phone] Director: Jesse Nguyen MD Urea nitrogen [Mass/Vol] 7 mg/dL Low 10-20 [facility] Comment on above: Performed By: #### 1 98512, 0422672, 723759, 527393, 639439, 931142, 417685 ####[facility] Kbkbzixg63765 [place], [place] [address]) [phone] Director: Jesse Nguyen MD HEMOon 10-15-2020 DIFF? No Normal [facility] Comment on above: Performed By: #### 1 78038, 1736795, 090080, 169085, 257723, 553817, 337130 ####[facility] Zbrdvwgu46507 [place] [address] Medical Director: Jesse Nguyen MD Nucleated RBC 0 /100WBC Normal [facility] Comment on above: Performed By: #### 1 85638, 3785941, 883755, 204063, 681562, 622106, 733670 ####[facility] Aefcpahd70083 [place], [place] [address]40) [phone] Director: Jesse Nguyen MD [facility] Actions See Notes Abnormal [facility] Comment on above: Result Comment: Scan for RBC Morphology SNV Performed By: #### 1 07540, 0635265, 714918, 113721, 308659, 872353, 459447 ####[facility] Zuatajcv07040 [place], [place] [address]40) [phone] Director: Jesse Nguyen MD Erythrocyte distribution width (RBC) [Ratio] 18.9 % High 11.5-14.5 [facility] Comment on above: Performed By: #### 1 17603, 9377763, 335941, 937870, 237695, 627579, 675304 ####[facility] Xcqybezk73959 [place], [place] 3257[address]40) [phone] Director: Jesse Nguyen MD Hematocrit (Bld) [Volume fraction] 40.3 % Normal 36.0-46.0 [facility] Comment on above: Performed By: #### 1 92118, 7043011, 647971, 678205, 141371, 361236, 056539 ####[facility] Bacwuilz08659 [place], [place] [address]40) [phone] Director: Jesse Nguyen MD Hemoglobin (Bld) [Mass/Vol] 13.9 g/dL Normal 12.0-16.0 [facility] Comment on above: Performed By: #### 1 99289, 1115927, 151745, 689081, 518835, 630364, 833691 ####[facility] Asildnth15925 [place], [place] [address]40) [phone] Director: Jesse Nguyen MD Instr WBC 5.7 Normal [facility] Comment on above: Performed By: #### 1 29949, 3423176, 556150, 047462, 501834, 802521, 327742 ####[facility] Dhqotuug10271 [place], [place] [address]40) [phone] Director: Jesse Nguyen MD MCH (RBC) [Entitic mass] 28.9 pg Normal 27.0-34.0 [facility] Comment on above: Performed By: #### 1 02749, 0202680, 744049, 561457, 100395, 746701, 290347 ####[facility] Gewrannu47930 [place] [address] Medical Director: Jesse Nguyen MD MCHC (RBC) [Mass/Vol] 34.4 g/dL Normal 32.0-37.0 [facility] Comment on above: Performed By: #### 1 52107, 9038308, 341626, 828394, 167887, 991247, 886783 ####[facility] Rghdsrkf91765 [place] [address] Medical Director: Jesse Nguyen MD MCV (RBC) [Entitic vol] 83.9 fL Normal 80.0-100.0 [facility] Comment on above: Performed By: #### 1 47151, 1506510, 571066, 365649, 491169, 628091, 130204 ####[facility] Jykpjjyl28324 [place], [place] [address]) [phone] Director: Jesse Nguyen MD Platelet 81 x1000 Low 150-450 [facility] Comment on above: Performed By: #### 1 87467, 0845636, 085272, 608050, 853978, 812512, 041048 ####[facility] Qwumiyru69471 [place] [address] Medical Director: Jesse Nguyen MD Platelet mean volume (Bld) [Entitic vol] 6.5 fL Low 7.4-10.4 [facility] Comment on above: Performed By: #### 1 39655, 3447231, 155881, 768294, 731053, 511910, 945593 ####[facility] Uwyieboe15455 [place] [address] Medical Director: Jesse Nguyen MD RBC 4.80 x10 Normal 4.20-5.40 [facility] Comment on above: Result Comment: Note : RBC morphology is normal unless otherwise stated. Evaluation performed only if differential is requested. Performed By: #### 1 05448, 4738724, 781767, 042007, 647034, 695031, 830349 ####[facility] Uzvuabbn85753 [place] [address] Medical Director: Jesse Nguyen MD WBC 5.7 x10 Normal 4.5-11.0 [facility] Comment on above: Performed By: #### 1 51560, 4045435, 241919, 003373, 209524, 290581, 401655 ####[facility] Ak[address]omqu75427 [place], [place] 9820530 Medical Director: Jesse Nguyen MD MG LEVELon 10-15-2020 Magnesium [Mass/Vol] 1.5 mg/dL Low 1.6-2.6 [facility] Comment on above: Performed By: #### 1 70786, 4595545, 034369, 959864, 732353, 709864, 538415 ####[facility] Otrjtrke01929 [place] [address] Medical Director: Jesse Nguyen MD Nursing Clinical Noteon 09-20 Nursing Clinical Note Rec'd pt from [facility] office for ETOH withdrawal. Visible tremors with high anxiety upon arrival. ABD pain from dry heaves. IV stared, labs drawn and sent. Dr Alexander at bedside with orders entered. IV Zofran and ativan given per PRN order, both effective. Pt states feeling much better. Assessments per [facility]. Normal [facility] PHOS LEVELon 10-15-2020 Phosphate [Mass/Vol] 3.6 mg/dL Normal 2.5-4.9 [facility] Comment on above: Performed By: #### 1 40868, 6992153, 020935, 489899, 209087, 434133, 649833 ####[facility] Jxiqmyxk56296 [place], [place] 6895055 Medical Director: Jesse Nguyen MD POC Glucoseon 10-15-2020 Glucose [Mass/Vol] 136 mg/dL High 72100 [facility] Comment on above: Performed By: #### 1 [id number] #### [facility] [address] [place] [address] Diamond Wheel Molder: Jesse Nguyen MD Glucose [Mass/Vol] 141 mg/dL High 72100 [facility] Comment on above: Performed By: #### 1 [id number] #### [facility] [address] [place] [address] Diamond Wheel Molder: Jesse Nguyen MD Glucose [Mass/Vol] 122 mg/dL [facility] [address] Comment on above: Performed By: #### 1 [id number] #### [facility] [address] [place] [address] Diamond Wheel Molder: Jesse Nguyen MD PT INRon 10-15-2020 INR Coag (PPP) [Relative time] 1.1 {INR} Normal [facility] Comment on above: Result Comment: INR Reference Range: Normal reference range for INR on patients not on anticoagulant therapy: 0.9-1.1 General therapeutic range for patients on anticoagulant therapy: 2.0-3.5 Performed By: #### 1 [id number], [id number], [id number], 103220, [id number], [id number], [id number] ####[facility] [id number] [place] [address] Medical Director: Jesse Nguyen MD Protime Patient 12.3 seconds Normal 10.1-13.3 [facility] Comment on above: Performed By: #### 1 [id number], [id number], [id number], 907584, 385910, 584907, 285537 ####[facility] [id number] [place] [address] Medical Director: Jesse Nguyen MD CNOVon 10-01-2020 CNOV Office Visit ([facility] ) SUE MOMIN ([id number]) 1970 F [facility] Date Time Provider Department 10/01/20 2:00 PM [...] Marybel Mason PA-C Referring Provider: MARYBEL MASON [[id number]] Allergies As of Date: 10/01/2020 Noted Allergy Reaction Envoirnmental [Other] 10/29/2000 LATEX 05/19/2020 2 - Rash Comments: Rash - itch and swelling Date Reviewed: 10/01/2020 Reviewed by: Marybel Mason PA-C - Fully Assessed Reason for Visit: Follow Up [171] Post Op [174] Primary Visit Diagnosis:Periprosthe tic fracture of hip, subsequent encounter [M97.8XXD, Z96.649] Order(s):CONSULT TO PHYSICAL THERAPY [9032] Order #: [id number] 1 FUTURE ROLLING WALKER [[id number]] Order #: [id number] Prescriptions as of 10/11/2020 - aspirin, enteric [...] For Investigational Drug Use Only. PI: Jordan Jyo MD. Problem List As Of Date 10/01/2020 [...] Encounter Status:Closed by MARYBEL MASON on 10/11/20 [facility] XR HIP 3V PELV+ AP/LAT RTon 10-01-2020 [...] Post surgical changes and healing posttraumatic changes. Desktop Analyst: DEYANIRA Transcribe Date/Time: Oct 01 2020 2:06P Dictated by : FELICIA WORKMAN MD This examination was interpreted and the report reviewed and electronically signed by: FELICIA WORKMAN MD on Oct 01 2020 2:08PM EST [id number] N Normal [facility] CNOVSPon 09-24-2020 CNOVSP Visit (SP) Office ([facility]) SUE MOMIN ([id number]) 1970 F [facility] Date Time Provider Department 09/24/20 2:30 PM DRAGAN MOHR During your visit today, we recorded the following information about you: Temperature Pulse Respiration Blood pressure 97.6 degrees 102/minute 18/minute 179/92 Weight Height 102.5 kg 1.626 m Dragan Mohr MD 10/03/2020 7:42 PM Signed NAME: Sue Momin CLINIC NO.: [id number] DATE OF SERVICE: September 24, 2020 Some [...] DIFF (FOR (more content not included)... Normal [facility] Comp Metabolic Panelon 09-17 Albumin [Mass/Vol] 4.1 g/dL Normal 3.9-4.9 [facility] ALP [Catalytic activity/Vol] 39 U/L Normal 34-123 [facility] ALT [Catalytic activity/Vol] 29 U/L Normal 7-38 [facility] Anion gap [Moles/Vol] 8 mmol/L Low 9-18 [facility] AST [Catalytic activity/Vol] 24 U/L Normal 13-35 [facility] Bilirubin [Mass/Vol] 0.5 mg/dL Normal 0.2-1.3 [facility] Calcium [Mass/Vol] 9.0 mg/dL Normal 8.5-10.2 [facility] Chloride [Moles/Vol] 105 mmol/L Normal 97-105 [facility] CO2 [Moles/Vol] 26 mmol/L Normal 22-30 [facility] Creatinine [Mass/Vol] 0.65 mg/dL Normal 0.58-0.96 [facility] eGFR- Amer. >60 Normal [facility] eGFR-All Other Races >60 Normal [facility] Comment on above: Result Comment: eGFR [...] [Mass/Vol] 166 mg/dL High 74-99 [facility] Comment on above: Result Comment: The [place] Diabetes Association (ADA) provides guidance for cutoff [...] Standards of Medical Care in Diabetes 2016, [place] [employer]. Diabetes Care. 2016.39(Suppl 1). Potassium [Moles/Vol] 3.4 mmol/L Low 3.7-5.1 [facility] Protein [Mass/Vol] 6.8 g/dL Normal 6.3-8.0 [facility] Sodium [Moles/Vol] 139 mmol/L Normal 136-144 [facility] Urea nitrogen [Mass/Vol] 17 mg/dL Normal 7-21 [facility] Ferritinon 09-17-2020 Ferritin [Mass/Vol] 46.7 ng/mL Normal 14.7-205.1 [facility] Comment on above: Performed By: #### I CEE, FERR ####[facility] [id number] [place], [place] [phone] Iron and TIBCon 09-17-2020 Iron [Mass/Vol] 40 ug/dL Low 41-186 [facility] Comment on above: Performed By: #### I CEE, FERR ####[address] [phone] TIBC 327 ug/dL Normal 232-386 [facility] Comment on above: Performed By: #### I CEE, FERR ####[address] [phone] Transferrin Saturatn 12 % Low 15-57 [facility] Comment on above: Performed By: #### I CEE, FERR ####[address] [phone] Remote CBCDIF (for [facility] use o nly)on 09-17-2020 Abs Baso <0.03 Normal <0.11 [facility] Abs [place] 0.40 k/uL Normal <0.87 [facility] Abs Neut 2.46 k/uL Normal 1.45-7.50 [facility] Absolute nRBC <0.01 Normal <0.01 [facility] Basophils/100 WBC (Bld) 0.4 % Normal [facility] DTYPE Auto Diff Normal [facility] Eosinophils (Bld) [#/Vol] 0.12 10*3/uL Normal <0.46 [facility] Eosinophils/100 WBC (Bld) 2.7 % Normal [facility] Erythrocyte distribution width (RBC) [Ratio] 17.8 % High 11.5-15.0 [facility] Hematocrit (Bld) [Volume fraction] 39.4 % Normal 36.0-46.0 [facility] Hemoglobin (Bld) [Mass/Vol] 13.1 g/dL Normal 11.5-15.5 [facility] Lymphocytes (Bld) [#/Vol] 1.50 10*3/uL Normal 1.00-4.00 [facility] Lymphocytes/100 WBC (Bld) 33.2 % Normal [facility] MCH 28.4 pG Normal 26.0-34.0 [facility] MCHC (RBC) [Mass/Vol] 33.2 g/dL Normal 30.5-36.0 [facility] MCV (RBC) [Entitic vol] 85.3 fL Normal 80.0-100.0 [facility] Monocytes/100 WBC (Bld) 8.8 % Normal [facility] Neutrophils/100 WBC (Bld) 54.9 % Normal [facility] NRBCs 0.0 /100 WBC Normal 0 [facility] Platelet mean volume (Bld) [Entitic vol] 9.1 fL Normal 9.0-12.7 [facility] Platelets (Bld) [#/Vol] 101 10*3/uL Low 150-400 [facility] RBC (Bld) [#/Vol] 4.62 10*6/uL Normal 3.90-5.20 [facility] WBC (Bld) [#/Vol] 4.52 10*3/uL Normal 3.70-11.00 [facility] CNOVon 08-31-2020 CNOV Office Visit ([facility] ) SUE MOMIN ([id number]) 1970 F T Date Time Provider Department 08/31/20 3:00 PM CARLOS LEMON [facility] During your visit today, we recorded [...] Femur fractures x2. See Hospital Encounter from [facility] 07/2020 Current Medications: Current Outpatient Medications [...] for lumps, (more content not included)... Normal [facility] Michelle 08-31-2020 EVAN Telephone ([facility]) SUE MOMIN ([id number]) 1970 F T Date Time Provider Department 08/31/20 CARLOS LEMON During your visit today, we recorded the following information about you: Veronica Anthony Lange 08/31/2020 3:30 PM Signed Pt has OV [...] If patient calls back, please transfer to [phone]. Patti Higgins COORD 09/02/2020 3:12 PM Signed Called and left detailed message for patient to call to schedule procedure with gastroenterology. Will follow up. Patient provided with direct extension to reach surgical coordinators. If patient calls back, please transfer to [phone]. Patti Higgins COORD 09/13/2020 5:08 PM Signed Called and left detailed message for patient to call to schedule procedure with gastroenterology. Will follow up. Patient provided with direct extension to reach surgical coordinators. If patient calls back, please transfer to [phone]. Sent patient unable to reach you mychart message, including direct extension to reach office. See below: Good morning/afternoon, Our office has been trying to reach you in an attempt to schedule a procedure with gastroenterology (egd and/or colonoscopy). Unfortunately, we have been unsucessful in our attempts to reach you. Please call our office at [phone] (direct extension to Patti, surgical supplies sterilizer) and we will be happy to assist you. Best, Patti Higgins COORD 09/27/2020 10:21 AM Signed Called and left detailed message for patient to call to schedule procedure with gastroenterology. Will follow up. Patient provided with direct extension to reach surgical coordinators. If patient calls back, please transfer to [phone]. Patti Higgins COORD 10/05/2020 9:42 AM Signed Called and left detailed message for patient to call to schedule procedure with gastroenterology. Will follow up. Patient provided with direct extension to reach surgical coordinators. If patient calls back, please transfer to [phone].. Patti Higgins [facility] 10/14/2020 9:[address] Lemon - EGD/Colonoscopy mac Called and left detailed message for patient to call to schedule procedure with gastroenterology. Will follow up. Patient provided with direct extension to reach surgical coordinators. If patient calls back, please transfer to [phone]. [facility] 10/22/2020 1:43 PM Signed Called and left detailed message for patient to call to schedule procedure with gastroenterology. Will follow up. Patient provided with direct extension to reach surgical coordinators. If patient calls back, please transfer to [phone]. Patti Higgins [facility] 10/22/2020 2:18 PM Signed Patient states that she has a broken hip, and cannot have procedure until cleared by ortho. Patient has appt with Dr. Ayala 11/08/20 - will postpone encounter until that time. [facility] 10/29/2020 2:22 PM Signed Called and left detailed message for patient to call to schedule procedure with gastroenterology. Will follow up. Patient provided with direct extension to reach surgical coordinators. If patient calls back, please transfer to [phone]. [facility] 11/05/2020 11:31 AM Signed Final attempt to schedule patient. Called and left detailed message for patient to call to schedule procedure with gastroenterology. Will follow up. Patient provided with direct extension to reach surgical coordinators. If patient calls back, please transfer to [phone]. [facility] 11/05/2020 11:40 AM Signed Patient calling office [...] - losartan (more content not included)... Normal [facility] CNOVon 08-30-2020 CNOV Office Visit ([facility] ) MOMINSUE Arnett ([id number]) 1970 F T Date Time Provider Department 08/30/20 8:00 AM [...] Mason PA-C Referring Provider: CLAY AYALA JR [[id number]] Allergies As of Date: 08/30/2020 Noted Allergy [...] femur [M84.351A] (more content not included)... Normal [facility] XR HIP 3V PELV+ AP/LAT [...] or dislocation. IMPRESSION: Postsurgical change as described. Desktop Analyst: PSCB Transcribe Date/Time: Aug 30 2020 1:48P Dictated by : CINTHYA LANDIN MD This examination was interpreted and the report reviewed and electronically signed by: CINTHYA LANDIN MD on Aug 30 2020 1:51PM EST [id number] N Normal [facility] SUE MOMIN ([id number]) 1970 F T Date Time Provider Department 08/20/20 MARYBEL MASON [facility] During your visit today, we recorded the following information about you: Chelsey Olviia Pss 08/20/2020 1:33 PM Signed Pt states [...] post op appointment has been scheduled for 7/12 Allergies As of Date: 08/20/2020 Noted Allergy [...] Status:Closed by [facility]EL [facility] SUE MOMIN ([id number]) 1970 F T Date Time Provider Department 08/19/20 CHITO HUITRON [facility] During your visit today, we recorded the following information about you: Chito Huitron, Student 08/19/2020 10:22 AM Signed ecord ID: [id number] Patient Name: [facility]: Zahraa [place]: [facility] Attending: Latia Molina Center: Hospital Medicine INSTRUCTIONS SN clarifies issue on discharge instructions If patient has a CC Physician- provide Appointment Center at [phone] at end of script If patient has non-CC Physician- recommend patient follow-up with their Physician at end of script If patients asks for a CC Physician- provide Appointment Center at [phone] at end of script If patient asks for community Physician - provide Medline number [phone] at end of script All Clear All Clear All Clear SURVEY INFORMATION Medical/Nurse Physician General Internal Medicine: Dedra Dale 1. Your discharge instructions are [...] Encounter Status:Closed by CHITO HUITRON on 08/19/20 Normal [facility] CNDSon 08-17-2020 [facility] HNO ID: [id number] Author: Latia Molina DO Service: Hospital Medicine [...] complication, without long-term current use of insulin ([facility]) POA: Yes Essential hypertension POA: Yes Class [...] MD Future A (more content not included)... [facility] CONSULT PROGon 08-17-2020 CONSULT PROG HNO ID: [id number] Author: Carlos Lamb PA-C Service: Pain Management Author Type: Physician Physician General Internal Medicine Type: Consult Progress Note Filed: 08/17/2020 11:19 [...] Pain scores overnight between 4-8/10 per [employer]. The patient's current inpatient analgesic regimen includes: [...] no acute respiratory distress, well-hydrated, well nourished. ENRI Wright, PACarlos EnriqueC August 17, 2020 11:12 AM [facility] NURSING PROGon 08-17-2020 NURSING PROG HNO ID: [id number] Author: Isabel Damon, RN Service: Nursing Author Type: Registered Nurse Type: Nursing Progress Note Filed: 08/17/2020 4:06 PM Note Text: Nursing Progress Note Patient Name: Sue Momin Patient Location[facility] [place] [address] Daily Note: pt educated on discharge instructions. Pt stated all questions were answered and that she has all of her belongings. This note was completed by: Isabel Damon [facility] THERAPY NTon 08-17-2020 THERAPY NT HNO ID: [id number] Author: Yelena Ayala OT/Brian Service: Occupational Therapy Author Type: Occupational Therapist Type: Therapy (PT/OT/Speech/Resp) Filed: 08/17/2020 2:34 PM Note Text: OCCUPATIONAL THERAPY MISSED VISIT SERVICE DATE: 08/17/2020 SERVICE TIME: 1239 to 1241 ROOM: [place] [address] Attempted Treatment. Patient not seen due to Illness. Patient with complaint of nausea and pain. Requesting to hold OT today, hoping to d/c home later today. SIGNATURE: Yelena Ayala OT/Brian PATIENT NAME: Sue Momin DATE: August 17, 2020 TIME: 2:31 PM [facility] Basic Metabolic Panlon 08-16 Anion gap [Moles/Vol] 10 mmol/L Normal 9-18 [facility] Calcium [Mass/Vol] 8.8 mg/dL Normal 8.5-10.2 [facility] Chloride [Moles/Vol] 97 mmol/L Normal 97-105 [facility] CO2 [Moles/Vol] 25 mmol/L Normal 22-30 [facility] Creatinine [Mass/Vol] 0.64 mg/dL Normal 0.58-0.96 [facility] eGFR- Amer. >60 Normal [facility] eGFR-All Other Races >60 Normal [facility] Comment on above: Result Comment: eGFR [...] GFR. Glucose [Mass/Vol] 134 mg/dL High 74-99 [facility] Comment on above: Result Comment: The [place] [employer] (ADA) provides guidance for cutoff [...] Standards of Medical Care in Diabetes 2016, [place] [employer]. Diabetes Care. 2016.39(Suppl 1). Potassium [Moles/Vol] 4.0 mmol/L Normal 3.7-5.1 [facility] Sodium [Moles/Vol] 132 mmol/L Low 136-144 [facility] Urea nitrogen [Mass/Vol] 11 mg/dL Normal 7-21 [facility] CBCon 08-16-2020 Absolute nRBC <0.01 [facility] E[facility]th[facility] distribution width (RBC) [Ratio] 20.0 % High 11.5-15.0 [facility] Hematocrit (Bld) [Volume fraction] 37.7 % Normal 36.0-46.0 [facility] Hemoglobin (Bld) [Mass/Vol] 12.3 g/dL Normal 11.5-15.5 [facility] MCH 27.9 pG Normal 26.0-34.0 [facility] MCHC (RBC) [Mass/Vol] 32.6 g/dL Normal 30.5-36.0 [facility] MCV (RBC) [Entitic vol] 85.5 fL Normal 80.0-100.0 [facility] Platelet mean volume (Bld) [Entitic vol] 8.6 fL Low 9.0[facility].7 [facility] Platelets (Bld) [#/Vol] 248 10*3/uL Normal 150-400 [facility] RBC (Bld) [#/Vol] 4.41 10*6/uL Normal 3.90-5.20 [facility] WBC (Bld) [#/Vol] 7.37 10*3/uL Normal 3.70-11.00 [facility] CONSULTon 08-16-2020 CONSULT HNO ID: [id number] Author: Carlos Lamb PA-C Service: Pain Management Author Type: Physician Physician General Internal Medicine Type: Consults Filed: 08/16/2020 4:07 PM Note Text: PAIN MANAGEMENT CONSULT -- [facility] PATIENT NAME: Sue Momin DATE of SERVICE: [...] (BMI) of 40.0 to 44.9 in adult ([facility]) 05/20/2020 - Essential hypertension 05/20/2020 - Type 2 diabetes mellitus without complication, without long-term current use of insulin ([facility]) 05/20/2020 CHIEF COMPLAINT: Postoperative right hip pain. [...] PAST MEDICAL HISTORY Diagnosis Date - Diabetes ([facility]) - Heartburn - Hypertension - Iron deficiency anemia - Iron deficiency anemia secondary to inadequate dietary iron intake 06/04/2020 - Morbidly obese ([facility]) - Tobacco use disorder - Type II [...] Grandmother - Pros (more content not included)... [facility] CONSULT PROGokris 08-16-2020 CONSULT PROG HNO ID: [id number] Author: Zayra Nicholas PA-C Service: Orthopaedic Surgery Author Type: Physician Physician General Internal Medicine Type: Consult Progress Note Filed: 08/16/2020 4:39 [...] Complication, Without Long-Term Current Use of Insulin ([facility]) Heartburn Iron Deficiency Anemia Nicotine use disorder, F17.2 Stress Fracture of Right Femur Cardiac Murmur, Unspecified Iron Deficiency Anemia Secondary to Inadequate Dietary Iron Intake Closed Fracture of Right Hip With Delayed Healing Fall Closed Right Hip Fracture ([facility]) Obesity, Class II, Bmi 35-39.9 Periprosthetic Hip Fracture Medication and Non-Pharmacologic VTE Prophylaxis/Anticoagu lants Anticoagulant AND Antiplatelet Medications (From admission, onward) Comment Start Dose Route Frequency Last Action Ordered Stop 08/15/20 0900 aspirin, enteric coated 81 mg tab(s) (Surgical Risk Categories) 81 mg ORAL 2 TIMES DAILY Given, 08/16 0944 08/14/20 1149 -- 08/14/20 1200 pneumatic compression stockings ([place]) 08/14/20 1200 graduated compression stockings ([place] 08/14/20 1200 activity - mobilize patient ([place] 08/14/20 1200 activity - mobilize [place] ([place] 08/14/20 1200 activity - mobilize patient ([place] VTE Prophylaxis: VTE prophylaxis appropriate POST OPERATIVE COMPLICATIONS: Complicated by: uneventful/none SIGNATURE: Zayra Nicholas PA-C PATIENT NAME: Sue Momin DATE: August 16, 2020 TIME: 4:20 PM Normal [facility] NURSING PROGon 08-16-2020 NURSING PROG HNO ID: [id number] Author: Marina Ragland RN Service: ? Author Type: Registered Nurse Type: Nursing Progress Note Filed: 08/16/2020 7:57 AM Note Text: Nursing Progress Note Patient Name: Sue Momin Patient Location: / Daily Note: Pt up in chair awake oriented times 3. Dressing to right hip dry and intact, bilateral ppp, toes warm and mobile. Pt states slight numbness (baseline due to neuropathy). Denies cp/sob/nausea. Vitals stable Will monitor. This note was completed by: Marina Ragland [facility] NURSING PROG HNO ID: [id number] Author: Desi Archuleta RN Service: ? Author Type: Registered Nurse Type: Nursing Progress Note Filed: 08/16/2020 7:46 AM Note Text: Nursing Progress Note Patient Name: Sue Momin [facility] Daily Note: 0700 Pt sitting up in chair, pain level 4/10 after oxy ir 10mg, pt has needed morphine for breakthrough pain one time this shift, pain has become intolerable at times where pt is visibly shaking and nauseous, she states she gets very anxious when that happens. This note was completed by: Desi Archuleta [facility] THERAPY NTon 08-16-2020 THERAPY NT HNO ID: [id number] Author: Hussain Roldan, PT Service: Physical Therapy Author Type: Physical Therapist Type: Therapy (PT/OT/Speech/Resp) Filed: 08/16/2020 5:54 PM Note Text: Physical Therapy Treatment SERVICE DATE: 08/16/2020 SERVICE TIME: 1710 to 1722 ROOM: [place] [address] Recommended Discharge Disposition: Home Anticipated Discharge Needs: [...] TTWB Current Hospital Course: Pt. presented to [facility] on 08/12/2020 following a fall (her dog knocked her over) on 08/12/2020. Pt. wnt to OSH ED and was then transferred to [facility] Imaging showed R femur fx between [...] tub with sliding ext tub bench and [facility] Laundry: 1st floor- fam can assist Equipment Owned: Cane;Standard Walker;Dental Office Receptionist;Sock Aide;Wheelchair;Hand Held Shower;Walker bag/basket Prior Functional Level: [...] walking-musculoskelet al;Reduced mobility-other Interventions Provided: Gait Training (86879) Gait Training (87148) Treatment Minutes: 12 $ Gait Training (65902) Billed Units: 1 unit Training AND education provided in: Gait pattern, re (more content not included)... Normal [facility] Basic Metabolic Panlon 08-15 Anion gap [Moles/Vol] 11 mmol/L Normal 9-18 [facility] Calcium [Mass/Vol] 9.4 mg/dL Normal 8.5-10.2 [facility] Chloride [Moles/Vol] 98 mmol/L Normal 97-105 [facility] CO2 [Moles/Vol] 26 mmol/L Normal 22-30 [facility] Creatinine [Mass/Vol] 0.66 mg/dL Normal 0.58-0.96 [facility] eGFR- Amer. >60 Normal [facility] eGFR-All Other Races >60 Normal [facility] Comment on above: Result Comment: eGFR (Estimated [...] GFR. Glucose [Mass/Vol] 144 mg/dL High 74-99 [facility] Comment on above: Result Comment: The [place] Diabetes Association (ADA) provides guidance for cutoff [...] Standards of Medical Care in Diabetes 2016, [place] [employer]. Diabetes Care. 2016.39(Suppl 1). Potassium [Moles/Vol] 4.6 mmol/L Normal 3.7-5.1 [facility] Sodium [Moles/Vol] 135 mmol/L Low 136-144 [facility] Urea nitrogen [Mass/Vol] 8 mg/dL Normal 7-21 [facility] CASE MANAGEMon 08-15-2020 CASE MANAGEM HNO ID: [id number] Author: Donna Gomez RN Service: ? Author [...] 15, 2020 TIME: 3:49 PM PAGER/CONTACT #: [phone] Normal [facility] CBCon 08-15-2020 Absolute nRBC <0.01 Normal <0.01 [facility] Erythrocyte distribution width (RBC) [Ratio] 19.9 % High 11.5-15.0 [facility] Hematocrit (Bld) [Volume fraction] 37.1 % Normal 36.0-46.0 [facility] Hemoglobin (Bld) [Mass/Vol] 12.4 g/dL Normal 11.5-15.5 [facility] MCH 27.9 pG Normal 26.0-34.0 [facility] MCHC (RBC) [Mass/Vol] 33.4 g/dL Normal 30.5-36.0 [facility] MCV (RBC) [Entitic vol] 83.6 fL Normal 80.0-100.0 [facility] Platelet mean volume (Bld) [Entitic vol] 9.0 fL Normal 9.0-12.7 [facility] Platelets (Bld) [#/Vol] 249 10*3/uL Normal 150-400 [facility] RBC (Bld) [#/Vol] 4.44 10*6/uL Normal 3.90-5.20 [facility] WBC (Bld) [#/Vol] 6.75 10*3/uL Normal 3.70-11.00 [facility] NURSING PROGon 08-15-2020 NURSING PROG HNO ID: [id number] Author: Desi Archuleta RN Service: ? Author Type: Registered Nurse Type: Nursing Progress Note Filed: 08/15/2020 12:56 AM Note Text: Nursing Progress Note Patient Name: Sue Momin [facility] Daily Note: 2200 Pt alert and oriented x 3 up to bathroom with assist of 1 and walker, flat foot toe touch weight bearing tolerated, medicated with oxyir 10-mg for pain 08/28, sensation baseline,vitals stable. This note was completed by: Desi Archuleta Normal [facility] THERAPY NTon 08-15-2020 THERAPY NT HNO ID: [id number] Author: Yelena Ayala, OT/L Service: Occupational Therapy Author Type: Occupational Therapist Type: Therapy (PT/OT/Speech/Resp) Filed: 08/15/2020 2:58 PM Note Text: Occupational Therapy Evaluation SERVICE DATE: 08/15/2020 SERVICE TIME: 1104 to 1147 ROOM: [place] [address] Recommended Discharge Disposition: Home Recommended Discharge Disposition [...] bearing) Current Hospital Course: Pt. presented to [facility] on 08/12/2020 following a fall (her dog knocked her over) on 08/12/2020. Pt. wnt to [facility] fx between screw [...] floor- fam can assist Equipment Owned: Cane;Standard Walker;Dental Office Receptionist;Sock Aide;Wheelchair;Hand Held Shower;Walker bag/basket Prior Functional Level: [...] and signs-other Interventions Provided: Evaluation;Therapeuti c Activity (38464);Self (more content not included)... [facility] THERAPY NT HNO ID: [id number] Author: Fitz Gupta, PT Service: Physical Therapy Author Type: Physical Therapist Type: Therapy (PT/OT/Speech/Resp) Filed: 08/15/2020 12:32 PM Note Text: Physical Therapy Evaluation R hip fx with ORIF by Dr Ayala, Foot flat,Touch down, weigth of leg only WB R LE SERVICE DATE: 08/15/2020 SERVICE TIME: 934 to 999 ROOM: [place] [address] Recommended Discharge Disposition: Home Recommended Discharge Equipment: No equipment needs anticipated PT 6 Clicks Score: 19 Precautions/Activity Restrictions: Weight Bearing Restrictions;Fall Risk Extremity With Weight Bearing Restricted: Right Lower Extremity Right Lower Extremity Weight Bearing Status: Other: See Comment (flat foot weight bearing) Current Hospital Course: Pt. presented to [facility] on 08/12/2020 following a fall (her dog knocked her over) on 08/12/2020. Pt. went to [facility] ED and was then transferred to [facility]. Imaging showed R femur fx between screw [...] floor- fam can assist Equipment Owned: Cane;Standard Walker;Dental Office Receptionist;Sock Aide;Wheelchair;Hand Held Shower;Walker bag/basket Prior Functional Level: [...] Diagnosis: Reduced mobility-other Interventions Provided: Evaluation;Gait Training (13892) $ Evaluation-Low (15910) Billed Units: 1 unit Gait Training (28510) Treatment Minutes: 10 $ Gait Training (63047) Billed Units: 1 unit Training AND education provided in: Benefits of in-hospital mobility, Discharge planning, Equipment, Expected functional level, Falls prevention, Gait pattern, reduction of deviations, Home safety, Precautions/restricti ons, Role of Phy (more content not included)... [facility] ANES POSTPROC EVALon 06-26-2 021 ANES POSTPROC EVAL HNO ID: [id number] Author: Tato Zafar MD Service: Anesthesiology Author Type: Anesthesiologist Type: Anesthesia Postprocedure Evaluation Filed: 08/14/2020 2:13 PM Note Text: POST ANESTHESIA EVALUATION NOTE : 1970 Procedure Summary Date: 08/14/20 Room / Location: AV OR03 / AV OR Anesthesia Start: 809 Anesthesia Stop: 1037 Procedures: REMOVAL HARDWARE HIP ADULT (Right Hip) INSERTION NAIL / ZUHAIR INTRAMEDULLARY OPEN REDUCTION FEMUR (Right Hip) Diagnosis: Closed fracture of femur, intertrochanteric, right, initial encounter ([facility]) Surgeons: Clay Ayala Jr., MD Responsible Provider: [...] August 14, 2020 TIME: 2:13 PM CSN: [id number] [facility] ANES PRE-OPon 08-14-2020 ANES PRE-OP HNO ID: [id number] Author: Tato Zafar MD Service: Anesthesiology Author [...] August 14, 2020 TIME: 8:03 AM CSN: [id number] Normal [facility] Basic Metabolic Panlon 08-14 Anion gap [Moles/Vol] 7 mmol/L Low 9-18 [facility] Calcium [Mass/Vol] 8.7 mg/dL Normal 8.5-10.2 [facility] Chloride [Moles/Vol] 100 mmol/L Normal 97-105 [facility] CO2 [Moles/Vol] 27 mmol/L Normal 22-30 [facility] Creatinine [Mass/Vol] 0.63 mg/dL Normal 0.58-0.96 [facility] eGFR- Amer. >60 [facility] [...] GFR. Glucose [Mass/Vol] 181 mg/dL High 74-99 [facility] Comment on above: Result Comment: The [place] Diabetes Association (ADA) provides guidance for cutoff [...] Standards of Medical Care in Diabetes 2016, [place] [employer]. Diabetes Care. 2016.39(Suppl 1). Potassium [Moles/Vol] 4.5 mmol/L Normal 3.7-5.1 [facility] Sodium [Moles/Vol] 134 mmol/L Low 136-144 [facility] Urea nitrogen [Mass/Vol] 9 mg/dL Normal 7-21 [facility] Anion gap [Moles/Vol] 7 mmol/L Low 9-18 [facility] Calcium [Mass/Vol] 8.8 mg/dL Normal 8.5-10.2 [facility] Chloride [Moles/Vol] 101 mmol/L Normal 97-105 [facility] CO2 [Moles/Vol] 29 mmol/L Normal 22-30 [facility] Creatinine [Mass/Vol] 0.62 mg/dL Normal 0.58-0.96 [facility] eGFR- Amer. >60 [facility] eGFR-All Other Races >60 Normal [facility] Comment on above: Result Comment: eGFR [...] ospital Comment on above: Result Comment: The [place] Diabetes [employer] (ADA) provides guidance for cutoff [...] Standards of Medical Care in Diabetes 2016, [place] [employer]. Diabetes Care. 2016.39(Suppl 1). Potassium [Moles/Vol] 4.2 mmol/L Normal 3.7-5.1 [facility] Sodium [Moles/Vol] 137 mmol/L Normal 136-144 [facility] Urea nitrogen [Mass/Vol] 10 mg/dL Normal 7-21 [facility] CBCon 08-14-2020 Absolute nRBC <0.01 Normal <0.01 [facility] Erythrocyte distribution width (RBC) [Ratio] 19.9 % High 11.5-15.0 [facility] Hematocrit (Bld) [Volume fraction] 40.4 % Normal 36.0-46.0 [facility] Hemoglobin (Bld) [Mass/Vol] 12.9 g/dL Normal 11.5-15.5 [facility] MCH 27.5 pG Normal 26.0-34.0 [facility] MCHC (RBC) [Mass/Vol] 31.9 g/dL Normal 30.5-36.0 [facility] MCV (RBC) [Entitic vol] 86.1 fL Normal 80.0-100.0 [facility] Platelet mean volume (Bld) [Entitic vol] 8.9 fL Low 9.0-12.7 [facility] l Platelets (Bld) [#/Vol] 203 10*3/uL Normal 150-400 [facility] RBC (Bld) [#/Vol] 4.69 10*6/uL Normal 3.90-5.20 [facility] WBC (Bld) [#/Vol] 7.69 10*3/uL Normal 3.70-11.00 [facility] Absolute nRBC <0.01 [facility] E[facility] distribution width (RBC) [Ratio] 19.7 % High 11.5-15.0 [facility] Hematocrit (Bld) [Volume fraction] 41.6 % Normal 36.0-46.0 [facility] Hemoglobin (Bld) [Mass/Vol] 13.6 g/dL Normal 11.5-15.5 [facility] MCH 27.6 pG Normal 26.0-34.0 [facility] MCHC (RBC) [Mass/Vol] 32.7 g/dL Normal 30.5-36.0 [facility] MCV (RBC) [Entitic vol] 84.6 fL Normal 80.0-100.0 [facility] Platelet mean volume (Bld) [Entitic vol] 9.0 fL Normal 9.0-12.7 [facility] l Platelets (Bld) [#/Vol] 216 10*3/uL Normal 150-400 [facility] RBC (Bld) [#/Vol] 4.92 10*6/uL Normal 3.90-5.20 [facility] WBC (Bld) [#/Vol] 5.61 10*3/uL Normal 3.70-11.00 [facility] HCG Qual, Urineon 06-26-2021 Beta HCG ( test) Ql (U) Negative Normal Negative [facility] NURSING PROGon 08-14-2020 NURSING PROG HNO ID: [id number] Author: Lorraine Christianson RN Service: ? Author [...] in reach This note was completed by: Lorriane Christianson Normal [facility] OPERATIVE NOon 08-14-2020 OPERATIVE NO HNO ID: [id number] Author: Clay Ayala Jr., MD Service: Orthopaedic Surgery Author Type: Physician Type: Operative Report Filed: 08/14/2020 1:03 PM Note Text: [facility] OPERATIVE REPORT PATIENT NAME: Sue Momin AGE: [age] year old LOG ID: [id number] Surgery Date: 08/14/2020 SURGEON: Clay Ayala M.D. POLYMER TESTER: Nicolasa Siddiqi PA-C, her assistance consisted of [...] fracture of femur, intertrochanteric, right, initial encounter ([facility]) [S72.141A] Postop Diagnosis: Same as Pre-Op Diagnosis Codes: * Closed fracture of femur, intertrochanteric, right, initial encounter ([facility]) [S72.141A] OPERATIVE INDICATIONS: This is a 50 [...] placement of th (more content not included)... Normal [facility] SURGICAL PATHOLOGYon 021 SURGICAL PATHOLOGY Specimen originated from [facility] Specimen #: [id number] Submitting Physician: CLAY AYALA M.D. FINAL DIAGNOSIS [...] 1 cm). The metal bar is inscribed: FINNISH 04.168.000 [id number] . There is no soft tissue present. The specimen is reviewed with Dr. Quach. No sections are submitted. Gross examination only. IBRAHIMA/dakotah 08/18/2020 [place] [address] Date of Report: 08/24/2020 Date of Procedure: 08/14/2020 Date of Receipt: 08/14/2020 Submitted by: CLAY AYALA M.D. Location: [facility] Diagnostic interpretation performed at [facility], [address] [place] [address]. CLIA Number: [id number] Normal [facility] Reference Lab Comment on above: Performed By: #### S #### See report for performing lab information. XR FEMUR 2V AP/LAT RTon 07-21 XR FEMUR 2V AP/LAT RT * * *Final Report* * * DATE OF EXAM: Aug 14 2020 10:31AM O 5333 - XR FEMUR 2V AP/LAT RT [...] time: 1:56 min:sec IMPRESSION: 1. Surgical planning. Desktop Analyst: DEYANIRA Transcribe Date/Time: Aug 14 2020 12:29P Dictated by : FELICIA WORKMAN MD This examination was interpreted and the report reviewed and electronically signed by: FELICIA WORKMAN MD on Aug 14 2020 12:31PM EST [id number] [facility] HEALTH 08-13-2020 ALLIED HEALTH HNO ID: [id number] Author: Ricardo Irvin Service: Spiritual Care Author Type: ? Type: Allied Health Filed: 08/13/2020 10:13 AM Note Text: SPIRITUAL CARE PROGRESS NOTE SERVICE DATE: 08/13/2020 SERVICE TIME: 9:35AM Pt is listed as Yazidi in [facility], and she affirmed; pt had been visited [...] the Spiritual Care Department: Please call Ext [phone] SIGNATURE: Ricardo Irvin PATIENT NAME: Sue Momin DATE: August 13, 2020 TIME: 10:06 AM PAGER/CONTACT #: [phone] [facility] CASE MANAGEMon 08-13-2020 CASE MANAGEM HNO ID: [id number] Author: Donna Gomez RN Service: ? Author [...] 13, 2020 TIME: 3:16 PM PAGER/CONTACT #: [phone] [facility] CBCon 08-13-2020 Absolute nRBC <0.01 Normal <0.01 [facility] Erythrocyte distribution width (RBC) [Ratio] 20.7 % High 11.5-15.0 [facility] Hematocrit (Bld) [Volume fraction] 40.9 % Normal 36.0-46.0 [facility] Hemoglobin (Bld) [Mass/Vol] 13.0 g/dL Normal 11.5-15.5 [facility] MCH 27.7 pG Normal 26.0-34.0 [facility] MCHC (RBC) [Mass/Vol] 31.8 g/dL Normal 30.5-36.0 [facility] MCV (RBC) [Entitic vol] 87.2 fL Normal 80.0-100.0 [facility] Platelet mean volume (Bld) [Entitic vol] 8.8 fL Low 9.0-12.7 [facility] Platelets (Bld) [#/Vol] 213 10*3/uL Normal 150-400 [facility] RBC (Bld) [#/Vol] 4.69 10*6/uL Normal 3.90-5.20 [facility] WBC (Bld) [#/Vol] 5.50 10*3/uL Normal 3.70-11.00 [facility] CONSULT PROGon 08-13-2020 CONSULT PROG HNO ID: [id number] Author: Ethan Best PA-C Service: Orthopaedic Surgery Author Type: Physician Physician General Internal Medicine Type: Consult Progress Note Filed: 08/13/2020 4:49 [...] (05/25/2020) Fall (08/12/2020) Closed right hip fracture ([facility]) (08/12/2020) Obesity, Class II, BMI 35-39.9 (08/12/2020) [...] - OR at 0800 tomorrow morning - 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 Normal [facility] Comp Metabolic Panelon 08-13 Albumin [Mass/Vol] 3.6 g/dL Low 3.9-4.9 [facility] ALP [Catalytic activity/Vol] 31 U/L Low 34-123 [facility] ALT [Catalytic activity/Vol] 11 U/L Normal 7-38 [facility] Anion gap [Moles/Vol] 8 mmol/L Low 9-18 [facility] AST [Catalytic activity/Vol] 10 U/L Low 13-35 [facility] Bilirubin [Mass/Vol] 0.6 mg/dL Normal 0.2-1.3 [facility] Calcium [Mass/Vol] 8.7 mg/dL Normal 8.5-10.2 [facility] Chloride [Moles/Vol] 101 mmol/L Normal 97-105 [facility] CO2 [Moles/Vol] 29 mmol/L Normal 22-30 [facility] Creatinine [Mass/Vol] 0.77 mg/dL Normal 0.58-0.96 [facility] eGFR- Amer. >60 [facility] eGFR-All Other Races >60 Normal [facility] Comment on above: Result Comment: eGFR (Estimated [...] GFR. Glucose [Mass/Vol] 94 mg/dL Normal 74-99 [facility] Comment on above: Result Comment: The [place] Diabetes Association (ADA) provides guidance for cutoff [...] Standards of Medical Care in Diabetes 2016, [place] [employer]. Diabetes Care. 2016.39(Suppl 1). Potassium [Moles/Vol] 4.2 mmol/L Normal 3.7-5.1 [facility] Protein [Mass/Vol] 6.4 g/dL Normal 6.3-8.0 [facility] Sodium [Moles/Vol] 138 mmol/L Normal 136-144 [facility] Urea nitrogen [Mass/Vol] 14 mg/dL Normal 7-21 [facility] NURSING PROGon 08-13-2020 NURSING PROG HNO ID: [id number] Author: Peggy Downing RN Service: Nursing Author Type: Registered Nurse Type: Nursing Progress Note Filed: 08/13/2020 8:44 PM Note Text: Nursing Progress Note Patient Name: Sue Momin Patient Location: / Daily Note: RM 503 - Patient is having surgery at 8 AM, Ok to give hs dose of heparin? Please advise, thanks! JASMINE Woods . This note was completed by: Peggy Downing [facility] NURSING PROG HNO ID: [id number] Author: Lorraine Christianson RN Service: ? Author [...] This note was completed by: Lorraine Christianson [facility] APTTon 08-12-2020 aPTT Coag (Bld) [Time] 27.9 s Normal 23.0-32.4 [facility] Comment on above: Result Comment: Unfr actionated [...] Anion gap [Moles/Vol] 9 mmol/L Normal 9-18 [facility] Calcium [Mass/Vol] 8.9 mg/dL Normal 8.5-10.2 [facility] Chloride [Moles/Vol] 104 mmol/L Normal 97-105 [facility] CO2 [Moles/Vol] 24 mmol/L Normal 22-30 [facility] Creatinine [Mass/Vol] 0.66 mg/dL Normal 0.58-0.96 [facility] eGFR- Amer. >60 [facility] eGFR-All Other Races >60 Normal [facility] Comment on above: Result Comment: eGFR [...] GFR. Glucose [Mass/Vol] 136 mg/dL High 74-99 [facility] Comment on above: Result Comment: The [place] Diabetes [employer] (ADA) provides guidance for cutoff [...] Standards of Medical Care in Diabetes 2016, [place] [employer]. Diabetes Care. 2016.39(Suppl 1). Potassium [Moles/Vol] 4.4 mmol/L Normal 3.7-5.1 [facility] Sodium [Moles/Vol] 137 mmol/L Normal 136-144 [facility] Urea nitrogen [Mass/Vol] 12 mg/dL Normal 7-21 [facility] CBCon 08-12-2020 Absolute nRBC <0.01 [facility] Erythrocyte distribution width (RBC) [Ratio] 21.0 % High 11.5-15.0 [facility] Hematocrit (Bld) [Volume fraction] 40.2 % Normal 36.0-46.0 [facility] Hemoglobin (Bld) [Mass/Vol] 13.4 g/dL Normal 11.5-15.5 [facility] MCH 27.9 pG Normal 26.0-34.0 [facility] MCHC (RBC) [Mass/Vol] 33.3 g/dL Normal 30.5-36.0 [facility] MCV (RBC) [Entitic vol] 83.8 fL Normal 80.0-100.0 [facility] Platelet mean volume (Bld) [Entitic vol] 8.8 fL Low 9.0-12.7 [facility] Platelets (Bld) [#/Vol] 219 10*3/uL Normal 150-400 [facility] RBC (Bld) [#/Vol] 4.80 10*6/uL Normal 3.90-5.20 [facility] WBC (Bld) [#/Vol] 6.26 10*3/uL Normal 3.70-11.00 [facility] CONSULTon 08-12-2020 CONSULT HNO ID: [id number] Author: Ethan Best PA-C Service: Orthopaedic Surgery Author Type: Physician Physician General Internal Medicine Type: Consults Filed: 08/12/2020 1:25 PM Note Text: Attestation signed by Clay Ayala Jr., MD at 08/13/2020 7:59 AM Attending Note: Patient seen in conjunction with physician research assistant professor. Mcdonnell findings confirmed. Patient examined. Discussed with the Physician Physician General Internal Medicine and patient. CT scan shows a fracture [...] bear weight. [facility] ambulance [facility] where an x-ray and CT scan showed concerns of right intertrochanteric fracture with extension to the existing hardware, she was transferred to [facility] for further care. Patient states she is [...] TABLET (IRB (more content not included)... Normal [facility] CT FEMUR WO IVCON RTon 08-12 CT FEMUR WO IVCON RT * * *Final Report* * * DATE OF EXAM: Aug 12 2020 1:28PM [facility] 0072 - CT FEMUR WO IVCON RT [...] FRACTURE BELOW THE LEVEL OF THE HARDWARE. Desktop Analyst: DEYANIRA Transcribe Date/Time: Aug 12 2020 2:26P Dictated by : KJ THOMPSON MD This examination was interpreted and the report reviewed and electronically signed by: KJ THOMPSON MD on Aug 12 2020 2:53PM EST [id number] Normal [facility] HISTORY PHYSICALon HISTORY PHYSICAL HNO ID: [id number] Author: Lita Snow MD Service: Hospital Medicine Author Type: Physician Type: HANDP Filed: 08/12/2020 12:10 PM Note Text: DEPARTMENT OF HOSPITAL MEDICINE HISTORY AND PHYSICAL EXAM SERVICE DATE: 08/12/2020 Code Status: Not on file SERVICE TIME: 11:51 AM Primary Care Physician: Alek Sherwood MD NIGHT AND WEEKEND COVERAGE: [employer] [place] COVERAGE: Days: [phone], please contact via Greetz Nights: [phone], please page CC Hospitalist Night coverage pager [phone] Subjective CHIEF COMPLAINT: Right hip pain HPI: This is a 50 year old female who presents with right hip pain after she accidentally fell last night on back and right hip. She had right hip surgery in 06/09 for right femur neck fracture and she was doing fine,getting ready to go back to work. She went to [facility] ED. CT of the right hip showed suspected acute right femur fracture extending to the hardware. 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 [facility] NURSING PROGon 08-12-2020 NURSING PROG HNO ID: [id number] Author: Donna Young RN Service: Nursing Author Type: Registered Nurse Type: Nursing Progress Note Filed: 08/12/2020 9:35 AM Note Text: Nursing Progress Note Patient Name: Sue Momin Patient [facility] [place] [address]: Patient transferred into room/unit 503 in stable condition. Actions taken: No futher actions taken at this time. Will continue to monitor and check with patient. This note was completed by: donna Young [facility] OT-CT HIP RT WO CON IMPORTon 08-12-2020 OT-CT HIP RT WO CON IMPORT Images were obtained outside of [facility] [id number] [facility] OT-XR HIP RT 2-3V W PELVIS I MPORTon 08-12-2020 OT-XR HIP RT 2-3V W PELVIS IMPORT Images were obtained outside of [facility] [id number] [facility] Protimeon 08-12-2020 PT INR 1.0 Normal 0.9-1.3 [facility] Comment on above: Result Comment: Breana min K Antagonist (VKA) Therapeutic Range: INR 2 to 3 (Target INR of 2.5) Note: For patients treated with VKA drugs, such as warfarin, the [place] [employer] 2012 Guideline recommends [...] 252-289 PT Sec 10.7 sec Normal 9.7-13.0 [facility] Type and Screenon 08-12-2020 ABO/RH(D) Positive Normal [facility] CNPNon 08-06-2020 CNPN Telephone ([facility]) SUE MOMIN ([id number]) 1970 F T Date Time Provider Department 08/06/20 CLAY AYALA JR [facility] During your visit today, we recorded the [...] be discontinued. Please call patient today at [phone] As I do not see any encounters from these dates that additional information has been requested by fax. Nithin Ambrose Pss 08/10/2020 11:44 AM Signed Left a VM for the patient at number below. This office has not rec'd any disability paperwork recently from [employer]. Reiterated our fax # [phone]. Also left my callback number. Awaiting callback. [...] to inadequate *06/04/2020 Encounter Status:Closed by TREMAYNE CLAUDIONITHIN on 08/10/20 [facility] 07-15-2020 CNPN Telephone ([facility]) SUE MOMIN ([id number]) 1970 F T Date Time Provider Department 07/15/20 MARYBEL MASON During your visit today, we recorded the following information about you: Maeve Nelly Claudio 07/15/2020 12:10 PM Signed Patient is [...] (* Take by mouth. For Investigat* * FLINTSRONES COMPLETE (IRON) C* qd Problem List As [...] Encounter Status:Closed by MARYBEL MASON on 07/15/20 [facility] CNOVon 07-14-2020 CN Office Visit ([facility] ) SUE MOMIN ([id number]) 1970 F [facility] Date Time Provider Department 07/14/20 3:45 PM MARYBEL MASON [facility] During your visit today, we recorded the [...] Mason PA-C Referring Provider: CLAY AYALA JR [[id number]] Allergies As of Date: 07/14/2020 Noted Allergy [...] Encounter Status:Closed by MARYBEL MASON on 07/20/20 [facility] XR HIP 3V PELV+ AP/LAT RTon 07-14-2020 [...] proximal femur with no acute fractures seen Desktop Analyst: DEYANIRA Transcribe Date/Time: Jul 14 2020 4:05P Dictated by : ALINA GAR MD This examination was interpreted and the report reviewed and electronically signed by: ALINA GAR MD on Jul 14 2020 4:06PM EST [id number] Normal [facility] CBC and Differentialon 06-25 Abs Baso 0.03 k/uL Normal <0.11 [facility] Abs [place] 0.43 k/uL Normal <0.87 [facility] Abs Neut 5.39 k/uL Normal 1.45-7.50 [facility] Absolute nRBC <0.01 Normal <0.01 [facility] Basophils/100 WBC (Bld) 0.4 % Normal [facility] DTYPE Auto Diff Normal [facility] Eosinophils (Bld) [#/Vol] 0.13 10*3/uL Normal <0.46 [facility] Eosinophils/100 WBC (Bld) 1.5 % Normal [facility] Erythrocyte distribution width (RBC) [Ratio] 25.0 % High 11.5-15.0 [facility] Hematocrit (Bld) [Volume fraction] 39.6 % Normal 36.0-46.0 [facility] Hemoglobin (Bld) [Mass/Vol] 12.0 g/dL Normal 11.5-15.5 [facility] Lymphocytes (Bld) [#/Vol] 2.43 10*3/uL Normal 1.00-4.00 [facility] Lymphocytes/100 WBC (Bld) 28.9 % Normal [facility] MCH 22.9 pG Low 26.0-34.0 [facility] MCHC (RBC) [Mass/Vol] 30.3 g/dL Low 30.5-36.0 [facility] MCV (RBC) [Entitic vol] 75.6 fL Low 80.0-100.0 [facility] Monocytes/100 WBC (Bld) 5.1 % Normal [facility] Neutrophils/100 WBC (Bld) 64.1 % Normal [facility] NRBCs 0.0 /100 WBC Normal 0 [facility] Platelet mean volume (Bld) [Entitic vol] 8.7 fL Low 9.0-12.7 [facility] Platelets (Bld) [#/Vol] 216 10*3/uL Normal 150-400 [facility] RBC (Bld) [#/Vol] 5.24 10*6/uL High 3.90-5.20 [facility] WBC (Bld) [#/Vol] 8.41 10*3/uL Normal 3.70-11.00 [facility] CNOVSPon 06-25-2020 CNOVSP Visit (SP) Office ([place]) SUE MOMIN ([id number]) 1970 F [facility] Date Time Provider Department 06/25/20 2:30 PM MORIAH BENAVIDES During your visit today, we recorded the following information about you: Temperature Pulse Respiration Blood pressure 97.6 degrees 114/minute 16/minute 181/80 Weight Height 106.1 kg 1.626 m Moriah Benavides PA-C 06/25/2020 3:58 PM Signed NAME: Sue Momin CLINIC NO.: [id number] DATE OF SERVICE: June 25, 2020 (Elements [...] CBC + DIFF (FOR REMOTE [facility] USE), COMP METABOLIC PANEL, IRON + TIBC, FERRITIN BLD, CONSULT TO GASTROENTEROLOGY (Z98.84) S/P gastric bypass Plan: (more content not included)... Normal [facility] Michelle 06-21-2020 EVAN Telephone (HEMASA) SUE MOMIN ([id number]) 1970 F T Date Time Provider Department 06/21/20 MORIAH BENAVIDES During your visit today, we recorded the following information about you: May Yoder 06/21/2020 9:42 AM Signed Please sign pending lab orders for Sunday06/25/20. Thanks, May Allergies As of Date: 06/21/2020 Noted Allergy Reaction Envoirnmental [Other] 10/29/2000 LATEX 05/19/2020 2 - Rash Comments: Rash - itch and swelling Date Reviewed: 06/07/2020 Reviewed by: Marybel Mason - Fully Assessed Reason for Visit: Lab Orders [8618] Primary Visit Diagnosis:Deficiency anemia [D53.9] Order(s):CBC + DIFF [SQCBCDIF] Order #: [id number] STANDING Prescriptions as of 06/21/2020 Sig: ASCORBIC [...] meals. Encounter Status:Closed by May on 06/22/20 [facility] Telephone ([facility]) MOMINSUE Arnett ([id number]) 1970 F T Date Time Provider Department 06/21/20 CLAY AYALA JR [facility] During your visit today, we recorded the following information about you: Ren[facility] 06/21/2020 1:25 PM Signed Patient calling to state she did not receive payment for short term disability and was advised [employer] never received her paperwork. She would like to know the status on the forms. Please give a call at [phone] with update. Marybel Mason PA-C 06/21/2020 3:27 [...] Encounter Status:Closed by MARYBEL MASON on 06/21/20 [facility] 06-10-2020 [facility] Telephone (ORQ) SUE MOMIN ([id number]) 1970 F Date Time Provider Department 06/10/20 [...] best ph # and OK 4 detailed [facility] [phone] Marybel Mason PA-C 06/10/2020 12:26 PM Signed Patient contacted. Patient can shower but she cannot soak in the bath until scabs and surgical glue is gone. Incision must be completely healed Marybel Mason PA-C Allergies As of Date: 06/10/2020 Noted Allergy Reaction LATEX 05/19/2020 2 - Rash Comments: Rash - itch and swelling Date Reviewed: 06/07/2020 Reviewed by: Marybel Chacon) Marlon - Fully Assessed Reason for Visit: Patient [...] secondary to inadequate *06/04/2020 Encounter Status:Closed by MARLON VALENZUELA, MARYBEL on 06/10/20 [facility] CNOVon 06-07-2020 CNOV Office Visit ([facility] ) SUE MOMIN ([id number]) 1970 F Date Time Provider Department 06/07/20 [...] Mason PA-C Referring Provider: CLAY AYALA JR [[id number]] Allergies As of Date: 06/07/2020 Noted Allergy Reaction LATEX 05/19/2020 2 - Rash Comments: Rash - itch and swelling Date Reviewed: 06/07/2020 Reviewed by: Marybel (Bianca) Marlon - Fully Assessed Reason for Visit: Post [...] Status:Closed by MARYBEL MASON PA-C on 06/07/20 Normal [facility] XR HIP 3V PELV+ AP/LAT [...] postsurgical appearance of the right proximal femur. Desktop Analyst: DEYANIRA Transcribe Date/Time: Jun 07 2020 7:43P Dictated by : CHRISTINE HILL MD This examination was interpreted and the report reviewed and electronically signed by: CHRISTINE HILL MD on Jun 07 2020 7:44PM EST [id number] Normal [facility] CNOVSPon 06-04-2020 CNOVSP Visit (SP) Office (BAILEY) SUE MOMIN ([id number]) 1970 F Date Time Provider Department 06/04/20 3:15 PM DRAGAN MOHR During your visit today, we recorded the following information about you: Temperature Respiration Blood pressure Weight 96.9 degrees 16/minute 139/71 106.9 kg Height 1.626 m Dragan Mohr MD 06/09/2020 3:00 PM Signed NAME: Sue Momin CLINIC NO.: [id number] DATE OF SERVICE: June 04, 2020 Referring [...] Value 04 (more content not included)... Normal [facility] Comp Metabolic Panelon 06-04 Albumin [Mass/Vol] 4.2 g/dL Normal 3.9-4.9 [facility] ALP [Catalytic activity/Vol] 26 U/L Low 34-123 [facility] ALT [Catalytic activity/Vol] 22 U/L Normal 7-38 [facility] Anion gap [Moles/Vol] 11 mmol/L Normal 9-18 [facility] AST [Catalytic activity/Vol] 24 U/L Normal 13-35 [facility] Bilirubin [Mass/Vol] 0.7 mg/dL Normal 0.2-1.3 [facility] Calcium [Mass/Vol] 9.4 mg/dL Normal 8.5-10.2 [facility] Chloride [Moles/Vol] 102 mmol/L Normal 97-105 [facility] CO2 [Moles/Vol] 24 mmol/L Normal 22-30 [facility] Creatinine [Mass/Vol] 0.65 mg/dL Normal 0.58-0.96 [facility] eGFR- Amer. >60 Normal [facility] eGFR-All Other Races >60 Normal [facility] Comment on above: Result Comment: eGFR [...] [Mass/Vol] 97 mg/dL Normal 74-99 [facility] Comment on above: Result Comment: The [place] Diabetes Association (ADA) provides guidance for cutoff [...] Standards of Medical Care in Diabetes 2016, [place] [employer] Association. Diabetes Care. 2016.39(Suppl 1). Potassium [Moles/Vol] 4.6 mmol/L Normal 3.7-5.1 [facility] Protein [Mass/Vol] 7.5 g/dL Normal 6.3-8.0 [facility] Sodium [Moles/Vol] 137 mmol/L Normal 136-144 [facility] Urea nitrogen [Mass/Vol] 12 mg/dL Normal 7-21 [facility] EPOon 06-04-2020 EPO 43.8 mIU/mL High 2.6-18.5 [facility] Comment on above: Result Comment: Test analyzed by the Adri DxI method. Performed By: #### B 12, EPO, IRON, SERFOL, FERR ####[facility] [address] [place], [place] [phone] Ferritinon 06-04-2020 Ferritin [Mass/Vol] 51.1 ng/mL Normal 14.7-205.1 [facility] Comment on above: Performed By: #### B 12, EPO, IRON, SERFOL, FERR ####[facility] [address] [place], [place] [phone] Folate, Serumon 06-04-2020 Folate [Mass/Vol] 12.1 ng/mL Normal >4.7 [facility] Comment on above: Performed By: #### B 12, EPO, IRON, SERFOL, FERR ####[facility] [address], [place] [phone] Iron and TIBCon 06-04-2020 Iron [Mass/Vol] 30 ug/dL Low 41-186 [facility] Comment on above: Performed By: #### B 12, EPO, IRON, SERFOL, FERR ####[facility], [place] [phone] TIBC 380 ug/dL Normal 232-386 [facility] Comment on above: Performed By: #### B 12, EPO, IRON, SERFOL, FERR ####[facility], [place] [phone] Transferrin Saturatn 8 % Low 15-57 [facility] Comment on above: Performed By: #### B 12, EPO, IRON, SERFOL, FERR ####[facility], [place] [phone] Remote CBCDIF (for [facility] use o nly)on 06-04-2020 Abs Baso 0.04 k/uL Normal <0.11 [facility] Abs [place] 0.50 k/uL Normal <0.87 [facility] Abs Neut 4.14 k/uL Normal 1.45-7.50 [facility] Absolute nRBC <0.01 Normal <0.01 [facility] Basophils/100 WBC (Bld) 0.6 % Normal [facility] DTYPE Auto Diff Normal [facility] Eosinophils (Bld) [#/Vol] 0.07 10*3/uL Normal <0.46 [facility] Eosinophils/100 WBC (Bld) 1.1 % Normal [facility] Erythrocyte distribution width (RBC) [Ratio] 28.4 % High 11.5-15.0 [facility] Hematocrit (Bld) [Volume fraction] 35.2 % Low 36.0-46.0 [facility] Hemoglobin (Bld) [Mass/Vol] 10.2 g/dL Low 11.5-15.5 [facility] Lymphocytes (Bld) [#/Vol] 1.49 10*3/uL Normal 1.00-4.00 [facility] Lymphocytes/100 WBC (Bld) 23.8 % Normal [facility] MCH 21.8 pG Low 26.0-34.0 [facility] MCHC (RBC) [Mass/Vol] 29.0 g/dL Low 30.5-36.0 [facility] MCV (RBC) [Entitic vol] 75.2 fL Low 80.0-100.0 [facility] Monocytes/100 WBC (Bld) 8.0 % Normal [facility] Neutrophils/100 WBC (Bld) 66.5 % Normal [facility] NRBCs 0.0 /100 WBC Normal 0 [facility] Platelet mean volume (Bld) [Entitic vol] 9.4 fL Normal 9.0-12.7 [facility] Platelets (Bld) [#/Vol] 339 10*3/uL Normal 150-400 [facility] RBC (Bld) [#/Vol] 4.68 10*6/uL Normal 3.90-5.20 [facility] WBC (Bld) [#/Vol] 6.26 10*3/uL Normal 3.70-11.00 [facility] Vitamin B12on 06-04-2020 Cobalamin (Vitamin B12) [Mass/Vol] 483 pg/mL Normal 232-1245 [facility] Comment on above: Performed By: #### B 12, EPO, IRON, SERFOL, FERR ####[facility] [address] [place], [place] [phone] Michelle 05-31-2020 CNPN Telephone ([facility]) SUE MOMIN ([id number]) 1970 F Date Time Provider Department 05/31/20 MARYBEL MASON (BIANCA) [facility] During your visit today, we recorded the [...] Please advise. Patient can be reached at [phone] (H) may leave a detailed message. Melany [...] by MELANY HANCOCK MA on 05/31/20 Normal [facility] CBCon 05-27-2020 Absolute nRBC 0.03 k/uL High <0.01 [facility] al Erythrocyte distribution width (RBC) [Ratio] 25.8 % High 11.5-15.0 [facility] Hematocrit (Bld) [Volume fraction] 28.0 % Low 36.0-46.0 [facility] Hemoglobin (Bld) [Mass/Vol] 7.8 g/dL Low 11.5-15.5 [facility] MCH 20.6 pG Low 26.0-34.0 [facility] MCHC (RBC) [Mass/Vol] 27.9 g/dL Low 30.5-36.0 [facility] MCV (RBC) [Entitic vol] 73.9 fL Low 80.0-100.0 [facility] Platelet mean volume (Bld) [Entitic vol] 9.4 fL Normal 9.0-12.7 [facility] l Platelets (Bld) [#/Vol] 204 10*3/uL Normal 150-400 [facility] RBC (Bld) [#/Vol] 3.79 10*6/uL Low 3.90-5.20 [facility] WBC (Bld) [#/Vol] 4.93 10*3/uL Normal 3.70-11.00 [facility] CNDSon 05-27-2020 CNDS HNO ID: [id number] Author: Kalie Valle (Pa) Service: Orthopaedic Surgery Author Type: Physician Physician General Internal Medicine Type: Discharge Summary Filed: 05/27/2020 11:04 AM Note Text: Attestation signed by Clay Ayala Jr. at 05/27/2020 11:35 AM Attending Note: Mcdonnell findings confirmed. Discussed with the Physician Physician General Internal Medicine. Plan as outlined. Clay Ayala MD DISCHARGE [...] replacement and w (more content not included)... [facility] 05-27-2020 [facility] Telephone ([facility]) SUE MOMIN ([id number]) 1970 F Date Time Provider Department 05/27/20 CLAY AYALA JR [facility] During your visit today, we recorded the following information about you: Rohit Fiore 05/27/2020 10:34 AM Addendum Stacia from [facility] calling / requesting a verbal order to follow patient for home care services. Please advise Isabel Horan RN, RN 06/01/2020 3:49 PM Signed Stacia at [facility] called. Dr. Ayala states he will follow [...] Encounter Status:Closed by ISABEL HORAN on 06/01/20 [facility] CONSULT PROGon 05-27-2020 CONSULT PROG HNO ID: [id number] Author: Patti Stewart RN Service: Hospital Medicine Author Type: Nurse Practitioner Type: Consult Progress Note Filed: 05/27/2020 10:49 AM Note Text: DEPARTMENT OF HOSPITAL MEDICINE CONSULT PROGRESS NOTE SERVICE DATE: 05/27/2020 SERVICE TIME: 10:46 AM Primary Care Physician: Alek Sherwood MD NIGHT AND WEEKEND COVERAGE: [employer] COVERAGE: Days: [phone], please contact via [employer] Nights: [phone], please page CC Hospitalist Night coverage pager [phone] Subjective INTERVAL HPI: Patient reports improvement in [...] 263 lb 3.7 oz (119.4kg) SpO2 98% LMP 05/12/2020 BMI 45.16 kg/(m2). O2 Therapy: [...] HEMATOLOGY FOL (more content not included)... 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 [...] Code Treatment (more content not included)... Normal [facility] ALLIED HEALTHon 05-26-2020 ALLIED HEALTH HNO ID: [id number] Author: Ricardo Irvin Service: Spiritual Care Author Type: ? Type: Allied Health Filed: 05/26/2020 1:04 PM Note Text: SPIRITUAL CARE ASSESSMENT SERVICE DATE: 05/26/2020 SERVICE TIME: 12:05PM Visit with: Patient and pt's spouse Anderson arrived at end of visit; very engaged with the pt, and supportive; first visit interrupted by soils technician for angiocath placement; pt very anxious Length of visit (minutes): 30 Confucianism / Spirituality: Pt listed as Yazidi; she shared that she has not attended for some time Reason: Initial visit Pt requested visitation upon admission ASSESSMENT Emotional Disposition: Guilt/Shame, Nervous, Sadness and Pt shared that she is very anxious; not good at self-care - overly 'responsible' for others' pt shared that she fell and injured her hip; even though she works at a [employer] office, she did not seek attention; pt also shared taht she is diabetic, and has some other health issues; became tearful talking about it; when the product technician arrived to insert an angiocath, the [...] story telling Ritual: Provided prayer and Provided christian resources Provided pt with information regarding Mindful [...] 26, 2020 TIME: 12:49 PM PAGER/CONTACT #: [phone] Normal [facility] Basic Metabolic Panlon 05-26 Anion gap [Moles/Vol] 8 mmol/L Low 9-18 [facility] Calcium [Mass/Vol] 7.9 mg/dL Low 8.5-10.2 [facility] Chloride [Moles/Vol] 99 mmol/L Normal 97-105 [facility] CO2 [Moles/Vol] 29 mmol/L Normal 22-30 [facility] Creatinine [Mass/Vol] 0.49 mg/dL Low 0.58-0.96 [facility] eGFR- Amer. >60 Normal [facility] eGFR-All Other Races >60 Normal [facility] Comment on above: Result Comment: eGFR (Estimated [...] GFR. Glucose [Mass/Vol] 137 mg/dL High 74-99 [facility] Comment on above: Result Comment: The [place] Diabetes Association (ADA) provides guidance for cutoff [...] Standards of Medical Care in Diabetes 2016, [place] [employer] Association. Diabetes Care. 2016.39(Suppl 1). Potassium [Moles/Vol] 3.4 mmol/L Low 3.7-5.1 [facility] Sodium [Moles/Vol] 136 mmol/L Normal 136-144 [facility] Urea nitrogen [Mass/Vol] 8 mg/dL Normal 7-21 [facility] CBCon 05-26-2020 Absolute nRBC <0.01 Normal <0.01 [facility] al Erythrocyte distribution width (RBC) [Ratio] 25.3 % High 11.5-15.0 [facility] Hematocrit (Bld) [Volume fraction] 29.6 % Low 36.0-46.0 [facility] Hemoglobin (Bld) [Mass/Vol] 8.4 g/dL Low 11.5-15.5 [facility] MCH 21.1 pG Low 26.0-34.0 [facility] MCHC (RBC) [Mass/Vol] 28.4 g/dL Low 30.5-36.0 [facility] MCV (RBC) [Entitic vol] 74.2 fL Low 80.0-100.0 [facility] Platelet mean volume (Bld) [Entitic vol] 9.1 fL Normal 9.0-12.7 [facility] Platelets (Bld) [#/Vol] 228 10*3/uL Normal 150-400 [facility] RBC (Bld) [#/Vol] 3.99 10*6/uL Normal 3.90-5.20 [facility] WBC (Bld) [#/Vol] 5.70 10*3/uL Normal 3.70-11.00 [facility] Absolute nRBC 0.02 k/uL High <0.01 [facility] al Erythrocyte distribution width (RBC) [Ratio] 25.4 % High 11.5-15.0 [facility] Hematocrit (Bld) [Volume fraction] 25.4 % Low 36.0-46.0 [facility] Hemoglobin (Bld) [Mass/Vol] 7.0 g/dL Low 11.5-15.5 [facility] MCH 19.8 pG Low 26.0-34.0 [facility] MCHC (RBC) [Mass/Vol] 27.6 g/dL Low 30.5-36.0 [facility] MCV (RBC) [Entitic vol] 72.0 fL Low 80.0-100.0 [facility] Platelet mean volume (Bld) [Entitic vol] 9.2 fL Normal 9.0-12.7 [facility] l Platelets (Bld) [#/Vol] 200 10*3/uL Normal 150-400 [facility] RBC (Bld) [#/Vol] 3.53 10*6/uL Low 3.90-5.20 [facility] WBC (Bld) [#/Vol] 5.22 10*3/uL Normal 3.70-11.00 [facility] CONSULT PROGon 05-26-2020 CONSULT PROG HNO ID: [id number] Author: Nicolasa Mcneill (Pa) Service: Hospital Medicine Author Type: Physician Physician General Internal Medicine Type: Consult Progress Note Filed: 05/26/2020 1:56 PM Note Text: DEPARTMENT OF HOSPITAL MEDICINE CONSULT PROGRESS NOTE SERVICE DATE: 05/26/2020 SERVICE TIME: 1:44 PM Primary Care Physician: Alek Sherwood MD NIGHT AND WEEKEND COVERAGE: [place] COVERAGE: Days: [phone], please contact via [employer] Nights: [phone], please page CC Hospitalist Night coverage pager [phone] Subjective INTERVAL HPI: Pt states hip pain [...] pending - (more content not included)... Normal [facility] Ferritinon 05-26-2020 Ferritin [Mass/Vol] 27.5 ng/mL Normal 14.7-205.1 [facility] Comment on above: Performed By: #### H APTO, LD6 #### [facility] [address] [place], [place] [address] Folate, Serumon 05-26-2020 Folate [Mass/Vol] 8.4 ng/mL Normal >4.7 [facility]ital Haptoglobinon 05-26-2020 Haptoglobin 202 mg/dL Normal 31-238 [facility] Comment on above: Performed By: #### H APTO, LD6 #### [facility] [address] [place], [place] [address] Iron and TIBCon 05-26-2020 Iron [Mass/Vol] 72 ug/dL Normal 41-186 [facility] Comment on above: Performed By: #### H APTO, LD6 #### [facility] [address] [place] [address] TIBC 370 ug/dL Normal 232-386 [facility] Comment on above: Performed By: #### H APTO, LD6 #### [facility] [address] [place], [place] [address] Transferrin Saturatn 19 % Normal 15-57 [facility] Comment on above: Performed By: #### H APTO, LD6 #### [facility] [address] [place], [place] [address] LDon 05-26-2020 LD 155 U/L Normal 135-214 [facility] Comment on above: Performed By: #### H APTO, LD6 #### [facility] [address] [place] [phone] NURSING PROGon 05-26-2020 NURSING PROG HNO ID: [id number] Author: Angela Mariano (Rn) Kath, JASMINE Service: PICC Team Author Type: Registered Nurse Type: Nursing Progress Note Filed: 05/26/2020 11:15 AM Note Text: Called to floor for difficult IV access. 20G long angiocath placed in the L forearm under ultrasound guidance. Blood return present, flushed w/ 20cc NS w/o difficulty, DSD to site BARBI. Martha Stockton RN. Normal [facility] Occult Blood Screenon 2020 Occult Blood Screen Negative Normal Negative [facility] Occult Blood Source: Stool Normal [facility] PT EDon 05-26-2020 PT ED HNO ID: [id number] Author: Angela Millan Service: ? Author Type: [...] supplies: OneTouch Delica lancets, 100/box, epic code 394870 OneTouch Verio test strips, 25 or 50 or 100 per box, epic code 236218 If any issues with insurance, please order: Glucose meter (epic code: 89512) DISP: 1 glucose meter Test Strips (epic code: 33965) DISP: test strips/month w/refills Lancets (epic code: 91477) DISP: lancets/month w/refills RECOMMENDATIONS TO INPATIENT NURSE: [...] her most recent A1C. 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 She [...] May 26, 2020 TIME: 2:11 PM PAGER: [phone] Normal [facility] Reticulocyteon 05-26-2020 Abs Retic 0.152 M/uL High 0.0180-0.1000 [facility] Comment on above: Performed By: #### H APTO, LD6 #### [facility] [address] [place] [address] Retic% 4.1 % High 0.4-2.0 [facility] Comment on above: Performed By: #### H APTO, LD6 #### [facility] [address] [place] [address] THERAPY NTon 05-26-2020 THERAPY NT HNO ID: [id number] Author: Chapis VelazquezOtSylvia Eric Service: Occupational Therapy Author Type: Occupational Therapist Type: Therapy (PT/OT/Speech/Resp) Filed: 05/26/2020 4:48 PM Note Text: OCCUPATIONAL THERAPY MISSED VISIT SERVICE DATE: 05/26/2020 SERVICE TIME: 1644 to 1644 ROOM: [place] [address] Attempted Treatment. Patient not seen due to Another service at bedside, working to arrange w/c delivery for home. Plans are for discharge to home on after all equipment is delivered. Plan to work with patient in preparation of going home. 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 () Entry To Home: Stairs;With Rail [...] ulty walking-musculoskelet al Interventions Provided: Therapeutic Activity (09772);Gait Training (99177) Therapeutic Activity (57134) Treatment Minutes: 15 $ Therapeutic Activity (84442) Billed Units: 2 units Gait Training (87565) Treatment Minutes: 25 $ Gait Training (52884) Billed Units: 1 unit Training AND education [...] May 26, 2020 TIME: 3:07 PM Normal [facility] Urinalysison 05-26-2020 Bilirubin, Urine Negative Normal Negative [facility] pital Clarity (U) Cloudy Critically abnormal Clear [facility] Color (U) Yellow Normal Yellow [facility] Glucose Ql (U) Negative Normal Negative [facility] Hemoglobin/Blood,Ur Negative Normal [facility] Ketones Ql (U) Trace Critically abnormal Negative [facility] Leukest 2+ Critically abnormal Negative [facility] Nitrite Ql (U) Negative Normal Negative [facility] pH (U) 6.0 [pH] Normal 5.0-8.0 [facility] Protein, Urine Negative Normal Negative [facility] Specific [place], Ur 1.028 Normal 1.005-1.030 [facility] Urobilinogen Qn (U) 1.0 {Jacqueline'U}/dL Normal 0.2-1.0 [facility] Urine Microscopic (FOR LAB U SE ONLY)on 05-26-2020 Bacteria Present Critically abnormal 0 [facility] Cast SEE COMMENT Normal 0 [facility] Comment on above: Result Comment: 0 Epithelial cells LM Ql (Urine sed) SEE COMMENT Normal [facility] Comment on above: Result Comment: Squa mous Epithelial Cells Many RBC 0-3 Normal 0-3 [facility] Urine Varghese Comment SEE COMMENT Normal [facility] [facility] Comment on above: Result Comment: Muco us strands present. WBC 6-10 Critically abnormal 0-5 [facility] Vitamin B12on 05-26-2020 Cobalamin (Vitamin B12) [Mass/Vol] 357 pg/mL Normal 232-1245 [facility] Basic Metabolic Panlon 05-25 Anion gap [Moles/Vol] 12 mmol/L Normal 9-18 [facility] Calcium [Mass/Vol] 7.5 mg/dL Low 8.5-10.2 [facility] Chloride [Moles/Vol] 99 mmol/L Normal 97-105 [facility] CO2 [Moles/Vol] 26 mmol/L Normal 22-30 [facility] ital Creatinine [Mass/Vol] 0.57 mg/dL Low 0.58-0.96 [facility] eGFR- Amer. >60 Normal [facility]ital eGFR-All Other Races >60 Normal [facility] Comment on above: Result Comment: eGFR (Estimated [...] GFR. Glucose [Mass/Vol] 168 mg/dL High 74-99 [facility] Comment on above: Result Comment: The [place] Diabetes Association (ADA) provides guidance for cutoff [...] Standards of Medical Care in Diabetes 2016, [place] [employer]. Diabetes Care. 2016.39(Suppl 1). Potassium [Moles/Vol] 3.3 mmol/L Low 3.7-5.1 [facility] Sodium [Moles/Vol] 137 mmol/L Normal 136-144 [facility] Urea nitrogen [Mass/Vol] 11 mg/dL Normal 7-21 [facility] CBCon 05-25-2020 Absolute nRBC 0.02 k/uL High <0.01 [facility] al Erythrocyte distribution width (RBC) [Ratio] 25.0 % High 11.5-15.0 [facility] Hematocrit (Bld) [Volume fraction] 25.7 % Low 36.0-46.0 [facility] Hemoglobin (Bld) [Mass/Vol] 7.1 g/dL Low 11.5-15.5 [facility] MCH 19.8 pG Low 26.0-34.0 [facility] MCHC (RBC) [Mass/Vol] 27.6 g/dL Low 30.5-36.0 [facility] MCV (RBC) [Entitic vol] 71.6 fL Low 80.0-100.0 [facility] Platelet mean volume (Bld) [Entitic vol] 8.9 fL Low 9.0-12.7 [facility] Platelets (Bld) [#/Vol] 220 10*3/uL Normal 150-400 [facility] RBC (Bld) [#/Vol] 3.59 10*6/uL Low 3.90-5.20 [facility] WBC (Bld) [#/Vol] 5.00 10*3/uL Normal 3.70-11.00 [facility] Absolute nRBC <0.01 Normal <0.01 [facility] Erythrocyte distribution width (RBC) [Ratio] 24.2 % High 11.5-15.0 [facility] Hematocrit (Bld) [Volume fraction] 26.3 % Low 36.0-46.0 [facility] Hemoglobin (Bld) [Mass/Vol] 7.3 g/dL Low 11.5-15.5 [facility] MCH 19.5 pG Low 26.0-34.0 [facility] MCHC (RBC) [Mass/Vol] 27.8 g/dL Low 30.5-36.0 [facility] MCV (RBC) [Entitic vol] 70.1 fL Low 80.0-100.0 [facility] Platelet mean volume (Bld) [Entitic vol] 9.1 fL Normal 9.0-12.7 [facility] l Platelets (Bld) [#/Vol] 232 10*3/uL Normal 150-400 [facility] RBC (Bld) [#/Vol] 3.75 10*6/uL Low 3.90-5.20 [facility] WBC (Bld) [#/Vol] 5.01 10*3/uL Normal 3.70-11.00 [facility] CONSULTon 05-25-2020 CONSULT HNO ID: [id number] Author: Nicolasa Mcneill (Pa) Service: Hospital Medicine Author Type: Physician Physician General Internal Medicine Type: Consults Filed: 05/25/2020 2:54 PM Note Text: DEPARTMENT OF HOSPITAL MEDICINE INITIAL CONSULT SERVICE DATE: 05/25/2020 SERVICE TIME: 2:22 PM Primary Care Physician: Alek Sherwood MD NIGHT AND WEEKEND COVERAGE: [employer] [place] COVERAGE: Days: [phone], please contact via [employer] Nights: [phone], please page CC Hospitalist Night coverage pager [phone] REASON FOR CONSULT: Anemia REQUESTING PHYSICIAN: Dr. [...] ORAL D (more content not included)... 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 (more content not included)... 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;With Rail [...] al;Reduced mobility-other Interventions Provided: Evaluation;Therapeuti c Activity (08570);Gait Training (56234);Therapeutic Exercise (86647) $ Evaluation-Low (53414) Billed Units: 1 unit Therapeutic Exercise (26076) Treatment Minutes: 6 Therapeutic Activity (01952) Treatment Minutes: 12 $ Therapeutic Activity (25521) Billed Units: 1 unit Gait Training (32453) Treatment Minutes: 8 $ Gait Training (10246) Billed Units: 1 unit Training AND education [...] DATE: May 25, 2020 TIME: 1:10 PM [facility] ANES POSTPROC EVALon 021 ANES POSTPROC EVAL HNO ID: [id number] Author: Jeannie Hodge Service: Anesthesiology Author Type: Anesthesiologist Type: Anesthesia Postprocedure Evaluation Filed: 05/24/2020 3:50 PM Note Text: POST ANESTHESIA EVALUATION NOTE : 1970 Procedure Summary Date: 05/24/20 Room / Location: AV OR04 / AV OR Anesthesia Start: 1233 [...] May 24, 2020 TIME: 3:50 PM CSN: [id number] [facility] ANES PRE-OPon 05-24-2020 ANES PRE-OP HNO ID: [id number] Author: Jeannie Hodge Service: Anesthesiology Author Type: [...] May 24, 2020 TIME: 11:24 AM CSN: [id number] [facility] BRIEF OP NOTon 05-24-2020 BRIEF OP NOT HNO ID: [id number] Author: Clay Ayala Jr. Service: Orthopaedic Surgery Author Type: Physician Type: Operative Report Filed: 05/24/2020 2:19 PM Note Text: [facility] OPERATIVE REPORT PATIENT NAME: Sue Momin AGE: [age] year old LOG ID: [id number] Surgery Date: 05/24/2020 SURGEON: Clay Ayala M.D. POLYMER TESTER: Marybel Mason PA-C, her assistance consisted of [...] Time: * Missing case tracking time(s) * Hand Marker closed, under direct supervision and the remainder of the procedure was performed by the primary surgeon/proceduralist with assistance. SIGNATURE: Clay Ayala Jr, MD DATE: May 24, 2020 TIME: 2:05 PM Normal [facility] Basic Metabolic Panlon 05-24 Anion gap [Moles/Vol] 11 mmol/L Normal 9-18 [facility] Calcium [Mass/Vol] 7.7 mg/dL Low 8.5-10.2 [facility] Chloride [Moles/Vol] 103 mmol/L Normal 97-105 [facility] CO2 [Moles/Vol] 23 mmol/L Normal 22-30 [facility] Creatinine [Mass/Vol] 0.50 mg/dL Low 0.58-0.96 [facility] eGFR- Amer. >60 Normal [facility] eGFR-All Other Races >60 Normal [facility] Comment on above: Result Comment: eGFR (Estimated GFR) Units of measure: mL/min/1.73 meters squared eGFR is derived from the reexpressed MDRD Study equation using the following parameters: serum creatinine, age, gender and race. The creatinine assay has been calibrated to be traceable to [employer]. An eGFR <60 mL/min/1.73m2 for >3 months is consistent with chronic kidney disease. Refer to KDOQI guidelines for clinical interpretation. In patients with unstable renal function, e.g. those with acute kidney injury, the eGFR may not accurately reflect actual GFR. Glucose [Mass/Vol] 191 mg/dL High 74-99 [facility] Comment on above: Result Comment: The [place] Diabetes Association (ADA) provides guidance for cutoff [...] Standards of Medical Care in Diabetes 2016, [place] [employer]. Diabetes Care. 2016.39(Suppl 1). Potassium [Moles/Vol] 3.6 mmol/L Low 3.7-5.1 [facility] Sodium [Moles/Vol] 137 mmol/L Normal 136-144 [facility] Urea nitrogen [Mass/Vol] 11 mg/dL Normal 7-21 [facility] Anion gap [Moles/Vol] 13 mmol/L Normal 9-18 [facility] Calcium [Mass/Vol] 8.2 mg/dL Low 8.5-10.2 [facility] Chloride [Moles/Vol] 104 mmol/L Normal 97-105 [facility] CO2 [Moles/Vol] 25 mmol/L Normal 22-30 [facility] Creatinine [Mass/Vol] 0.61 mg/dL Normal 0.58-0.96 [facility] Glucose [Mass/Vol] 119 mg/dL High 74-99 [facility] Comment on above: Result Comment: The [place] Diabetes Association (ADA) provides guidance for cutoff [...] Standards of Medical Care in Diabetes 2016, [place] [employer]. Diabetes Care. 2016.39(Suppl 1). Potassium [Moles/Vol] 3.0 mmol/L Low 3.7-5.1 [facility] Sodium [Moles/Vol] 142 mmol/L Normal 136-144 [facility] CBCon 05-24-2020 Absolute nRBC <0.01 Normal <0.01 [facility] Erythrocyte distribution width (RBC) [Ratio] 24.2 % High 11.5-15.0 [facility] Hematocrit (Bld) [Volume fraction] 22.3 % Low 36.0-46.0 [facility] Hemoglobin (Bld) [Mass/Vol] 5.9 g/dL Critically low 11.5-15.5 [facility] Comment on above: Result Comment: Call ed to and read back by: Cecile EFRRARO [facility] PACU 05/24/20 1541 [place] MCH 18.2 pG Low 26.0-34.0 [facility] MCHC (RBC) [Mass/Vol] 26.5 g/dL Low 30.5-36.0 [facility] MCV (RBC) [Entitic vol] 68.8 fL Low 80.0-100.0 [facility] Platelet mean volume (Bld) [Entitic vol] 9.1 fL Normal 9.0-12.7 [facility] l Platelets (Bld) [#/Vol] 235 10*3/uL Normal 150-400 [facility] RBC (Bld) [#/Vol] 3.24 10*6/uL Low 3.90-5.20 [facility] WBC (Bld) [#/Vol] 3.85 10*3/uL Normal 3.70-11.00 [facility] CBC and Differentialon 05-24 Abs Baso <0.03 Normal <0.11 [facility] Abs [place] 0.32 k/uL Normal <0.87 [facility] Abs Neut 1.43 k/uL Low 1.45-7.50 [facility] Absolute nRBC 0.02 k/uL High <0.01 [facility] Basophils/100 WBC (Bld) 0.7 % Normal [facility] DTYPE Auto Diff Normal [facility] Eosinophils (Bld) [#/Vol] 0.08 10*3/uL Normal <0.46 [facility] Eosinophils/100 WBC (Bld) 2.9 % Normal [facility] Erythrocyte distribution width (RBC) [Ratio] 24.3 % High 11.5-15.0 [facility] Hematocrit (Bld) [Volume fraction] 23.5 % Low 36.0-46.0 [facility] Hemoglobin (Bld) [Mass/Vol] 6.3 g/dL Low 11.5-15.5 [facility] Lymphocytes (Bld) [#/Vol] 0.88 10*3/uL Low 1.00-4.00 [facility] Lymphocytes/100 WBC (Bld) 32.2 % Normal [facility] MCH 18.4 pG Low 26.0-34.0 [facility] MCHC (RBC) [Mass/Vol] 26.8 g/dL Low 30.5-36.0 [facility] MCV (RBC) [Entitic vol] 68.7 fL Low 80.0-100.0 [facility] Monocytes/100 WBC (Bld) 11.7 % Normal [facility] Neutrophils/100 WBC (Bld) 52.5 % Normal [facility] NRBCs 0.7 /100 WBC High 0 [facility] Platelet mean volume (Bld) [Entitic vol] 8.5 fL Low 9.0-12.7 [facility] Platelets (Bld) [#/Vol] 227 10*3/uL Normal 150-400 [facility] RBC (Bld) [#/Vol] 3.42 10*6/uL Low 3.90-5.20 [facility] WBC (Bld) [#/Vol] 2.73 10*3/uL Low 3.70-11.00 [facility] Confirm Blood Typeon 021 ABO/RH(D) Positive Normal [facility] HISTORY PHYSICALon 1 HISTORY PHYSICAL HNO ID: [id number] Author: Marybel Mason Service: Orthopaedic Surgery Author Type: Physician Physician General Internal Medicine Type: HANDP Filed: 05/24/2020 12:16 PM Note [...] DATE: May 24, 2020 TIME: 12:12 PM [facility] NURSING PROGon 05-24-2020 NURSING PROG HNO ID: [id number] Author: Kalie Montanez RN Service: Nursing Author Type: Registered Nurse Type: Nursing Progress Note Filed: 05/24/2020 5:33 PM Note Text: Nursing Progress Note Patient Name: Sue Momin Patient Location: [place] [address] [address] Transfer Note: Patient transferred into room/unit 06-27 in stable condition. Actions taken: Patient belongings with patient. Pt at bedside. Pt aware of low hbg. Pt consented for 1 unit PRBCs. Declines pain, see NPR for neuro assessment. IVF infusing per orders 17:10- 1 unit PRBCs infusing per orders. This note was completed by: Kalie Montanez RN [facility] OPERATIVE NOon 05-24-2020 OPERATIVE NO HNO ID: [id number] Author: Clay Ayala Jr. Service: Orthopaedic Surgery Author Type: Physician Type: Operative Report Filed: 05/24/2020 2:19 PM Note Text: [facility] OPERATIVE REPORT PATIENT NAME: Sue Momin AGE: [age] year old LOG ID: [id number] Surgery Date: 05/24/2020 SURGEON: Clay Ayala M.D. POLYMER TESTER: Marybel Mason PA-C, her assistance consisted of [...] Time: * Missing case tracking time(s) * Hand Marker closed, under direct supervision and the remainder of the procedure was performed by the primary surgeon/proceduralist with assistance. SIGNATURE: Clay Ayala Jr, MD DATE: May 24, 2020 TIME: 2:05 PM [facility] XR HIP 2V AP/LAT RTon 2020 XR HIP 2V AP/LAT RT * * *Final Report* * * DATE OF EXAM: May 24 2020 2:05PM [facility] 5280 - XR HIP 2V AP/LAT [...] IMPRESSION: Please see operative note for details. Desktop Analyst: DEYANIRA Transcribe Date/Time: May 24 2020 2:39P Dictated by : BETY RICE MD This examination was interpreted and the report reviewed and electronically signed by: BETY RICE MD on May 24 2020 2:40PM EST [id number] Normal [facility] PreOp/PreProc COVIDon 2020 SARS-CoV-2 (COVID-19) RNA BENIGNO+probe Ql (Unsp spec) UPPER RESPIRATORY TRACT SWAB Normal [facility] Comment on above: Performed By: #### P OCOVD ####[facility], [place] [phone] SARS-CoV-2 (COVID-19) RNA BENIGNO+probe Ql (Unsp spec) Negative Normal Negative for COVID19 (SARS CoV2) by PCR. [facility] Comment on above: Result Comment: This test was developed and its performance characteristics determined by [facility]'s [facility] [place]. This test has been authorized by FDA under an Emergency Use Authorization (EUA). This test has been validated in accordance with the FDA's Guidance Document Policy for Diagnostics Testing in Laboratories Certified to Perform High Complexity Testing under CLIA prior to Emergency use Authorization for Coronavirus Disease 2019 during the Public Health Emergency issued on April 19, 2019. Test performed by [facility], [facility] [place], [address] [place], [place] [address]. Performed By: #### P OCOVD ####[facility] [address] [place], [place] [phone] APTTon 05-20-2020 aPTT Coag (Bld) [Time] 21.7 s Low 23.0-32.4 [facility] Comment on above: Result Comment: [...] Anion gap [Moles/Vol] 11 mmol/L Normal 9-18 [facility] Calcium [Mass/Vol] 9.2 mg/dL Normal 8.5-10.2 [facility] Chloride [Moles/Vol] 99 mmol/L Normal 97-105 [facility] CO2 [Moles/Vol] 28 mmol/L Normal 22-30 [facility] Creatinine [Mass/Vol] 0.52 mg/dL Low 0.58-0.96 [facility] eGFR- Amer. >60 Normal [facility] eGFR-All Other Races >60 Normal [facility] Comment on above: Result Comment: eGFR [...] [Mass/Vol] 143 mg/dL High 74-99 [facility] Comment on above: Result Comment: The [place] Diabetes Association (ADA) provides guidance for cutoff [...] Standards of Medical Care in Diabetes 2016, [place] [employer]. Diabetes Care. 2016.39(Suppl 1). Potassium [Moles/Vol] 3.0 mmol/L Low 3.7-5.1 [facility] Sodium [Moles/Vol] 138 mmol/L Normal 136-144 [facility] Urea nitrogen [Mass/Vol] 11 mg/dL Normal 7-21 [facility] CBC and Differentialon 05-20 Abs Baso <0.03 Normal <0.11 [facility] Abs [place] 0.37 k/uL Normal <0.87 [facility] Abs Neut 2.98 k/uL Normal 1.45-7.50 [facility] Absolute nRBC 0.02 k/uL High <0.01 [facility] Basophils/100 WBC (Bld) 0.4 % Normal [facility] DTYPE Auto Diff Normal [facility] Eosinophils (Bld) [#/Vol] 0.07 10*3/uL Normal <0.46 [facility] Eosinophils/100 WBC (Bld) 1.6 % Normal [facility] Erythrocyte distribution width (RBC) [Ratio] 23.4 % High 11.5-15.0 [facility] Hematocrit (Bld) [Volume fraction] 25.6 % Low 36.0-46.0 [facility] Hemoglobin (Bld) [Mass/Vol] 6.7 g/dL Low 11.5-15.5 [facility] Lymphocytes (Bld) [#/Vol] 1.04 10*3/uL Normal 1.00-4.00 [facility] Lymphocytes/100 WBC (Bld) 23.1 % Normal [facility] MCH 17.6 pG Low 26.0-34.0 [facility] MCHC (RBC) [Mass/Vol] 26.2 g/dL Low 30.5-36.0 [facility] MCV (RBC) [Entitic vol] 67.2 fL Low 80.0-100.0 [facility] Monocytes/100 WBC (Bld) 8.2 % Normal [facility] Neutrophils/100 WBC (Bld) 66.7 % Normal [facility] NRBCs 0.4 /100 WBC High 0 [facility] Platelet mean volume (Bld) [Entitic vol] 9.1 fL Normal 9.0-12.7 [facility] Platelets (Bld) [#/Vol] 258 10*3/uL Normal 150-400 [facility] RBC (Bld) [#/Vol] 3.81 10*6/uL Low 3.90-5.20 [facility] WBC (Bld) [#/Vol] 4.50 10*3/uL Normal 3.70-11.00 [facility] HISTORY PHYSICALon HISTORY PHYSICAL HNO ID: [id number] Author: Chapis Sanchez Service: ? Author Type: Physician Physician General Internal Medicine Type: HANDP Filed: 05/21/2020 3:24 PM Note [...] (Bmi) of 40.0 to 44.9 in Adult ([facility]) Essential Hypertension Type 2 Diabetes Mellitus Without Complication, Without Long-Term Current Use of Insulin ([facility]) Heartburn Iron Deficiency Anemia Subjective CHIEF COMPLAINT: [...] Prior to Admission medications as of 05/20/20 7049 Medication Sig Last Dose Taking traMADol (ULTRAM) [...] fevers. Neuro: No history of TIA's, stroke, VICE PRESIDENT MEDIA RELATIONS tumor, impaired sensorium, hemiplegia, paraplegia or quadraplegia. [...] or incontinence,, stones or chronic kidney disease INSTRUMENT STERILIZER: Negative for abnormal vaginal bleeding, abnormal vaginal [...] kg/(m2). Gene (more content not included)... Normal [facility] Hemoglobin A1con 05-20-2020 Glucose [Mass/Vol] 128 mg/dL Normal [facility] Comment on above: Result Comment: eAG: (Estimated average glucose) is a calculated value from HgbA1c and is textile machinery sales representative of the average blood glucose level in the last 2-3 month period. HbA1c (Bld) [Mass fraction] 6.1 % High 4.3-5.6 [facility] Comment on above: Result Comment: Amer [place] Diabetes Association guidelines indicate that patients with HgbA1c in the range 5.7-6.4% are at increased risk for development of diabetes, and intervention by lifestyle modification may be beneficial. HgbA1c greater or equal to 6.5% is considered diagnostic of diabetes. Protimeon 05-20-2020 PT INR 1.0 Normal 0.9-1.3 [facility] Comment on above: Result Comment: Breana min K Antagonist (VKA) Therapeutic Range: INR 2 to 3 (Target INR of 2.5) Note: For patients treated with VKA drugs, such as warfarin, the [place] [employer] 2012 Guideline recommends [...] to 3.5 (target INR of 3). Tom ALICEA, et al. Chest 2012, 141:7S-47S Leno RA, et al. JAC 2017, 70: 252-289 PT Sec 10.2 sec Normal 9.7-13.0 [facility] [place] Type and SCR (30D)on 021 ABO/RH(D) Positive Normal [facility] CNOVon 05-19-2020 CNOV Office Visit ([facility] ) SUE MOMIN ([id number]) 1970 F Date Time Provider Department 05/19/20 9:45 AM [facility] your [facility] today, we recorded the [...] Jr, MD Referring Provider: CLAY AYALA JR [[id number]] Allergies As of Date: 05/19/2020 Noted Allergy [...] encounter [M84.351A] Order(s):SURGICAL REQUEST - ELECTIVE (09/2019) [[id number]] Order #: [id number]: 1 PRE-PROCEDURE AND PRE-OPERATIVE COVID [SQPOCOVD] Order #: [id number] FUTURE Prescriptions as of 05/19/2020 Sig: FERROUS [...] Chart Close Cosign Accepted by: CLAY AYALA MD[[id number]] Chart Close Cosign Accepted on: SunMay 19, 2020 12:36 PM Normal [facility] SUE MOMIN ([id number]) 1970 F Date Time Provider Department 05/19/[address] [facility] your visit today, we recorded the following information about you: Lidya Ly 05/19/2020 1:40 PM Addendum Pt states she lives [place] the road from [facility]. She wants to know if she can have her preprocedure COVID testing done there or if it has to be with [facility]. Please advise. [phone] (home) Lidya Ly May 19, 2020 1:39 PM Patient was in office and we spoke to her that due to time constraints - We would be unable to have this done at an outside facility. Patient understood and was agreeable to getting it completed in [place]. Dasha Saldana Allergies As of Date: 05/19/2020 [...] Status:Closed by DASHA PROCTOR on 05/21/20 Normal [facility] XR HIP 3V PELV+ AP/LAT [...] is intact. IMPRESSION: No acute osseous abnormality. 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 This she obtained on 04/28/2020 at [facility] in [place], [place]. She has been using a cane [...] though after reviewing the MRI done at [facility] on 04/28/2020, there is evidence of a femoral neck stress fracture. Assessment/Plan ASSESSMENT Diagnosis (M84.351A) Stress fracture of right femur, initial encounter (primary encounter diagnosis) Comment: femoral neck (M79.604) Right leg pain Plan: XR FEMUR GENERAL 2V AP/LAT RT (M89.8X5) Pain in right femur Plan: XR FEMUR GENERAL 2V AP/LAT RT Office (more content not included)... Normal [facility] XR FEMUR 2V AP/LAT RTon [...] aggressive periostitis. IMPRESSION: No acute osseous abnormality. Desktop Analyst: PSCB Transcribe Date/Time: May 12 2020 10:26A Dictated by : ROEL HERCULES MD This examination was interpreted and the report reviewed and electronically signed by: ROEL HERCULES MD on May 12 2020 11:41AM EST [id number] N Normal [facility] MRI Hip w/o Contrast Righton 04-28-2020 MRI Hip w/o Contrast Right EXAM: MRI Hip w/o Contrast Right HISTORY: The patient is a 49-year-old female with right hip pain since falling one month ago. COMPARISON: Radiographs from 03/13/2020. TECHNIQUE: Large [id number] images were obtained through both hips: Axial T1, fat-suppressed T2. Smaller [id number] images were obtained through the right hip only: Coronal T1, fat-suppressed T2, sagittal fat-suppressed T2; oblique axial PD. FINDINGS: The small qowch-eg-osxe images demonstrate abnormal bone marrow edema emanating from the medial femoral neck. The appearance is that of a femoral neck stress fracture. No displaced fracture fragments or cortical discontinuities are seen. The large polth-ss-pokf images demonstrate replacement of the normal fatty [...] hematopoietic bone marrow. Final Dictated by: Nolan Paetl MD Dictated DT/TM: 04/28/2020 8:33 pm Signed by: Nolan Patel MD Signed (Electronic Signature): 04/28/2020 8:41 pm (If Report Is Signed, Electronically Signed in Other Vendor System) Normal [facility] Encounters Encounter Date Encounter Type Care Provider Facility Start: 05-09-2023 End: 05-09-2023 ambulatory ALEK SHERWOOD Not Available Start: 05-30-2022 Encounter for genera l adult medical examination without abnormal findings DR ALEK SHERWOOD [facility] Start: 05-24-2022 End: 05-25-[address] ALEK SHERWOOD Facility:[facility] Start: 05-24-2022 End: 05-25-2022 Encounter for general adult medical examination without abnormal findings DR ALEK SHERWOOD Facility:[facility] Start: 05-18-2022 End: 05-19-[address] ALEK SHERWOOD Facility:[facility] Start: 04-03-2022 End: 04-03-2022 ambulatory CUCO MOLINA Facility:[facility] Start: 08-24-[address] ALEK SHERWOOD [facility] ity:[facility]1 Start: 04-28-2020 End: 04-29-2020 Patient encounter procedure ALEK SHERWOOD Facility:[facility] Procedures Date Procedure Procedure Detail Performing Clinician Start: 08-12-2020 Antibody screen Start: 05-20-2020 Antibody screen Payers Date Payer Category Payer Unknown [id number] 2020 Unknown 1970 Unknown [id number] 1968 Unknown [id number] 2.16.84 [id number] 1968 Unknown [id number] 2.16.84 [id number] 1968 Unknown [id number] 2.16.84 [id number] 1968 Unknown [id number] 2.16.84 [id number] 1968 Unknown [id number] 2.16.84 [id number] 1959 Private Health Insurance [id number] 1959 Unknown [id number] Clinical Notes 05-12-2020 to 11-26-2020 Note Date & Type Note Facility 11-26-2020 Note HNO ID: [id number] Author: Dragan Mohr MD Service: ? Author Type: Physician Type: Progress Notes Filed: 11/30/2020 8:40 PM Note Text: NAME: Sue Momin CLINIC NO.: [id number] DATE OF SERVICE: November 26, 2020 Some [...] gastric bypass (pr (more content not included)... [facility] 11-08-2020 Note HNO ID: [id number] Author: Marybel Mason PA-C Service: ? Author Type: Physician Physician General Internal Medicine Type: Progress Notes Filed: 11/08/2020 3:39 PM [...] her back as needed. Marybel Mason PA-C [facility] 11-08-2020 Note HNO ID: [id number] Author: RT Aixa(R) Service: ? Author Type: [...] Phelps, RT(R) November 08, 2020 3:22 PM [facility] 10-24-2020 Note Patient: SUE MOMIN [...] Discharge disposition. Prescriptions. Discharge time= 30 minutes [facility] 10-15-2020 Note Patient: SUE MOMIN Age: 50 years [...] Annoyed by people criticizing your drinking> Yes. [place] bad or guilty about drinking: Yes. 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 CAGE 2 [...] Review / Management Results review: General Labs () CBCWD WBC: 5.7 x106/uL (10/15/20)\.br\HGB: 13.9 g/dL (10/15/20)\.br\HCT: 40.3 % (10/15/20)\.br\MCV: 83.9 fL (10/15/20)\.br\MCH: 28.9 pg (10/15/20)\.br\MCHC: 34.4 g/dL (10/15/20)\.br\RDW: 18.9 High (10/15/20)\.br\Platelet: 81 x1000 Low (10/15/20)\.br\MPV: 6.5 fL Low (10/15/20)\.br\CMP\.br\BUN: 7 mg/dL Low (10/15/20)\.br\Na: 137 mmol/L (10/15/20)\.br\K: 3.3 mmo (more content not included)... [facility] 10-11-2020 Note HNO ID: [id number] Author: Marybel Mason PA-C Service: ? Author Type: Physician Physician General Internal Medicine Type: Progress Notes Filed: 10/11/2020 8:26 AM [...] follow up and x-rays. Marybel Mason PA-C [facility] 10-01-2020 Note HNO ID: [id number] Author: RT Aixa(R) Service: ? Author Type: Consumer Marketing Manager Type: Progress Notes Filed: 10/01/2020 2:01 PM [...] RT Aixa(R) October 01, 2020 2:00 PM [facility] 09-24-2020 Note HNO ID: [id number] Author: Dragan Mohr MD Service: ? Author Type: Physician Type: Progress Notes Filed: 10/03/2020 7:42 PM Note Text: NAME: Sue Momin [facility] NO.: [id number] DATE OF SERVICE: September 24, 2020 Some [...] B12 BLOOD, CBC + DIFF (FOR REMOTE [facility] USE), COMP METABOLIC PANEL, FERRITIN BLD, IRON + TIBC (D50.8) Other iron deficiency anemia Plan: VITAMIN B12 BLOOD, CBC + DIFF (FOR REMOTE [facility] USE), COMP METABOLIC PANEL, FERRITIN BLD, IRON + TIBC (D53.9) Deficiency anemia Plan: VITAMIN B12 BLOOD, CBC + DIFF (FOR REMOTE [facility] USE), COMP METAB (more content not included)... [facility] 09-03-2020 Note HNO ID: [id number] Author: Marybel Mason PA-C Service: ? Author Type: Physician Physician General Internal Medicine Type: Progress Notes Filed: 09/03/2020 10:17 AM [...] her weight bearing status. Marybel Mason PA-C [facility] 08-31-2020 Note HNO ID: [id number] Author: Carlos Lemon MD Service: ? Author [...] Femur fractures x2. See Hospital Encounter from [facility] 07/2020 Current Medications: Current Outpatient Medications [...] No nausea, vomiti (more content not included)... [facility] 08-30-2020 Note HNO ID: [id number] Author: RT Coral(R) Service: ? Author Type: Consumer Marketing Manager Type: Progress Notes Filed: 08/30/2020 8:15 AM [...] IV DATA: Not applicable SIGNED BY: RT Coral(R) August 30, 2020 8:13 AM [facility] 08-17-2020 Note HNO ID: [id number] Author: Ingrid Yoder (Tappx) Service: ? Author Type: ? Type: Plan [...] or your Primary Care Provider. Ingrid Yoder (Tappx) PAGER: nico August 17, 2020 4:32 PM [facility] 08-17-2020 Note HNO ID: [id number] Author: Ethan Best PA-C Service: Orthopaedic Surgery Author Type: Physician Physician General Internal Medicine Type: Progress Notes Filed: 08/17/2020 9:29 AM Note Text: ORTHOPAEDIC POSTOP PROGRESS NOTE SERVICE DATE: 08/17/2020 SERVICE TIME: 09 Subjective Patient states that they are comfortable [...] OUTPUT: Intake/Output Summary (Last 24 hours) at 08/17/2020 0925 Last data filed at 08/16/2020 1900 Gross [...] 1149 -- 08/14/20 1200 pneumatic compression stockings (wy,oh) 08/14/20 1200 graduated compression stockings (wy,oh) 08/14/20 1200 activity - mobilize patient (wy,oh) 08/14/20 1200 activity - mobilize patient (wy,oh) 08/14/20 1200 activity - mobilize patient (wy,ma) VTE Prophylaxis: VTE prophylaxis appropriate POST OPERATIVE COMPLICATIONS: Complicated by: pain control issues SIGNATURE: Ethan Best PA-C PATIENT NAME: Sue Momin DATE: August 17, 2020 TIME: 9:29 AM ETX#[id number] [facility] 08-16-2020 Note HNO ID: [id number] Author: Clay Ayala Jr., MD Service: Orthopaedic [...] 97 % 08/16/20 0200 ? 16 ? 08/16/2052 161/65 ? 08/16/2050 173/79 36.7 ?C (98.1 ?F) Oral 118 16 96 % 08/15/201955 150/59 36.6 ?C (97.9 ?F) Oral 78 [...] Urine Trace 05/26/2020 Nitrites Negative 05/26/2020 Specific [place], Ur 1.028 05/26/2020 Protein, Urine Negative 05/26/2020 [...] Clay Ayala Jr, MD 08/16/2020 4:39 PM [facility] 08-16-2020 Note HNO ID: [id number] Author: Nella Joseph RN Service: Care Management Author Type: Registered Nurse Type: Care Mgt Progress Note Filed: 08/16/2020 11:40 AM Note Text: CARE MANAGEMENT PROGRESS NOTE SERVICE DATE: 08/16/2020 SERVICE TIME: 11:36 AM LOS: 4 days [place] of Choice Given: No Reason Not Given: Patient refused Met with patient for continued discharge planning. HHC offered. Patient declines HHC at this time as she states she just went through this and doesn't feel like she needs anything. Patient has wc and walker at home. SIGNATURE: Nella Joseph RN PATIENT NAME: Sue Momin DATE: August 16, 2020 TIME: 11:36 AM PAGER/CONTACT #: [phone] [facility] 08-16-2020 Note HNO ID: [id number] Author: Latia Molina DO Service: Hospital Medicine Author Type: Physician Type: Progress Notes Filed: 08/16/2020 3:51 PM Note Text: DEPARTMENT OF HOSPITAL MEDICINE PROGRESS NOTE SERVICE DATE: 08/16/2020 SERVICE TIME: 11:21 AM Hospital Medicine/Primary Attending: Latia Molina DO NIGHT AND WEEKEND COVERAGE: [employer]: Days: [phone], please contact via [employer] Nights: [phone], please page CC Hospitalist Night coverage pager [phone] Subjective INTERVAL HPI: uncontrolled pain overnight, despite [...] complication, without long-term current use of insulin ([facility]) POA: Yes Essential hypertension POA: Yes Class [...] fall CT of the right hip from [facility]: suspect acute right hip fracture extending to hardware Appreciate ortho input-?s/p hardware removal and short cephalomedullary nailing 08/14/2020 Continue attempts at pain control. Pain Management consult appreciated. DVT prophylaxis as per Orthopedics: ASA 81mg PO BID. Activity status: TTWB 5% right leg. ?Type 2 diabetes mellitus without complication, without long-term current use of insulin ([facility]) BG reviewed. Stable. Correctional insulin while NPO [...] Molina DO August 16, 2020 11:22 AM [facility] 08-15-2020 Note HNO ID: [id number] Author: Clay Ayala Jr., MD Service: Orthopaedic [...] Urine Trace 05/26/2020 Nitrites Negative 05/26/2020 Specific [place], Ur 1.028 05/26/2020 Protein, Urine Negative 05/26/2020 [...] Clay Ayala Jr, MD 08/15/2020 11:40 AM [facility] 08-15-2020 Note HNO ID: [id number] Author: Latia Molina DO Service: Hospital Medicine Author Type: Physician Type: Progress Notes Filed: 08/15/2020 3:46 PM Note Text: DEPARTMENT OF HOSPITAL MEDICINE PROGRESS NOTE SERVICE DATE: 08/15/2020 SERVICE TIME: 10:55 AM Hospital Medicine/Primary Attending: Latia Molina DO NIGHT AND WEEKEND COVERAGE: [employer]: Days: [phone], please contact via [employer] Nights: [phone], please page CC Hospitalist Night coverage pager [phone] Subjective INTERVAL HPI: uncontrolled pain overnight. Some [...] complication, without long-term current use of insulin ([facility]) POA: Yes Essential hypertension POA: Yes Class [...] fall CT of the right hip from [facility]: suspect acute right hip fracture extending to hardware Appreciate ortho input-?s/p hardware removal and short cephalomedullary nailing 08/14/2020 Continue attempts at pain control. DVT prophylaxis as per Orthopedics: ASA 81mg PO BID. Activity status: TTWB 5% right leg. ?Type 2 diabetes mellitus without complication, without long-term current use of insulin ([facility]) BG reviewed. Stable. Correctional insulin while NPO [...] Molina DO August 15, 2020 11:01 AM [facility] 08-14-2020 Note HNO ID: [id number] Author: Latia Molina DO Service: Hospital Medicine Author Type: Physician Type: Progress Notes Filed: 08/14/2020 4:32 PM Note Text: DEPARTMENT OF HOSPITAL MEDICINE PROGRESS NOTE SERVICE DATE: 08/14/2020 SERVICE TIME: 10:12 AM Hospital Medicine/Primary Attending: Latia Molina DO NIGHT AND WEEKEND COVERAGE: [employer]: Days: [phone], please contact via [employer] Nights: [phone], please page CC Hospitalist Night coverage pager [phone] Subjective INTERVAL HPI: no overnight events. To [...] fall CT of the right hip from [facility]: suspect acute right hip fracture extending to hardware Appreciate ortho input-?s/p hardware removal and short cephalomedullary nailing today. Pain control. DVT prophylaxis as per Orthopedics. ?Type 2 diabetes mellitus without complication, without long-term current use of insulin ([facility]) BG reviewed. Stable. Correctional insulin while NPO Takes glipizide at home (held) ? Essential hypertension Stable. Continue home Losartan ? Medication and Non-Pharmacologic VTE Prophylaxis/Anticoagulants Anticoagulant AND Antiplatelet Medications (From admission, onward) Comment Start Dose Route Frequency Last Action Ordered Stop 08/12/20 1530 [MAR Hold due to Transf (more content not included)... [facility] 08-14-2020 Note HNO ID: [id number] Author: Tato Zafar MD Service: Anesthesiology Author [...] August 14, 2020 TIME: 8:37 AM CSN: [id number] [facility] 08-13-2020 Note HNO ID: [id number] Author: Sylvester De La Cruz MD Service: Hospital Medicine Author Type: Physician Type: Progress Notes Filed: 08/13/2020 6:22 PM Note Text: DEPARTMENT OF HOSPITAL MEDICINE Sylvester De La Cruz MD SERVICE DATE: 08/13/2020 Code Status: Not on file SERVICE TIME: 11:01 AM Primary Care Physician: Alek Sherwood MD NIGHT AND WEEKEND COVERAGE: [employer]: Days: [phone], please contact via [employer] Nights: [phone], please page CC Hospitalist Night coverage pager [phone] HPI: Underwent right hip percutaneous pinning on 05/24/2020 She was on the verge of returning back to work but sustained a fall. 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 COVID-19 test was negative Assessment/Plan Problem List [...] fall CT of the right hip from [facility] suspect acute right hip fracture extending to hardware Appreciate ortho input- recommended hardware remov (more content not included)... [facility] 08-12-2020 Note HNO ID: [id number] Author: WENDY Harris Service: ? 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 Last discharge within 30 days: No Advance Directive: Current Advance Directive: None Superintendent Job Attempted to Assist with AD Completion: Yes [...] Walker;Wheelchair;Cane Has the Patient Been in a Custodial Facility in the Past 30 days?: No [...] Completely I feel financially burdened by my kcw-ln-[id number] expenses for my prescription medication:: 0 - Disagree Completely Risk Score: 0 Patient is categorized as: Low risk < 2 Are you interested in bedside delivery of your medications? Yes Is Patient Psychosocially Complex?: No ASSESSMENT AND PLAN: Medical Needs: Medical Needs: Obesity;Fall risk or frequent falls Psychosocial Needs: Psychosocial Needs: None FREEDOM OF CHOICE EXPLAINED: [place] of Choice Given: No Reason Not Given: Unable to complete with this assessment - revisit POTENTIAL TRANSITION PLANS Home;Home OT/PT Patient from home with spouse. Patient had hip surgery back in May after a slip and fall. States she had a plate and a screw placed. This AM was feeding dog and she fell. She states they told her at [place] [facility] that a screw is out of [...] 12, 2020 TIME: 11:34 AM PAGER/CONTACT #: [phone] [facility] 07-20-2020 Note HNO ID: [id number] Author: Marybel Mason PA-C Service: ? Author Type: Physician Physician General Internal Medicine Type: Progress Notes Filed: 07/20/2020 11:34 AM [...] follow up and x-rays. Marybel Mason PA-C [facility] 07-14-2020 Note HNO ID: [id number] Author: RT Coral(R) Service: ? Author Type: Consumer Marketing Manager Type: Progress Notes Filed: 07/14/2020 3:21 PM [...] RT Cecily July 14, 2020 3:21 PM [facility] 06-25-2020 Note HNO ID: [id number] Author: Moriah Benavides PA-C Service: ? Author Type: Physician Physician General Internal Medicine Type: Progress Notes Filed: 06/25/2020 3:58 PM Note Text: NAME: Sue Momin CLINIC NO.: [id number] DATE OF SERVICE: June 25, 2020 (Elements [...] diagnosis) Plan: CBC + DIFF (FOR REMOTE [facility] USE), COMP METABOLIC PANEL, IRON + TIBC, FERRITIN BLD, CONSULT TO GASTROENTEROLOGY (Z98.84) S/P gastric bypass Plan: CBC + DIFF (FOR REMOTE C USE), COMP METABOLIC PANEL, IRON + TIBC, FERRITIN BLD, CONSULT TO GASTROENTEROLOGY PAST MEDICAL HISTORY Diagnosis Date - Diabetes (HCC) - Heartburn - Hypertension - Iron deficiency anemia - Iron deficiency anemia secondary to inadequate dietary iron intake (more content not included)... [facility] 06-15-2020 Note HNO ID: [id number] Author: Donna Armando RN Service: ? Author Type: Registered Nurse Type: Progress Notes Filed: 06/15/2020 3:34 PM Note Text: Per JASMINE Feldman and JASMINE García okay to treat with iron as ordered today despite pending status. Donna Armando RN [facility] 06-07-2020 Note HNO ID: [id number] Author: Marybel Mason Service: ? Author Type: Physician Physician General Internal Medicine Type: Progress Notes Filed: 06/07/2020 3:42 PM [...] at her next appointment. Marybel Mason PA-C [facility] 06-07-2020 Note HNO ID: [id number] Author: Roberta Thomas (Rt) Lenin Service: ? Author Type: Consumer Marketing Manager Type: Progress Notes Filed: 06/07/2020 2:58 PM [...] RT Coral June 07, 2020 2:58 PM [facility] 06-04-2020 Note HNO ID: [id number] Author: Dragan Mohr Service: ? Author Type: Physician Type: Progress Notes Filed: 06/09/2020 3:00 PM Note Text: NAME: Sue Momin CLINIC NO.: [id number] DATE OF SERVICE: June 04, 2020 Referring [...] Value 06/04/2020 2 (more content not included)... [facility] 05-27-2020 Note HNO ID: [id number] Author: Ingrid Yoder (Principal Software Architect) Service: ? Author Type: ? Type: Plan [...] mg tablet Commonly known as: ALEXEY Yoder (Principal Software Architect) PAGER: nico May 27, 2020 4:54 PM [facility] 05-27-2020 Note HNO ID: [id number] Author: Cher Reese) JASMINE Augustine Service: Care Management Author Type: Registered Nurse Type: Care Mgt Progress Note Filed: 05/27/2020 2:19 PM Note Text: CARE MANAGEMENT DISCHARGE NOTE SERVICE DATE: 05/27/2020 SERVICE TIME: 2:18 PM LOS: 0 days Admission Date: 05/24/2020 DISCHARGE ARRANGEMENT (list agency and phone number) Discharge Arrangement: Home Shelter Care: PT TRANSPORTATION ARRANGEMENTS: Transportation Arrangements: Car Discharge Information Row Name Admission (Current) from 05/24/[address] [employer] [facility] [employer] [facility] [employer] Needed WC with elevated leg rest. Needs Prior to Discharge: Ready for Discharge Plan is d/c to home with [facility]. [employer] is delivering WC [facility] the [facility] room.. SIGNATURE: Cher Augustine RN PATIENT NAME: Sue Momin DATE: May 27, 2020 TIME: 2:18 PM PAGER/CONTACT #: [phone] [facility] 05-26-2020 Note HNO ID: [id number] Author: Monika Mcdaniel (Pac) Service: Orthopaedic Surgery Author Type: Physician Physician General Internal Medicine Type: Progress Notes Filed: 05/26/2020 10:14 AM Note Text: -- Attestation signed by Clay Ayala Jr. at 05/26/2020 12:28 PM Attending Note: Patient seen in conjunction with physician research assistant professor. Mcdonnell findings confirmed. Patient examined. Discussed with the Physician Physician General Internal Medicine and patient. Plan as outlined. Clay Ayala [...] Urine Trace 05/26/2020 Nitrites Negative 05/26/2020 Specific [place], Ur 1.028 05/26/2020 Protein, Urine Negative 05/26/2020 [...] SIGNED: Monika Mcdaniel PA-C 05/26/2020 10:10 AM [facility] 05-25-2020 Note HNO ID: [id number] Author: Cher VelazquezRn) JASMINE Augustine Service: Care Management Author Type: Registered Nurse Type: Care Mgt Initial Assessment Filed: 05/25/2020 3:01 PM Note Text: CARE MANAGEMENT: ASSESSMENT AND DISCHARGE PLAN SERVICE DATE: May 25, 2020 SERVICE TIME: 2:58 PM PRIMARY CARE PHYSICIAN: Alek Sherwood MD ADMISSION STATUS: Extended Recovery Needs Prior to Discharge: Equipment Delivery MEDICAL: BLUE ACCESS 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 Last discharge within 30 days: No Advance Directive: Current Advance Directive: None Superintendent Job Attempted to Assist with AD Completion: Yes [...] Walker Has the Patient Been in a Custodial Facility in the Past 30 days?: No [...] Completely I feel financially burdened by my [id number]-[id number] expenses for my prescription medication:: 0 - Disagree Completely Risk Score: 0 Patient is categorized as: Low risk < 2 Are you interested in bedside delivery of your medications? No Is Patient Psychosocially Complex?: No ASSESSMENT AND PLAN: Medical Needs: Psychosocial Needs: Psychosocial Needs: None FREEDOM OF CHOICE EXPLAINED: POTENTIAL TRANSITION PLANS Home Care Plan is d/c to home with [facility] and equip- and shower chair. Referrals initiated to [facility] and [facility]. to transport home. Pt has a walker currently. 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 Pt is toe touch wt bearing for the nxet 6 weeks. SIGNATURE: Cher Augustine RN PATIENT NAME: Sue Momin DATE: May 25, 2020 TIME: 2:58 PM PAGER/CONTACT #: [phone] [facility] 05-25-2020 Note HNO ID: [id number] Author: Reina Garg Service: Orthopaedic Surgery Author Type: Physician Physician General Internal Medicine Type: Progress Notes Filed: 05/25/2020 12:45 PM Note Text: Name: Sue Momin Date: May 25, 2020 POD# 1 s/p right percutaneous pinning by Dr. Ayala INTERVAL HPI and PERTINENT ROS: No events overnight. h/o DM and chronic anemia. Patient was transfused 1U PRBC pre op for H/H 6.05/13 Patient states pain is managed; she denies [...] Medicine recommendations SIGNATURE: Reina Garg PA-C Pager [phone] . [facility] 05-25-2020 Note HNO ID: [id number] Author: Clay Ayala Jr. Service: Orthopaedic Surgery [...] Clay Ayala Jr, MD 05/25/2020 7:36 AM [facility] 05-24-2020 Note HNO ID: [id number] Author: Lucy Spicer Service: ? Author Type: Nurse Managing Consultant Clinical Professor Type: Anesthesia Procedure Notes Filed: 05/24/2020 1:09 PM Note Text: ANESTHESIOLOGY PROCEDURE NOTE PIV General Information Procedure Start Time/Medication Administration: 05/24/2020 12:44 PM Patient Location: OR Staffing DOUBLE END TRIMMER: Lucy Spicer Performed by: NEDRA Preparation Sterility Preparation: hand hygiene performed prior to procedure Site Prep: Betadine and chlorhexidine Procedure Details Indication: need for IV access Needle Size/Type: 18 gauge angiocath Orientation: Left Location: Other (upper arm) Imaging Guidance Used: No SIGNATURE: Lucy Spicer APRN.CRNA PATIENT NAME: Sue Momin DATE: May 24, 2020 TIME: 1:09 PM CSN: [id number] [facility] 05-24-2020 Note HNO ID: [id number] Author: Lucy Spicer Service: ? Author Type: Nurse Managing Consultant Clinical Professor Type: Anesthesia Procedure Notes Filed: 05/24/2020 1:09 PM Note Text: ANESTHESIOLOGY PROCEDURE NOTE Airway General Information Procedure Start Time/Medication Administration: 05/24/2020 12:43 PM Patient location during procedure: OR Staffing DOUBLE END TRIMMER: Lucy Spicer Performed by: NEDRA Indications and Patient Condition Preoxygenated: yes Patient [...] May 24, 2020 TIME: 1:08 PM CSN: [id number] [facility] 05-19-2020 Note HNO ID: [id number] Author: Clay Ayala Jr. Service: ? Author [...] Questions were answered. Clay Ayala Jr, MD [facility] 05-19-2020 Note HNO ID: [id number] Author: Roberta Phelps (Rt) Service: ? Author Type: Consumer Marketing Manager Type: Progress Notes Filed: 05/19/2020 9:40 AM [...] RT Coral May 19, 2020 9:40 AM [facility] 05-12-2020 Note HNO ID: [id number] Author: Mani Dnulap (Pa) Service: ? 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 This she obtained on 04/28/2020 at [facility] in [place], [place]. She has been using a cane [...] though after reviewing the MRI done at [facility] on 04/28/2020, there is evidence of a [...] not healing. She is currently off work [employer] (more content not included)... [facility] 05-12-2020 Note HNO ID: [id number] Author: Melany Garcia (Rt) [place] Service: ? Author Type: Consumer Marketing Manager Type: Progress Notes Filed: 05/12/2020 9:44 AM [...] PERIPHERAL IV DATA: Not applicable SIGNED BY: Melany Arcos, RT May 12, 2020 9:43 AM [facility] Summary Purpose Family History No [...] section and content) DATE CREATED AUTHOR 04/30/2020 [facility] DATE CREATED AUTHOR AUTHOR'S ORGANIZ ATION 08/24/2020 [facility] DATE CREATED AUTHOR AUTHOR'S ORGANIZ ATION 08/25/2020 [facility] DATE CREATED AUTHOR AUTHOR'S ORGANIZ ATION 10/25/2020 [facility] DATE CREATED AUTHOR AUTHOR'S ORGANIZ ATION 03/20/2021 [facility] DATE CREATED AUTHOR AUTHOR'S ORGANIZ ATION 05/30/2022 [facility] DATE CREATED AUTHOR AUTHOR'S ORGANIZ ATION 05/11/2023 [facility] FOR RECORDS PERTAINING TO PATIENTS WHO ARE [...] BE BASED ON THE PRIMARY CLINICAL RECORDS. [facility]. provides no warranty or guarantee of the accuracy or completeness of information in this document.
[2023-10-01 07:11] LABS: Basophils Absolute Auto 0.1 10^3/uL (0.0-0.1); Basophils Percent Auto 0.7 % (0.2-2.0); Eosinophils Absolute Auto 0.2 10^3/uL (0.0-0.7); Eosinophils Percent Auto 3.4 % (0.9-7.0); Hematocrit 43.2 % (36.0-48.0); Hemoglobin 14.4 g/dL (12.0-16.0); Immature Granulocytes Abs Auto 0.03 10^3/uL (0.00-0.03); Immature Granulocytes Pct Auto 0.4 % (0.0-0.5); Lymphocytes Absolute Auto 2.3 10^3/uL (1.2-3.8); Lymphocytes Percent Auto 31.5 % (20.5-60.0); Mean Corpuscular HGB Conc 33.3 g/dL (29.9-35.2); Mean Corpuscular Hemoglobin 27.3 pg (26.7-34.0); Mean Corpuscular Volume 81.8 fL (81.0-99.0); Mean Platelet Volume 8.9 fL (9.5-13.5); Monocytes Absolute Auto 0.4 10^3/uL (0.3-0.8); Monocytes Percent Auto 5.5 % (1.7-12.0); Neutrophils Absolute Auto 4.2 10^3/uL (1.4-6.5); Neutrophils Percent Auto 58.5 % (43.0-75.0); Platelet Count 224 10^3/uL (150-450); Red Blood Count 5.28 10^6/uL (4.20-5.40); Red Cell Distribution Width 13.8 % (11.0-15.0); White Blood Count 7.2 10^3/uL (4.0-11.0)
[2023-10-01 07:26] LABS: Estimated Average Glucose 258 mg/dL; Glycohemoglobin A1C 10.6 % (4.5-6.2)
[2023-10-01 07:44] LABS: Alanine Aminotransferase 28 U/L (14-59); Albumin Globulin Ratio 0.9; Albumin Level 3.5 g/dL (3.4-5.0); Alkaline Phosphatase 45 U/L (46-116); Anion Gap 12.1; Aspartate Amino Transferase 10 U/L (15-37); BUN Creatinine Ratio 18.7; Bilirubin Direct 0.1 mg/dL (0.0-0.2); Bilirubin Total 0.6 mg/dL (0.2-1.0); Calcium 8.9 mg/dL (8.5-10.1); Carbon Dioxide 29.8 mmol/L (21.0-32.0); Chloride 101 mmol/L (98-107); Chol HDL Ratio 2.3; Cholesterol 91 mg/dL (<=200); Estimated GFR (African America >60 (>=60); Estimated GFR (Non-African Ame >60 (>=60); Globulin 3.9 g/dL; Glucose 279 mg/dL (74-106); HDL Cholesterol 39 mg/dL (40-60); Potassium 3.9 mmol/L (3.5-5.1); Sodium 139 mmol/L (136-145); Thyroid Stimulating Hormone 3.293 uIU/mL (0.358-3.740); Total Protein 7.4 g/dL (6.4-8.2); Triglycerides 91 mg/dL (<=150); VLDL CHOLESTEROL 18.2 mg/dL
[2023-10-02 16:15] LABS: Microalbumin Urine Random <1.3 mg/dL (<=30.0)
== END 2023-10-01 06:27 | disposition home or self-care (01) ==
LOC: LAB 06:27
PROVIDERS: Visit Provider Family Medicine
DX: Z00.00 Encounter for general adult medical examination without abnormal findings (principal); E11.65 Type 2 diabetes mellitus with hyperglycemia
CPT/HCPCS: 36415; 80048; 80061; 80076; 82043; 83036; 84443; 85025